=== PATIENT | male | born 1960 | race African-American/Black ===

== ENCOUNTER 2023-01-03 14:44 | Outpatient (AMB) | payer OTHER, SELFPAY ==
--- NOTE | 2023-01-03 15:08 | HO.SPINEOV ---
Intake Intake Visit Reasons: cervical radiculopathy Intake Note: Mr. Hernandez is here today c/o neck pain. MRI done @ [facility] 2021. Studio Associate Required: No Allergies No Known Allergies [No Known Allergies*] Allergy (Unverified 02/12/20 18:59) Assessment & Plan Assessment & Plan (1) Cervical radiculopathy due to degenerative joint disease of spine: Code(s): M47.22 - Other spondylosis with radiculopathy, cervical region Plan Dear colleague, On 01/03/2023, I saw for a return visit your patient Papo Hernandez for right arm pain and progressive right hand weakness. He was last seen at my previous practice at [facility] on 06/08/2022. I refer for detailed history physical exam and radiological description note of JYOTSNA Sun. In summary, he suffer from chronic progressive right arm pain and weakness. Physical exam shows weakness of the interossei the hand finger extensors with atrophy. We offered him a C7-T1 anterior diskectomy and fusion to decompress the right C8 nerve root. Today comes back in the office stating at the symptoms of further progressed and that he is ready for the surgery. I discussed the procedure, complications and expected postoperative course. He is aware that the goal of surgery is to resolve the pain and stabilize his weakness. He is tentatively scheduled for 02/22/2023. I spent 20 minutes to reviewed images with the patient and to discuss the plan of care. Antoine Scott MD, PhD Spine Fellowship Trained Neurosurgeon Director, [facility] Coding Level of Care Code Est Pt Level 3 (86520) Diagnoses Cervical radiculopathy due to degenerative joint disease of spine M47.22
== END 2023-01-03 15:43 | disposition home or self-care (01) ==
PROVIDERS: PCP Internal Medicine; Visit Provider Neurological Surgery
DX: M47.22 Other spondylosis with radiculopathy, cervical region (principal)
CPT/HCPCS: 99213

== ENCOUNTER → 2023-01-03 14:44 | Outpatient (BNVA) | payer OTHER, SELFPAY | PROVIDERS: PCP Internal Medicine; Visit Provider Neurological Surgery | DX: M47.22 Other spondylosis with radiculopathy, cervical region (principal) | CPT/HCPCS: 99212 ==

== ENCOUNTER 2023-02-22 09:19 | Day surgery (SDC) | payer OTHER, SELFPAY ==
--- NOTE | 2023-02-08 | ECG_ITS ---
Test Reason : preop Blood Pressure : / mmHG Vent. Rate : 059 BPM Atrial Rate : 059 BPM P-R Int : 148 ms QRS Dur : 080 ms QT Int : 394 ms P-R-T Axes : 067 022 022 degrees QTc Int : 390 ms Sinus bradycardia Nonspecific T wave abnormality Abnormal ECG When compared with ECG of 21-JUN-2015 15:47, Nonspecific T wave abnormality is now Present Referred By: Mili Vazquez Electronically Signed By:JUAN LUIS BARAJAS
[2023-02-08 12:02] VITALS: BP 141/90; PULSE 70; RESP 16; O2SAT 98; BMI 23.9
--- NOTE | 2023-02-08 12:47 | P.CONAN_ITS ---
Documented by User: Mili Vazquez NP 02/13/23 09:11 HPI - Anesthesia Eval Consult details Narrative: 62yo M for C7-T1 Ant Cerv Discectomy w/ fusion BALDEMAR with occ CPAP Chews tobacco QOD No recent illness No CP/SOB with >4 mets Last PCP office visit 12/2022, stable. Minor EKG changes vs artifact reviewed by Dr Valdez. Ok to proceed. PMFSH Active Problems Active Problems: All Active Problems (Updated 02/08/23 @ 12:38 by Anne-Marie Betancourt RN) Cervical radiculopathy due to degenerative joint disease of spine (Acute) Past Medical History Medical History Asthma Tinnitus of right ear Seasonal allergies Erectile dysfunction BALDEMAR (obstructive sleep apnea) Avascular necrosis of bone of hip Leukopenia Elevated LFTs Chewing tobacco use Hypertension Contracture of hand Benign essential tremor Idiopathic peripheral neuropathy Fatty liver Kidney disease GERD (gastroesophageal reflux disease) Cervical spondylosis Cervical radiculopathy Family History Family history of problems with anesthesia: No Surgical History Surgical History Hx of colonoscopy Hx of foot surgery History of total right hip replacement History of surgery on right wrist Hx of foot surgery History of surgery on arm Hx of appendectomy History of Problems with Anesthesia: No Social History Social History (Updated 02/08/23 @ 12:27 by Anne-Marie Betancourt RN) Are you a primary health care recruiter to a significant other at home: No Do you presently have visiting nurse or other home services: No Patient Tobacco Use Status: Never used Tobacco Use of substances other than those prescribed or required for medical reasons: No Have you been hit, kicked, punched, or otherwise hurt by someone within the past year? If so, by whom?: No Are you DNR?: No Advance Directives: No Advance Directives Information Provided: Yes Advance Directives on File: No Nutrition Risks: No Nutritional Risk Meds Allergies Allergy/AdvReac Type Severity Reaction Status Date / Time No Known Allergies Allergy Verified 02/22/23 10:21 [No Known Allergies*] Home Medications Medication Instructions Recorded Confirmed Last Taken Type acetaminophen 500 mg tablet 500 mg PO Q6-8H PRN Pain 02/07/23 02/08/23 Unknown History albuterol sulfate 90 mcg/actuation 2 puff inhalation Q4-6H PRN 02/07/23 02/08/23 Unknown History aerosol inhaler Shortness Of Breath Or Wheezing amlodipine 5 mg tablet 5 mg PO DAILY 02/07/23 02/07/23 Unknown History chlorhexidine gluconate 0.12 % PO 02/07/23 Unknown History mouthwash cyclobenzaprine 5 mg tablet 5 mg PO TID PRN Muscle Spasm 02/07/23 02/07/23 Unknown History loratadine 10 mg tablet 10 mg PO DAILY 02/07/23 02/08/23 Unknown History omeprazole 20 mg capsule,delayed 20 mg PO DAILY 02/07/23 02/07/23 Unknown History release peg 400-propylene glycol 0.4 %-0.3 1 drp ophthalmic (eye) DAILY 02/07/23 02/08/23 Unknown History % eye drops (Lubricant Eye (PG-PEG 400)) sildenafil 100 mg tablet PO PRN Sexual Activity 02/07/23 02/07/23 Unknown History cholecalciferol (vitamin D3) 25 25 mcg PO DAILY 02/08/23 02/08/23 Unknown History mcg (1,000 unit) capsule (Vitamin D3) liver extract cap PO 02/08/23 Unknown History phosphatidylcholine 1,200 mg cap PO 02/08/23 02/08/23 Unknown History capsule Exam Exam Date and Time: February 08, 2023 124 Height,Weight and Vital Signs: Height 5 ft 2 in Weight 59.4 kg Last Vital Signs Pulse 70 02/08/23 12:02 Resp 16 02/08/23 12:02 BP 141/90 H 02/08/23 12:02 Pulse Ox 98 02/08/23 12:02 O2 Del Method Room Air 02/08/23 12:02 Pertinent Lab Results Pertinent Lab Results: Lab Results 02/08/23 Range/Units 13:14 WBC 4.5 L (4.8-10.8) X10*3/uL RBC 4.78 (4.60-5.80) X10*6/uL Hgb 14.1 (14.0-18.0) g/dl Hct 41.6 L (42.0-52.0) % MCV 87.0 (80.0-98.0) fL MCH 29.5 (27.0-33.0) pg MCHC 33.9 (31.0-36.0) g/dl RDW 13.4 (11.0-16.0) % Plt Count 274 (160-400) X10*3/uL MPV 9.0 L (9.4-12.4) fL Absolute Nucleated RBC 0.000 (0.0-0.012) X10*3/uL Nucleated RBC % (auto) 0.0 (0.0-0.2) /100WBC Sodium 144 (135-145) mmol/L Potassium 4.4 (3.3-5.1) mmol/L Chloride 105 (96-108) mmol/L Carbon Dioxide 27 (22-29) mmol/L Anion Gap 16 (12-20) BUN 6 L (9-16) mg/dL Creatinine 1.07 (0.5-1.4) mg/dL Estim Creat Clear Calc 55.2 Estimated GFR > 60 Random Glucose 80 (60-115) mg/dL Calcium 9.6 (8.4-10.2) mg/dL Narrative Narrative: EKG 01/2023 Vent. Rate : 059 BPM Atrial Rate : 059 BPM P-R Int : 148 ms QRS Dur : 080 ms QT Int : 394 ms P-R-T Axes : 067 022 022 degrees QTc Int : 390 ms Sinus bradycardia Nonspecific T wave abnormality Abnormal ECG When compared with ECG of 21-JUN-2015 15:47, Nonspecific T wave abnormality is now Present Airway Mallampati Class: II TM Dist: >3cm Neck ROM: Full Partial: Lower Loose/Missing/Broken Teeth: Yes (Upper left molar broken and awaiting crown, Right lower mild loose) Heart: RRR Lungs: CTAB Assessment and Plan Assessment Anesthesia Assessment: Anesthesia Plan Discussed, Smoking Cess. Discussed (Chew) and PAT Visit Final Anesthetic Review Family History of Problems with Anesthesia: No History of Problems with Anesthesia: No Documented by User: Ruslan Malave MD 02/22/23 11:50 [facility] Past Medical History Medical History Asthma Tinnitus of right ear Seasonal allergies Erectile dysfunction BALDEMAR (obstructive sleep apnea) Avascular necrosis of bone of hip Leukopenia Elevated LFTs Chewing tobacco use Hypertension Contracture of hand Benign essential tremor Idiopathic peripheral neuropathy Fatty liver Kidney disease GERD (gastroesophageal reflux disease) Cervical spondylosis Cervical radiculopathy Surgical History Surgical History Hx of colonoscopy Hx of foot surgery History of total right hip replacement History of surgery on right wrist Hx of foot surgery History of surgery on arm Hx of appendectomy Social History Social History (Updated 02/08/23 @ 12:27 by Anne-Marie Betancourt RN) Are you a primary health care recruiter to a significant other at home: No Do you presently have visiting nurse or other home services: No Patient Tobacco Use Status: Never used Tobacco Use of substances other than those prescribed or required for medical reasons: No Have you been hit, kicked, punched, or otherwise hurt by someone within the past year? If so, by whom?: No Are you DNR?: No Advance Directives: No Advance Directives Information Provided: Yes Advance Directives on File: No Nutrition Risks: No Nutritional Risk Meds Allergies Allergy/AdvReac Type Severity Reaction Status Date / Time No Known Allergies Allergy Verified 02/22/23 10:21 [No Known Allergies*] Home Medications Medication Instructions Recorded Confirmed Last Taken Type acetaminophen 500 mg tablet 500 mg PO Q6-8H PRN Pain 02/07/23 02/08/23 Unknown History albuterol sulfate 90 mcg/actuation 2 puff inhalation Q4-6H PRN 02/07/23 02/08/23 Unknown History aerosol inhaler Shortness Of Breath Or Wheezing amlodipine 5 mg tablet 5 mg PO DAILY 02/07/23 02/07/23 Unknown History chlorhexidine gluconate 0.12 % PO 02/07/23 Unknown History mouthwash cyclobenzaprine 5 mg tablet 5 mg PO TID PRN Muscle Spasm 02/07/23 02/07/23 Unknown History loratadine 10 mg tablet 10 mg PO DAILY 02/07/23 02/08/23 Unknown History omeprazole 20 mg capsule,delayed 20 mg PO DAILY 02/07/23 02/07/23 Unknown History release peg 400-propylene glycol 0.4 %-0.3 1 p ophthalmic (eye) DAILY 02/07/23 02/08/23 Unknown History % eye drops (Lubricant Eye (PG-PEG 400)) sildenafil 100 mg tablet PO PRN Sexual Activity 02/07/23 02/07/23 Unknown History cholecalciferol (vitamin D3) 25 25 mcg PO DAILY 02/08/23 02/08/23 Unknown History mcg (1,000 unit) capsule (Vitamin D3) liver extract cap PO 02/08/23 Unknown History phosphatidylcholine 1,200 mg cap PO 02/08/23 02/08/23 Unknown History capsule Assessment and Plan Final Anesthetic Review ASA Class: II Final Preanesthetic Review: No Changes in Pt Med Stat, Meds/Allgs Chart Reviewed, Consent Obtained/Reviewed and Anes Risks/Benef Reviewed Patient Risk: Intermediate Procedure Risk: Intermediate Anesthetic Plan Anesthetic Plan: GA and Agree w/ Assess. and Plan Disposition: Standard PACU
[2023-02-08 13:32] LABS: Hematocrit 41.6 % (42.0-52.0); Hemoglobin 14.1 g/dl (14.0-18.0); Mean Corpuscular HGB Conc 33.9 g/dl (31.0-36.0); Mean Corpuscular Hemoglobin 29.5 pg (27.0-33.0); Platelet Count 274 X10*3/uL (160-400); Red Blood Count 4.78 X10*6/uL (4.60-5.80); Red Cell Distribution Width 13.4 % (11.0-16.0); White Blood Count 4.5 X10*3/uL (4.8-10.8)
[2023-02-08 14:03] LABS: Anion Gap 16 (12-20); Blood Urea Nitrogen 6 mg/dL (9-16); Calcium 9.6 mg/dL (8.4-10.2); Carbon Dioxide 27 mmol/L (22-29); Chloride 105 mmol/L (96-108); Creatinine Clr Calc Pharmacy 55.2; Estimated Glomerular Filt Rate > 60; Glucose Random 80 mg/dL (60-115); Potassium 4.4 mmol/L (3.3-5.1); Sodium 144 mmol/L (135-145)
[2023-02-22] VITALS (8 sets, daily range): BP systolic 138–152; BP diastolic 83–94; PULSE 86–92; RESP 15–20; TEMP 36.6–37; O2SAT 97–100
--- NOTE | ~2023-02-22 | FL_ITS ---
EXAMINATION: XR FLUOROSCOPY WITH IMAGES CLINICAL INFORMATION: Anterior cervical disc with fusion C7-T1. COMPARISON: None available. TECHNIQUE: Fluoroscopy Supervised By: Dr. Antoine Soctt. Fluoroscopy Time: 0.0 minutes. Cumulative Dose: 2.46 mGy. DAP: 0.455 Gycm2. Images: 2. FINDINGS: Fluoroscopy guidance for ACDF at C7-T1. Multilevel degenerative spondylosis from C2-C3 to see C6-C7. Disc space narrowing at C6-C7. Loss of vertebral body height from C3 to C6. FL/FL guidance in OR IMPRESSION: Fluoroscopy guidance for ACDF at C7-T1.
--- NOTE | 2023-02-22 07:04 | MHC.SHP ---
Pre-Procedural Eval Section A Date of Service: 02/22/23 Section B Chief Complaint: Other spondylosis with radiculopathy, cervical reg Allergies: Allergies Allergy/AdvReac Type Severity Reaction Status Date / Time No Known Allergies Allergy Verified 02/08/23 11:57 [No Known Allergies*] Review of Systems Sugical H&P ROS: Negative: Constitution, Cardiovascular, Respiratory, Neurological, Psychiatric, Hem-Onc, Allergic/Immunologic, Gastrointestinal, Genitourinary, Musculoskeletal, Integumentary, Endocrine and Eyes/Ears/Nose/Throat Exam Surgical H&P Exam: Not Evaluated: HEENT, Not Evaluated: Heart, Not Evaluated: Lungs, Not Evaluated: Extremities, Not Evaluated: Abdomen, Not Evaluated: Skin and Not Evaluated: Neurological Plan Diagnosis/Plan: Unchanged I have reviewed the history and physical and performed a pertinent physical examination on my patient. No changes have occurred unless specified. PLAN REMAINS THE SAME C7-T1 ACDF Time Spent With Patient Time: Total time managing care of this patient today __10__ minutes.
[2023-02-22] MEDS: methocarbamoL 750 MG TABLET PO (10:34)
[2023-02-22] MEDS: Gabapentin 300 MG CAPSULE PO (10:35)
[2023-02-22] MEDS: Lactated Ringers 1,000 ML 100 ML IVCONT (10:54)
--- NOTE | 2023-02-22 15:24 | W.PM.OPN ---
Operative Note Operative Note Date of Service: 02/22/23 Narrative: templated this idea if
--- NOTE | 2023-02-22 15:26 | W.PM.OPN ---
Operative Note Operative Note Date of Service: 02/22/23 Narrative: Preoperative Diagnosis: Bilateral hand weakness and atrophy, right more than left Procedure: [id number] discectomy, arthrodesis and implantation cage ; C7-T1 anterior instrumentation ; local autograft; microscope Informed Consent was obtained for this operation. I have explained the nature, purpose and benefits of the operation. I have discussed the risks and benefit of the operation including possible complications or adverse events with patient/family. Alternative(s) were discussed with the patient with their relative benefits and risks as well as the consequences of not accepting the operation were included in obtaining consent. Surgeon: DOYLE SANTA MD, PHD Procedure Assisted By: [] Description of Procedure: This 62-year-old male is suffering from bilateral hand weakness and atrophy, with the right side more affected than the left side. The MRI shows multilevel degenerative cervical disc disease but more importantly there is severe bilateral C8 foraminal stenosis. He was offered an anterior diskectomy and fusion of the C7-T1 level to decompress the bilateral C8 nerve roots. The procedure complications were explained. The patient was consented. The patient was brought to the operating room and endotracheally intubated. The patient was put in supine position with slight extension of the neck. Prep and drape was done followed by timeout. A mid cervical incision was made followed by opening of the platysma. The prevertebral fascia was reached following the natural planes while the physician assistant construction superintendent provided manual retraction. The prevertebral fascia was opened to expose the disc space. A spinal needle was placed in the disk space to confirm the correct level with xray. The longus colli muscles were released bilaterally and a self retaining retractor was inserted. Two Gadsden pins were placed in the C7-T1 vertebral bodies and distraction was give over the interspace. The discectomy was completed toward the posterior annulus of the disc. The microscope was brought in. The remainder of the discectomy was completed. The posterior ligament was opened and resected to expose the underlying dura. Osteophytes were resected from the body of C7 and T1 and saved for autograft. Severe foraminal stenosis was relieved with a bilateral foraminotomy The endplates were prepared after which a 6 mm cage filled with autograft was inserted into the disc space. A separate attached plate was locked down with 2 x 14 mm screws as anterior instrumentation. Final x-rays in AP and lateral projection showed a satisfactory position of the implant. The physician assistant construction superintendent took over. The Gadsden pin was removed. Hemostasis was done. He closed the incision in 2 layers with a 3-0 Vicryl. Steri-Strips used to approximate incision. An OpSite with Tegaderm was used to cover the incision. All sponge and needle counts were correct. Patient was extubated and transported in stable is to recovery room. Anesthesia: General Estimated Blood Loss (ml): 20 mL Duration of Surgery: 2 hours Postoperative Plan: Discharge home Complications: None
--- NOTE | 2023-02-22 15:32 | P.DS_ITS ---
DS: Providers Provider Date of Service: 02/22/23 Primary care physician: Yany Garcia MD DS: Summary Time Spent with Patient Time attestation: Total time managing care of this patient today ____ minutes. Discharge coordination time: Less than 30 minutes Quality: Safe Use of Opioids Does Pt have an Active Cancer Diagnosis on the Problem List?: No Quality: Stroke Does the patient have a stroke diagnosis?: No Physical Exam Vital Signs: Vital Signs: Last Vital Signs Temp 98.6 F 02/22/23 10:21 Pulse 89 02/22/23 10:21 Resp 15 02/22/23 10:21 BP 144/88 H 02/22/23 10:21 Pulse Ox 97 02/22/23 10:21 O2 Del Method Room Air 02/22/23 10:21 BMI result Body Mass Index 23.9 DS: Data Data Completed and Pending Labs on day of discharge: Laboratory Results - last 24 hr 02/22/23 10:27 Blood Type O Positive Antibody Screen NEGATIVE Discharge Plan Discharge Patient Disposition: Home, Self-Care Referrals: Yany Garcia MD [Primary Care Provider] - 1 Week Discharge Medications: New oxycodone 5 mg tablet 5 mg PO Q6-8H PRN (Reason: severe pain (scale score 7-10)) Qty: 21 0RF Rx Instructions: Partial Fill upon patient request. docusate sodium 100 mg capsule 100 mg PO BID Qty: 20 0RF Continued amlodipine 5 mg tablet 5 mg PO DAILY acetaminophen 500 mg tablet 500 mg PO Q6-8H PRN (Reason: Pain) omeprazole 20 mg capsule,delayed release(DR/EC) 20 mg PO DAILY albuterol sulfate 90 mcg/actuation HFA aerosol inhaler 2 puff inhalation Q4-6H PRN (Reason: Shortness Of Breath Or Wheezing) loratadine 10 mg tablet 10 mg PO DAILY cyclobenzaprine 5 mg tablet 5 mg PO TID PRN (Reason: Muscle Spasm) Lubricant Eye (PG-PEG 400) 0.4-0.3 % drops 1 drp ophthalmic (eye) DAILY chlorhexidine gluconate 0.12 % mouthwash PO cholecalciferol (vitamin D3) [Vitamin D3] 25 mcg (1,000 unit) Capsule 25 mcg PO DAILY Held sildenafil 100 mg tablet PO PRN (Reason: Sexual Activity) Hold Instructions: Resume on 02/25/23. Discontinued phosphatidylcholine 1,200 mg Capsule PO liver extract Capsule PO Discharge Orders: Discharge Order (Routine); Ordered 02/22/23 Ordered By: Omar Anthony Diet: Advance to usual diet Activity on Discharge: As tolerated Activity Restrictions/Additional Instructions: After your spinal surgery we ask you to observe the following restrictions/guidelines: Activity: It is normal to feel some discomfort as you increase your activity, but that will improve with time. We ask you avoid heavy lifting or acitivities that cause pain. As a general rule, 8lbs is a safe limit for lifting right after surgery. Walk as much as you feel comfortable but not to exhaustion. You will feel extra tired the first few days after surgery. Stay well hydrated. It is OK to walk up and down stairs You may return to driving when you are off narcotics (such as vicodin, oxycodone , dilaudid, etc), and you are back to normal functional capacity. If you have any concerns please check with office before driving. Return to work is specific to each patient and each surgery, so please speak with your doctor/PA at first follow up. Please bring paperwork such as FMLA at that time if you need it filled out. Medications: We will give you a short supply of narcotics after surgery (usually one weeks worth). If you need more please call the office but do not use more than prescribed. You will need to give our office 48 hours notice if you need narcotics refilled and we do not fill narcotics on weekends or evenings. If you are on a narcotic, it is a good idea to take a stool softener such as colace or senna to avoid constipation If you take blood thinner such as aspirin, Plavix, Coumadin, Effient, Eliquis etc for conditions such as Afib, DVT, Pulmonary embolus, coronary disease, stents etc please speak with your surgeon about specific details as to when you can resume these medications. You can resume NSAIDs on post op day 1 (eg: Motrin, Naproxen, etc). Follow up: Please call the office, , after surgery to arrange a 3 week follow up for wound check. Wound Care: You may remove your dressing on the first day after surgery. ?You may ?leave open to air. Please do not remove the steri strips underneath. they will fall off on their own in one week. IT IS NORMAL FOR THE WOUND TO OOZE OR BE BLOODY FOR A FEW DAYS AFTER SURGERY. ?IF THIS HAPPENS JUST PLACE NEW DRESSING OVER IT TO AVOID STAINING CLOTHES. You may shower on post op day # 1 We ask that you do not let the water soak the wound. If it does get wet, just towel dry lightly. Please do not scrub your incision or place any type of chemical/ointment on the wound. No tub baths, pools or jacuzzis for one month. If you have any leaking or redness from your wound, or fevers, please call the office.
== END 2023-02-22 17:20 | disposition home or self-care (01) ==
PROVIDERS: Nurse Practitioner; PCP Internal Medicine; Visit Provider Neurological Surgery
PROC: (CPT 22551; principal; 2023-02-22 11:50)
DX: M47.22 Other spondylosis with radiculopathy, cervical region (principal); R53.1 Weakness; M62.542 Muscle wasting and atrophy, not elsewhere classified, left hand; M62.541 Muscle wasting and atrophy, not elsewhere classified, right hand; M24.549 Contracture, unspecified hand; M87.059 Idiopathic aseptic necrosis of unspecified femur; I12.9 Hypertensive chronic kidney disease with stage 1 through stage 4 chronic kidney disease, or unspecified chronic kidney disease; N18.2 Chronic kidney disease, stage 2 (mild); G60.9 Hereditary and idiopathic neuropathy, unspecified; G25.0 Essential tremor; K76.0 Fatty (change of) liver, not elsewhere classified; G47.33 Obstructive sleep apnea (adult) (pediatric); J30.9 Allergic rhinitis, unspecified; F10.90 Alcohol use, unspecified, uncomplicated; Z99.89 Dependence on other enabling machines and devices; Z79.899 Other long term (current) drug therapy; Z98.890 Other specified postprocedural states
CPT/HCPCS: 22551; 22853; 20936; 22845; 36415; 80048; 85027; 86850; 86900; 86901; 93005; C1713; J0131; J0690; J1100; J1885; J2371; J2405

== ENCOUNTER → 2023-02-22 09:19 | Outpatient (BNV) | payer OTHER, SELFPAY | PROVIDERS: PCP Internal Medicine; Visit Provider Neurological Surgery | DX: M47.22 Other spondylosis with radiculopathy, cervical region (principal) | CPT/HCPCS: 20936; 22551; 22845; 22853; 99499 ==

== ENCOUNTER 2023-03-14 09:11 | Outpatient (REF) | payer OTHER, SELFPAY | END 2023-03-14 09:12 | disposition home or self-care (01) | LOC: HO.HOSX 09:11 | PROVIDERS: PCP Internal Medicine; Visit Provider Physician Assistant | DX: Z13.89 Encounter for screening for other disorder (principal) ==

== ENCOUNTER 2023-03-14 09:11 | Outpatient (AMB) | payer OTHER, SELFPAY ==
--- NOTE | 2023-03-14 09:13 | MHC.OFFVIS ---
Intake Intake Visit Reasons: 1st post op Intake Note: Pt here for his 1st post op Harness Rigger Required: No Allergies No Known Allergies [No Known Allergies*] Allergy (Verified 02/22/23 10:21) [facility] Medical History Asthma Tinnitus of right ear Seasonal allergies Erectile dysfunction BALDEMAR (obstructive sleep apnea) Avascular necrosis of bone of hip Leukopenia Elevated LFTs Chewing tobacco use Hypertension Contracture of hand Benign essential tremor Idiopathic peripheral neuropathy Fatty liver Kidney disease GERD (gastroesophageal reflux disease) Cervical spondylosis Cervical radiculopathy Surgical History (Updated 03/14/23 @ 09:31 by JYOTSNA Montalvo) Hx of colonoscopy Hx of foot surgery History of total right hip replacement History of surgery on right wrist Hx of foot surgery History of surgery on arm Hx of appendectomy Social History (Updated 02/08/23 @ 12:27 by Anne-Marie Betancourt RN) Are you a primary adult care manager to a significant other at home: No Do you presently have visiting nurse or other home services: No Patient Tobacco Use Status: Never used Tobacco Assessment & Plan Assessment & Plan (1) S/P cervical spinal fusion: Code(s): Z98.1 - Arthrodesis status Plan Procedure: C7-T1 ACDF Papo comes in today for her 1st postoperative visit. He reports he is very satisfied with the surgery and feels much better than he did pre-operatively. The patient reports he is completing the majority of his ADLs. He reports that he no longer suffers from his left-sided shooting radiculopathy. He also reports modest improvement of R hand strength. He reports no R sided pain, but does state that he has some intermittent left sided posterior neck pain. He was encouraged that this will likely self resolve and is a common symptom for this surgery. We further discussed the ACDF procedure and what exactly was done during the surgery. Full strength of LUE, RUE still 4/5. Mobility is intact. Sensation grossly intact. Patient is able to ambulate well, rises from a seated position without difficulty. Incision site is closed, well healing, with no signs of drainage. We will follow-up with the patient in 6 weeks for his 2nd postoperative visit. At that time we will get x-rays to review with the patient. Omar Scott MD,PhD [facility] Coding Level of Care Code Global (32888) Diagnoses S/P cervical spinal fusion Z98.1
== END 2023-03-14 09:26 | disposition home or self-care (01) ==
PROVIDERS: PCP Internal Medicine; Visit Provider Physician Assistant
DX: Z98.1 Arthrodesis status (principal)
CPT/HCPCS: 99024

== ENCOUNTER 2023-04-25 10:21 | Outpatient (AMB) | payer OTHER, SELFPAY ==
--- NOTE | 2023-04-25 10:40 | A.OFFVIS_ITS ---
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: No Allergies No Known Allergies [No Known Allergies*] Allergy (Verified 02/22/23 10:21) PFSH Medical History Asthma Tinnitus of right ear Seasonal allergies Erectile dysfunction BALDEMAR (obstructive sleep apnea) Avascular necrosis of bone of hip Leukopenia Elevated LFTs Chewing tobacco use Hypertension Contracture of hand Benign essential tremor Idiopathic peripheral neuropathy Fatty liver Kidney disease GERD (gastroesophageal reflux disease) Cervical spondylosis Cervical radiculopathy Surgical History (Updated 03/14/23 @ 09:31 by JYOTSNA Montalvo) Hx of colonoscopy Hx of foot surgery History of total right hip replacement History of surgery on right wrist Hx of foot surgery History of surgery on arm Hx of appendectomy Social History (Updated 02/08/23 @ 12:27 by Anne-Marie Betancourt RN) Are you a primary healthcare customer service to a significant other at home: No Do you presently have visiting nurse or other home services: No Patient Tobacco Use Status: Never used Tobacco Assessment & Plan Assessment & Plan (1) S/P cervical spinal fusion: Code(s): Z98.1 - Arthrodesis status Plan Procedure: C7-T1 ACDF Papo comes in today for his 2nd postoperative visit. He continues to do well and reports resolution of all radicular symptoms. He does still complain of some discomfort in his posterior neck but states overall it is much better than last time that he saw us. He states that his primary care physician is going to be referring him to a hand specialist for the contractured is in his hand. He reports that he still has decreased functionality of his right hand but he believes this to be due to a muscular issue. We reviewed his x-rays and compared them to his intraoperative x-rays. Instrumentation remains in place with no changes. No neurological deficits. Patient is able to ambulate well, rises from a seated position without difficulty. Incision site is closed and well healed. Papo may follow-up on an as-needed basis going forward. He may be discharged as a patient at this time. Omar Scott MD,PhD [facility] Coding Level of Care Code Global (92133) Diagnoses S/P cervical spinal fusion Z98.1
== END 2023-04-25 11:21 | disposition home or self-care (01) ==
PROVIDERS: PCP Internal Medicine; Visit Provider Physician Assistant
DX: Z98.1 Arthrodesis status (principal)
CPT/HCPCS: 99024

== ENCOUNTER → 2023-04-25 10:21 | Outpatient (BNVA) | payer OTHER, SELFPAY | PROVIDERS: PCP Internal Medicine; Visit Provider Physician Assistant ==

== ENCOUNTER 2023-04-25 10:26 | Outpatient (REF) | payer OTHER, SELFPAY ==
--- NOTE | ~2023-04-25 | XR_ITS ---
EXAMINATION: XR CERVICAL SPINE CLINICAL INFORMATION: Arthrodesis. COMPARISON: None available. TECHNIQUE: AP and lateral (neutral, flexion and extension) views of the cervical spine were obtained. FINDINGS: There is a moderate cervical thoracic levoscoliosis. There is are mild C3 and C5 anterior wedge compression fractures. There has been a prior anterior fusion C7-T1, with intact Low Profile device. No hardware failure or loosening is seen. There is no acute fracture or spondylolisthesis. No instability is seen with flexion or extension. There is multi-level spondylosis. The dens is intact. No prevertebral soft tissue swelling is seen. XR/XR cervical spine 4V IMPRESSION: There is well-maintained alignment status-post C7-T1 anterior fusion. No hardware failure or loosening is seen. There is no instability with flexion or extension.
== END 2023-04-25 10:27 | disposition home or self-care (01) ==
LOC: HO.HOSX 10:26
PROVIDERS: Visit Provider Physician Assistant
DX: Z98.1 Arthrodesis status (principal)
CPT/HCPCS: 72050

== ENCOUNTER 2024-01-07 08:26 | Outpatient (REF) | payer OTHER, SELFPAY ==
--- NOTE | ~2024-01-07 | XR_ITS ---
EXAMINATION: XR PELVIS CLINICAL INFORMATION: Pain. COMPARISON: Prior radiographs, most recently 07/02/2018 TECHNIQUE: AP view of the pelvis. FINDINGS: Prosthetic components of the right total hip arthroplasty are appropriately aligned. No periprosthetic fracture. The left acetabular joint space is well-maintained, and the left femoral head is smooth. The pubic symphysis is intact. There are multiple pelvic phleboliths. There are extensive bilateral iliofemoral atherosclerotic calcifications. XR/XR pelvis 1-2V IMPRESSION: 1. There is an intact right hip total arthroplasty. 2. The left acetabular joint space is well-maintained. Electronically signed by: Marcos Salter MD 02/05/2024 08:19 PM EDT RP
== END 2024-01-07 08:27 | disposition home or self-care (01) ==
LOC: HO.HOSX 08:26
PROVIDERS: Visit Provider Orthopaedic Surgery
DX: M25.551 Pain in right hip (principal); Z96.641 Presence of right artificial hip joint
CPT/HCPCS: 72170; 99202

== ENCOUNTER 2024-01-07 11:12 | Outpatient (AMB) | payer OTHER, SELFPAY ==
--- NOTE | 2024-01-07 11:20 | MHC.OFFVIS ---
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 Patient reports that he has had ongoing right hip pain for about 3-4 months now. Pain is felt in the lateral aspect of the right hip. He feels pain all the time, worse with walking. He does not take anything for his pain. 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 Patient reports that he has had ongoing right hip pain for about 3-4 months now. Pain is felt in the lateral aspect of the right hip. He feels pain all the time, worse with walking. He does not take anything for his pain. Has not previous treatments. [facility] Medical History Asthma Tinnitus of right ear Seasonal allergies Erectile dysfunction BALDEMAR (obstructive sleep apnea) Avascular necrosis of bone of hip Leukopenia Elevated LFTs Chewing tobacco use Hypertension Contracture of hand Benign essential tremor Idiopathic peripheral neuropathy Fatty liver Kidney disease GERD (gastroesophageal reflux disease) Cervical spondylosis Cervical radiculopathy Surgical History (Updated 01/07/24 @ 12:34 by Wm Pichardo MD) Hx of colonoscopy Hx of foot surgery History of total right hip replacement History of surgery on right wrist Hx of foot surgery History of surgery on arm Hx of appendectomy Social History (Updated 02/08/23 @ 12:27 by Anne-Marie Betancourt RN) Are you a primary direct care professional to a significant other at home: No Do you presently have visiting nurse or other home services: No Patient Tobacco Use Status: Never used Tobacco Physical Exam Vital Signs: BMI result Body Mass Index 23.0 Extrem Other: moderate Trendelenberg gait with negative Trendelenberg sign. No groin pain with passive ROM right hip. Results Reviewed Results Reviewed: I personally reviewed relevant radiographs. Right FRANCESCO in expected post operative position with no hardware complications or evidence of loosening. No change compared to prior. Assessment & Plan Assessment & Plan (1) History of total right hip replacement: Code(s): Z96.641 - Presence of right artificial hip joint Category: Surgical Plan: Right hip arthroplasty in expected post operative position, no evidence of loosening. Instructed on strengthening exercises. No additional orthopedic intervention warranted. Orders: Orders XR pelvis 1-2V Today M25.559 - Pain in unspecified hip Coding Level of Care Code New Pt Level 3 (58725) Diagnoses History of total right hip replacement Z96.641
[2024-01-07 11:24] VITALS: BMI 23.0
== END 2024-01-07 11:43 | disposition home or self-care (01) ==
PROVIDERS: PCP Internal Medicine; Visit Provider Orthopaedic Surgery
DX: M25.551 Pain in right hip (principal); Z96.641 Presence of right artificial hip joint
CPT/HCPCS: 99203

== ENCOUNTER 2024-03-31 10:32 | Outpatient (AMB) | payer OTHER, SELFPAY ==
[2024-03-31 10:37] VITALS: BP 138/82; PULSE 76; O2SAT 99; BMI 23.6
--- NOTE | 2024-03-31 10:37 | A.OFFVIS_ITS ---
Vital Signs 03/31/24 10:37 Height 5 ft 2 in Weight 128 lb 15.527 oz BMI 23.6 BP 138/82 Blood Pressure Location Rt brachial Position Sitting Pulse 76 Pulse Source Doppler Pulse Oximetry (%) 99 Oxygen Delivery Method Room Air Intake Visit Reasons: Obstructive sleep apnea Allergies No Known Allergies [No Known Allergies*] Allergy (Verified 03/31/24 10:42) HPI HPI Obstructive sleep apnea: Details: 63-year-old gentleman nonsmoker with underlying history of [id number] obstructive sleep apnea with last sleep study in 2014, now with a broken CPAP machine who is interested in continuing his CPAP therapy. Patient is also complain of year around environmental allergies with significant postnasal drip with poor response to loratadine. [facility] Medical History (Updated 03/31/24 @ 10:53 by Catracho Jo MD) Asthma Tinnitus of right ear Seasonal allergies Erectile dysfunction BALDEMAR (obstructive sleep apnea) Avascular necrosis of bone of hip Leukopenia Elevated LFTs Chewing tobacco use Hypertension Contracture of hand Benign essential tremor Idiopathic peripheral neuropathy Fatty liver Kidney disease GERD (gastroesophageal reflux disease) Cervical spondylosis Cervical radiculopathy Surgical History (Updated 01/07/24 @ 12:34 by Wm Pichardo MD) Hx of colonoscopy Hx of foot surgery History of total right hip replacement History of surgery on right wrist Hx of foot surgery History of surgery on arm Hx of appendectomy Social History Are you a primary critical care unit manager to a significant other at home: No Do you presently have visiting nurse or other home services: No Patient Tobacco Use Status: Never used Tobacco Review of Systems Const Reports daytime sleepiness, Denies excessive sweating, Denies fatigue, Denies fever(s), Reports lethargy, Denies malaise, Denies night sweats, Denies snoring and Denies weight loss Eyes Denies blurry vision and Denies itchy eyes ENT Reports nasal congestion, Reports post nasal drip, Denies sinus pain, Denies sinus pressure and Denies other ( Thrush) Card Denies chest pain, Denies pedal edema, Denies dyspnea, Denies orthopnea and Denies paroxysmal nocturnal dyspnea Resp Denies cough, Denies hemoptysis, Denies excessive phlegm production, Denies dyspnea, Denies snoring and Denies wheezing GI Denies abdominal pain and Denies heartburn Musc Denies myalgias, Denies arthralgias and Denies joint swelling Skin/Breast Denies rash Neuro Denies memory loss and Denies seizure-like activity Psych Denies abnormal sleep pattern, Denies anxiety and Denies memory loss Endo Denies excessive sweating, Denies fatigue and Denies heat intolerance Akira/Lymph Denies easy bruising Aller/Immun Denies itchy eyes, Denies seasonal rhinorrhea and Denies wheezing Physical Exam Vital Signs: Last Vital Signs Pulse 76 03/31/24 10:37 BP 138/82 03/31/24 10:37 Pulse Ox 99 03/31/24 10:37 Oxygen Delivery Method Room Air 03/31/24 10:37 BMI result Body Mass Index 23.6 Const General: no acute distress and alert Nutritional Appearance: not obese Orientation/consciousness: Other orientation findings ( oriented) HEENT Head: Yes atraumatic Eyes General: appearance normal, both eyes and all related structures Sclerae: sclerae normal EOM: EOMs intact bilaterally Neck Neck: Yes supple Lymphatic: no lymphadenopathy noted Resp Effort & Inspection: normal respiratory effort and no use of accessory muscles Auscultation: clear to auscultation bilaterally Cardio Rate: regular rate Rhythm: regular rhythm Heart sounds: no gallops, no murmurs and no rubs Skin General skin exam: other ( warm) Extrem General: No clubbing, No cyanosis and No edema Assessment & Plan Assessment & Plan (1) BALDEMAR (obstructive sleep apnea): Code(s): G47.33 - Obstructive sleep apnea (adult) (pediatric) Category: Medical Plan: Underlying obstructive sleep apnea with remote sleep study and also needs new machine. Will obtain new home sleep study. Muir Sleepiness Scale score of 15. (2) Environmental allergies: Code(s): Z91.09 - Other allergy status, other than to drugs and biological substances Category: Medical Plan: Underlying year-round environmental allergies with poor response to loratadine, will start on nasal ipratropium. Orders: Orders RT home sleep study Today G47.33 - Obstructive sleep apnea (adult) (pediatric) Medications: New ipratropium bromide administer into each nostril 2 sprays intranasal TID-QID PRN 15 mL 3RF allergy symptoms Z91.09 - Other allergy status, other than to drugs and biological substances Coding Level of Care Code New Pt Level 4 (85930) Diagnoses BALDEMAR (obstructive sleep apnea) G47.33 Environmental allergies Z91.09
== END 2024-03-31 10:56 | disposition home or self-care (01) ==
LOC: HO.HPS 10:32
PROVIDERS: PCP Internal Medicine; Visit Provider Internal Medicine Pulmonary Disease
DX: G47.33 Obstructive sleep apnea (adult) (pediatric) (principal); Z91.09 Other allergy status, other than to drugs and biological substances
CPT/HCPCS: 99204

== ENCOUNTER → 2024-03-31 10:32 | Outpatient (BNVA) | payer OTHER, SELFPAY | PROVIDERS: PCP Internal Medicine; Visit Provider Internal Medicine Pulmonary Disease | DX: G47.33 Obstructive sleep apnea (adult) (pediatric) (principal); Z91.09 Other allergy status, other than to drugs and biological substances | CPT/HCPCS: 99202 ==

== ENCOUNTER → 2024-05-07 10:45 | Outpatient (REF) | payer OTHER, SELFPAY ==
--- OUTSIDE RECORDS SUMMARY | 2024-05-08 01:03 | XMS_ITS | Continuity of Care Document ---
Author Name [facility] Organization [facility] Care Team Providers Care Fuel Injection Servicer Name Role Phone [facility] Unavailable Unavailable Problems Combined list of problems from Department of Defense and Veterans Affairs facilities. It does not include entries that were removed or entered in error. Problem Status Onset Date Problem Type Date of Resolution Comments Source tingling (paresthesia) Active Condition DoD joint pain, localized in the knee Active Condition [facility] male erectile disorder Active Condition DoD allergic rhinitis due to pollen Active Condition DoD cough Active Condition DoD esophagitis chronic reflux Active Condition DoD chronic granulomatous disease Active Condition DoD calcification of lung Active Condition DoD thoracogenic scoliosis Active Condition DoD nicotine dependence continuous Active Condition [facility] visit for: services physical longterm Active Condition DoD Spectacles Services Fitting Bifocal Except For Aphakia Inactive Condition DoD conjunctivitis chronic allergic Inactive Condition DoD astigmatism Inactive Condition DoD flat foot acquired (pes planus) Active Condition [facility] visit for: single organ system exam eyes Inactive Condition ONE CAPPED MEIBOMIAN GLAND OD. PX EDUCATED. RECOMMEND WARM COMPRESSES. MONITOR PRN. [facility] Physical Examination Inactive Condition [facility] visit for: screening exam sickle-cell disease / trait Inactive Condition 40% HgB S, n o anemia [facility] refractive error - hypermetropia Active Condition [facility] presbyopia Inactive Condition DISP NVO' S. THESE WERE TRIAL FRAMED AND PX APPRECIATED MUCH IMPROVEMENT. MONITOR IN 2-3 YEARS. [facility] astigmatism regular Active Condition DISP DVO'S. THESE WERE TRIAL FRAMED AND PX COULD APPRECIATE MINIMAL IMPROVEMENT. HE WILL WEAR THESE PRN. MONITOR IN 2-3 YEARS. [facility] routine examination Inactive Condition [facility] visit for: ears, nose, and throat exam Inactive Condition [facility] Absent kidney Active Condition Apr Entered By: CLIFF MCKEON Comment: absent R kidney seen on ultrasound 2017 [place] Alcohol abuse Active Condition Jun Entered By: JEANNETTE VALENCIA Comment: diagnosis updated July 25, 2018. [place] Alcohol abuse, unspecified drinking behavior (ICD-9-CM 305.00) Active Condition [facility] Alcohol Dependence * (ICD-9-CM 303.90/303.91) Active Condition [facility] Alcoholic liver damage Active Condition Jan 03, 2021 Entered By: CLIFF MCKEON Comment: abdominal ultrasound 06/16/2020 scanned into [facility] Allergic rhinitis * (ICD-9-CM 477.9) Active Condition [facility] Anemia (SCT [id number]) Active Condition [place] Avascular necrosis of bone Active Condition [place] Benign essential hypertension Active Condition [place] CAT scan normal Active Condition Dec 01, 2016 Entered By: CLIFF MCKEON Comment: ct abdomen 03/12 scanned into [facility] Chronic granulomatous disease Active Condition Jun 21, 2016 Entered By: CLIFF MCKEON Comment: cat scan chest 01/10 scanned into [facility] Colonoscopy Active Condition Feb 26, 2012 Entered By: JIMMY ANDERSON Comment: Screening colonoscopy 02/20/12 -- NORMAL. Repeat in 2021 [place] Computed tomography result abnormal Active Condition Jan 03, 2021 Entered By: CLIFF MCKEON Comment: abdomen 03/07/2016 scanned into [facility] Demyelinating disease of central nervous system Active Condition Mar 23, 2020 Entered By: CLIFF MCKEON Comment: emg/ncs and neurology noted from 02/18/2020 scanned into [facility] Depressive disorder Active Condition Jul 25, 2018 Entered By: JEANNETTE VALENCIA Comment: diagnosis updated July 25, 2018 [facility] Elevated blood pressure reading without diagnosis of hypertension [facility] Elevated liver enzymes level Active Condition [place] Erectile dysfunction Active Condition [place] Gastroesophageal Reflux Disorder * (ICD-9-CM 530.81) Active Condition [facility] History of right hip replacement Active Condition Jun 20, 2016 Entered By: CLIFF MCKEON Comment: 08/10 [place] JOINT PAIN-L/LEG Active Condition [facility] MRI scan abnormal Active Condition [facility] 2019 Entered By: CLIFF MCKEON Comment: mri 02/10 and 03/16 scanned into [facility] Osteoarthritis * (ICD-9-CM 715.90) Active Condition [facility] Peripheral neuropathy Active Condition Aug 13, 2023 Entered By: PHYLLIS WHALEY Comment: Follows [facility] 2023 Entered By: PHYLLIS WHALEY Comment: There is diffuse axonalEMG 2022: Bilateral lower extremity normal and demyelinating sensorimotor peripheral neuropathy [facility] Personal History of return from Deployment (ICD-9-CM V62.22) Active Condition [facility] Plantar Fasciitis Active Condition 2011 Entered By: JEAN DURAN Comment: R Foot [place] Posttraumatic stress disorder Active Condition Jul 25, 2018 Entered By: JEANNETTE VALENCIA Comment: diagnosis updated July 25, 2018. [facility] Private PCP: Dr Jefferson Han [facility] Simple upper Gastrointestinal Endoscopy Active Condition Apr 07, 2012 Entered By: CLIFF MCKEON Comment: 02/06 dr martinez mild erosions lower eosphagus. neg. [facility] Standard chest X-ray abnormal Active Condition Jan 03, 2021 Entered By: CLIFF MCKEON Comment: 12/14/20 scanned into [facility] Tendon Injuries Active Condition Jan 11, 2012 Entered By: JEAN DURAN Comment: Tear Tendon, R Wrist; Surg Repair early 1999 [place] Urolithiasis Active Condition Jan 03, 2021 Entered By: CLIFF MCKEON Comment: see renal ultrasound 07/09/2020 scanned into [facility] Diagnosis: ICD-10-CM I10 Essential (primary) hypertension Active Diagnosis [place] Diagnosis: ICD-10-CM L60.3 Nail dystrophy Active Diagnosis [facility] Diagnosis: ICD-10-CM K70.9 Alcoholic liver disease, unspecified Active Diagnosis [place] Diagnosis: ICD-10-CM G64 Other disorders of peripheral nervous system Active Diagnosis [place] Diagnosis: ICD-10-CM L60.0 Ingrowing nail Active Diagnosis [facility] Diagnosis: ICD-10-CM Z46.0 Encounter for fit/adjst of spectacles and contact lenses Active Diagnosis [facility] Diagnosis: ICD-10-CM H25.13 Age-related nuclear cataract, bilateral Active Diagnosis [facility] Diagnosis: ICD-10-CM K08.9 Disorder of teeth and supporting structures, unspecified Active Diagnosis [facility] Diagnosis: ICD-10-CM Z13.6 Encounter for screening for cardiovascular disorders Active Diagnosis [facility] Medications Combined list of outpatient medications from Department of Defense and Veterans Affairs facilities.Medications provided include 1) outpatient medications from the last 15 months, and 2) patient-reported medications. Medication Details Route Status Patient Instructions Prescription Expires Prescription Number Last Dispense Date Ordering Provider Order Date Order Qty Source Acetylcyste ine 200mg/mL, Solution, Inhalation INSTILL 1 DROP INTO EACH EYE FOUR TIMES A DAY Discont inyasir 02/27/2024 [id number] BRIAN GRIMLADO 2022 60 [facility] amLODIPine (U/D) 5 MG ORAL TAB TAKE ONE TABLET BY MOUTH ONCE DAILY FOR BLOOD PRESSURE /HEART, DO NOT TAKE WITH GRAPEFRU IT JUICE Active 08/15/2024 [id number] PHYLLIS WHLAEY 2023 90 [facility] AMLODIPINE BESYLATE 5MG TAB TAKE ONE TABLET BY MOUTH ONCE DAILY FOR BLOOD PRESSURE /HEART, DO NOT TAKE WITH GRAPEFRU IT JUICE ORAL ACTIVE 08/15/2024 [id number] Shania WHALEY A 2023 90 [place] Ammonium Lactate (Lac-Hydrin ) Lotion 12% Topical APPLY SMALL AMOUNT TOPICALL Y TWICE DAILY FOR DRY IRRITATE D SKIN Active 07/27/2024 [id number] JOHN LEE F 2023 240 [facility] AMMONIUM LACTATE 12% LOTION APPLY SMALL AMOUNT TOPICALL Y TWICE DAILY FOR DRY IRRITATE D SKIN TOPICA L ACTIVE 07/27/2024 [id number] MIKE LEE F 2023 240 [place] carboxymeth ylcel 0.5% EYE DROP [2 X15ML] INSTILL 1 DROP INTO EACH EYE FOUR TIMES DAILY NEEDED Active 07/24/2024 [id number] BRIAN GRIMALDO 2023 45 [facility] carboxymeth ylcel 0.5% EYE DROP [2 X15ML] INSTILL 1 DROP INTO EACH EYE FOUR TIMES DAILY NEEDED 04/23/2024 [id number] KRISTI GRIMALDOAH B 2023 45 [facility] CARBOXYMETH YLCELLULOSE NA 0.5% SOLN,OPH INSTILL 1 DROP INTO EACH EYE FOUR TIMES DAILY NEEDED OPHTHA LMIC ACTIVE 07/24/2024 [id number] MERHAR,NO AH B 2023 45 [facility] CARBOXYMETH YLCELLULOSE NA 0.5% SOLN,OPH INSTILL 1 DROP INTO EACH EYE FOUR TIMES DAILY NEEDED OPHTHA LMIC DISCONT INUED 04/23/2024 [id number] MERHAR,NO AH B 2022 45 [facility] CHOLECALCIF DIDIER 25MCG (1,000UNIT) TAB TAKE ONE TABLET BY MOUTH ONCE DAILY ORAL ACTIVE AYLA MCKEON 2021 [place] CYCLOBENZAP RINE HCL TAB TAKE 5MG BY MOUTH PRN ORAL ACTIVE AYLA MCKEON 2020 [place] DICLOFENAC NA 1% GEL,TOP APPLY 3-4 GRAMS TOPICALL Y THREE TIMES A DAY FOR OSTEOART HRITIS - USE DOSING CARD PROVIDED IN BOX TOPICA L ACTIVE 06/19/2024 [id number] MAHAMED MEJÍA 2023 100 [place] Diclofenac Sodium 0.01mg/mg, Gel/Jelly, Topical APPLY 3-4 GRAMS TOPICALL Y THREE TIMES A DAYFOR OSTEOART HRITIS - USE DOSING CARD PROVIDED IN BOX Active 06/19/2024 [id number] 4 MAHAMED MEJÍA 2023 100 [facility] DOCUSATE (U/D) 100 MG ORAL CAP TAKE ONE CAPSULE BY MOUTH TWICE DAILYTO SOFTEN STOOL 03/24/2023 [id number] MARISSA ABARCA 2022 20 [facility] DOCUSATE (U/D) 100 MG ORAL CAP TAKE ONE CAPSULE BY MOUTH TWICE DAILYTO SOFTEN STOOL 03/24/2023 [id number] 3 MARISSA ABARCA 2022 20 [facility] DOCUSATE NA 100MG CAP TAKE ONE CAPSULE BY MOUTH TWICE DAILY TO SOFTEN STOOL ORAL 03/24/2023 [id number] DAIANA ABARCA 2022 20 [place] IPRATROPIUM BR 0.06% SOLN,SPRAY, NASAL INSTILL 2 SPRAYS INTO EACH NOSTRIL FOUR TIMES DAILY NEEDED FOR ALLERGIE S NASAL ACTIVE 04/15/2025 [id number] 4 Tom NIELSON 2023 45 [place] OMEPRAZOLE 20MG CAP,EC TAKE 1 CAPSULE BY MOUTH EVERY MORNING 30 MINUTES BEFORE BREAKFAS T ORAL ACTIVE AYLA MCKEON 2021 [place] OTHER CAP/TAB TAKE LIVER ANTIOXID ANT EXTRACT AND PC LIVER BRAIN BENEFITS BY MOUTH ORAL ACTIVE AYLA MCKEON 2021 [place] Oxycodone (Oxy IR Eq.) Tablet 5 mg Oral TAKE ONE TABLET BY MOUTH EVERY 6 TO 8 HOURS NEEDEDFO R SEVERE PAIN (SCALE SCORE 7-10) 03/24/2023 [id number] MARISSA ABARCA 2022 21 [facility] OXYCODONE HCL 5MG TAB TAKE ONE TABLET BY MOUTH EVERY 6 TO 8 HOURS NEEDED FOR SEVERE PAIN (SCALE SCORE 7-10) ORAL 03/24/2023 [id number] 3 DAIANA ABARCA 2022 21 [place] PEG-400 0.4%/PROPYL SHERRI GLYCOL 0.3% SOLN,OPH INSTILL 1 DROP INTO EACH EYE FOUR TIMES A DAY OPHTHA LMIC DISCONT INUED 02/27/2024 [id number] MERNIK,NO AH B 2022 60 [facility] sildenafiL 50 MG ORAL TAB TAKE ONE TABLET BY MOUTH NEEDED FOR ERECTILE DYSFUNCT ION TAKE 1 HOUR PRIOR TO SEXUAL ACTIVITY Active 08/13/2024 [id number] PHYLLIS WHALEY 2023 18 [facility] SILDENAFIL CITRATE 100MG TAB TAKE ONE TABLET BY MOUTH ONCE DAILY NEEDED FOR ERECTILE DYSFUNCT ION TAKE 1 HOUR PRIOR TO SEXUAL ACTIVITY ORAL SUSPEND ED 04/29/2025 [id number] Tom NIESLON 2024 18 [place] SILDENAFIL CITRATE 100MG TAB TAKE ONE TABLET BY MOUTH ONCE DAILY NEEDED FOR ERECTILE DYSFUNCT ION TAKE 1 HOUR PRIOR TO SEXUAL ACTIVITY ORAL DISCONT INUED 01/15/2025 [id number] 4 TALIAAnupJAZMINE EDGAR F 2023 18 [place] SILDENAFIL CITRATE 50MG TAB TAKE ONE TABLET BY MOUTH NEEDED FOR ERECTILE DYSFUNCT ION TAKE 1 HOUR PRIOR TO SEXUAL ACTIVITY ORAL DISCONT INUED (EDIT) 08/13/2024 [id number] 4 Shanai WHALEY 2023 18 [place] SULINDAC 150MG TAB TAKE ONE TABLET BY MOUTH TWICE DAILY ORAL ACTIVE 02/14/2025 [id number] THELMA SWAIN ERT 2023 60 [place] Allergies, Adverse Reactions, Alerts Combined list of allergies from Department of Defense and Veterans Affairs facilities. It does not include entries that were removed or entered in error. Substance Category Reaction Severity Reaction type Status Date Reported Comments Source NO OUTPUT FOR NCID [id number] Drug allergy (disorder) active 03/12/2006 [facility] Immunizations Combined list of available immunizations from the Department of Defense and Veterans Affairs facilities. Immunization Series Date Given Administered By Site Reaction Lot Number CVX Code Drug Director Risk Status Comments Source HEP A, ADULT 1 2023 ASHLEE ZABALA LEFT DELTO ID [id number] 52 complet ed [facility] TDAP 2023 ASHLEE ZABALA R LEFT DELTO ID [id number] 115 complet ed [facility] INFLUENZA, UNSPECIFIED FORMULATION 2022 88 complet ed [facility] COVID-19 (MODERNA), MRNA, LNP-S, BIVALENT BOOSTER, PF, 50 MCG/0.5 ML OR 25MCG/0.25 ML DOSE 1 2021 229 complet ed MOD; [id number]; 3 [place] INFLUENZA, INJECTABLE, QUADRIVALENT, PRESERVATIVE FREE 2021 150 complet ed [facility] COVID-19 (MODERNA), MRNA, LNP-S, PF, 100 MCG/0.5ML DOSE OR 50 MCG/0.25ML DOSE 3 2021 207 complet ed [facility] COVID-19 (MODERNA), MRNA, LNP-S, PF, 100 MCG/0.5ML DOSE OR 50 MCG/0.25ML DOSE 3 2020 207 complet ed [facility] INFLUENZA, INJECTABLE, QUADRIVALENT, PRESERVATIVE FREE 2020 150 complet ed [place] COVID-19 (MODERNA), MRNA, LNP-S, PF, 100 MCG/0.5 ML DOSE 2 2020 207 complet ed MOD; [id number]; 1 [place] COVID-19 (MODERNA), MRNA, LNP-S, PF, 100 MCG/0.5 ML DOSE 1 2020 207 complet ed MOD; [id number]; 1 [place] INFLUENZA, UNSPECIFIED FORMULATION 2019 88 complet ed [facility] ZOSTER RECOMBINANT 2 2019 187 complet ed [place] ZOSTER RECOMBINANT 1 2019 187 complet ed [place] INFLUENZA, INJECTABLE, QUADRIVALENT, PRESERVATIVE FREE 2018 150 complet ed Site: Left Deltoid [place] INFLUENZA, SEASONAL, INJECTABLE 2017 141 complet ed Site: Left Deltoid [place] PNEUMOCOCCAL POLYSACCHARID E [id number] 2016 33 complet ed [place] FLU,3 YRS (HISTORICAL) 2016 88 complet ed Site: Right Deltoid [place] FLU,3 YRS (HISTORICAL) 2014 88 complet ed Site: Left Deltoid [place] FLU,3 YRS (HISTORICAL) 2013 88 complet ed Site: Left Deltoid [place] TDAP 2013 115 complet ed [place] [facility] FLU,3 YRS (HISTORICAL) 2012 88 complet ed Site: Left Deltoid [place] FLU,3 YRS (HISTORICAL) 2011 88 complet ed [facility] DTAP, UNSPECIFIED FORMULATION 2011 107 complet ed [facility] influenza virus vaccine, unspecified formulation 1 2010 [id number] [employer] (CSL) complet ed influenza virus vaccine, unspecifi ed formulati on DoD hepatitis B vaccine, adult dosage 4 2009 [id number] [employer] (SKB) complet ed hepatitis B vaccine, adult dosage DoD influenza virus vaccine, split virus (incl. purified surface antigen)-reti red CODE 1 2009 [id number] San[employer] Pasteur ([facility]) complet ed influenza virus vaccine, split virus (incl. purified surface antigen)- retired CODE DoD anthrax vaccine 3 2009 [id number] [facility] complet ed anthrax vaccine DoD tetanus toxoid, reduced diphtheria toxoid, and acellular pertu is vaccine, adsorbed 1 2009 [id number] Sanofi Pasteur ([facility]) complet ed tetanus toxoid, reduced diphtheri a toxoid, and acellular pertussis vaccine, adsorbed DoD vaccinia (smallpox) vaccine 1 2009 [id number] 75 Unknown (UNK) complet ed vaccinia (smallpox ) vaccine DoD anthrax vaccine 2 2008 [id number] [facility] ([facility]) complet ed anthrax vaccine DoD Novel influenza-H1N 1-09, injectable 1 2008 [id number] 127 [employer]. (NOV) complet ed Novel influenza -L1C0-03, injectabl e DoD influenza virus vaccine, split virus (incl. purified surface antigen)-reti red CODE 1 2008 [id number] 15 Unknown (UNK) complet ed influenza virus vaccine, split virus (incl. purified surface antigen)- retired CODE DoD anthrax vaccine 1 2008 [id number] [facility]) complet ed anthrax vaccine DoD typhoid Vi capsular polysaccharid e vaccine 1 2008 [id number] 101 Sanofi Pasteur ([facility]) complet ed typhoid Vi capsular polysacch aride vaccine DoD hepatitis B vaccine, adult dosage 3 2006 [id number] 43 [employer] ([facility]) complet ed hepatitis B vaccine, adult dosage DoD hepatitis B vaccine, adult dosage 2 2006 [id number] 43 [employer] (SKB) complet ed hepatitis B vaccine, adult dosage DoD hepatitis B vaccine, adult dosage 1 2005 [id number] 43 [employer] ([facility]) complet ed hepatitis B vaccine, adult dosage DoD meningococcal polysaccharid e vaccine (MPSV4) 1 2003 [id number] Sanofi Pasteur ([facility]) complet ed meningoco ccal polysacch aride vaccine (MPSV4) DoD measles, mumps and rubella virus vaccine 0 2001 UNK 03 Unknown (UNK) comple t ed measles, mumps and rubella virus vaccine DoD poliovirus vaccine, unspecified formulation 0 2001 UNK 89 Unknown (UNK) comple t ed polioviru s vaccine, unspecifi ed formulati on DoD tetanus and diphtheria toxoids, adsorbed, preservative free, for adult use (2 Lf of tetanus toxoid and 2 Lf of diphtheria toxoid) 0 1999 UNK 09 Unknown (UNK) comple t ed tetanus and diphtheri a toxoids, adsorbed, preservat juliocesar free, for adult use (2 Lf of tetanus toxoid and 2 Lf of diphtheri a toxoid) DoD hepatitis A vaccine, adult dosage 2 1999 UNK 52 Unknown (UNK) comple t ed hepatitis A vaccine, adult dosage DoD hepatitis A vaccine, adult dosage 1 1998 UNK 52 Unknown (UNK) comple t ed hepatitis A vaccine, adult dosage DoD Results Combined list of recent chemistry, hematology and other laboratory results from Department of Defense and Veterans Affairs, ranging from 15 months to all on record, depending upon the facility. Order Name Results Value Reference Range Date Interpretation Specimen Comments Source BASIC METABOLI C PANEL (fasting ) UREA NITROGEN [MASS/VOLU ME] IN SERUM OR PLASMA 9 mg/dL 7 - 25 01/14 Specimen Type: SERUM No comment entered. Ordering Provider: ANNA WHALEY A Report Released Date/Time: Aug 13, 2023 09:06 AM Reporting Lab: [facility] [facility] [address] [address] Performing Lab: [facility] [facility] [address] [address] [facility] BASIC METABOLI C PANEL (fasting ) GLUCOSE [MASS/VOLU ME] IN SERUM OR PLASMA 85 mg/dL 65 - 100 01/14 Specimen Type: SERUM No comment entered. Ordering Provider: ANNA WHALEY A Report Released Date/Time: Aug 13, 2023 09:06 AM Reporting Lab: [facility] [facility] [address] [address] Performing Lab: [facility] [place] [address] [address] [facility] BASIC METABOLI C PANEL (fasting ) SODIUM [MOLES/VOL UME] IN SERUM OR PLASMA 139 mmol/L 135 - 145 01/14 Specimen Type: SERUM No comment entered. Ordering Provider: ANNA WHALEY A Report Released Date/Time: Aug 13, 2023 09:06 AM Reporting Lab: [facility] [place] [facility] [address] [address] Performing Lab: [facility] [place] [address] [address] [facility] BASIC METABOLI C PANEL (fasting ) POTASSIUM [MOLES/VOL UME] IN SERUM OR PLASMA 5.1 mmol/L 3.5 - 5.0 01/14 H Specimen Type: SERUM No comment entered. Ordering Provider: ANNA WHALEY A Report Released Date/Time: Aug 13, 2023 09:06 AM Reporting Lab: [facility] [place] [facility] [address] [address] Performing Lab: [facility] [address] [address] [facility] BASIC METABOLI C PANEL (fasting ) CHLORIDE [MOLES/VOL UME] IN SERUM OR PLASMA 101 mmol/L 100 - 110 01/14 Specimen Type: SERUM No comment entered. Ordering Provider: ANNA WHALEY A Report Released Date/Time: Aug 13, 2023 09:06 AM Reporting [facility]: [facility] [address] [address] Performing Lab: [facility] [address] [address] [facility] BASIC METABOLI C PANEL (fasting ) CARBON DIOXIDE, TOTAL [MOLES/VOL UME] IN SERUM OR PLASMA 25 meq/L 20 - 30 01/14 Specimen Type: SERUM No comment entered. Ordering Provider: ANNA WHALEY A Report Released Date/Time: Aug 13, 2023 09:06 AM Reporting Lab: [address] [address] Performing Lab: [address] [address] [facility] BASIC METABOLI C PANEL (fasting ) CREATININE [MASS/VOLU ME] IN SERUM OR PLASMA 1.30 mg/dL 0.50 - 1.40 01/14 Specimen Type: SERUM No comment entered. Ordering Provider: ANNA WHALEY A Report Released Date/Time: Aug 13, 2023 09:06 AM Reporting Lab: [facility] [address] [address] Performing Lab: [facility] [address] [address] [facility] BASIC METABOLI C PANEL (fasting ) GLOMERULAR FILTRATION RATE/1.73 SQ M.PREDICTE D [VOLUME RATE/AREA] IN SERUM, PLASMA OR BLOOD BY CREATININE -BASED FORMULA (CKD-EPI 2020) 61 mL/min 60 01/14 Specimen Type: SERUM No comment entered. Ordering Provider: ANNA WHALEY A Report Released Date/Time: Aug 13, 2023 09:06 AM Reporting Lab: [facility] [place] [facility] [address] [address] Performing Lab: [facility] [place] [facility] [address] [address] [facility] CBC AND DIFF (AUTO) LEUKOCYTES [#/VOLUME] IN BLOOD BY AUTOMATED COUNT 4.91 10*3/uL 4.50 - 11.00 01/14 Specimen Type: BLOOD No comment entered. Ordering Provider: ANNA WHALEY A Report Released Date/Time: Aug 13, 2023 09:06 AM Reporting Lab: [facility] [place] [facility] [address] [address] Performing Lab: [facility] [place] [facility] [address] [address] [facility] CBC AND DIFF (AUTO) ERYTHROCYT ES [#/VOLUME] IN BLOOD BY AUTOMATED COUNT 4.24 10*6/uL 4.23 - 5.66 01/14 Specimen Type: BLOOD No comment entered. Ordering Provider: ANNA WHALEY A Report Released Date/Time: Aug 13, 2023 09:06 AM Reporting Lab: [facility] [place] [facility] [address] [address] Performing Lab: [facility] [place] [facility] [address] [address] [facility] CBC AND DIFF (AUTO) HEMOGLOBIN [MASS/VOLU ME] IN BLOOD 12.8 g/dL 12.8 - 17 01/14 Specimen Type: BLOOD No comment entered. Ordering Provider: ANNA WHALEY A Report Released Date/Time: Aug 13, 2023 09:06 AM Reporting Lab: [facility] [place] [facility] [address] [address] Performing Lab: [facility] [place] [facility] [address] [address] [facility] CBC AND DIFF (AUTO) HEMATOCRIT [VOLUME FRACTION] OF BLOOD BY AUTOMATED COUNT 36.8 39.2 - 50.4 01/14 L Specimen Type: BLOOD No comment entered. Ordering Provider: ANNA WHALEY A Report Released Date/Time: Aug 13, 2023 09:06 AM Reporting Lab: [facility] [address] [facility] [address] Performing Lab: [facility] [address] [facility] [address] [facility] CBC AND DIFF (AUTO) MCV [ENTITIC VOLUME] BY AUTOMATED COUNT 86.8 fL 82 - 99 01/14 Specimen Type: BLOOD No comment entered. Ordering Provider: ANNA WHALEY A Report Released Date/Time: Aug 13, 2023 09:06 AM Reporting Lab: [facility] [facility] [address] [facility] [address] Performing Lab: [facility] [facility] [address] [facility] [address] [facility] CBC AND DIFF (AUTO) MCHC [MASS/VOLU ME] BY AUTOMATED COUNT 34.8 g/dL 30.8 - 35.1 01/14 Specimen Type: BLOOD No comment entered. Ordering Provider: ANNA WHALEY A Report Released Date/Time: Aug 13, 2023 09:06 AM Reporting Lab: [facility] [facility] [address] [facility] [address] Performing Lab: [facility] [facility] [address] [facility] [address] [facility] CBC AND DIFF (AUTO) PLATELETS [#/VOLUME] IN BLOOD BY AUTOMATED COUNT 287 10*3/uL 140 - 360 01/14 Specimen Type: BLOOD No comment entered. Ordering Provider: ANNA WHALEY A Report Released Date/Time: Aug 13, 2023 09:06 AM Reporting Lab: [facility] [place] [facility] [address] [facility] [address] Performing Lab: [facility] [place] [facility] [address] [facility] [address] [facility] CBC AND DIFF (AUTO) ERYTHROCYT E DISTRIBUTI ON WIDTH [RATIO] BY AUTOMATED COUNT 12.5 12.0 - 16.0 01/14 Specimen Type: BLOOD No comment entered. Ordering Provider: ANNA WHALEY A Report Released Date/Time: Aug 13, 2023 09:06 AM Reporting Lab: [facility] [place] [facility] [address] [facility] [address] Performing Lab: [facility] [place] [facility] [address] [facility] [address] [facility] CBC AND DIFF (AUTO) MONOCYTES [#/VOLUME] IN BLOOD BY AUTOMATED COUNT 0.53 10*3/uL 0.30 - 1.10 01/14 Specimen Type: BLOOD No comment entered. Ordering Provider: ANNA WHALEY A Report Released Date/Time: Aug 13, 2023 09:06 AM Reporting Lab: [facility] [address] [address] Performing Lab: [facility] [place] [facility] [address] [facility] [address] [facility] CBC AND DIFF (AUTO) MCH [ENTITIC MASS] BY AUTOMATED COUNT 30.2 pg 26.2 - 32.6 01/14 Specimen Type: BLOOD No comment entered. Ordering Provider: ANNA WHALEY A Report Released Date/Time: Aug 13, 2023 09:06 AM Reporting Lab: [facility] [address] [address] Performing Lab: [facility] [place] [facility] [address] [facility] [address] [facility] CBC AND DIFF (AUTO) NEUTROPHIL S/100 LEUKOCYTES IN BLOOD BY AUTOMATED COUNT 67.7 43.7 - 75.8 01/14 Specimen Type: BLOOD No comment entered. Ordering Provider: ANNA WHALEY A Report Released Date/Time: Aug 13, 2023 09:06 AM Reporting Lab: [facility] [address] [address] Performing Lab: [facility] [address] [place] [address] [facility] CBC AND DIFF (AUTO) LYMPHOCYTE S/100 LEUKOCYTES IN BLOOD BY AUTOMATED COUNT 18.7 14.0 - 42.3 01/14 Specimen Type: BLOOD No comment entered. Ordering Provider: ANNA WHALEY A Report Released Date/Time: Aug 13, 2023 09:06 AM Reporting Lab: [facility] [address] [facility] [address] Performing Lab: [facility] [address] [facility] [address] [facility] CBC AND DIFF (AUTO) MONOCYTES/ 100 LEUKOCYTES IN BLOOD BY AUTOMATED COUNT 10.8 5.1 - 13.7 01/14 Specimen Type: BLOOD No comment entered. Ordering Provider: ANNA WHALEY A Report Released Date/Time: Aug 13, 2023 09:06 AM Reporting Lab: [facility] [address] [facility] [address] Performing Lab: [facility] [address] [place] [address] [facility] CBC AND DIFF (AUTO) EOSINOPHIL S/100 LEUKOCYTES IN BLOOD BY AUTOMATED COUNT 1.2 0.4 - 6.8 01/14 Specimen Type: BLOOD No comment entered. Ordering Provider: ANNA WHALEY A Report Released Date/Time: Aug 13, 2023 09:06 AM Reporting Lab: [facility] [address] [facility] [address] Performing Lab: [facility] [address] [facility] [address] [facility] CBC AND DIFF (AUTO) BASOPHILS/ 100 LEUKOCYTES IN BLOOD BY AUTOMATED COUNT 0.6 0.1 - 2.0 01/14 Specimen Type: BLOOD No comment entered. Ordering Provider: ANNA WHALEY A Report Released Date/Time: Aug 13, 2023 09:06 AM Reporting Lab: [facility] [address] [facility] [address] Performing Lab: [facility] [place] [facility] [address] [facility] [address] [facility] CBC AND DIFF (AUTO) NEUTROPHIL S [#/VOLUME] IN BLOOD BY AUTOMATED COUNT 3.32 10*3/uL 2.20 - 7.60 01/14 Specimen Type: BLOOD No comment entered. Ordering Provider: ANNA WHALEY A Report Released Date/Time: Aug 13, 2023 09:06 AM Reporting Lab: [facility] [place] [facility] [address] [facility] [address] Performing Lab: [facility] [place] [facility] [address] [facility] [address] [facility] CBC AND DIFF (AUTO) LYMPHOCYTE S [#/VOLUME] IN BLOOD BY AUTOMATED COUNT 0.92 10*3/uL 1.00 - 3.20 01/14 L Specimen Type: BLOOD No comment entered. Ordering Provider: ANNA WHALEY A Report Released Date/Time: Aug 13, 2023 09:06 AM Reporting Lab: [facility] [place] [facility] [address] [facility] [address] Performing Lab: [facility] [place] [facility] [address] [facility] [address] [facility] [place] [facility] CBC AND DIFF (AUTO) EOSINOPHIL S [#/VOLUME] IN BLOOD BY AUTOMATED COUNT 0.06 10*3/uL 0.03 - 0.44 01/14 Specimen Type: BLOOD No comment entered. Ordering Provider: ANNA WHALEY A Report Released Date/Time: Aug 13, 2023 09:06 AM Reporting Lab: [facility] [place] [facility] [address] [facility] [address] Performing Lab: [facility] [place] [facility] [address] [facility] [address] [facility] CBC AND DIFF (AUTO) BASOPHILS [#/VOLUME] IN BLOOD BY AUTOMATED COUNT 0.03 10*3/uL 0.01 - 0.13 01/14 Specimen Type: BLOOD No comment entered. Ordering Provider: ANNA WHALEY A Report Released Date/Time: Aug 13, 2023 09:06 AM Reporting Lab: [facility] [place] [facility] [address] [facility] [address] Performing Lab: [facility] [place] [facility] [address] [facility] [address] [facility] CBC AND DIFF (AUTO) IMMATURE GRANULOCYT ES/100 LEUKOCYTES IN BLOOD BY AUTOMATED COUNT 1.0 0.0 - 0.7 01/14 H Specimen Type: BLOOD No comment entered. Ordering Provider: ANNA WHALEY A Report Released Date/Time: Aug 13, 2023 09:06 AM Reporting Lab: [facility] [place] [facility] [address] [facility] [address] Performing Lab: [facility] [place] [address] [address] [facility] CBC AND DIFF (AUTO) IMMATURE GRANULOCYT ES [#/VOLUME] IN BLOOD 0.05 10*3/uL 0.00 - 0.06 01/14 Specimen Type: BLOOD No comment entered. Ordering Provider: ANNA WHALEY A Report Released Date/Time: Aug 13, 2023 09:06 AM Reporting Lab: [facility] [place] [facility] [address] [facility] [address] Performing Lab: [facility] [place] [address] [address] [facility] CBC AND DIFF (AUTO) NRBC % 0.0 0.0 - 0.0 01/14 Specimen Type: BLOOD No comment entered. Ordering Provider: ANNA WHALEY A Report Released Date/Time: Aug 13, 2023 09:06 AM Reporting Lab: [facility] [place] [facility] [address] [facility] [address] Performing Lab: [facility] [place] [address] [address] [facility] CBC AND DIFF (AUTO) NRBC, ABS 0.00 10*3/uL 0.00 - 0.00 01/14 Specimen Type: BLOOD No comment entered. Ordering Provider: ANNA WHALEY A Report Released Date/Time: Aug 13, 2023 09:06 AM Reporting Lab: [facility] [address] [facility] [address] Performing Lab: [address] [address] [facility] HEMOGLOB IN A1C PANEL HEMOGLOBIN A1C/HEMOGL OBIN.TOTAL IN BLOOD BY HPLC 4.9 4.0 - 5.6 01/14 Specimen Type: BLOOD Comment: Values obtained from A1C measurement s can vary. For atypical A1C assays, a reported value of 7.0 could actually be between 6.72 and 7.28 if measured by a reference method. A reported value of 9.0 could actually be between 8.73 and 9.27. Ref: http://www. ngsp.org/[place] Pdata.asp Ordering Provider: ANNA WHALEY A Report Released Date/Time: Aug 13, 2023 09:06 AM Reporting Lab: [address] [address] Performing Lab: [address] [address] [facility] LIPID PANEL FASTING CHOLESTERO L [MASS/VOLU ME] IN SERUM OR PLASMA 186 mg/dL 01/14 Specimen Type: SERUM No comment entered. Ordering Provider: ANNA WHALEY A Report Released Date/Time: Aug 13, 2023 09:06 AM Reporting Lab: [facility] [address] [facility] [address] Performing Lab: [address] [address] [facility] LIPID PANEL FASTING TRIGLYCERI DE [MASS/VOLU ME] IN SERUM OR PLASMA 36 mg/dL 0 - 150 01/14 Specimen Type: SERUM No comment entered. Ordering Provider: ANNA WHALEY A Report Released Date/Time: Aug 13, 2023 09:06 AM Reporting Lab: [facility] [address] [facility] [address] Performing Lab: [facility] [address] [facility] [address] [facility] LIPID PANEL FASTING CHOLESTERO L IN LDL [MASS/VOLU ME] IN SERUM OR PLASMA BY CALCKATHRYN N 61 mg/dL 0 - 129 01/14 Specimen Type: SERUM No comment entered. Ordering Provider: ANNA WHALEY A Report Released Date/Time: Aug 13, 2023 09:06 AM Reporting Lab: [facility] [place] [facility] [address] [facility] [address] Performing Lab: [facility] [place] [facility] [address] [facility] [address] [facility] LIPID PANEL FASTING CHOLESTERO L.TOTAL/CH OLESTEROL IN HDL [MASS RATIO] IN SERUM OR PLASMA 1.6 01/14 Specimen Type: SERUM No comment entered. Ordering Provider: ANNA WHALEY A Report Released Date/Time: Aug 13, 2023 09:06 AM Reporting Lab: [facility] [place] [facility] [address] [facility] [address] Performing Lab: [facility] [place] [facility] [address] [facility] [address] [facility] [place] [facility] LIPID PANEL FASTING CHOLESTERO L IN HDL [MASS/VOLU ME] IN SERUM OR PLASMA 118 mg/dL 40 - 60 01/14 H Specimen Type: SERUM No comment entered. Ordering Provider: ANNA WHALEY A Report Released Date/Time: Aug 13, 2023 09:06 AM Reporting Lab: [facility] [address] [facility] [address] Performing Lab: [facility] [address] [facility] [address] [facility] [place] [facility] LIVER FUNCTION PROTEIN [MASS/VOLU ME] IN SERUM OR PLASMA 7.5 g/dL 6.0 - 8.3 01/14 Specimen Type: SERUM No comment entered. Ordering Provider: ANNA WHALEY A Report Released Date/Time: Aug 13, 2023 09:06 AM Reporting Lab: [facility] [place] [facility] [address] [facility] [address] Performing Lab: [facility] [place] [facility] [address] [facility] [address] [facility] [place] [facility] LIVER FUNCTION ALBUMIN [MASS/VOLU ME] IN SERUM OR PLASMA 4.3 g/dL 3.5 - 5.0 01/14 Specimen Type: SERUM No comment entered. Ordering Provider: ANNA WHALEY A Report Released Date/Time: Aug 13, 2023 09:06 AM Reporting Lab: [facility] [place] [facility] [address] [facility] [address] Performing Lab: [facility] [place] [facility] [address] [facility] [address] [facility] [place] [facility] LIVER FUNCTION ALKALINE PHOSPHATAS E [ENZYMATIC ACTIVITY/V OLUME] IN SERUM OR PLASMA 72 U/L 40 - 150 01/14 Specimen Type: SERUM No comment entered. Ordering Provider: ANNA WHALEY A Report Released Date/Time: Aug 13, 2023 09:06 AM Reporting Lab: [facility] [place] [facility] [address] [facility] [address] Performing Lab: [facility] [place] [facility] [address] [facility] [address] [facility] [place] [facility] LIVER FUNCTION ASPARTATE AMINOTRANS FERASE [ENZYMATIC ACTIVITY/V OLUME] IN SERUM OR PLASMA 131 U/L 5 - 34 01/14 H Specimen Type: SERUM No comment entered. Ordering Provider: ANNA WHALEY A Report Released Date/Time: Aug 13, 2023 09:06 AM Reporting Lab: [facility] [place] [facility] [address] [facility] [address] Performing Lab: [facility] [place] [facility] [address] [facility] [address] [facility] [place] [facility] LIVER FUNCTION ALANINE AMINOTRANS FERASE [ENZYMATIC ACTIVITY/V OLUME] IN SERUM OR PLASMA 99 U/L 01/14 H Specimen Type: SERUM No comment entered. Ordering Provider: ANNA WHALEY A Report Released Date/Time: Aug 13, 2023 09:06 AM Reporting Lab: [facility] [place] [address] [address] Performing Lab: [facility] [place] [facility] [address] [facility] [address] [facility] LIVER FUNCTION BILIRUBIN. TOTAL [MASS/VOLU ME] IN SERUM OR PLASMA 0.8 mg/dL 0.2 - 1.2 01/14 Specimen Type: SERUM No comment entered. Ordering Provider: ANNA WHALEY A Report Released Date/Time: Aug 13, 2023 09:06 AM Reporting Lab: [facility] [place] [place] [address] [address] Performing Lab: [facility] [place] [address] [address] [facility] PSA PROSTATE SPECIFIC AG [MASS/VOLU ME] IN SERUM OR PLASMA 2.58 ng/mL 0.00 - 4.00 01/14 Specimen Type: SERUM No comment entered. Ordering Provider: ANNA WHALEY A Report Released Date/Time: Aug 13, 2023 09:06 AM Reporting Lab: [facility] [place] [address] [address] Performing Lab: [facility] [place] [address] [address] [facility] [place] [facility] TSH THYROTROPI N [UNITS/VOL UME] IN SERUM OR PLASMA 0.57 u[IU]/mL 0.35 - 5.00 01/14 Specimen Type: SERUM No comment entered. Ordering Provider: ANNA WHALEY A Report Released Date/Time: Aug 13, 2023 09:06 AM Reporting Lab: [facility] [place] [address] [address] Performing Lab: [facility] [place] [facility] [address] [facility] [address] [facility] [place] [facility] URINALYS IS COLOR OF URINE Colorles s 01/14 Specimen Type: URINE Comment: If Glucose = >500 and Ketones are positive, please alert the Physician. Ordering Provider: ANNA WHALEY A Report Released Date/Time: Aug 13, 2023 09:06 AM Reporting Lab: [facility] [place] [facility] [address] [facility] [address] Performing Lab: [facility] [place] [facility] [address] [facility] [address] [facility] [place] [facility] URINALYS IS APPEARANCE OF URINE Clear 01/14 Specimen Type: URINE Comment: If Glucose = >500 and Ketones are positive, please alert the Physician. Ordering Provider: ANNA WHALEY A Report Released Date/Time: Aug 13, 2023 09:06 AM Reporting Lab: [facility] [place] [facility] [address] [facility] [address] Performing Lab: [facility] [place] [facility] [address] [facility] [address] [facility] [place] [facility] URINALYS IS GLUCOSE [MASS/VOLU ME] IN URINE Normalmg /dL 01/14 Specimen Type: URINE Comment: If Glucose = >500 and Ketones are positive, please alert the Physician. Ordering Provider: ANNA WHALEY A Report Released Date/Time: Aug 13, 2023 09:06 AM Reporting Lab: [facility] [place] [facility] [address] [facility] [address] Performing Lab: [facility] [place] [facility] [address] [facility] [address] [facility] [place] [facility] URINALYS IS KETONES [MASS/VOLU ME] IN URINE BY TEST STRIP NEGATIVE mg/dL 01/14 Specimen Type: URINE Comment: If Glucose = >500 and Ketones are positive, please alert the Physician. Ordering Provider: ANNA WHALEY A Report Released Date/Time: Aug 13, 2023 09:06 AM Reporting Lab: [facility] [place] [facility] [address] [facility] [address] Performing Lab: [facility] [place] [facility] [address] [facility] [address] [facility] [place] [facility] URINALYS IS ERYTHROCYT ES [PRESENCE] IN URINE SEDIMENT BY LIGHT MICROSCOPY NEGATIVE mg/dL 01/14 Specimen Type: URINE Comment: If Glucose = >500 and Ketones are positive, please alert the Physician. Ordering Provider: ANNA WHALEY A Report Released Date/Time: Aug 13, 2023 09:06 AM Reporting Lab: [facility] [place] [facility] [address] [facility] [address] Performing Lab: [facility] [place] [facility] [address] [facility] [address] [facility] [place] [facility] URINALYS IS PROTEIN [MASS/VOLU ME] IN URINE BY TEST STRIP NEGATIVE mg/dL 01/14 Specimen Type: URINE Comment: If Glucose = >500 and Ketones are positive, please alert the Physician. Ordering Provider: ANNA WHALEY A Report Released Date/Time: Aug 13, 2023 09:06 AM Reporting Lab: [facility] [place] [facility] [address] [facility] [address] Performing Lab: [facility] [facility] [address] [facility] [address] [facility] [place] [facility] URINALYS IS NITRITE [PRESENCE] IN URINE NEGATIVE mg/dL 01/14 Specimen Type: URINE Comment: If Glucose = >500 and Ketones are positive, please alert the Physician. Ordering Provider: ANNA WHALEY A Report Released Date/Time: Aug 13, 2023 09:06 AM Reporting Lab: [facility] [place] [facility] [address] [facility] [address] Performing Lab: [facility] [place] [facility] [address] [facility] [address] [facility] [place] [facility] URINALYS IS BILIRUBIN. TOTAL [PRESENCE] IN URINE NEGATIVE mg/dL 01/14 Specimen Type: URINE Comment: If Glucose = >500 and Ketones are positive, please alert the Physician. Ordering Provider: ANNA WHALEY A Report Released Date/Time: Aug 13, 2023 09:06 AM Reporting Lab: [facility] [place] [facility] [address] [facility] [address] Performing Lab: [facility]ERN [facility]ENTERUSETS [address] [address] [facility] URINALYS IS SPECIFIC GRAVITY OF URINE BY REFRACTOME TRY 1.005 1.016 - 1.022 01/14 L Specimen Type: URINE Comment: If Glucose = >500 and Ketones are positive, please alert the Physician. Ordering Provider: ANNA WHALEY A Report Released Date/Time: Aug 13, 2023 09:06 AM Reporting Lab: [facility] [place] [address] [address] Performing Lab: [facility] [place] [address] [address] [facility] URINALYS IS PH OF URINE BY TEST STRIP 6.0 5.0 - 9.0 01/14 Specimen Type: URINE Comment: If Glucose = >500 and Ketones are positive, please alert the Physician. Ordering Provider: ANNA WHALEY A Report Released Date/Time: Aug 13, 2023 09:06 AM Reporting Lab: [facility] [place] [address] [address] Performing Lab: [facility] [place] [address] [address] [facility] [place] [facility] URINALYS IS UROBILINOG EN [MASS/VOLU ME] IN URINE BY TEST STRIP Normalmg /dL <2.0 - 2.0 01/14 Specimen Type: URINE Comment: If Glucose = >500 and Ketones are positive, please alert the Physician. Ordering Provider: ANNA WHALEY A Report Released Date/Time: Aug 13, 2023 09:06 AM Reporting Lab: [facility] [place] [place] [facility] [address] [address] Performing Lab: [facility] [address] [address] [facility] URINALYS IS LEUKOCYTE ESTERASE [PRESENCE] IN URINE BY TEST STRIP NEGATIVE 01/14 Specimen Type: URINE Comment: If Glucose = >500 and Ketones are positive, please alert the Physician. Ordering Provider: ANNA WHALEY Report Released Date/Time: Aug 13, 2023 09:06 AM Reporting Lab[facility] [address] [address] Performing Lab: [facility] [address] [address] [facility] FERRITIN FERRITIN [MASS/VOLU ME] IN SERUM OR PLASMA 523 ng/mL 20 - 300 01/14 H Specimen Type: SERUM No comment entered. Ordering Provider: JAKUB SCHULTZ Report Released Date/Time: Jan 15, 2024 09:24 AM Reporting Lab: [facility] [address] [address] Performing Lab: [facility] [address] [address] [place] SYPHILIS ABS W/RFLX REAGIN AB [PRESENCE] IN SERUM BY RPR Non Reactive 01/14 Specimen Type: SERUM Comment: No laboratory evidence of syphilis infection. If recent exposure is suspected, re-draw sample in 2-4 weeks and repeat algorithm. Testing performed by T. pallidum specific immunoassay . Ordering Provider: JAKUB SCHULTZ Report Released Date/Time: Jan 15, 2024 09:24 AM Reporting Lab: [facility] [address] [address] Performing Lab: [facility] [address] [facility] [id number] [place] Vital Signs Combined list of inpatient and outpatient Vital Signs from Department of Defense and Veterans Affairs, ranging from 12 months to all on record, depending upon the facility. Vital Sign Value Date Comments Source SYSTOLIC BLOOD PRESSURE 138 01/15/20 24 08:47:13 [place] DIASTOLIC BLOOD PRESSURE 90 024 08:47:13 [place] PULSE OXIMETRY 100 01/15/2024 08:47:13 [place] WEIGHT 129 01/15/2024 08:47:13 [place] BMI 24kg/m2 01/15/2024 08:47:13 [place] TEMPERATURE 97.3 01/15/2024 08:47:13 [place] PULSE 80 01/15/2024 08:47:13 [place] SYSTOLIC BLOOD PRESSURE 118 08/20/19 24 09:59:49 [facility] DIASTOLIC BLOOD PRESSURE 80 024 09:59:49 [facility] SYSTOLIC BLOOD PRESSURE 112 08/13/19 24 11:27:23 [facility] DIASTOLIC BLOOD PRESSURE 73 024 11:27:23 [facility] PULSE OXIMETRY 98 08/13/2023 11:27:23 [facility] WEIGHT 135 08/13/2023 11:27:23 [facility] BMI 25kg/m2 08/13/2023 11:27:23 [facility] HEIGHT 62 08/13/2023 11:27:23 [facility] TEMPERATURE 98 08/13/2023 11:27:23 [facility] PULSE 88 08/13/2023 11:27:23 [facility] RESPIRATION 20 08/13/2023 11:27:23 [facility] Encounters Combined list of: 1) Encounters from Department of Veterans Affairs facilities going back up to thelast 18 months. 2) Encounters from the Department of Defense facilities going back up to 280 months. Location Location Details Encounter Type Encounter Number Reason For Visit Attending Provider ADM Date DC Date Status Disposition Source [facility] OUTPATIENT [id number] YR WENCESLAO GOOD 01/05 Released w/o Limitations [facility] OUTPATIENT [id number] [place] MORALESMARILYNN Moreland 01/05 Released w/o Limitations [facility] OUTPATIENT [id number] JACK OLIVER E 01/12 Released w/o Limitations [facility] OUTPATIENT [id number] ABNORMA L LAB RESULTS FITJAXON HUTCHISON 01/27 Released w/o Limitations [facility] OUTPATIENT [id number] PHYLLIS KENT 02/02 Released w/o Limitations [facility] OUTPATIENT [id number] martin GENTILEJACK E 03/12 Released w/o Limitations [facility] OUTPATIENT [id number] 01/24 [facility]ased w/[facility] Limitations [facility] OUT[facility] [id number] 03/23 [facility]ased w/o Limitations [facility] OUTPATIENT [id number] 04/19 Released w/o Limitations [facility] [place] [place] [id number] part 2-retir MANOLO Pina pe 07/19 [place] w/o Limitations [place] [place] [facility] OUTPATIENT [id number] retirem ent CELIA MOLINA 07/19 [place] Limitations [place] [place] [facility] [place] [place] [facility] OUTPATIENT [id number] retirem ent ELLIE Alexander V 07/19 Released w/o Limitations [place] [facility] ELECTROCAR DIOGRAM TRACING [id number] JAE GIMENEZ 11/10 [place] [facility] REPORT [id number] Diagnos is: ICD-10- CM Z13.6 Encount er for screeni ng for cardiov ascular disorde rs
MADELYNPHYLLIS Smith 11/10 [facility] Outpatient Encounter [id number] 11/30 [facility] Out[facility] Encounter [id number] 12/18 [facility] Out[facility] Encounter [id number] 12/26 [facility] INTRAORAL PERIAPICAL [place] ADD [id number] Diagnos is: ICD-10- CM K08.9 Disorde r of teeth and support ing structu res, unspeci fied
ROLANDO DENNIS 12/27 [facility] Outpatient Encounter [id number] 01/08 [facility] Outpatient Encounter [id number] FRANNY MCKEON 01/08 [facility] [place] O/P EST LOW 20-29 MIN [id number] Diagnos is: ICD-10- CM I10 Essenti al (primar y) hyperte nsion<b r/> FRANNY MCKEON 01/08 [place] [facility] Outpatient Encounter [id number] 01/09 [facility] Out[facility] Encounter [id number] 01/16 [facility] Outpatient Encounter [id number] 01/30 [facility] Outpatient Encounter [id number] 01/31 [facility] Out[facility] Encounter [id number] 02/12 [facility] [place] O/P EST LOW 20-29 MIN [id number] Diagnos is: ICD-10- CM L60.0 Ingrowi ng nail
DEXTER LEE ES F 02/16 [place] [facility] Outpatient Encounter [id number] 02/20 [facility] Outpatient Encounter [id number] 02/20 [facility] EYE EXAM&TX ESTAB PT 1/>VST [id number] Diagnos is: ICD-10- CM H25.13 Age-rel ated nuclear catarac t, bilater al
HIMA GRIMALDO H B 02/26 [facility] FIT SPECTACLES MONOFOCAL [id number] Diagnos is: ICD-10- CM Z46.0 Encount er for fit/adj st of spectac les and contact lenses< br/> KYM MCCALL 02/27 [facility] Outpatient Encounter [id number] 04/11 [facility] Outpatient Encounter [id number] 04/16 [facility] Outpatient Encounter [id number] 04/16 [facility] Outpatient Encounter [id number] 04/17 [facility] Outpatient Encounter [id number] 05/01 [facility] Outpatient Encounter [id number] 07/20 [facility] Outpatient Encounter [id number] 07/23 [facility] [place] OFFICE O/P EST LOW 20 MIN [id number] Diagnos is: ICD-10- CM L60.0 Ingrowi ng nail
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
WHALEYDA VID A 08/19 [place] [facility] Outpatient Encounter [id number] 08/19 [facility] Outpatient Encounter [id number] 08/25 [facility] Outpatient Encounter [id number] 08/26 [facility] Outpatient Encounter [id number] 09/27 [facility] Outpatient Encounter [id number] 11/06 [facility] [place] O/P EST LOW 20 MIN [id number] Diagnos is: ICD-10- CM L60.3 Nail dystrop hy
DEXTER LEE ES F 01/03 [place] [facility] Outpatient Encounter [id number] 01/14 [facility] IMMUNIZATI ON ADMIN EACH ADD [id number] MARCUS SCHULTZ F 01/14 [facility] [place] O[facility]P EST MOD 30 MIN [id number] Diagnos is: ICD-10- CM I10 Essenti al (primar y) hyperte nsion<b r/> MARCUS SCHULTZ F 01/14 [place] [facility] Outpatient Encounter [id number] 01/15 [facility] Out[facility]counter [id number] 1.01/16 [facility] Out[facility] Encounter [id number] 1.02/17 [facility] Outpatient Encounter [id number] 02/25 [facility] Outpatient Encounter [id number] 03/20 [facility] Outpatient Encounter [id number] 04/16 [facility] Outpatient Encounter [id number]/28 [facility] Procedures Combined list of: 1) Procedures from Department of Veterans Affairs facilities going back up to thelast 18 months, not all VA non-surgical procedures are included; 2) All procedures from the Department of Defense facilities. Procedure Procedure Type Code Date Perfomer Comments [facility] e Visual Function Screening Visual Function Screening [id number] ELLIE HAMMOND V [facility] ECG 12-Lead With Interpretation And Report ECG 12-Lead With Interpretation And Report 98785 2 MANOLO KANG [facility] Threshold Audiogram (Pure Tone) Threshold Audiogram (Pure Tone) 04765 2 CELIA MOLINA [facility] Patient Counseling Medical Management Individual Patient Patient Counseling Medical Management Individual Patient 01667 2 CELIA MOLINA [facility] Spectacles Services Fitting Monofocal Except For Aphakia Spectacles Services Fitting Monofocal Except For Aphakia 12479 6 JACK GENTILE [facility] Determination Of Refractive State Determination Of Refractive State 41444 6 JACK GENTILE [facility] Ophthalmological Prior Patient Start Comprehensive Care Ophthalmological Prior Patient Start Comprehensive Care 85549 6 JACK GENTILE [facility] Determination Of Refractive State Determination Of Refractive State 04742 5 JACK GENTILE [facility] Spectacles Services Fitting Monofocal Except For Aphakia Spectacles Services Fitting Monofocal Except For Aphakia 38002 5 JACK GENTILE [facility] Ophthalmological Prior Patient Start Comprehensive Care Ophthalmological Prior Patient Start Comprehensive Care 39422 5 JACK GENTILE [facility] Threshold Audiogram (Pure Tone) Threshold Audiogram (Pure Tone) 79276 5 ERIC SUTTON [facility] Audiogram (Screening) Audiogram (Screening) 79388 5 WENCESLAO GABRIEL [facility] ELECTROCARDIOGRAM, ROUTINE ECG WITH AT LEAST 12 LEADS; TRACING ONLY, WITHOUT INTERPRETATION AND REPORT 2 [facility] VIS FUNCT SCREEN,AUTOMAT/SEMI-A UTOMAT BILAT QUANT DETERM VISUAL ACUITY,OCULAR ALIGN,COLOR VISION,PSEUDOISOCHROM AT PLATES,& FIELD VIS (MAY INC ALL/SOME SCRN DETERM FOR CONTRAST SENSITIV,VIS UND GLARE) 2 [facility] PURE TONE AUDIOMETRY (THRESHOLD); AIR ONLY 2 [facility] FITTING OF SPECTACLES, EXCEPT FOR APHAKIA; MONOFOCAL 6 [facility] FITTING OF SPECTACLES, EXCEPT FOR APHAKIA; MONOFOCAL 5 [facility] HEPATITIS B VACCINE (HEPB), ADULT DOSAGE, 3 DOSE SCHEDULE, FOR INTRAMUSCULAR USE 0 [facility] OPHTHALMOLOGICAL SERVICES: MEDICAL EXAMINATION AND EVALUATION WITH INITIATION OF DIAGNOSTIC AND TREATMENT PROGRAM; INTERMEDIATE, NEW PATIENT 5 [facility] UNLISTED VACCINE/TOXOID 0 [facility] PURE TONE AUDIOMETRY (THRESHOLD); AIR ONLY 5 [facility] UNLISTED VACCINE/TOXOID 9 [facility] SCREENING TEST, PURE TONE, AIR ONLY 5 [facility] Social History Combined list of available smoking, tobacco, and other social history from Department of Defense and Veterans Affairs facilities. Social History Type Response Date Comment Source Tobacco smoking status [facility]-TOBACCO NEVER USED 01/15/2024 [facility] [place] [facility] History [facility] tobacco use NE-TOBACCO NEVER USED 01/08/2023 [facility] [place] [facility] History of tobacco use NE-TOBACCO FORMER [facility]ER [facility] [place] [facility] [place] History of tobacco use NE-TOBACCO NEVER USED 02/03/2019 [place] History of tobacco use NE-TOBACCO NEVER USED 03/12/2018 [place] History of tobacco use LIFETIME NON-TOBACCO USER 06/15/2016 [place] History of tobacco use LIFETIME NON-TOBACCO USER 06/23/2015 [place] History of tobacco use LIFETIME NON-TOBACCO USER 04/22/2013 [place] History of tobacco use CURRENT SMOKER 12/08/2011 chew pack and half a [facility] [place] [facility] History of tobacco use LIFETIME NON-TOBACCO USER 03/07/2011 [place] History of tobacco use LIFETIME NON-TOBACCO USER 01/07/2009 [place] This section is an empty social history section. [facility] Plan of Care List of future care activities from Department of Veterans Affairs facilities. Additional future care activities may be listed in the Assessment and Plan section. Date/Time Care Activity Care Activity Detail Facili 05/16/2024 AMBULATORY - MEDICINE AMBULATORY - MEDICI [facility] 06/27/2024 AMBULATORY - MEDICINE AMBULATORY - MEDICI [facility] [place] [facility] 07/18/2024 AMBULATORY - MEDICINE AMBULATORY - MEDICI [place] 04/14/2024 Consult Order COMM[facility]ITY [facility]ARE-D ENTAL GENERAL Cons Unit Support Representative's Choice [facility] [place] [facility] 04/21/2024 Consult Order [facility]-D E[facility]AL GENERAL Cons Unit Support Representative's Choice [facility] [place] [facility] 05/06/2024 Consult Order [facility]ARE-D ENTAL GENERAL Cons Unit Support Representative's Choice [facility] [place] [facility] Advance Directives List of completed, amended, or rescinded Advance Directives on record at Department of Veterans Affairs facilities. An actual copy of the Directive is not included. Date Advance Directive Provider Source 01/03/2022 ADVANCE DIRECTIVE LUIS EDUARDO [facility] 01/03/2021 ADVANCE DIRECTIVE KHUSHBU KUMAR [facility] 03/19/2012 ADVANCE DIRECTIVE ERIKA MORALES [facility]
--- OUTSIDE RECORDS SUMMARY | 2024-05-08 01:03 | XMS_ITS | Encounter Summary ---
Author Name [facility] [place] Address [address] [place] [address] Care Team Providers Care Director Speech And Hearing Name Role Phone ROBBY NIELSON Primary Care Provider Unavailabl e Insurance Providers: All historical and current Section Date Range: From patient's date of to the date document was created. This section includes the names of all active insurance providers for the patient. Insurance Provider Type of Coverage Plan Name Start of Policy Coverage End of Policy Coverage Group Number Member ID Insurance Provider's Telephone Number Policy Poon's Name Patient's Relationship to Policy Poon [employer] PRESCRIPT ION [id number] 1 May 28, 2017 [id number] Charlene MASON DDIE PATIENT [employer] PRESCRIPT ION [id number] 1 May 28, 2017 [id number] [phone] Charlene MASON DDIE PATIENT [employer] RX PRESCRIPT ION RX May 28, 2022 THPRX [id number] [phone] Charlene MASON DDIE PATIENT [employer] RX PRESCRIPT ION RX May 28, 2022 THPRX [id number] Charlene MASON DDIE PATIENT [facility] PLAN USP May 28, 2017 [facility] [id number] Charlene MASON DDIE PATIENT [facility] PLAN IVY Chang May 28, 2017 [id number] Charlene MASON PATIENT [facility] POINT OF SERVICE MALLORY CHERY Oct 27, 2011 [id number] Charlene MASON PATIENT [facility] (WNR) SUKUMAR CHERY(WN R) May 28, 2017 (WNR) [id number] Charlene MASON PATIENT Selected Encounter This section includes the information on record at [place] for the Encounter. Date/Time Encounter Type Encounter Description Reason Provider Source Aug 13, 2023 11:00 AM OFFICE O/P EST MOD 30 MIN PRIMARY CARE/MEDICINE ICD-10-CM G64 Other disorders of peripheral nervous system PHYLLIS WHALEY Charlene Encounter Template Text not used by [place] Assessments - Encounter Diagnoses This section includes the primary and secondary diagnoses documented for the Encounter. Date/Time Primary/Secondary Diagnosis Diagnosis Name Provider Source Aug 13, 2023 01:25 PM PRIMARY Other disorders of peripheral nervous system PHYLLIS WHALEY DIG[place] Aug 13, 2023 01:25 PM SECONDARY Alcohol abuse, uncomplicated PHYLLIS WHALEY DIG[place] Aug 13, 2023 01:25 PM SECONDARY Alcoholic liver disease, unspecified PHYLLIS WHALEY DIGNA Aug 13, 2023 01:25 PM SECONDARY Essential (primary) hypertension PHYLLIS WHALEY Plan of Treatment: Future Appointments (+ 6 months) and Future Tests (+/- 45 days) The Plan of Treatment section includes future care activities for the patient from all [place] treatmentfacilities. This section includes future appointments and future orders which are active, pending or scheduled. Future Appointments This section includes appointments that were scheduled to occur 6 months from the date of the Encounter, up to a maximum of 20 appointments. The data comes from all [place] treatment facilities. Appointment Date/Time Appointment Type Appointme nt Facility Name Aug 16, 2023 10:45 AM [place]ORY [place] [facility] [place] [facility] Aug 20, 2023 10:00 AM [facility] [place] [facility] [place] [facility] Jan 04, 2024 09:00 AM [facility] - [place]IC[place] [place] Jan 15, 2024 09:00 AM [facility] Lab Results: +/- 30 days of the encounter This section includes the Chemistry and Hematology Lab Results on record with [place] for the patient. Radiology Reports and Pathology Reports are provided separately, in subsequent sections. Lab Results This section contains the Chemistry/Hematology Results that were resulted 30 days before or 30 daysafter the date of the Encounter. Date/Time Source Result Type Result - Unit Interpretation Reference Range Comment Aug 20, 2023 10:40 AM [facility] VITAMIN D (25-OH) Specimen Type: SERUM No comment entered. Ordering Provider: PHYLLIS WHALEY Report Released Date/Time: Aug 13, 2023 09:06 AM Reporting Lab: [facility] [address] [facility] [id number] Performing Lab: [facility] [address] [facility] [facility] [id number] VITAMIN D (25-OH) 29 ng/mL 20-50 Social History: Smoking Status (Most current) and Tobacco Use (All prior to encounter date) This section includes the most current, and the historical, smoking and tobacco- related health factors from the [place] facility where the Encounter took place. Current Smoking Status This section includes the most current smoking, or tobacco-related health factor, from the [place] facility where the Encounter took place. Date/Time Current Smoking Status Comment Facil ity Mar 26, 2020 11:30 [facility] Tobacco Use History This section includes a history of the smoking, or tobacco-related health factors, that were collected on or before the date of the Encounter. The data comes from the [place] facility where the Encounter took place. Date/Time Smoking Status/Tobacco Use Comment F acility Feb 03, 2019 10:43 AM [place]-TOBACCO NEVER USED [facility] Mar 12, 2018 09:26 AM [place]-TOBACCO NEVER US[place] [facility] Jun 15, 2016 03:51 PM LIFETIME NON-TOBACCO USER [facility] Jun 23, 2015 10:34 AM LIFETIME NON-TOBACCO USER [facility] Apr 22, 2013 10:41 AM LIFETIME NON-TOBACCO USER [place] Mar 07, 2011 11:49 AM LIFETIME NON-TOBACCO USER [place] Jan 07, 2009 11:55 AM LIFETIME NON-TOBACCO USER [place] Advance Directives: All historical and current Section Date Range: From patient's date of to the date document was created. This section includes ALL of a patient's completed or amended [place] Advance and Rescinded Directives. The entries below indicate that a directive exists for the patient, but an actual copy is not included with this document. The data comes from all [place] facilities. Date Advance Directives Provider Source Jan 03, 2022 ADVANCE DIRECTIVE ISAIAHLUIS EDUARDO Jan 03, 2021 ADVANCE DIRECTIVE JERONIMOMARYVIKKHUSHBU Santos VICTORINA CHAVEZ Mar 19, 2012 ADVANCE DIRECTIVE [facility] Encounter Notes: All associated encounter notes This section contains the clinical notes associated to the Encounter. Date/Time Encounter Note(s) Provider Source Aug 13, 2023 09:06 AM PRIMARY CARE NURSE PRACTITIONER OUTPATIENT NOTE: LOCAL TITLE: NURSE PRACTITIONER OUTPATIENT NOTE STANDARD TITLE: PRIMARY CARE NURSE PRACTITIONER OUTPATIENT NOTE DATE OF NOTE: AUG 13, 2023@09:06 ENTRY DATE: AUG 13, 2023@09:07:01 AUTHOR: PHYLLIS WHALEY COSIGNER: URGENCY: STATUS: COMPLETED PRIMARY CARE VISIT KYLECharlene MASON, is a 63 yo BLACK [place] MALE who [facility] the [place] [facility]. TYPE OF VISIT: Face to face 63-year-old [place] with depression, PTSD, GERD, alcohol abuse who continues to drink, fatty liver disease, chronic granulomatous disease, peripheral neuropathy, renal agenesis, and a history of urolithiasis and status post right THR about 10 years ago presented to the outpatient clinic in regular follow-up. Of note, he is comanaged with a private PCP in the community, Dr. Jefferson Han. He had MRI brain for sensorineural hearing loss and tinnitus on 04/11/2023 which was normal. 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 He follows at [facility] for the peripheral neuropathy and underwent hammertoe repair over the winter. Today he denies any back pain but is worried about longstanding spinal curvature. No gait disturbance. And it has not limited his functional status. No lower extremity weakness or bowel/bladder incontinence. Denies any recent illnesses or ED/UC visits. Labs from December and January were reviewed and all medications reconciled during this visit. HEALTHCARE PROVIDERS: Private PCP: Dr. Jefferson Han [place] Audiology: [facility] Ortho: JONIS Urology: ZOE Social Hx: He is and lives with his . He endorses drinking 2 beers a day. No nicotine or MJ. Retired. No regular exercise but is active with home projects. HISTORY: PERIOD OF SERVICE - [employer] FROM Jan TO Aug COMBAT SERVICE INDICATED: No VITAL SIGNS: Temperature 97.8 F [36.6 C] (01/08/2023 11:47) Blood Pressure 112/73 (08/13/2023) Pulse 100 (01/08/2023 11:47) Respiration 20 (01/08/2023 11:47) Pain 8 (07/24/2022 11:15) BMI BMI: 24.0 Weight 131 lb [59.42 kg] (01/08/2023 11:47) Pulse Oximetry 97% (01/08/2023 11:47) ASSISTIVE DEVICES: None REVIEW OF SYSTEMS: CONSTITUTIONAL: No fevers, chills, weight loss/gain ENT: No sore throat, sneezing, congestion, rhinorrhea, anosmia, or ageusia. CARDIOVASCULAR: No chest pain, palpitations, or increased pedal edema RESPIRATORY: No SOB, cough, sputum, wheeze. GASTROINTESTINAL: Denies abd pain, N/V/D. No melena or hematochezia. No tenesmus or constipation. GENITOURINARY: No burning micturition. No urinary frequency or urgency. No nocturia. MUSCULOSKELETAL: No myalgias or arthralgias. PSYCHIATRIC: No new anxiety or depression. No sleep disturbance. NEUROLOGIC: No headaches, dizziness, numbness or tingling in the extremities, or unilateral weakness. EXAMINATION General: Well-appearing [place] in no obvious distress. Mental Status: Alert and oriented x4. Head: Normocephalic. Eyes: PERRLA. EOMI. Anicteric sclerae. ENT: Moist oral mucosa. Posterior pharynx unremarkable Neck: Supple. No JVD. No LAD. No bruit. Lungs: CTA. Normal chest excursion. Eupneic respirations. CV: Heart tones S1, S2. RRR. No M/G/R. No peripheral edema GI: Abdomen is soft and nontender. No palpable mass. : No CVA tenderness. ExtBack: Scoliosis. No cyanosis or clubbing. Neuro: CN II through XII grossly intact. Normal speech. Antalgic gait gait. Integument: Skin warm and dry. No rashes or lesions on visible areas. Psych: Normal mood and affect. Normal judgment. ALLERGIES: ========= Patient has answered NKA >> HEALTH MAINTENANCE PREVENTIVE MEDICINE GOALS Assess Statin Use - Lipids (CVD/DM) DUE NOW Depression Screening Mar 22 Pneumococcal Conjugate Vaccine (PCV15/PCDUE NOW Influenza Immunization DUE NOW Medication Reconciliation DUE NOW Td / Tdap Immunization May 30 COVID-19 Immunization DUE NOW Liver Cancer (HCC) Surveillance Aug 09 Sexual Orientation Mar 28 RHS Screen DUE NOW Hepatitis A Vaccine for High Risk DUE NOW ASSESSMENT/PLAN: Active problems - Computerized Problem List is the source for the followin. Erectile dysfunction: Unable to obtain an erection for a few years. Normal testosterone. Tried sildenafil in the past and wants to try again. Prescription provided. 2. Urolithiasis 3. Computed tomography result abnormal 4. Standard chest X-ray abnormal 5. Alcoholic liver damage:ultrasound of liver w/elastography 01/2022: Stiffness median 1.66 m/s. <1.7 m/s In the absence of other known clinical signs, rules out compensated advanced chronic liver disease. 6. Benign essential hypertension: Well managed on current meds. 7. Absent kidney 8. CAT scan normal 9. MRI scan abnormal 10. Chronic granulomatous disease 11. History of right hip replacement 12. Elevated liver enzymes level 13. Alcohol abuse: States he drinks only 2 beers daily. Unwilling to decrease his drinking currently. 14. Avascular necrosis of bone 15. Elevated blood pressure reading without diagnosis of hypertension 16. Demyelinating disease of central nervous system 17. Posttraumatic stress disorder 18. Depressive disorder 19. Gastroesophageal Reflux Disorder: Denies any symptoms. Maintained on omeprazole by private PCP. 20. Allergic rhinitis * 21. Simple upper Gastrointestinal Endoscopy 22. Colonoscopy 23. Tendon Injuries 24. Plantar Fasciitis 25. Personal History of return from Deployment 26. Alcohol Dependence * 27. 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 All medications were reconciled during this visit. No barriers; Patient understands and agrees to current treatment plan. If pt has any questions, concerns, or changes in current health status he/she will call or [facility] /caitlyn/ PHYLLIS WHALEY NP NURSE PRACTITIONER Signed: 08/13/2023 13:24 PHYLLIS WHALEY [place]
--- OUTSIDE RECORDS SUMMARY | 2024-05-08 01:03 | XMS_ITS | Encounter Summary ---
Author Name [facility] [place] [facility] [place] Address [address] [place] [address] Care Team Providers Care Package Lift Operator Name Role Phone ROBBY NIELSON Primary Care [...] PRESCRIPT ION [id number] 1 May 28, 2017 [id number] Charlene MASON DDIE PATIENT [facility] PRESCRIPT ION [id number] 1 May 28, 2017 [id number] Charlene MASON DDIE PATIENT [facility] RX PRESCRIPT ION RX May 28, 2022 THPRX [id number] Charlene MASON DDIE PATIENT [facility] RX PRESCRIPT ION RX May 28, 2022 THPRX [id number] [phone] Charlene MASON DDIE PATIENT [facility] PLAN USP May 28, 2017 [facility] [id number] Charlene MASON DDIE PATIENT [facility] IVY Chang May 28, 2017 [facility] [id number] Charlene MASON DDFRED PATIENT [facility] POINT OF SERVICE MALLORY CHERY Oct 27, 2011 [id number] Charlene MASON DDFRED PATIENT [facility] (WNR) SUKUMAR CHERY(WN R) May 28, 2017 (WNR) [id number] Charlene MASON DDFRED PATIENT Selected Encounter This section includes the information on record at [place] for the Encounter. Date/Time Encounter Type Encounter Description Reason Pro vider Source Jul 23, 2023 04:00 PM Outpatient Encounter PRIMARY CARE/MEDICINE IHE Encounter Template Text not used by [place] Plan of Treatment: Future Appointments (+ 6 months) and Future Tests (+/- 45 days) The Plan of Treatment section includes future care activities for the patient from all [place] treatmentfacilities. This section includes future appointments and future orders which are active, pending or scheduled. Future Appointments This section includes appointments that were scheduled to occur 6 months from the date of the Encounter, up to a maximum of 20 appointments. The data comes from all [place] treatment facilities. Appointment Date/Time Appointment Type Appointme nt Facility Name Jul 27, 2023 09:00 AM AMBULATORY - MEDICINE [facility] Aug 13, 2023 11:00 AM AM[place] [facility] [place] [facility] Aug 16, 2023 10:45 AM AMBULATORY MEDICINE [place] [facility] [place] [place] [facility] Aug 20, 2023 10:00 AM AMBULATORY MEDICINE [place] [facility] [place] [place] [facility] Jan 04, 2024 09:00 AM AMBULATORY - MEDICINE [facility] Jan 15, 2024 09:00 AM AMBULATORY - MEDICINE [facility] Lab Results: +/- 30 days of the encounter This section includes the Chemistry and Hematology Lab Results on record with [place] for the patient. Radiology Reports and Pathology Reports are provided separately, in subsequent sections. Lab Results This section contains the Chemistry/Hematology Results that were resulted 30 days before or 30 daysafter the date of the Encounter. Date/Time Source Result Type Result - Unit Interpretation Reference Range Comment Aug 20, 2023 10:40 AM [place] [facility] VITAMIN D (25-OH) Specimen Type: SERUM No comment entered. Ordering Provider: PHYLLIS WHALEY Report Released Date/Time: Aug 13, 2023 09:06 AM Reporting Lab: [facility] [address] [facility] [address] Performing Lab: [facility] [address] [facility] [address] VITAMIN D (25-OH) 29 ng/mL 20-50 Social History: Smoking Status (Most current) and Tobacco Use (All prior to encounter date) This section includes the most current, and the historical, smoking and tobacco- related health factors from the [place] facility where the Encounter took place. Current Smoking Status This section includes the most current smoking, or tobacco-related health factor, from the [place] facility where the Encounter took place. Date/Time Current Smoking Status Comment Facil it Jan 08, 2023 09:03 AM [place]-TOBACCO NEVER USED [facility] Tobacco Use History This section includes a history of the smoking, or tobacco-related health factors, that were collected on or before the date of the Encounter. The data comes from the [place] facility where the Encounter took place. Date/Time Smoking Status/Tobac co Use Comment Facility Aug 01, 2021 09:08 AM [place]-TOBACCO FORMER USER [facility] Aug 01, 2021 09:08 AM [place]-TOBACCO QUIT 1 TO < 5 YRS [facility] Dec 08, 2011 01:04 PM CURRENT SMOKER chew pack and half a week [facility] Dec 08, 2011 01:04 PM V1-PT DECLINES REF TO TOBACCO CESS PRGM [facility] Dec 08, 2011 01:04 PM V1-PT DECLINES TOBACCO CESSATION MEDS [facility] Dec 08, 2011 01:04 PM V1-PT THINKING ABOUT QUIT TOBACCO USE [facility] Advance Directives: All historical and current Section Date Range: From patient's date of to the date document was created. This section includes ALL of a patient's completed or amended [place] Advance and Rescinded Directives. The entries below indicate that a directive exists for the patient, but an actual copy is not included with this document. The data comes from all [place] facilities. Date Advance Directives Provider Source Jan 03, 2022 ADVANCE DIRECTIVE LUIS EDUARDO COLON Jan 03, 2021 ADVANCE DIRECTIVE KHUSHBU KUMAR VICTORINA [facility] Mar 19, 2012 ADVANCE DIRECTIVE ERIKA MORALES [place] CNT RL [facility]YTRJessika [facility] Encounter Notes: All associated encounter notes This section contains the clinical notes associated to the Encounter. Date/Time Encounter Note(s) Provider Source Jul 23, 2023 04:01 PM LETTERS: LOCAL TITLE: PATIENT LETTER (B) STANDARD TITLE: LETTERS DATE OF NOTE: JUL 23, 2023@16:01 ENTRY DATE: JUL 23, 2023@16:01:56 AUTHOR: GABY FONTENOT EXP COSIGNER: URGENCY: STATUS: [place] [address] [phone] * KYLE COLEMAN [address] [address] Date: JUL 23, 2023 Dear [place]: Thank you for choosing [facility] as your primary choice for health care. As a partner in your health care, we are attempting to contact you because we have been unsuccessful in reaching you by phone. WE ARE ATTEMPTING TO REACH YOU TO SCHEDULE YOUR ANNUAL IN MAR/APR 2024 WITH YOUR PROVIDER. We want to assure you that we are doing everything possible to schedule veterans for their appointments. Please call us at to speak with a staff member who can assist you with securing an appointment. Thank you for your service and we look forward to hearing from you soon. Sincerely; [facility] [address] [place] [phone] Upcoming Appointments: 07/27/2023 09:00 CWM/SO/PODIATRY/ROSA 01/17/2024 13:30 CWM/SO/PACT 4 03/06/2024 11:30 CWM/NO/OPTOMETRY/GABY CASTILLO Jul 23, 2023 04:00 PM PRIMARY CARE TELEP RANDOLPH ENCOUNTER NOTE: LOCAL TITLE: TELEPHONE NOTE/PRIMARY CARE STANDARD TITLE: PRIMARY CARE TELEPHONE ENCOUNTER NOTE DATE OF NOTE: JUL 23, 2023@16:00 ENTRY DATE: JUL 23, 2023@16:01:01 AUTHOR: GABY FONTENOT EXP COSIGNER: URGENCY: STATUS: COMPLETED Orbitread Operator called to [X} schedule primary care appt [ ] reschedule primary care appt [ ] schedule COVID vaccine appt [ ] reschedule COVID vaccine appt [ ] Scheduled appt [X} Unable to schedule appt SPOKE WITH: SCHEDULED APPT - TYPE: APPT SCHEDULED ON AT [ ] [facility] APPT SCHEDULED ON AT [ ] NON [facility] APPT SCHED ON AT [X} UNABLE TO REACH : [X} Left voicemail with direct callback number [X} Mailed Letter = /es/ GABY FONTENOT ADVANCE RETURNED TELEPHONE EQUIPMENT APPRAISER Signed: 07/23/2023 16:01 GABY FONTENOT
--- OUTSIDE RECORDS SUMMARY | 2024-05-08 01:03 | XMS_ITS ---
Author Name [facility] [place] [facility] [place] Address [address] [place] [address] Care Team Providers Care Processing Inspector Name Role Phone ROBBY NIELSON Primary Care [...] PRESCRIPT ION RX730 1 May 28, 2017 [id number] Charlene MASON DDIE PATIENT [facility] PRESCRIPT ION RX730 1 May 28, 2017 [id number] Charlene MASON DDIE PATIENT [facility] PRESCRIPT ION RX May 28, 2022 THPRX [id number] Charlene MASON DDIE PATIENT [facility] RX PRESCRIPT ION RX May 28, 2022 THPRX [id number] Charlene MASON DDIE PATIENT [facility] PL[facility] USP May 28, 2017 [place] [id number] [phone] Charlene MASON DDIE PATIENT [facility] IVY Chang May 28, 2017 [facility] [id number] Charlene MASON DDFRED PATIENT [facility] POINT OF SERVICE MALLORY CHERY Oct 27, 2011 [id number] Charlene MASON DDFRED PATIENT [facility] (WNR) SUKUMAR CHERY(WN R) May 28, 2017 (WNR) [id number] Charlene MASON PATIENT Selected Encounter This section includes the information on record at [place] for the Encounter. Date/Time Encounter Type Encounter Description Reason Pro vider Source Aug 06, 2023 02:52 PM Outpatient Encounter ADMIN PAT ACTIVTIES (MASNONCT) IHE Encounter Template Text not used by [place] Plan of Treatment: Future Appointments (+ 6 months) and Future Tests (+/- 45 days) The Plan of Treatment section includes future care activities for the patient from all [place] treatmentfacilities. This section includes future appointments and future orders which are active, pending or scheduled. Future Appointments This section includes appointments that were scheduled to occur 6 months from the date of the Encounter, up to a maximum of 20 appointments. The data comes from all [place] treatment facilities. Appointment Date/Time Appointment Type Appointme nt Facility Name Aug 13, 2023 11:00 AM [place]ULATORY [place] [facility] Aug 16, 2023 10:45 AM [place] [facility] Aug 20, 2023 10:00 AM [place] [facility] Jan 04, 2024 09:00 AM AMBULATORY - MEDICINE [facility] Jan 15, 2024 09:00 AM AMBULATORY - MEDICINE [facility] Lab Results: +/- 30 days of the encounter This section includes the Chemistry and Hematology Lab Results on record with [place] for the patient. Radiology Reports and Pathology Reports are provided separately, in subsequent sections. Lab Results This section contains the Chemistry/Hematology Results that were resulted 30 days before or 30 daysafter the date of the Encounter. Date/Time Source Result Type Result - Unit Interpretation Reference Range Comment Aug 20, 2023 10:40 AM [facility] VITAMIN D (25-OH) Specimen Type: SERUM No comment entered. Ordering Provider: PHYLLIS WHALEY Report Released Date/Time: Aug 13, 2023 09:06 AM Reporting Lab: [facility] [address] [facility] [id number] Performing Lab: [facility] [address] [address] VITAMIN D (25-OH) 29 ng/mL 20-50 Social History: Smoking Status (Most current) and Tobacco Use (All prior to encounter date) This section includes the most current, and the historical, smoking and tobacco- related health factors from the [place] facility where the Encounter took place. Current Smoking Status This section includes the most current smoking, or tobacco-related health factor, from the [place] facility where the Encounter took place. Date/Time Current Smoking Status Comment Facil ity Jan 08, 2023 09:03 AM [place]-TOBACCO NEVER USED [facility] Tobacco Use History This section includes a history of the smoking, or tobacco-related health factors, that were collected on or before the date of the Encounter. The data comes from the [place] facility where the Encounter took place. Date/Time Smoking Status/Tobac co Use Comment Facility Aug 01, 2021 09:08 AM [place]-TOBACCO FORMER USER [facility] Aug 01, 2021 09:08 AM [place]-TOBACCO QUIT 1 TO < 5 YRS [facility] Dec 08, 2011 01:04 PM CURRENT SMOKER chew pack and half a week [facility] Dec 08, 2011 01:04 PM V1-PT DECLINES REF TO TOBACCO CESS PRGM [facility] Dec 08, 2011 01:04 PM V1-PT DECLINES TOBACCO CESSATION MEDS [facility] Dec 08, 2011 01:04 PM V1-PT THINKING ABOUT QUIT TOBACCO USE [facility] Advance Directives: All historical and current Section Date Range: From patient's date of to the date document was created. This section includes ALL of a patient's completed or amended [place] Advance and Rescinded Directives. The entries below indicate that a directive exists for the patient, but an actual copy is not included with this document. The data comes from all [place] facilities. Date Advance Directives Provider Source Jan 03, 2022 ADVANCE DIRECTIVE LUIS EDUARDO COLON Jan 03, 2021 ADVANCE DIRECTIVE KHUSHBU KUMAR [facility] Mar 19, 2012 ADVANCE DIRECTIVE ERIKA MORALES [place] CNT RL [facility] Encounter Notes: All associated encounter notes This section contains the clinical notes associated to the Encounter. Date/Time Encounter Note(s) Provider Source Aug 06, 2023 03:34 PM ADDENDUM: LOCAL TITLE: Addendum STANDARD TITLE: ADDENDUM DATE OF NOTE: AUG 06, 2023@15:34:12 ENTRY DATE: AUG 06, 2023@15:34:13 AUTHOR: HEATHER OLIVAS EXP COSIGNER: URGENCY: STATUS: COMPLETED Will include PACT MSA to schedule. /caitlyn/ HEATHER OLIVAS LPN LICENSED PRACTICAL NURSE Signed: 08/06/2023 15:34 Receipt Acknowledged By: 08/07/2023 09:02 /caitlyn/ GABY FONTENOT ADVANCE EDGER LINER --- Original Document --- 08/06/23 [facility]: SCHEDULING ADMINISTRATION: Patient Demographics Patient Name: KYLE MASON Patient Primary Phone: [phone] Patient Primary Address: [address] [place] [address] Patient : 1960 Patient Age: 63 Caller/Recipient Relation to Patient: Self Administrative Administrative Note Reason: Other Administrative Note Comments: Patient was TRIAGED by CCC RN TODAY with recommendations for patient to be seen by PCP within 2 weeks for a F2F Possible Hernia Metals Analyst unable to schedule appt due to no provider availability within the triage recommended timeframe. Please reach out to and arrange for care. Sent to RN/LEYDA Metals Analyst informed patient- I am sending an alert to your PACT with the triage appointment recommendations asking them to contact you to schedule your appointment, if you do not hear back from them within the appt timeframe, or if your symptoms worsen, please adhere to the instructions provided to you by the triage nurse. /caitlyn/ VALERIA HENRY 1 [facility] AMSA Signed: 08/06/2023 14:52 Receipt Acknowledged By: 08/06/2023 15:34 /caitlyn/ HEATHER OLIVAS LPN LICENSED PRACTICAL NURSE 08/06/2023 15:57 /caitlyn/ STAN ALFRED RN REGISTERED NURSE for AJ CARNES 08/07/2023 ADDENDUM STATUS: COMPLETED THIS BULK SYSTEM OPERATOR SPOKE w/ AND IS BOOKED FOR 08/13/23 /caitlyn/ GABY FONTENOT LORETTO EDGER LINER Signed: 08/07/2023 09:02 HEATHER OLIVAS [place] [facility] [place] [facility] Aug 06, 2023 02:52 PM ADMINISTRATIVE NOTE: LOCAL TITLE: CCC: SCHEDULING ADMINISTRATION STANDARD TITLE: ADMINISTRATIVE NOTE DATE OF NOTE: AUG 06, 2023@14:52:51 ENTRY DATE: AUG 06, 2023@14:52:51 AUTHOR: VALERIA CARMEN COSIGNER: URGENCY: STATUS: COMPLETED CCC: SCHEDULING ADMINISTRATION Has ADDENDA Patient Demographics Patient Name: KYLE MASON Patient Primary Phone: [phone] Patient Primary Address: [address] [place] [address] Patient : 1960 Patient Age: 63 Caller/Recipient Relation to Patient: Self Administrative Administrative Note Reason: Other Administrative Note Comments: Patient was TRIAGED by CCC RN TODAY with recommendations for patient to be seen by PCP within 2 weeks for a F2F Possible Hernia Metals Analyst unable to schedule appt due to no provider availability within the triage recommended timeframe. Please reach out to and arrange for care. Sent to RN/DAIRY MANAGEMENT SPECIALIST Metals Analyst informed patient- I am sending an alert to your PACT with the triage appointment recommendations asking them to contact you to schedule your appointment, if you do not hear back from them within the appt timeframe, or if your symptoms worsen, please adhere to the instructions provided to you by the triage nurse. /caitlyn/ VALERIA HENRY 1 [facility] AMSA Signed: 08/06/2023 14:52 Receipt Acknowledged By: 08/06/2023 15:34 /caitlyn/ HEATHER OLIVAS LPN LICENSED PRACTICAL NURSE 08/06/2023 15:57 /caitlyn/ STAN ALFRED RN REGISTERED NURSE for AJ CARNES 08/06/2023 ADDENDUM STATUS: COMPLETED Will include PACT MSA to schedule. /es/ HEATHER OLIVAS LPN LICENSED PRACTICAL NURSE Signed: 08/06/2023 15:34 Receipt Acknowledged By: 08/07/2023 09:02 /caitlyn/ GABY FONTENOT ADVANCE EDGER LINER 08/07/2023 ADDENDUM STATUS: COMPLETED THIS BULK SYSTEM OPERATOR SPOKE w/ AND IS BOOKED FOR 08/13/23 /caitlyn/ GABY FONTENOT ADVANCE EDGER LINER Signed: 08/07/2023 09:02 VALERIA CARMEN [place] [facility]
--- OUTSIDE RECORDS SUMMARY | 2024-05-08 01:03 | XMS_ITS | Encounter Summary ---
Author Name [facility] [place] [facility] [place] [facility] [place] Address [address] [place] [address] Care Team Providers Care Intermodal Owner Operator Truck Driver Name Role Phone ROBBY NIELSON Primary Care [...] PRESCRIPT ION RX730 1 May 28, 2017 [id number] [phone] Charlene MASON DDIE PATIENT [facility] PRESCRIPT ION RX730 1 May 28, 2017 [id number] Charlene MASON DDIE PATIENT [facility] RX PRESCRIPT ION RX May 28, 2022 THPRX [id number] Charlene MASON DDIE PATIENT [facility] RX PRESCRIPT ION RX May 28, 2022 THPRX [id number] [phone] Charlene MASON DDIE PATIENT [facility] PL[facility] USP May 28, 2017 [facility] [id number] [phone] Charlene MASON DDIE PATIENT [facility] IVY Chang May 28, 2017 [facility] [id number] Charlene MASON DDFRED PATIENT [facility] POINT OF SERVICE MALLORY CHERY Oct 27, 2011 [id number] Charlene MASON DDFRED PATIENT [facility] (WNR) SUKUMAR CHERY(WN R) May 28, 2017 (WNR) [id number] Charlene MASON DDFRED PATIENT Selected Encounter This section includes the information on record at [place] for the Encounter. Date/Time Encounter Type Encounter Description Reason Provider Source Aug 13, 2023 11:28 AM Outpatient Encounter PRIMARY CARE/MEDICINE PHYLLIS WHALEY [facility] Encounter Template Text not used by [place] Plan of Treatment: Future Appointments (+ 6 months) and Future Tests (+/- 45 days) The Plan of Treatment section includes future care activities for the patient from all [place] treatmentfacilities. This section includes future appointments and future orders which are active, pending or scheduled. Future Appointments This section includes appointments that were scheduled to occur 6 months from the date of the Encounter, up to a maximum of 20 appointments. The data comes from all [place] treatment facilities. Appointment Date/Time Appointment Type Appointme nt Facility Name Aug 16, 2023 10:45 AM AMBULATORY - MEDICINE [facility] Aug 20, 2023 10:00 AM AMBULATORY MEDICINE [facility] Jan 04, 2024 09:00 AM AMBULATORY - MEDICINE [facility] Jan 15, 2024 09:00 AM AMBULATORY - MEDICINE [facility] Lab Results: +/- 30 days of the encounter This section includes the Chemistry and Hematology Lab Results on record with [place] for the patient. Radiology Reports and Pathology Reports are provided separately, in subsequent sections. Lab Results This section contains the Chemistry/Hematology Results that were resulted 30 days before or 30 daysafter the date of the Encounter. Date/Time Source Result Type Result - Unit Interpretation Reference Range Comment Aug 20, 2023 10:40 AM [facility] VITAMIN D (25-OH) Specimen Type: SERUM No comment entered. Ordering Provider: PHYLLIS WHALEY Report Released Date/Time: Aug 13, 2023 09:06 AM Reporting Lab: [address] [address] Performing Lab: [facility] [address] [address] VITAMIN D (25-OH) 29 ng/mL 20-50 Vital Signs: All taken on the encounter date This section contains inpatient and outpatient Vital Signs collected on the date of the Encounter. Date/Time Temperature Pulse Blood Pressure Respiratory Rate SP02 Pain Height Weight Body Mass Index Source Aug 13, 2023 11:27 AM 98 88 112/73 20 98 62 135 25 [facility] Social History: Smoking Status (Most current) and Tobacco Use (All prior to encounter date) This section includes the most current, and the historical, smoking and tobacco- related health factors from the [place] facility where the Encounter took place. Current Smoking Status This section includes the most current smoking, or tobacco-related health factor, from the [place] facility where the Encounter took place. Date/Time Current Smoking Status Comment [facility] it Jan 08, 2023 09:03 AM [place]-TOBACCO NEVER USED [facility] Tobacco Use History This section includes a history of the smoking, or tobacco-related health factors, that were collected on or before the date of the Encounter. The data comes from the [place] facility where the Encounter took place. Date/Time Smoking Status/Tobac co Use Comment Facility Aug 01, 2021 09:08 AM [place]-TOBACCO FORMER USER [facility] Aug 01, 2021 09:08 AM VA-TOBACCO QUIT 1 TO < 5 YRS [facility] Dec 08, 2011 01:04 PM CURRENT SMOKER chew pack and half a week [facility] Dec 08, 2011 01:04 PM V1-PT DECLINES REF TO TOBACCO CESS PRGM [facility] Dec 08, 2011 01:04 PM V1-PT DECLINES TOBACCO CESSATION MEDS [facility] Dec 08, 2011 01:04 PM V1-PT THINKING ABOUT QUIT TOBACCO USE [facility] Advance Directives: All historical and current Section Date Range: From patient's date of to the date document was created. This section includes ALL of a patient's completed or amended [place] Advance and Rescinded Directives. The entries below indicate that a directive exists for the patient, but an actual copy is not included with this document. The data comes from all [place] facilities. Date Advance Directives Provider Source Jan 03, 2022 ADVANCE DIRECTIVE LUIS EDUARDO COLON Jan 03, 2021 ADVANCE DIRECTIVE KHUSHBU KUMAR Mar 19, 2012 ADVANCE DIRECTIVE ERIKA MORALES [place] [facility] [place] [facility] Encounter Notes: All associated encounter notes This section contains the clinical notes associated to the Encounter. Date/Time Encounter Note(s) Provider Source Aug 13, 2023 11:28 AM PREVENTIVE MEDICIN E NURSING NOTE: LOCAL TITLE: CLINICAL REMINDERS/NURSING STANDARD TITLE: PREVENTIVE MEDICINE NURSING NOTE DATE OF NOTE: AUG 13, 2023@11:28 ENTRY DATE: AUG 13, 2023@11:28:30 AUTHOR: HEATHER OLIVAS EXP COSIGNER: URGENCY: STATUS: COMPLETED [place] here for change in muscles across chest and for c/o abdominal bloating. Depression Screening: Perform PHQ-2 A PHQ-2 screen was performed. The score was 1 which is a negative screen for depression. Over the past two weeks, how often have you been bothered by the following problems? 1. Little interest or pleasure in doing things Not at all 2. Feeling down, depressed, or hopeless Several days Pneumococcal Conjugate Vaccine (PCV15/PCV20): Refuses PCV vaccine Immunization: PNEUMOCOCCAL CONJUGATE, UNSPECIFIED FORMULATION Refusal Reason: PATIENT DECISION Patient refuses all immunization(s) in the PneumoPCV group Date Documented: 08/13/23 11:30 Influenza Immunization: The patient has received the seasonal influenza vaccine for the current season at another location. Documented: INFLUENZA, UNSPECIFIED FORMULATION Historical Date Administered: Feb 12, 2023 Outside Location: Outside Healthcare Provider Information Source: SOURCE UNSPECIFIED Td / Tdap Immunization: The patient declines to receive the recommended dose of Td/Tdap vaccine. Immunization: TD(ADULT) UNSPECIFIED FORMULATION Refusal Reason: PATIENT DECISION Patient refuses all immunization(s) in the Td group Date Documented: 08/13/23 11:30 COVID-19 Immunization: Refused Moderna Monovalent COVID-19 vaccine Immunization: COVID-19 (MODERNA), MRNA, LNP-S, PF, 50 MCG/0.5 ML (AGES 12 + YEARS) Refusal Reason: PATIENT DECISION Patient refuses all immunization(s) in the COVID-19 group Date Documented: 08/13/23 11:30 Sexual Orientation: The patient thinks of their sexual orientation as: Straight or Heterosexual RHS Screen: RHS Screen Session Format: Face to Face Environmental Check Upon inquiry, the individual reports that the environment is safe to proceed. Informed Consent to Screen and Document The individual consents to proceed with screening. The individual consents to documentation of responses. PRIMARY SCREEN: In the past 12 months, how often did a current or former intimate partner (e.g., boyfriend, girlfriend, , , sexual partner): 1. Scream or curse at you Never 2. Insult or talk down to you Never 3. Threaten you with harm Never 4. Physically hurt you Never 5. Force or pressure you to have sexual contact against your will, or when you were unable to say no Never ?? The HITS tool (items 1-4 above) is [place] copyright protected by Jerrod Mcpherson MD, and the user has full rights to use it throughout the [place] system. PRIMARY SCREEN RESULT: The Primary Screen is NEGATIVE. The individual answered never to all forms of IPV above (i.e., answered never to all 5 items) The individual accepts education and/or resources: No EDUCATION: Other: N/A Hepatitis A Vaccine for High Risk: Patient declines/refuses Hepatitis A immunization Immunization: HEP A, UNSPECIFIED FORMULATION Refusal Reason: PATIENT DECISION Patient refuses all immunization(s) in the HepA group Date Documented: 08/13/23 11:31 /caitlyn/ HEATHER OLIVAS LPN LICENSED PRACTICAL NURSE Signed: 08/13/2023 11:32 HEATHER OLIVAS MYLO
--- OUTSIDE RECORDS SUMMARY | 2024-05-08 01:03 | XMS_ITS | Encounter Summary ---
Author Name [facility] [place] Address [address] [place] [address] Care Team Providers Care Host/Hostess Name Role Phone ORBBY NIELSON Primary Care Provider Unavailabl e Insurance [...] PRESCRIPT ION [id number] 1 May 28, 2017 [id number] Charlene MASON DDIE PATIENT [employer] PRESCRIPT ION [id number] 1 May 28, 2017 [id number] [phone] Charlene MASON DDIE PATIENT [employer] RX PRESCRIPT ION RX May 28, 2022 THPRX [id number] Charlene MASON DDIE PATIENT [employer] RX PRESCRIPT ION RX May 28, 2022 THPRX [id number] Charlene MASON DDIE PATIENT [facility] USP May 28, 2017 [facility] [id number] Charlene MASON DDIE PATIENT [facility] IVY Chang May 28, 2017 [id number] Charlene MASON PATIENT [facility] OF SERVICE MALLORY RE Oct 27, 2011 [id number] [facility] (WNR) SUKUMAR TEJADA RE(WN R) May 28, 2017 (WNR) [id number] [phone] Charlene MASON PATIENT Selected Encounter This section includes the information on record at [place] for the Encounter. Date/Time Encounter Type Encounter Description Reason Provider Source Jul 27, 2023 09:00 AM OFFICE O/P EST LOW 20 MIN PODIATRY ICD-10-CM L60.0 Ingrowing nail ROSAJOHN Soto [facility] Encounter Template Text not used by [place] Assessments - Encounter Diagnoses This section includes the primary and secondary diagnoses documented for the Encounter. Date/Time Primary/Secondary Diagnosis Diagnosis Name Provider Source Jul 27, 2023 09:15 AM PRIMARY Ingrowing nail ROSAJOHN Soto [facility] Jul 27, 2023 09:15 AM SECONDARY Pain in left toe(s) JOHN LEE [facility] Jul 27, 2023 09:15 AM SECONDARY Pain in right toe(s) ROSAJOHN Charles [facility] Jul 27, 2023 09:15 AM SECONDARY Peripheral vascular disease, unspecified ROSAJOHN Soto [facility] Plan of Treatment: Future Appointments (+ 6 months) and Future Tests (+/- 45 days) The Plan of Treatment section includes future care activities for the patient from all [place] treatmentfacilities. This section includes future appointments and future orders which are active, pending or scheduled. Future Appointments This section includes appointments that were scheduled to occur 6 months from the date of the Encounter, up to a maximum of 20 appointments. The data comes from all [place] treatment facilities. Appointment Date/Time Appointment Type Appointme nt Facility Name Aug 13, 2023 11:00 AM AMBULATORY [place]ICINE [place] [facility] [place] [facility] Aug 16, 2023 10:45 AM AMBULATORY - MEDICINE [place] [facility] [place] [facility] Aug 20, 2023 10:00 AM AMBULATORY - MEDICINE [place] [facility] [place] [facility] Jan 04, 2024 09:00 AM [facility]ORY - [facility]IC[place] [facility] [place] Jan 15, 2024 09:00 AM [facility]BULATORY - MEDIC[place] [place] Lab Results: +/- 30 days of the encounter This section includes the Chemistry and Hematology Lab Results on record with [place] for the patient. Radiology Reports and Pathology Reports are provided separately, in subsequent sections. Lab Results This section contains the Chemistry/Hematology Results that were resulted 30 days before or 30 daysafter the date of the Encounter. Date/Time Source Result Type Result - Unit Interpretation Reference Range Comment Aug 20, 2023 10:40 AM [facility] VITAMIN D (25-OH) Specimen Type: SERUM No comment entered. Ordering Provider: PHYLLIS WHALEY Report Released Date/Time: Aug 13, 2023 09:06 AM Reporting Lab: [facility] [address] [id number] Performing Lab: [facility] [address] [id number] VITAMIN D (25-OH) 29 ng/mL 20-50 Social History: Smoking Status (Most current) and Tobacco Use (All prior to encounter date) This section includes the most current, and the historical, smoking and tobacco- related health factors from the [place] facility where the Encounter took place. Current Smoking Status This section includes the most current smoking, or tobacco-related health factor, from the [place] facility where the Encounter took place. Date/Time Current Smoking Status Comment Facil ity Mar 26, 2020 11:30 AM [place]-TOBACCO NEVER USED [facility] Tobacco Use History This section includes a history of the smoking, or tobacco-related health factors, that were collected on or before the date of the Encounter. The data comes from the [place] facility where the Encounter took place. Date/Time Smoking Status/Tobacco Use Comment F acility Feb 03, 2019 10:43 AM [place]-TOBACCO NEVER USED [facility] Mar 12, 2018 09:26 AM [place]-TOBACCO NEVER USED [facility] Jun 15, 2016 03:51 PM LIFETIME NON-TOBACCO USER [facility] Jun 23, 2015 10:34 AM LIFETIME NON-TOBACCO USER [facility] Apr 22, 2013 10:41 AM LIFETIME NON-TOBACCO USER [facility] Mar 07, 2011 11:49 AM LIFETIME NON-TOBACCO USER [facility] Jan 07, 2009 11:55 AM LIFETIME NON-TOBACCO USER [facility] Advance Directives: All historical and current Section Date Range: From patient's date of to the date document was created. This section includes ALL of a patient's completed or amended [place] Advance and Rescinded Directives. The entries below indicate that a directive exists for the patient, but an actual copy is not included with this document. The data comes from all [place] facilities. Date Advance Directives Provider Source Jan 03, 2022 ADVANCE DIRECTIVE LUIS EDUARDO COLON Jan 03, 2021 ADVANCE DIRECTIVE KHUSHBU KUMAR Mar 19, 2012 ADVANCE DIRECTIVE ERIKA MORALES [place] [facility] [place] [facility] Encounter Notes: All associated encounter notes This section contains the clinical notes associated to the Encounter. Date/Time Encounter Note(s) Provider Source Jul 27, 2023 07:23 AM PODIATRY NOTE: LOCAL TITLE: PODIATRY NOTE STANDARD TITLE: PODIATRY NOTE DATE OF NOTE: JUL 27, 2023@07:23 ENTRY DATE: JUL 27, 2023@07:23:39 AUTHOR: JOHN LEE EXP COSIGNER: URGENCY: STATUS: COMPLETED NOTE: HAS RECEIVED BOTH COVID VACCINE DOSES + 3 BOOSTERS AT [facility] LAST SEEN FOR TREATMENT: 02/16/2023 S: Pt. is a 63 yo alert WDWN MALE who presents for continued podiatric evaluation & care for treatment of a presenting complaint of a painful CORN , ingrown toenail and numbness lateral palantar LEFT foot. Patient has PVD & is at risk of injury with self or other nonprofessional care. Location of symptoms are: HD 5TH RT, DISTAL 3RD LT, 3RD NAILS BILATERAL. Onset of symptoms has been several WEEKS due to this being a recurrent condition that has been exacerbating over the past few weeks. Duration of symptoms is daily with periods of exacerbation and remission. Description of symptoms is of an aching nature OF THE 5TH RT DIGIT AND DISTAL 3RD LEFT DIGIT- Contributing factors are: shoes and increased activity. *DENIES ANY RECENT CHANGES IN MEDS UPON QUESTIONING TODAY SEE RECONCILIATION PERFORMED THIS DATE BELOW DENIES TOBACCO PMH: Active problems - Computerized Problem List is the source for the following: *NOTE: REVIEWED ABOVE NOTING NO CHANGES SINCE PREVIOUS VISIT: SEE PROBLEMS LIST TEMPLATE FOR COMPLETE LIST NEEDED. HEIGHT:123.6 lb [56.2 kg] (09/10/2018 09:19) WEIGHT:62 in [157.5 cm] (09/10/2018 09:19) O: DERMATOLOGICAL: Exam reveals skin color & text to be WNL. Temp is diminished warm to cool proximal to distal. There is absence of hair noted. Nails are INCURVATED and REVEAL rubor in the affected nail grooves. The affected nails are 1-2-3-4-5 BILATERAL. There are superficial painful hyperkeratotic lesions noted at this time located at the following sites: DISTAL 3RD LEFT DIGIT. There are no rashes, ulcers, indurations or nodules noted. VASCULAR: Exam reveals DP & PT pulses to be absent non-palpable bilateral. CFT is >3 sec x 10. There are no superficial varices noted and there is no edema noted. MUSCULOSKELETAL: Exam reveals muscle strength and tone to be equal & symmetrical bilaterally & diminished for an individual of this age and present physical-medical condition. There is pain free ROM at all joints distal to and including the ankle. There is a planus LEFT foot and a normal low arch RT nNOTE: NEW COMPLAINT OF A SEVERELY PAINFUL 4TH LEFT DIGIT-NOTING DISTAL HYPERKERATOSIS WITH PATIENT INDICATING THAT HE HAS BEEN WALKING ON HIS LEFT HEEL TO AVOID PRESSURE. NEUROLOGICAL: Exam reveals S/D, vibratory-absent plantar 3-4-5 met heads left- DIMINISHED & light touch & proprioception sensations to be equal & symmetrical bilaterally & diminished for an individual of this age and present physical-medical status. Protective sensation utilizing a Wingate-Karley lOg monofilament is 0/10 bilateral. A: Clinical Impression is painful onychocryptic nails & DISTAL 4TH LT DIGIT CALLUS with pain level 5-6/10 prior to treatment & 1-2/10 after. P: Treatment consists of TRIMMING-reduction of all nails via manual & electric means with excision of the offending nail borders and thinning of the nail plates to the point of imminent bleeding. Additional treatment consists of surgical paring-debridement of all hyperkeratosis utilizing sharp dissection with a sterile # 15 scalpel AND THE APPLICATION OF A DIGITAL CREST PAD IN AN ATTEMPT TO KEEP THE DISTAL ASPECT OF THE 4TH TOE ELEVATED WITH MINIMAL IRRITATION. All care rendered without complications & the patient is progressing well after podiatric care this date and will be scheduled for periodic podiatric care in an attempt to prevent future complications due to the underlying medical conditions. Treatment by a non-professional could be extremely hazardous to the patient's wellbeing due to the underlying medical conditions. RTC 24 WEEKS (08/09 @ 9am) *DISCUSSED NEW PROTOCOLS AND CALLED KAY TODAY FOR RESCHEDULING I DISCUSSED THE FINDINGS & PLAN WITH PATIENT (UNCHANGED SINCE PREVIOUS VISIT) & PATIENT AGREES AND UNDERSTANDS PLAN *REQUESTED NEW RX FOR AMMONIUMLACTATE 12% LOTION AND ORDERED TODAY WELL SUGGESTING TO US UNDER OCCLUSION 1-2 X /PER WEEK FOR BETTER PENETRATION Medication Reconciliation: PERFORMED TODAY - SEE BELOW. Outpatient: Has the patient been taking medications as documented in the EMLR? YES: The patient has been taking medications as documented in the EMLR. Essential Medication List for Review used to complete this medication reconciliation. INCLUDED IN THIS LIST: Alphabetical list of active outpatient prescriptions dispensed from this [facility] (local) and dispensed from another [place] or [facility] facility (remote) as well as inpatient orders (local, pending and active), local clinic medications, locally documented non-VA medications, and local prescriptions that have or been discontinued in the past 90 days. - All changes in medications, including all non-VA/Herbal/OTC medications were entered into [facility]S. - If there were any medications the patient should no longer take, they were discontinued. - The patient/caregiver was instructed to update this list, discard old lists, and take this list to the next appointment, whether with a VA or non-VA provider. JLV Link Data on this list may not be complete. Please check [email or web address]. Allergies/ADRs (Tool #5) FACILITY ALLERGY/ADR -------- [facility] NO KNOWN ALLERGIES [facility] No Known Allergies [facility] (Tool #1) INCLUDED IN THIS LIST: Alphabetical list of active outpatient prescriptions dispensed from this [facility] (local) and dispensed from another [place] or [facility] facility (remote) as well as inpatient orders (local pending and active), local clinic medications, locally documented non-VA medications, and local prescriptions that have or been discontinued in the past 90 days. Non-VA Meds Last Documented On: Jan 03, 2022 NOTE The display of VA prescriptions dispensed from another [place] or [facility] facility (remote) is limited to active outpatient prescription entries matched to National Drug File at the originating site and may not include some items such as investigational drugs, compounds, etc. NOT INCLUDED IN THIS LIST: Medications self-entered by the patient into personal health records (i.e. [employer]CO[employer]OT) are NOT included in this list. Non-VA medications documented outside this [place], remote inpatient orders (regardless of status) and remote clinic medications are NOT included in this list. The patient and provider must always discuss medications the patient is taking, regardless of where the medication was dispensed or obtained. 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 (Status = Active) INSTILL 1 DROP INTO EACH EYE FOUR TIMES DAILY NEEDED Rx# [id number] Last Released: 07/26/23 Qty/Days Supply: 45 Rx Expiration Date: 07/24/24 Refills Remainin Indication: FOR DRY EYE Non-VA CHOLECALCIF 25MCG (D3-1,000UNIT) TAB TAKE ONE TABLET BY MOUTH ONCE DAILY Non-VA CYCLOBENZAPRINE HCL TAB TAKE 5MG BY MOUTH NEEDED OUTPT DICLOFENAC NA 1% TOP GEL (Status = Active) APPLY 3-4 GRAMS TOPICALLY THREE TIMES A DAY FOR OSTEOARTHRITIS - USE DOSING CARD PROVIDED IN BOX Rx# [id number] Last Released: 06/23/23 Qty/Days Supply: 100/8 Rx Expiration Date: 06/19/24 Refills Remainin Non-VA OMEPRAZOLE 20MG EC CAP TAKE 1 CAPSULE BY MOUTH EVERY MORNING 30 MINUTES BEFORE BREAKFAST Non-VA OTHER CAP/TAB TAKE LIVER ANTIOXIDANT EXTRACT AND AFTER MEALS LIVER BRAIN BENEFITS BY MOUTH OUTPT SODIUM FLUORIDE 1.1% TOOTHPASTE (Status = Active) BRUSH SMALL AMOUNT TO TEETH TWICE DAILY FOR TOOTH DECAY PREVENTION Rx# [id number] Last Released: 12/29/22 Qty/Days Supply: 51/60 Rx Expiration Date: 12/28/23 Refills Remainin Indication: FOR TOOTH DECAY PREVENTION SUPPLIES Suicide Screen: C-SSRS Screening [place]-Suicide Severity Rating Scale (C-SSRS Screener) 1. Over the past month, have you wished you were or wished you could go to sleep and not wake up? No 2. Over the past month, have you had any actual thoughts of killing yourself? No 3. Over the past month, have you been thinking about how you might do this? Response not required due to responses to other questions. 4. Over the past month, have you had these thoughts and had some intention of acting on them? Response not required due to responses to other questions. 5. Over the past month, have you started to work out or worked out the details of how to kill yourself? Response not required due to responses to other questions. 6. If yes, at any time in the past month did you intend to carry out this plan? Response not required due to responses to other questions. 7. In your lifetime, have you ever done anything, started to do anything, or prepared to do anything to end your life (for example, collected pills, obtained a gun, gave away valuables, went to the roof but didn't jump)? No 8. If YES, was this within the past 3 months? Response not required due to responses to other questions. /caitlyn/ JOHN LEE DPM FIG WASHER Signed: 07/27/2023 09:16 JOHN LEE
--- OUTSIDE RECORDS SUMMARY | 2024-05-08 01:03 | XMS_ITS | Encounter Summary ---
Author Name [facility] [place] [facility] [place] Address [address] [place] [address] Care Team Providers Care Independent Sales Representative Name Role Phone ROBBY NIELSON Primary Care [...] PRESCRIPT ION [id number] 1 May 28, 2017 [id number] [phone] Charlene MASON DDIE PATIENT [facility] PRESCRIPT ION [id number] 1 May 28, 2017 [id number] Charlene MASON DDIE PATIENT OPTUM RX PRESCRIPT ION RX May 28, 2022 THPRX [id number] [phone] Charlene MSAON DDIE PATIENT OPTUM RX PRESCRIPT ION RX May 28, 2022 THPRX [id number] Charlene MASON DDIE PATIENT [facility] PLAN USP May 28, 2017 [facility] [id number] Charlene MASON DDIE PATIENT [facility] HEALTH PLAN [facility] IVY Chang May 28, 2017 [id number] Charlene MASON DDFRED PATIENT [facility] MALLORY CHERY Oct 27, 2011 [id number] [id number] Charlene MASON DDFRED PATIENT [facility] (WNR) SUKUMAR CHERY(WN R) May 28, 2017 (WNR) [id number] Charlene MASON PATIENT Selected Encounter This section includes the information on record at [place] for the Encounter. Date/Time Encounter Type Encounter Description Reason Pro vider Source Jul 20, 2023 01:13 PM Outpatient Encounter PRIMARY CARE/MEDICINE IHE Encounter Template Text not used by [place] Plan of Treatment: Future Appointments (+ 6 months) and Future Tests (+/- 45 days) The Plan of Treatment section includes future care activities for the patient from all [place] treatmentfaadventhealthities. This section includes future appointments and future orders which are active, pending or scheduled. Future Appointments This section includes appointments that were scheduled to occur 6 months from the date of the Encounter, up to a maximum of 20 appointments. The data comes from all [place] treatment facilities. Appointment Date/Time Appointment Type Appointme nt Facility Name Jul 27, 2023 09:00 AM AMBULATORY - MEDICINE [facility] Aug 13, 2023 11:00 AM [facility] Aug 16, 2023 10:45 AM [facility] Aug 20, 2023 10:00 AM [facility] Jan 04, 2024 09:00 AM AMBULATORY - MEDICINE [facility] Jan 15, 2024 09:00 AM AMBULATORY - MEDICINE [facility] Social History: Smoking Status (Most current) and Tobacco Use (All prior to encounter date) This section includes the most current, and the historical, smoking and tobacco- related health factors from the [place] facility where the Encounter took place. Current Smoking Status This section includes the most current smoking, or tobacco-related health factor, from the [place] facility where the Encounter took place. Date/Time Current Smoking Status Valente garza Jan 08, 2023 09:03 AM [place]-TOBACCO NEVER USED [facility] Tobacco Use History This section includes a history of the smoking, or tobacco-related health factors, that were collected on or before the date of the Encounter. The data comes from the [place] facility where the Encounter took place. Date/Time Smoking Status/Tobac co Use Comment Facility Aug 01, 2021 09:08 AM VA-TOBACCO FORMER USER [facility] Aug 01, 2021 09:08 AM MA-TOBACCO QUIT 1 TO < 5 YRS [facility] Dec 08, 2011 01:04 PM CURRENT SMOKER chew pack and half a week [facility] Dec 08, 2011 01:04 PM V1-PT DECLINES REF TO TOBACCO CESS PRGM [facility] Dec 08, 2011 01:04 PM V1-PT DECLINES TOBACCO CESSATION MEDS [facility] Dec 08, 2011 01:04 PM V1-PT THINKING ABOUT QUIT TOBACCO USE [facility] Advance Directives: All historical and current Section Date Range: From patient's date of to the date document was created. This section includes ALL of a patient's completed or amended [place] Advance and Rescinded Directives. The entries below indicate that a directive exists for the patient, but an actual copy is not included with this document. The data comes from all [place] facilities. Date Advance Directives Provider Source Jan 03, 2022 ADVANCE DIRECTIVE LUIS EDUARDO COLON Jan 03, 2021 ADVANCE DIRECTIVE KHUSHBU KUMAR Mar 19, 2012 ADVANCE DIRECTIVE ERIKA MORALES [facility] Encounter Notes: All associated encounter notes This section contains the clinical notes associated to the Encounter. Date/Time Encounter Note(s) Provider Source Jul 25, 2023 08:18 AM ADDENDUM: LOCAL TITLE: Addendum STANDARD TITLE: ADDENDUM DATE OF NOTE: JUL 25, 2023@08:18:43 ENTRY DATE: JUL 25, 2023@08:18:44 AUTHOR: CLIFF MCKEON EXP COSIGNER: URGENCY: STATUS: COMPLETED please inform pt needs to be seen before any scans can be performed. he can see sick call if he needs to be seen sooner. thank you /caitlyn/ Cliff Mckeon M.D. STAFF PHYSICIAN Signed: 07/25/2023 08:20 Receipt Acknowledged By: 07/31/2023 10:38 /caitlyn/ AJ CARNES RN REGISTERED NURSE --- Original Document --- 07/20/23 WALK-IN NOTE PRIMARY CARE (T): <====Click to Start Advanced Medical Support Bowman presents to the Primary Care clinic with the following request: [ ]Medication Renewal/Refill [ ]Consultation with Team RN [ ]Symptoms [ X ]Other The states they are: [ ]Waiting [ X ]Not Waiting No Walk in visit scheduled with PACT Nurse [ X ] At this encounter the Bowman's demographics were verified. [ X ] At this encounter the 's Insurance information was verified. [ ] At this encounter the below scheduled visits for the were discussed and appointment reminder card was offered. Future appointments: 07/27/2023 09:00 CWM/SO/PODIATRY/ROSA 03/06/2024 11:30 CWM/NO/OPTOMETRY/RE walked into clinic requesting referral for a full body scan,would like call back to discuss. /caitlyn/ RAMYA SPARKS ADVANCED SINGER BACK TENDER Signed: 07/20/2023 13:16 Receipt Acknowledged By: 07/24/2023 10:32 /caitlyn/ HEATHER OLIVAS LPN LICENSED PRACTICAL NURSE 07/24/2023 12:18 /caitlyn/ AJ CARNES RN REGISTERED NURSE 07/20/2023 ADDENDUM STATUS: COMPLETED Called and spoke to Bowman. He states his belly seems to be getting bigger, his weight has been fluctuating and skin tone has been changing. states his has asked for the scan. Informed he would need to see PCP before any scans can be orderedand at the moment she is booking into October. understands information and will await call back from this RN after speaking to PCP. /caitlyn/ AJ CARNES RN REGISTERED NURSE Signed: 07/20/2023 16:17 07/24/2023 ADDENDUM STATUS: COMPLETED Will include PCP /es/ HEATHER OLIVAS LPN LICENSED PRACTICAL NURSE Signed: 07/24/2023 10:32 Receipt Acknowledged By: 07/25/2023 08:18 /caitlyn/ Cliff Mckeon M.D. STAFF PHYSICIAN CLIFF MCKEON Jul 24, 2023 10:32 AM ADDENDUM: LOCAL TITLE: Addendum STANDARD TITLE: ADDENDUM DATE OF NOTE: JUL 24, 2023@10:32:38 ENTRY DATE: JUL 24, 2023@10:32:39 AUTHOR: HEATHER OLIVAS EXP COSIGNER: URGENCY: STATUS: COMPLETED Will include PCP /caitlyn/ HEATHER OLIVAS LPN LICENSED PRACTICAL NURSE Signed: 07/24/2023 10:32 Receipt Acknowledged By: 07/25/2023 08:18 /caitlyn/ Cliff Mckeon M.D. STAFF PHYSICIAN --- Original Document --- 07/20/23 WALK-IN NOTE PRIMARY CARE (T): <====Click to Start Advanced Medical Support Bowman presents to the Primary Care clinic with the following request: [ ]Medication Renewal/Refill [ ]Consultation with Team RN [ ]Symptoms [ X ]Other The states they are: [ ]Waiting [ X ]Not Waiting No Walk in visit scheduled with PACT Nurse [ X ] At this encounter the Bowman's demographics were verified. [ X ] At this encounter the 's Insurance information was verified. [ ] At this encounter the below scheduled visits for the were discussed and appointment reminder card was offered. Future appointments: 07/27/2023 09:00 CWM/SO/PODIATRY/ROSA 03/06/2024 11:30 CWM/NO/OPTOMETRY/RE walked into clinic requesting referral for a full body scan,would like call back to discuss. /es/ RAMYA SPARKS ADVANCED SINGER BACK TENDER Signed: 07/20/2023 13:16 Receipt Acknowledged By: 07/24/2023 10:32 /caitlyn/ HEATHER OLIVAS LPN LICENSED PRACTICAL NURSE 07/24/2023 12:18 /caitlyn/ AJ CARNES RN REGISTERED NURSE 07/20/2023 ADDENDUM STATUS: COMPLETED Called and spoke to Bowman. He states his belly seems to be getting bigger, his weight has been fluctuating and skin tone has been changing. states his has asked for the scan. Informed he would need to see PCP before any scans can be orderedand at the moment she is booking into October. understands information and will await call back from this RN after speaking to PCP. /caitlyn/ AJ CARNES RN REGISTERED NURSE Signed: 07/20/2023 16:17 HEATHER OLIVAS Jul 20, 2023 01:13 PM PRIMARY CARE NOTE: LOCAL TITLE: WALK-IN NOTE PRIMARY CARE (T) STANDARD TITLE: PRIMARY CARE NOTE DATE OF NOTE: JUL 20, 2023@13:13 ENTRY DATE: JUL 20, 2023@13:13:32 AUTHOR: RAMYA SPARKS EXP COSIGNER: URGENCY: STATUS: COMPLETED WALK-IN NOTE PRIMARY CARE (T) Has ADDENDA <====Click to Start Advanced Medical Support presents to the Primary Care clinic with the following request: [ ]Medication Renewal/Refill [ ]Consultation with Team RN [ ]Symptoms [ X ]Other The states they are: [ ]Waiting [ X ]Not Waiting No Walk in visit scheduled with PACT Nurse [ X ] At this encounter the Bowman's demographics were verified. [ X ] At this encounter the Bowman's Insurance information was verified. [ ] At this encounter the below scheduled visits for the Bowman were discussed and appointment reminder card was offered. Future appointments: 07/27/2023 09:00 CWM/SO/PODIATRY/ROSA 03/06/2024 11:30 CWM/NO/OPTOMETRY/MERHAR Bowman walked into clinic requesting referral for a full body scan,would like call back to discuss. /caitlyn/ RAMYA SPARKS ADVANCED SINGER BACK TENDER Signed: 07/20/2023 13:16 Receipt Acknowledged By: 07/24/2023 10:32 /caitlyn/ HEATHER OLIVAS LPN LICENSED PRACTICAL NURSE 07/24/2023 12:18 /caitlyn/ AJ CARNES RN REGISTERED NURSE 07/20/2023 ADDENDUM STATUS: COMPLETED Called and spoke to Bowman. He states his belly seems to be getting bigger, his weight has been fluctuating and skin tone has been changing. Bowman states his has asked for the scan. Informed he would need to see PCP before any scans can be orderedand at the moment she is booking into October. Bowman understands information and will await call back from this RN after speaking to PCP. /caitlyn/ AJ CARNES RN REGISTERED NURSE Signed: 07/20/2023 16:17 07/24/2023 ADDENDUM STATUS: COMPLETED Will include PCP /caitlyn/ HEATHER OLIVAS LPN LICENSED PRACTICAL NURSE Signed: 07/24/2023 10:32 Receipt Acknowledged By: 07/25/2023 08:18 /caitlyn/ Cliff Mckeon M.D. STAFF PHYSICIAN 07/25/2023 ADDENDUM STATUS: COMPLETED please inform pt needs to be seen before any scans can be performed. he can see sick call if he needs to be seen sooner. thank you /caitlyn/ Cliff Mckeon M.D. STAFF PHYSICIAN Signed: 07/25/2023 08:20 Receipt Acknowledged By: 07/31/2023 10:38 /caitlyn/ AJ CARNES RN REGISTERED NURSE 07/31/2023 ADDENDUM STATUS: COMPLETED Tried calling but he hung up the phone when this RN asked for him. /caitlyn/ AJ CARNES RN REGISTERED NURSE Signed: 07/31/2023 10:39 RAMYA SPARKS
--- OUTSIDE RECORDS SUMMARY | 2024-05-08 01:03 | XMS_ITS | Encounter Summary ---
Author Name [facility] [place] [facility] [place] [facility] [place] Address [address] [place] [address] Care Team Providers Care Sourcing Manager Name Role Phone ROBBY NIELSON Primary Care [...] PRESCRIPT ION [id number] 1 May 28, 2017 [id number] [phone] Charlene MASON DDIE PATIENT [facility] PRESCRIPT ION [id number] 1 May 28, 2017 [id number] Charlene MASON DDIE PATIENT [facility] RX PRESCRIPT ION RX May 28, 2022 THPRX [id number] Charlene MASON DDIE PATIENT OPTUM RX PRESCRIPT ION RX May 28, 2022 THPRX [id number] Charlene MASON DDIE PATIENT [facility] PLAN USP May 28, 2017 [facility] [id number] Charlene MASON DDIE PATIENT [facility] PL[facility] IVY Chang May 28, 2017 [facility] [id number] Charlene MASON DDFRED PATIENT [facility] POINT OF SERVICE MALLORY CHERY Oct 27, 2011 [id number] [phone] Charlene MASON DDFRED PATIENT [facility] SUKUMAR CHERY(WN R) May 28, 2017 (WNR) [id number] Charlene MASON PATIENT Selected Encounter This section includes the information on record at [place] for the Encounter. Date/Time Encounter Type Encounter Description Reason Provider Source Aug 06, 2023 02:44 PM Outpatient Encounter TELEPHONE TRIAGE RAKEL COLEY IHCharlene Encounter Template Text not used by [place] Plan of Treatment: Future Appointments (+ 6 months) and Future Tests (+/- 45 days) The Plan of Treatment section includes future care activities for the patient from all [place] treatmentfacilities. This section includes future appointments and future orders which are active, pending or scheduled. Future Appointments This section includes appointments that were scheduled to occur 6 months from the date of the Encounter, up to a maximum of 20 appointments. The data comes from all [place] treatment facilities. Appointment Date/Time Appointment Type Appointme nt Facility Name Aug 13, 2023 11:00 AM AMBULATORY - [facility] Aug 16, 2023 10:45 AM AM[facility]UL[facility]ORY MEDIC[facility] [place] [facility] Aug 20, 2023 10:00 AM AMBULATORY MEDICINE [facility] [place] [facility] Jan 04, 2024 09:00 AM AMBULATORY - MEDICINE [facility] Jan 15, 2024 09:00 AM [facility] - MEDICINE [facility] Lab Results: +/- 30 days of the encounter This section includes the Chemistry and Hematology Lab Results on record with [place] for the patient. Radiology Reports and Pathology Reports are provided separately, in subsequent sections. Lab Results This section contains the Chemistry/Hematology Results that were resulted 30 days before or 30 daysafter the date of the Encounter. Date/Time Source Result Type Result - Unit Interpretation Reference Range Comment Aug 20, 2023 10:40 AM [facility] VITAMIN D (25-OH) Specimen Type: SERUM No comment entered. Ordering Provider: PHYLLIS WHALEY Report Released Date/Time: Aug 13, 2023 09:06 AM Reporting Lab: [facility] [address] [facility] [id number] Performing Lab: [facility] [address] [facility] [id number] VITAMIN D (25-OH) 29 ng/mL 20-50 Social History: Smoking Status (Most current) and Tobacco Use (All prior to encounter date) This section includes the most current, and the historical, smoking and tobacco- related health factors from the [place] facility where the Encounter took place. Current Smoking Status This section includes the most current smoking, or tobacco-related health factor, from the [place] facility where the Encounter took place. Date/Time Current Smoking Status Comment Facil it Jan 08, 2023 09:03 AM AR-TOBACCO NEVER USED [facility] Tobacco Use History This section includes a history of the smoking, or tobacco-related health factors, that were collected on or before the date of the Encounter. The data comes from the [place] facility where the Encounter took place. Date/Time Smoking Status/Tobac co Use Comment Facility Aug 01, 2021 09:08 AM VA-TOBACCO FORMER USER [facility] Aug 01, 2021 09:08 AM AR-TOBACCO QUIT 1 TO < 5 YRS [facility] Dec 08, 2011 01:04 PM CURRENT SMOKER chew pack and half a week [facility] Dec 08, 2011 01:04 PM V1-PT DECLINES REF TO TOBACCO CESS PRGM [facility] Dec 08, 2011 01:04 PM V1-PT DECLINES TOBACCO CESSATION MEDS [facility] Dec 08, 2011 01:04 PM V1-PT THINKING ABOUT QUIT TOBACCO USE [facility] Advance Directives: All historical and current Section Date Range: From patient's date of to the date document was created. This section includes ALL of a patient's completed or amended [place] Advance and Rescinded Directives. The entries below indicate that a directive exists for the patient, but an actual copy is not included with this document. The data comes from all [place] facilities. Date Advance Directives Provider Source Jan 03, 2022 ADVANCE DIRECTIVE LUIS EDUARDO COLON Jan 03, 2021 ADVANCE DIRECTIVE KHUSHBU KUMAR [facility] Mar 19, 2012 ADVANCE DIRECTIVE ERIKA MORALES [facility] Encounter Notes: All associated encounter notes This section contains the clinical notes associated to the Encounter. Date/Time Encounter Note(s) Provider Source Aug 06, 2023 03:37 PM ADDENDUM: LOCAL TITLE: Addendum STANDARD TITLE: ADDENDUM DATE OF NOTE: AUG 06, 2023@15:37 ENTRY DATE: AUG 06, 2023@15:37:01 AUTHOR: STAN ALFRED EXP COSIGNER: URGENCY: STATUS: COMPLETED Will forward to PACT AMSA to please schedule with the provider. /caitlyn/ STAN ALFRED RN REGISTERED NURSE Signed: 08/06/2023 15:37 Receipt Acknowledged By: 08/07/2023 09:05 /caitlyn/ GABY FONTENOT ADVANCE CLINICAL SOCIOLOGIST === --- Original Document --- 08/06/23 CCC: CLINICAL TRIAGE: Patient Demographics Patient Name: KYLE MASON Patient Primary Address: [address] [place] [address] Patient Primary Phone: [phone] Patient : 1960 Patient Age: 63 Call Back Number: Caller/Recipient Relation to Patient: Self Emergency Contact: TIFFANY MASON Triage Summary Conducted triage/discussed symptoms Utilized the Triage Tool: Yes Chief Complaint: Abdominal Bulge or Knot System WHEN: Within 2 Weeks Nurse's Recommendation / WHEN: Within 2 Weeks System WHERE: Clinic Nurse's Recommendation / WHERE: Clinic/[facility] Patient Disposition Patient/Caregiver agrees to plan of care: Yes Nursing Plan and Disposition Referred Patient for In-Person Appt Other course(s) of action Transferred patient to facility [facility] No appt avail Advised Urgent Care Generated msg to PACT/Provider Provided guidance for worsening symptoms: *Caller/Patient* advised to call facilities [place] Clinical Contact Center or seek immediate medical attention for new or worsening symptoms Nurse Summary Nurse Summary: calls stating,'' I have a bulge in my abdomen. The right side is bigger than the left. I would like it checked out.'' Clinical Contact Center Codes Clinic/Location: V1 CWM PHONE CCC RN TXCC Triage Complete Triage Note: Phone Triage 06 Aug 2023 18:37:35 +0000 [facility] Demographics 63 y/o Male Results CC: Abdominal Bulge or Knot Software suggested: Within 2 Weeks Software suggested follow-up location: Clinic Values and Measures Duration of CC: 1 Years Negative Responses Denies: HPI: abdominal pain, new Denies: HPI: hernia pain, new Denies: HPI: hernia tenderness Denies: HPI: hernia, incisional Denies: HPI: hernia, umbilical Denies: PMH: inguinal hernia /es/ RAKEL COLEY Signed: 08/06/2023 14:44 Receipt Acknowledged By: * AWAITING SIGNATURE * HEATHER OLIVAS 08/06/2023 15:36 /es/ STAN ALFRED, RN REGISTERED NURSE for AJ CARNES 08/07/2023 ADDENDUM STATUS: COMPLETED IS BOOKED 08/13/23 /caitlyn/ GABY FONTENOT ADVANCE CLINICAL SOCIOLOGIST Signed: 08/07/2023 09:04 STAN ALFRED [facility] Aug 06, 2023 02:44 PM RN PROGRESS NOTE: LOCAL TITLE: CCC: CLINICAL TRIAGE STANDARD TITLE: RN PROGRESS NOTE DATE OF NOTE: AUG 06, 2023@14:44:26 ENTRY DATE: AUG 06, 2023@14:44:26 AUTHOR: VIVIANE COLEY COSIGNER: URGENCY: STATUS: COMPLETED CCC: CLINICAL TRIAGE Has ADDENDA Patient Demographics Patient Name: KYLE MASON Patient Primary Address: [address] [place] [address] Patient Primary Phone: [phone] Patient : 1960 Patient Age: 63 Call Back Number: Caller/Recipient Relation to Patient: Self Emergency Contact: TIFFANY ISABELLA Triage Summary Conducted triage/discussed symptoms Utilized the Triage Tool: Yes Chief Complaint: Abdominal Bulge or Knot System WHEN: Within 2 Weeks Nurse's Recommendation / WHEN: Within 2 Weeks System WHERE: Clinic Nurse's Recommendation / WHERE: Clinic/[facility] Patient Disposition Patient/Caregiver agrees to plan of care: Yes Nursing Plan and Disposition Referred Patient for In-Person Appt Other course(s) of action Transferred patient to facility [facility] No appt avail Advised Urgent Care Generated msg to PACT/Provider Provided guidance for worsening symptoms: *Caller/Patient* advised to call facilities [facility] Clinical Contact Center or seek immediate medical attention for new or worsening symptoms Nurse Summary Nurse Summary: calls stating,'' I have a bulge in my abdomen. The right side is bigger than the left. I would like it checked out.'' Clinical Contact Center Codes Clinic/Location: V1 CWM PHONE CCC RN TXCC Triage Complete Triage Note: Phone Triage Sun, 06 Aug 2023 18:37:35 +0000 [facility] Demographics 63 y/o Male Results CC: Abdominal Bulge or Knot Software suggested: Within 2 Weeks Software suggested follow-up location: Clinic Values and Measures Duration of CC: 1 Years Negative Responses Denies: HPI: abdominal pain, new Denies: HPI: hernia pain, new Denies: HPI: hernia tenderness Denies: HPI: hernia, incisional Denies: HPI: hernia, umbilical Denies: PMH: inguinal hernia /caitlyn/ RAKEL COLEY Signed: 08/06/2023 14:44 Receipt Acknowledged By: 08/07/2023 09:54 /es/ HEATHER OLIVAS LPN LICENSED PRACTICAL NURSE 08/06/2023 15:36 /caitlyn/ STAN ALFRED RN REGISTERED NURSE for AJ CARNES 08/06/2023 ADDENDUM STATUS: COMPLETED Will forward to PACT AMSA to please schedule with the provider. /caitlyn/ STAN ALFRED RN REGISTERED NURSE Signed: 08/06/2023 15:37 Receipt Acknowledged By: 08/07/2023 09:05 /caitlyn/ GABY FONTENOT ADVANCE CLINICAL SOCIOLOGIST 08/07/2023 ADDENDUM STATUS: COMPLETED IS BOOKED 08/13/23 /sharona FONTENOT ADVANCE CLINICAL SOCIOLOGIST Signed: 08/07/2023 09:04 [facility]
--- OUTSIDE RECORDS SUMMARY | 2024-05-08 01:04 | XMS_ITS | Encounter Summary ---
Author Name [place] Address [address] [place] [address] Care Team Providers Care Senior Category Manager Name Role Phone ROBBY NIELSON Primary [...] PRESCRIPT ION RX730 1 May 28, 2017 [id number] [phone] Charlene MASON DDIE PATIENT [facility] PRESCRIPT ION [id number] 1 May 28, 2017 [id number] Charlene MASON DDIE PATIENT [facility] RX PRESCRIPT ION RX May 28, 2022 THPRX [id number] Charlene MASON DDIE PATIENT OPT[facility] RX PRESCRIPT ION RX May 28, 2022 THPRX [id number] [phone] Charlene MASON DDIE PATIENT [facility] May 28, 2017 [facility] [id number] 99 Charlene MASON DDIE PATIENT [facility] IVY Chang May 28, 2017 [id number] [phone] Charlene MASON PATIENT [facility] POINT OF SERVICE MALLORY CHERY Oct 27, 2011 [id number] [phone] Charlene MASON PATIENT [facility] (WNR) SUKUMAR CHERY(WN R) May 28, 2017 (WNR) [id number] Charlene MASON PATIENT Selected Encounter This section includes the information on record at [place] for the Encounter. Date/Time Encounter Type Encounter Description Reason Provider Source Aug 20, 2023 10:00 AM OFFICE O/P EST LOW 20 MIN PRIMARY CARE/MEDICINE ICD-10-CM K70.9 Alcoholic liver disease, unspecified PHYLLIS WHALEY Charlene Encounter Template Text not used by [place] Assessments - Encounter Diagnoses This section includes the primary and secondary diagnoses documented for the Encounter. Date/Time Primary/Secondary Diagnosis Diagnosis Name Provider Source Sep 15, 2023 10:47 AM PRIMARY Alcoholic liver disease, unspecified PHYLLIS WHALEY Sep 15, 2023 10:47 AM SECONDARY Alcohol abuse, uncomplicated PHYLLIS WHALEY Sep 15, 2023 10:47 AM SECONDARY Gastro-esophageal reflux disease without esophagitis PHYLLIS WHALEY Plan of Treatment: Future Appointments (+ 6 months) and Future Tests (+/- 45 days) The Plan of Treatment section includes future care activities for the patient from all [place] treatmentfacilities. This section includes future appointments and future orders which are active, pending or scheduled. Future Appointments This section includes appointments that were scheduled to occur 6 months from the date of the Encounter, up to a maximum of 20 appointments. The data comes from all [place] treatment facilities. Appointment Date/Time Appointment Type Appointme nt Facility Name Jan 04, 2024 09:00 AM AMBULATORY - MEDICINE [facility] Jan 15, 2024 09:00 AM AMBULATORY - MEDICINE [facility] Feb 14, 2024 01:15 PM AMBULATORY - MEDICINE [place] C [facility] Lab Results: +/- 30 days of the encounter This section includes the Chemistry and Hematology Lab Results on record with [place] for the patient. Radiology Reports and Pathology [...] AM Reporting Lab: [facility] [address] [id number] Performing Lab: [facility] [address] [id number] VITAMIN D (25-OH) 29 ng/mL 20-50 Social History: Smoking Status (Most current) and Tobacco Use (All prior to encounter date) This section includes the most current, and the historical, smoking and tobacco- related health factors from the [place] facility where the Encounter took place. Current Smoking Status This section includes the most current smoking, or tobacco-related health factor, from the [place] facility where the Encounter took place. Date/Time Current Smoking Status Comment Gina ity Mar 26, 2020 11:30 AM [place]-TOBACCO NEVER USED [place] Tobacco Use History This section includes a history of the smoking, or tobacco-related health factors, that were collected on or before the date of the Encounter. The data comes from the [place] facility where the Encounter took place. Date/Time Smoking Status/Tobacco Use Comment F acility Feb 03, 2019 10:43 AM [place]-TOBACCO NEVER USED [place] Mar 12, 2018 09:26 AM [place]-TOBACCO NEVER USED [place] Jun 15, 2016 03:51 PM LIFETIME NON-TOBACCO USER [facility] Jun 23, 2015 10:34 AM LIFETIME NON-TOBACCO USER [place] Apr 22, 2013 10:41 AM LIFETIME NON-TOBACCO USER [place] Mar 07, 2011 11:49 AM LIFETIME NON-TOBACCO USER [place] Jan 07, 2009 11:55 AM LIFETIME NON-TOBACCO USER [place] Advance Directives: All historical and current Section Date Range: From patient's date of to the date document was created. This section includes ALL of a patient's completed or amended [place] Advance and Rescinded Directives. The entries below indicate that a directive exists for the patient, but an actual copy is not included with this document. The data comes from all [place] facilities. Date Advance Directives Provider Source Jan 03, 2022 ADVANCE DIRECTIVE LUIS EDUARDO COLON Jan 03, 2021 ADVANCE DIRECTIVE KHUSHBU KUMAR [facility] Mar 19, 2012 ADVANCE DIRECTIVE ERIKA MORALES [place] [facility] Encounter Notes: All associated encounter notes This section contains the clinical notes associated to the Encounter. Date/Time Encounter Note(s) Provider Source Aug 20, 2023 09:09 AM PRIMARY CARE NURSE PRACTITIONER OUTPATIENT NOTE: LOCAL TITLE: NURSE PRACTITIONER OUTPATIENT NOTE STANDARD TITLE: PRIMARY CARE NURSE PRACTITIONER OUTPATIENT NOTE DATE OF NOTE: AUG 20, 2023@09:09 ENTRY DATE: AUG 20, 2023@09:09:58 AUTHOR: PHYLLIS WHALEY COSIGNER: URGENCY: STATUS: COMPLETED PRIMARY CARE VISIT KYLECharlene MASON, is a 63 yo BLACK OR MALE [place] who [facility] the [place] [facility]. TYPE OF VISIT: Face to face 63-y/o with depression, PTSD, GERD, chronic alcohol abuse who continues to drink, fatty liver disease, chronic granulomatous disease, peripheral neuropathy, renal agenesis, and a history of urolithiasis presented to the outpatient clinic in regular follow-up. Notably, he is comanaged with a private PCP in the community, Dr. Jefferson Han. Recent labs were reviewed and discussed with the Baldwin. All medications were reconciled during this visit. HEALTHCARE PROVIDERS: Private PCP: Dr. Jefferson Han [place] [facility]: [facility]: [facility] Urology: [facility] Social Hx: He is and lives with his . He endorses drinking 2 beers a day. No nicotine or MJ. Retired. No regular exercise but is active with home projects. HISTORY: PERIOD OF SERVICE - [employer] FROM Jan TO Aug COMBAT SERVICE INDICATED: No VITAL SIGNS: Temperature 98 F [36.7 C] (08/13/2023 11:27) Blood Pressure 112/73 (08/13/2023 11:27) Pulse 88 (08/13/2023 11:27) Respiration 20 (08/13/2023 11:27) Pain 8 (07/24/2022 11:15) BMI BMI: 24.7 Weight 135 lb [61.23 kg] (08/13/2023 11:27) Pulse Oximetry 98% (08/13/2023 11:27) ASSISTIVE DEVICES: REVIEW OF SYSTEMS: CONSTITUTIONAL: No fevers, chills, [...] extremities, or unilateral weakness. EXAMINATION General: Well-appearing in no obvious distress. Mental Status: Alert and oriented x4. Head: Normocephalic. Eyes: PERRLA. EOMI. Anicteric sclerae. ENT: Moist oral mucosa. Posterior pharynx unremarkable Neck: Supple. No JVD. No LAD. No bruit. Lungs: CTA. Normal chest excursion. Eupneic respirations. CV: Heart tones S1, S2. RRR. No M/G/R. No peripheral edema GI: Abdomen is soft and nontender. No palpable mass. : No CVA tenderness. Ext: No cyanosis or clubbing. No gross deformities. Neuro: CN II through XII grossly intact. Normal speech. Normal gait. Integument: Skin warm and dry. No rashes or lesions on visible areas. Psych: Normal mood and affect. Normal judgment. ALLERGIES: ========= Patient has answered NKA >> HEALTH MAINTENANCE PREVENTIVE MEDICINE GOALS Assess Statin Use - Lipids (CVD/DM) DUE NOW Medication Reconciliation DUE NOW Liver Cancer (HCC) Surveillance Aug 09 ASSESSMENT/PLAN: Active problems - Computerized Problem List is the source for the followin. Peripheral neuropathy 2. Private PCP: Dr Jefferson Han 3. Erectile dysfunction 4. Urolithiasis 5. Computed tomography result abnormal 6. Standard chest X-ray abnormal 7. Alcoholic liver damage: Liver US w/elastography 01/2022: Stiffness median 1.66 m/s. <1.7 m/s In the absence of other known clinical signs, rules out compensated advanced chronic liver disease. 8. Benign essential hypertension 9. Absent kidney 10. CAT scan normal 11. MRI scan abnormal 12. Chronic granulomatous disease 13. History of right hip replacement 14. Elevated liver enzymes level 15. Alcohol abuse 16. Avascular necrosis of bone 17. Elevated blood pressure reading without diagnosis of hypertension 18. Demyelinating disease of central nervous system 19. Posttraumatic stress disorder 20. Depressive disorder 21. Gastroesophageal Reflux Disorder: Maintained on omeprazole by outside PCP. Denying any symptoms currently. 22. Allergic rhinitis * 23. Simple upper Gastrointestinal Endoscopy 24. Colonoscopy 25. Tendon Injuries 26. Plantar Fasciitis 27. Personal History of return from Deployment 28. Alcohol Dependence: States he drinks only 2 beers daily. Unwilling to decrease his drinking. 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
--- OUTSIDE RECORDS SUMMARY | 2024-05-08 01:04 | XMS_ITS | Encounter Summary ---
Author Name [facility] [place] Address [address] [place] [address] Care Team Providers Care Criminal Justice Instructor Name Role Phone ROBBY NIELSON Primary Care [...] PRESCRIPT ION [id number] 1 May 28, 2017 [id number] Charlene MASON DDIE PATIENT [facility] PRESCRIPT ION [id number] 1 May 28, 2017 [id number] [phone] Charlene MASON DDIE PATIENT [facility] RX PRESCRIPT ION RX May 28, 2022 THPRX [id number] [phone] Charlene MASON DDIE PATIENT [facility] RX PRESCRIPT ION RX May 28, 2022 THPRX [id number] Charlene MASON DDIE PATIENT [facility] USP May 28, 2017 [facility] [id number] Charlene MASON DDIE PATIENT [facility] IVY Chang May 28, 2017 [facility] [id number] Charlene MASON DDFRED PATIENT [facility] POINT OF SERVICE MALLORY CHERY Oct 27, 2011 [id number] [phone] [id number] Charlene MASON DDFRED PATIENT [facility] (WNR) SUKUMAR CHERY(WN R) May 28, 2017 (WNR) [id number] Charlene MASON PATIENT Selected Encounter This section includes the information on record at [place] for the Encounter. Date/Time Encounter Type Encounter Description Reason Pro vider Source September 28, 2023 01:54 PM Outpatient Encounter PRIMARY CARE/MEDICINE IHE Encounter Template Text not used by [place] Plan of Treatment: Future Appointments (+ 6 [...] 2024 09:00 AM AMBULATORY - MEDICINE [facility] Jan 15, 2024 09:00 AM [facility] Feb 14, 2024 01:15 PM [facility] Mar 06, 2024 11:30 AM AMBULATORY - MEDICINE [facility] Social History: Smoking Status (Most current) [...] place. Date/Time Current Smoking Status Comment [facility] it Jan 08, 2023 09:03 AM [place]-TOBACCO NEVER USED [facility] Tobacco Use History This section includes a history of the smoking, or tobacco-related health factors, that were collected on or before the date of the Encounter. The data comes from the [place] facility where the Encounter took place. Date/Time Smoking Status/Tobac co Use Comment Facility Aug 01, 2021 09:08 AM [place]-TOBACCO FORMER USER [facility] Aug 01, 2021 09:08 AM VA-TOBACCO QUIT 1 TO < 5 YRS [facility] Dec 08, 2011 01:04 PM CURRENT SMOKER chew pack and half a week [facility] Dec 08, 2011 01:04 PM V1-PT DECLINES REF TO TOBACCO CESS PRGM [facility] Dec 08, 2011 01:04 PM V1-PT DECLINES TOBACCO CESSATION MEDS [facility] Dec 08, 2011 01:04 PM V1-PT THINKING ABOUT QUIT TOBACCO USE [facility] Advance Directives: All historical and current Section Date Range: From patient's date of to the date document was created. This section includes ALL of a patient's completed or amended [place] Advance and Rescinded Directives. The entries below indicate that a directive exists for the patient, but an actual copy is not included with this document. The data comes from all [facility]. Date Advance Directives Provider Source Jan 03, 2022 ADVANCE DIRECTIVE LUIS EDUARDO COLON Jan 03, 2021 ADVANCE DIRECTIVE KHUSHBU KUMAR Mar 19, 2012 ADVANCE DIRECTIVE ERIKA MORALES [facility] Encounter Notes: All associated encounter notes This section contains the clinical notes associated to the Encounter. Date/Time Encounter Note(s) Provider Source September 28, 2023 01:54 PM ADMINISTRATIVE NOT E: LOCAL TITLE: ADMINISTRATIVE NOTE STANDARD TITLE: ADMINISTRATIVE NOTE DATE OF NOTE: SEPTEMBER 28, 2023@13:54 ENTRY DATE: SEPTEMBER 28, 2023@13:54:14 AUTHOR: GILLIAN JI COSIGNER: URGENCY: STATUS: COMPLETED THIS SHIPPING ORDER CLERK CALLED TO CANCEL CWM/SO/PACT 4 APPT AND RESCHEDULE F2F APPT. WITH CWM/SO/PACT EIGHT PROVIDER. NO ANSWER, LEFT MESSAGE FOR TO CALL AND RESCHEDULE APPT ALSO MAILED LETTER. /caitlyn/ MOOK JI ADVANCED SALES DEVELOPMENT SPECIALIST Signed: 09/28/2023 13:56 MOOK JI
--- OUTSIDE RECORDS SUMMARY | 2024-05-08 01:04 | XMS_ITS | Encounter Summary ---
Author Name [place] Address [address] [place] [address] Care Team Providers Care Label Sewer Name Role Phone ROBBY NIELSON Primary Care [...] PRESCRIPT ION RX730 1 May 28, 2017 [id number] [phone] Charlene MASON DDIE PATIENT [facility] PRESCRIPT ION [id number] 1 May 28, 2017 [id number] Charlene MASON DDIE PATIENT [facility] RX PRESCRIPT ION RX May 28, 2022 THPRX [id number] Charlene MASON DDIE PATIENT OPT[facility] RX PRESCRIPT ION RX May 28, 2022 THPRX [id number] [phone] Charlene MASON DDIE PATIENT [facility] PL[facility] USP May 28, 2017 [facility] [id number] Charlene MASON DDIE PATIENT [facility] IVY Chang May 28, 2017 [id number] 99 Charlene MASON DDFRED PATIENT [facility] POINT OF SERVICE MALLORY CHERY Oct 27, 2011 [id number] Charlene MASON DDFRED PATIENT [facility] (WNR) SUKUMAR CHERY(WN R) May 28, 2017 (WNR) [id number] Charlene MASON DDFRED PATIENT Selected Encounter This section includes the information on record at [place] for the Encounter. Date/Time Encounter Type Encounter Description Reason Pro vider Source Aug 26, 2023 12:00 AM Outpatient Encounter EVENT (HISTORICAL) IHE Encounter Template Text not used by [place] Plan of Treatment: Future Appointments (+ 6 months) and Future Tests (+/- 45 days) The Plan of Treatment section includes future care activities for the patient from all [place] treatmentfacilities. This section includes future appointments and future orders which are active, pending or scheduled. Future Appointments This section includes appointments that were scheduled to occur 6 months from the date of the Encounter, up to a maximum of 20 appointments. The data comes from all [place] treatment facilities. Appointment Date/Time Appointment Type Appointme nt Facility Name Jan 04, 2024 09:00 AM AMBULATORY - MEDICINE [facility] Jan 15, 2024 09:00 AM AMBULATORY - MEDICINE [facility] Feb 14, 2024 01:15 PM [facility] Lab Results: +/- 30 days of the encounter This section includes the Chemistry and Hematology Lab Results on record with [place] for the patient. Radiology Reports and Pathology Reports are provided separately, in subsequent sections. Lab Results This section contains the Chemistry/Hematology Results that were resulted 30 days before or 30 daysafter the date of the Encounter. Date/Time Source Result Type Result - Unit Interpretation Reference Range Comment Aug 20, 2023 10:40 AM [place] [facility] VITAMIN D (25-OH) Specimen Type: SERUM No comment entered. Ordering Provider: PHYLLIS WHALEY Report Released Date/Time: Aug 13, 2023 09:06 AM Reporting Lab[facility] [address] [facility] [facility] [address] Performing Lab: [facility] [address] [facility] [address] VITAMIN D (25-OH) 29 ng/mL 20-50 Social History: Smoking Status (Most current) and Tobacco Use (All prior to encounter date) This section includes the most current, and the historical, smoking and tobacco- related health factors from the [place] facility where the Encounter took place. Current Smoking Status This section includes the most current smoking, or tobacco-related health factor, from the [place] facility where the Encounter took place. Date/Time Current Smoking Status Comment [facility] it Jan 08, 2023 09:03 AM [place]-TOBACCO NEVER USED [facility] Tobacco Use History This section includes a history of the smoking, or tobacco-related health factors, that were collected on or before the date of the Encounter. The data comes from the [place] facility where the Encounter took place. Date/Time Smoking Status/Tobac co Use Comment Facility Aug 01, 2021 09:08 AM [place]-TOBACCO FORMER USER [facility] Aug 01, 2021 09:08 AM [place]-TOBACCO QUIT 1 TO < 5 YRS [facility] Dec 08, 2011 01:04 PM CURRENT SMOKER chew pack and half a week [facility] Dec 08, 2011 01:04 PM V1-PT DECLINES REF TO TOBACCO CESS PRGM [facility] Dec 08, 2011 01:04 PM V1-PT DECLINES TOBACCO CESSATION MEDS [facility] Dec 08, 2011 01:04 PM V1-PT THINKING ABOUT QUIT TOBACCO USE [facility] Advance Directives: All historical and current Section Date Range: From patient's date of to the date document was created. This section includes ALL of a patient's completed or amended [place] Advance and Rescinded Directives. The entries below indicate that a directive exists for the patient, but an actual copy is not included with this document. The data comes from all [facility]. Date Advance Directives Provider Source Jan 03, 2022 ADVANCE DIRECTIVE LUIS EDUARDO COLON Jan 03, 2021 ADVANCE DIRECTIVE KHUSHBU KUMAR Mar 19, 2012 ADVANCE DIRECTIVE ERIKA MORALES [facility] Encounter Notes: All associated encounter notes This section contains the clinical notes associated to the Encounter. Date/Time Encounter Note(s) Provider Source Aug 26, 2023 12:00 AM RADIOLOGY NONVA NO TE: LOCAL TITLE: NON-VA RADIOLOGY STANDARD TITLE: RADIOLOGY NONVA NOTE DATE OF NOTE: AUG 26, 2023 ENTRY DATE: DEC 26, 2023@08:47:15 AUTHOR: MARIAH RAMIREZ EXP COSIGNER: URGENCY: STATUS: COMPLETED VistA Imaging - Scanned Document SCANNED DOCUMENT SIGNATURE NOT REQUIRED Electronically Filed: 12/26/2023 by: MARIAH CHAPPELL CN[facility]L [facility]
--- OUTSIDE RECORDS SUMMARY | 2024-05-08 01:04 | XMS_ITS | Encounter Summary ---
Author Name [facility] [place] [facility] [place] Address [address] [place] [address] Care Team Providers Care Aco Coordinator Name Role Phone ROBBY NIELOSN Primary Care Provider Unavailabl e Insurance Providers: [...] PRESCRIPT ION RX730 1 May 28, 2017 [id number] Charlene MASON DDIE PATIENT [facility] PRESCRIPT ION RX730 1 May 28, 2017 [id number] Charlene MASON DDIE PATIENT [facility] RX PRESCRIPT ION RX May 28, 2022 THPRX [id number] Charlene MASON DDIE PATIENT [facility] RX PRESCRIPT ION RX May 28, 2022 THPRX [id number] [phone] Charlene MASON DDIE PATIENT [facility] USP May 28, 2017 [facility] [id number] [phone] Charlene MASON DDIE PATIENT [facility] IVY Chang May 28, 2017 [facility] [id number] [phone] Charlene MASON DDFRED PATIENT [facility] POINT OF SERVICE MALLORY CHERY Oct 27, 2011 [id number] Charlene MASON DDFRED PATIENT [facility] (WNR) SUKUMAR CHERY(WN R) May 28, 2017 (WNR) [id number] Charlene MASON PATIENT Selected Encounter This section includes the information on record at [place] for the Encounter. Date/Time Encounter Type Encounter Description Reason Pro vider Source Nov 07, 2023 10:35 AM Outpatient Encounter PRIMARY CARE/MEDICINE IHE Encounter Template Text not used by [place] Plan of Treatment: Future Appointments (+ 6 months) and Future Tests (+/- 45 days) The Plan of Treatment section includes future care activities for the patient from all [place] [facility] This section includes future appointments and future orders which are active, pending or scheduled. Future Appointments This section includes appointments that were scheduled to occur 6 months from the date of the Encounter, up to a maximum of 20 appointments. The data comes from all [facility]. Appointment Date/Time Appointment Type Appointme nt Facility Name Jan 04, 2024 09:00 AM [facility] Jan 15, 2024 09[facility]00 AM [facility] Feb 14, 2024 01:15 PM [facility] Mar 06, 2024 11:30 AM AMBULATORY MEDICINE [facility] Apr 16, 2024 10:00 AM AMBULATORY MEDICINE [facility] Active, Pending, and Scheduled Orders This section includes a listing of several types of active, pending, and scheduled orders, including clinic medications orders, diagnostic test orders, procedure orders and consult orders; where the start date of the order is 45 days before the date of the Encounter or 45 days after the date of theEncounter. The data comes from all [facility]. Test Date/Time Test Type Test Details Facility Name Dec 04, 2023 04:40 PM Consult Order [facility] GENERAL Cons [facility] Social History: Smoking Status (Most current) and Tobacco Use (All prior to encounter date) This section includes the most current, and the historical, smoking and tobacco- related health factors from the [place] facility where the Encounter took place. Current Smoking Status This section includes the most current smoking, or tobacco-related health factor, from the [place] facility where the Encounter took place. Date/Time Current Smoking Status Comment Facil ity Jan 08, 2023 09:03 AM VA-TOBACCO NEVER USED [facility] Tobacco Use History This section includes a history of the smoking, or tobacco-related health factors, that were collected on or before the date of the Encounter. The data comes from the [place] facility where the Encounter took place. Date/Time Smoking Status/Tobac co Use Comment Facility Aug 01, 2021 09:08 AM [place]-TOBACCO FORMER USER [facility] Aug 01, 2021 09:08 AM [place]-TOBACCO QUIT 1 TO < 5 YRS [facility] Dec 08, 2011 01:04 PM CURRENT SMOKER chew pack and half a week [facility] Dec 08, 2011 01:04 PM V1-PT DECLINES REF TO TOBACCO CESS PRGM [facility] Dec 08, 2011 01:04 PM V1-PT DECLINES TOBACCO CESSATION MEDS [facility] Dec 08, 2011 01:04 PM V1-PT THINKING ABOUT QUIT TOBACCO USE [facility] Advance Directives: All historical and current Section Date Range: From patient's date of to the date document was created. This section includes ALL of a patient's completed or amended [place] Advance and Rescinded Directives. The entries below indicate that a directive exists for the patient, but an actual copy is not included with this document. The data comes from all [facility]. Date Advance Directives Provider Source Jan 03, 2022 ADVANCE DIRECTIVE LUIS EDUARDO COLON Jan 03, 2021 ADVANCE DIRECTIVE KHUSHBU KUMAR Mar 19, 2012 ADVANCE DIRECTIVE ERIKA MORALES [facility] Encounter Notes: All associated encounter notes This section contains the clinical notes associated to the Encounter. Date/Time Encounter Note(s) Provider Source Nov 27, 2023 01:19 PM ADDENDUM: LOCAL TITLE: Addendum STANDARD TITLE: ADDENDUM DATE OF NOTE: NOV 27, 2023@13:19:50 ENTRY DATE: NOV 27, 2023@13:19:51 AUTHOR: JAYLYN CHENG EXP COSIGNER: URGENCY: STATUS: COMPLETED Vet requesting someone call him with a follow up on his NEOS consult. Vet states he will return on Sunday to check on this if he does not recieve a call. /es/ JAYLYN CHENG AMSA Signed: 11/27/2023 13:21 Receipt Acknowledged By: 12/03/2023 14:41 /es/ SEVERIANO RODRIGUEZ RN-BC REGISTERED NURSE 12/04/2023 13:40 /es/ LATOYA RUVALCABA LPN Licensed Practical Nurse --- Original Document --- 11/07/23 WALK-IN NOTE PRIMARY CARE (T): <====Click to Start Advanced Medical Support [place] presents to the Primary Care clinic with the following request: [ ]Medication Renewal/Refill [ ]Consultation with Team RN [ ]Symptoms [ X ]Other The [place] states they are: [ ]Waiting [ X ]Not Waiting No Walk in visit scheduled with PACT Nurse [ X ] At this encounter the [place]'s demographics were verified. [ X ] At this encounter the 's Insurance information was verified. [ X ] At this encounter the below scheduled visits for the [place] were discussed and appointment reminder card was offered. Future appointments: 01/04/2024 09:00 CWM/SO/PODIATRY/ROSA 01/15/2024 09:00 CWM/SO/PACT EIGHT 03/06/2024 11:30 CWM/NO/OPTOMETRY/RE [place] requesting a referral to be resent out to [facility]. Address: [facility] [place] [address] Note from [facility]: Referral for [facility] needed for the neck/back pain NPI # [id number] /es/ CARL STACY KARL Signed: 11/07/2023 10:42 Receipt Acknowledged By: 11/09/2023 14:08 /SEVERIANO Rivera RN-JACKIE REGISTERED NURSE 11/08/2023 08:19 /caitlyn/ LATOYA RUVALCABA LPN Licensed Practical Nurse 11/22/2023 ADDENDUM STATUS: COMPLETED [place] came in checking on referral. Please call him at [phone]. /caitlyn/ DINESH BARAJAS Signed: 11/22/2023 10:28 Receipt Acknowledged By: 12/03/2023 14:41 /caitlyn/ SEVERIANO RODRIGUEZ RN-JACKIE REGISTERED NURSE 11/22/2023 13:29 /caitlyn/ LATOYA RUVALCABA, LEYDA Licensed Practical Nurse 11/27/2023 10:30 /es/ RASHARD SCHULTZ MD PRIMARY CARE PHYSICIAN 12/03/2023 ADDENDUM STATUS: COMPLETED Called [place] and left voicemail requesting call back to PACT at [phone] to discuss consult request. /caitlyn/ SEVERIANO RODRIGUEZ RN-JACKIE REGISTERED NURSE Signed: 12/03/2023 14:48 JAYLYN CHENG [place] Nov 22, 2023 10:27 AM ADDENDUM: LOCAL TITLE: Addendum STANDARD TITLE: ADDENDUM DATE OF NOTE: NOV 22, 2023@10:27:15 ENTRY DATE: NOV 22, 2023@10:27:16 AUTHOR: DINESH HOWARD EXP COSIGNER: URGENCY: STATUS: COMPLETED [place] came in checking on referral. Please call him at [phone]. /caitlyn/ DINESH BARAJAS Signed: 11/22/2023 10:28 Receipt Acknowledged By: 12/03/2023 14:41 /SEVERIANO Rivera REGISTERED NURSE 11/22/2023 13:29 /caitlyn/ LATOYA RUVALCABA LPN Licensed Practical Nurse 11/27/2023 10:30 /es/ RASHARD SCHULTZ MD PRIMARY CARE PHYSICIAN --- Original Document --- 11/07/23 WALK-IN NOTE PRIMARY CARE (T): <====Click to Start Advanced Medical Support presents to the Primary Care clinic with the following request: [ ]Medication Renewal/Refill [ ]Consultation with Team RN [ ]Symptoms [ X ]Other The [place] states they are: [ ]Waiting [ X ]Not Waiting No Walk in visit scheduled with PACT Nurse [ X ] At this encounter the [place]'s demographics were verified. [ X ] At this encounter the 's Insurance information was verified. [ X ] At this encounter the below scheduled visits for the were discussed and appointment reminder card was offered. Future appointments: 01/04/2024 09:00 CWM/SO/PODIATRY/ROSS 01/15/2024 09:00 CWM/SO/PACT EIGHT 03/06/2024 11:30 CWM/NO/OPTOMETRY/RE requesting a referral to be resent out to [facility]. Address: [address] [place] [address] Note from [facility]: Referral for [facility] needed for the neck/back pain NPI # [id number] /caitlyn/ CARL BARAJAS Signed: 11/07/2023 10:42 Receipt Acknowledged By: 11/09/2023 14:08 /caitlyn/ SEVERIANO RODRIGUEZ RN-BC REGISTERED NURSE 11/08/2023 08:19 /es/ LATOYA RUVALCABA LPN Licensed Practical Nurse 11/27/2023 ADDENDUM STATUS: COMPLETED Vet requesting someone call him with a follow up on his NEOS consult. Vet states he will return on Sunday to check on this if he does not recieve a call. /caitlyn/ JAYLYN BARAJAS Signed: 11/27/2023 13:21 Receipt Acknowledged By: 12/03/2023 14:41 /caitlyn/ SEVERIANO RODRIGUEZ RN-BC REGISTERED NURSE * AWAITING SIGNATURE * LATOYA RUVALCABA [place] Nov 07, 2023 10:36 AM PRIMARY CARE NOTE: LOCAL TITLE: WALK-IN NOTE PRIMARY CARE (T) STANDARD TITLE: PRIMARY CARE NOTE DATE OF NOTE: NOV 07, 2023@10:36 ENTRY DATE: NOV 07, 2023@10:36:22 AUTHOR: CARL STACY COSIGNER: URGENCY: STATUS: COMPLETED WALK-IN NOTE PRIMARY CARE (T) Has ADDENDA <====Click to Start Advanced Medical Support presents to the Primary Care clinic with the following request: [ ]Medication Renewal/Refill [ ]Consultation with Team RN [ ]Symptoms [ X ]Other The [place] states they are: [ ]Waiting [ X ]Not Waiting No Walk in visit scheduled with PACT Nurse [ X ] At this encounter the [place]'s demographics were verified. [ X ] At this encounter the 's Insurance information was verified. [ X ] At this encounter the below scheduled visits for the were discussed and appointment reminder card was offered. Future appointments: 01/04/2024 09:00 CWM/SO/PODIATRY/ROSA 01/15/2024 09:00 CWM/SO/PACT EIGHT 03/06/2024 11:30 CWM/NO/OPTOMETRY/RE requesting a referral to be resent out to [facility]. Address: [facility] [place] [address] Note from [facility]: Referral for [facility] needed for the neck/back pain NPI # [id number] /caitlyn/ CARL BARAJAS Signed: 11/07/2023 10:42 Receipt Acknowledged By: 11/09/2023 14:08 /caitlyn/ SEVERIANO RODRIGUEZ RN-BC REGISTERED NURSE 11/08/2023 08:19 /caitlyn/ LATOYA RUVALCABA LPN Licensed Practical Nurse 11/22/2023 ADDENDUM STATUS: COMPLETED came in checking on referral. Please call him at [phone]. /caitlyn/ DINESH BARAJAS Signed: 11/22/2023 10:28 Receipt Acknowledged By: 12/03/2023 14:41 /caitlyn/ SEVERIANO RODRIGUEZ REGISTERED NURSE 11/22/2023 13:29 /es/ LATOYA RUVALCABA LPN Licensed Practical Nurse 11/27/2023 10:30 /es/ RASHARD SCHULTZ MD PRIMARY CARE PHYSICIAN 11/27/2023 ADDENDUM STATUS: COMPLETED Vet requesting someone call him with a follow up on his NEOS consult. Vet states he will return on Sunday to check on this if he does not recieve a call. /caitlyn/ JAYLYN BARAJAS Signed: 11/27/2023 13:21 Receipt Acknowledged By: 12/03/2023 14:41 /caitlyn/ SEVERIANO RODRIGUEZ REGISTERED NURSE 12/04/2023 13:40 /caitlyn/ LATOYA RUVALCABA LPN Licensed Practical Nurse 12/03/2023 ADDENDUM STATUS: COMPLETED Called and left voicemail requesting call back to PACT at [phone] to discuss consult request. /caitlyn/ SEVERIANO RODRIGUEZ REGISTERED NURSE Signed: 12/03/2023 14:48 12/04/2023 ADDENDUM STATUS: COMPLETED spoke with in [facility] and he advised that he was scheduled with NEOS provider, Dr Gutierrez in October 2023 and that this appt was cancelled due to not having active VA consult for his neck and back pain. [place] reports that his neck and back are twisted and that he has had imaging performed in the past. author advised [place] that will place [facility] consult for and will contact [place] if any other information related to consult is needed or if issues arise with consult. Placed [facility] general consult as requested and held for provider review. /SEVERIANO Rivera REGISTERED NURSE Signed: 12/04/2023 14:04 CARL STACY
--- OUTSIDE RECORDS SUMMARY | 2024-05-08 01:04 | XMS_ITS | Encounter Summary ---
Author Name [facility] [place] [facility] [place] [facility] [place] Address [address] [place] [address] Care Team Providers Care Ballpoint Pen Cartridge Tester Name Role Phone ROBBY NIELSON Primary Care [...] PRESCRIPT ION RX730 1 May 28, 2017 [id number] Charlene MASON DDIE PATIENT [facility] PRESCRIPT ION RX730 1 May 28, 2017 [id number] [phone] Charlene MASON DDIE PATIENT [facility] RX PRESCRIPT ION RX May 28, 2022 THPRX [id number] Cahrlene MASON DDIE PATIENT [facility] RX PRESCRIPT ION RX May 28, 2022 THPRX [id number] Charlene MASON DDIE PATIENT [facility] PL[facility] USP May 28, 2017 [facility] [id number] Charlene MASON DDIE PATIENT [facility] HEALTH PLAN [facility] IVY Chang May 28, 2017 [facility] [id number] [phone] Charlene MASON DDFRED PATIENT [facility] POINT OF SERVICE MALLORY CHERY Oct 27, 2011 [id number] Charlene MASON DDFRED PATIENT [facility] (WNR) SUKUMAR CHERY(WN R) May 28, 2017 (WNR) [id number] Charlene MASON DDFRED PATIENT Selected Encounter This section includes the information on record at [place] for the Encounter. Date/Time Encounter Type Encounter Description Reason Pro vider Source Aug 13, 2023 11:51 AM Outpatient Encounter PRIMARY CARE/MEDICINE IHE Encounter Template Text not used by [place] Plan of Treatment: Future Appointments (+ 6 months) and Future Tests (+/- 45 days) The Plan of Treatment section includes future care activities for the patient from all [place] treatmentfacilities. This section includes future appointments and future orders which are active, pending or scheduled. Future Appointments This section includes appointments that were scheduled to occur 6 months from the date of the Encounter, up to a maximum of 20 appointments. The data comes from all [place] treatment facilities. Appointment Date/Time Appointment Type Appointme nt Facility Name Aug 16, 2023 10:45 AM [facility] Aug 20, 2023 10:00 AM AM[facility]ULATORY MEDICINE [facility] Jan 04, 2024 09:00 AM AMBULATORY - MEDICINE [facility] Jan 15, 2024 09:00 AM AMBULATORY - MEDICINE [facility] Lab Results: +/- 30 days of the encounter This section includes the Chemistry and Hematology Lab Results on record with [place] for the patient. Radiology Reports and Pathology Reports are provided separately, in subsequent sections. Lab Results This section contains the Chemistry/Hematology Results that were resulted 30 days before or 30 daysafter the date of the Encounter. Date/Time Source Result Type Result - Unit Interpretation Reference Range Comment Aug 20, 2023 10:40 AM [facility] VITAMIN D (25-OH) Specimen Type: SERUM No comment entered. Ordering Provider: PHYLLIS WHALEY Report Released Date/Time: Aug 13, 2023 09:06 AM Reporting Lab: [address] [id number] Performing Lab: [facility] [address] [facility] [id number] VITAMIN D (25-OH) 29 ng/mL 20-50 Vital Signs: All taken on the encounter date This section contains inpatient and outpatient Vital Signs collected on the date of the Encounter. Date/Time Temperature Pulse Blood Pressure Respiratory Rate SP02 Pain Height Weight Body Mass Index Source Aug 13, 2023 11:27 AM 98 88 112/73 20 98 62 135 25 [facility] Social History: Smoking Status (Most current) and Tobacco Use (All prior to encounter date) This section includes the most current, and the historical, smoking and tobacco- related health factors from the [place] facility where the Encounter took place. Current Smoking Status This section includes the most current smoking, or tobacco-related health factor, from the [place] facility where the Encounter took place. Date/Time Current Smoking Status Comment Facil ity Jan 08, 2023 09:03 AM VA-TOBACCO NEVER USED [facility] Tobacco Use History This section includes a history of the smoking, or tobacco-related health factors, that were collected on or before the date of the Encounter. The data comes from the [place] facility where the Encounter took place. Date/Time Smoking Status/Tobac co Use Comment Facility Aug 01, 2021 09:08 AM VA-TOBACCO FORMER USER [facility] Aug 01, 2021 09:08 AM VA-TOBACCO QUIT 1 TO < 5 YRS [facility] Dec 08, 2011 01:04 PM CURRENT SMOKER chew pack and half a week [facility] Dec 08, 2011 01:04 PM V1-PT DECLINES REF TO TOBACCO CESS PRGM [facility] Dec 08, 2011 01:04 PM V1-PT DECLINES TOBACCO CESSATION MEDS [facility] Dec 08, 2011 01:04 PM V1-PT THINKING ABOUT QUIT TOBACCO USE [facility] Advance Directives: All historical and current Section Date Range: From patient's date of to the date document was created. This section includes ALL of a patient's completed or amended [place] Advance and Rescinded Directives. The entries below indicate that a directive exists for the patient, but an actual copy is not included with this document. The data comes from all [place] facilities. Date Advance Directives Provider Source Jan 03, 2022 ADVANCE DIRECTIVE LUIS EDUARDO COLON Jan 03, 2021 ADVANCE DIRECTIVE KHUSHBU KUMAR Mar 19, 2012 ADVANCE DIRECTIVE ANDREWERIKA [facility] Encounter Notes: All associated encounter notes This section contains the clinical notes associated to the Encounter. Date/Time Encounter Note(s) Provider Source Aug 13, 2023 02:03 PM ADDENDUM: LOCAL TITLE: Addendum STANDARD TITLE: ADDENDUM DATE OF NOTE: AUG 13, 2023@14:03:40 ENTRY DATE: AUG 13, 2023@14:03:40 AUTHOR: AJ CARNES EXP COSIGNER: URGENCY: STATUS: COMPLETED Order: Medication: AMLODIPINE BESYLATE TAB 5MG Instructions: 5MG ORAL DAILY Sig: TAKE ONE TABLET BY MOUTH ONCE DAILY FOR BLOOD PRESSURE/HEART, DO NOT TAKE WITH GRAPEFRUIT JUICE Patient Instructions: FOR BLOOD PRESSURE/HEART, DO NOT TAKE WITH GRAPEFRUIT JUICE Days Supply: 90 Quantity: 90 Refills: 0 Network Account Manager: MAIL Priority: ROUTINE Comments: Dispense Drugs (units/dose): AMLODIPINE BESYLATE 5MG TAB () Last Filled: 12/04/22 Refills Remainin Filled: 12/04/22 (Mail) released 12/04/22 RENEWED FROM RX # [id number] Partial Fills: 12/05/22 (Window) Qty: 7 awaiting mail Prescription#: [id number] Pharmacist: ANGIE COLORADO Adding PCP to review and advise. /caitlyn/ AJ CARNES RN REGISTERED NURSE Signed: 08/13/2023 14:04 Receipt Acknowledged By: 08/15/2023 13:10 /caitlyn/ PHYLLIS WHALEY NP NURSE PRACTITIONER --- Original Document --- 08/13/23 WALK-IN NOTE PRIMARY CARE (T): <====Click to Start Advanced Medical Support [place] presents to the Primary Care clinic with the following request: [ X ]Medication Renewal/Refill [ ]Consultation with Team RN [ ]Symptoms [ ]Other The [place] states they are: [ ]Waiting [ X ]Not Waiting No Walk in visit scheduled with PACT Nurse [ X ] At this encounter the [place]'s demographics were verified. [ X ] At this encounter the 's Insurance information was verified. [ X ] At this encounter the below scheduled visits for the were discussed and appointment reminder card was offered. IS REQUESTING A PRESCRIPTION RENEWAL/REFILL FOR BLOOD PRESSURE. PLEASE MAILED OUT TO . Future appointments: 01/04/2024 09:00 CWM/SO/PODIATRY/ROSA 01/17/2024 13:30 CWM/SO/PACT 4 03/06/2024 11:30 CWM/NO/OPTOMETRY/RE /es/ MOOK JI ADVANCED INTERIOR SYSTEMS CARPENTER Signed: 08/13/2023 11:54 Receipt Acknowledged By: 08/13/2023 13:46 /es/ PHYLLIS WHALEY NP NURSE PRACTITIONER 08/13/2023 13:16 /es/ HEATHER OLIVASARC CUTTER LICENSED PRACTICAL NURSE 08/13/2023 14:04 /es/ AJ CARNES RN REGISTERED NURSE AJ CARNES Aug 13, 2023 11:51 AM PRIMARY CARE NOTE: LOCAL TITLE: WALK-IN NOTE PRIMARY CARE (T) STANDARD TITLE: PRIMARY CARE NOTE DATE OF NOTE: AUG 13, 2023@11:51 ENTRY DATE: AUG 13, 2023@11:51:57 AUTHOR: GILLIAN JI COSIGNER: URGENCY: STATUS: COMPLETED WALK-IN NOTE PRIMARY CARE (T) Has ADDENDA <====Click to Start Advanced Medical Support [place] presents to the Primary Care clinic with the following request: [ X ]Medication Renewal/Refill [ ]Consultation with Team RN [ ]Symptoms [ ]Other The [place] states they are: [ ]Waiting [ X ]Not Waiting No Walk in visit scheduled with PACT Nurse [ X ] At this encounter the [place]'s demographics were verified. [ X ] At this encounter the [place]'s Insurance information was verified. [ X ] At this encounter the below scheduled visits for the [place] were discussed and appointment reminder card was offered. IS REQUESTING A PRESCRIPTION RENEWAL/REFILL FOR BLOOD PRESSURE. PLEASE MAILED OUT TO . Future appointments: 01/04/2024 09:00 CWM/SO/PODIATRY/ROSS 01/17/2024 13:30 CWM/SO/PACT 4 03/06/2024 11:30 CWM/NO/OPTOMETRY/MERHAR /caitlyn/ MOOK JI ADVANCED INTERIOR SYSTEMS CARPENTER Signed: 08/13/2023 11:54 Receipt Acknowledged By: 08/13/2023 13:46 /es/ PHYLLIS WHALEY NP NURSE PRACTITIONER 08/13/2023 13:16 /es/ HEATHER OLIVAS LPN LICENSED PRACTICAL NURSE 08/13/2023 14:04 /es/ AJ CARNES RN REGISTERED NURSE 08/13/2023 ADDENDUM STATUS: COMPLETED Order: Medication: AMLODIPINE BESYLATE TAB 5MG Instructions: 5MG ORAL DAILY Sig: TAKE ONE TABLET BY MOUTH ONCE DAILY FOR BLOOD PRESSURE/HEART, DO NOT TAKE WITH GRAPEFRUIT JUICE Patient Instructions: FOR BLOOD PRESSURE/HEART, DO NOT TAKE WITH GRAPEFRUIT JUICE Days Supply: 90 Quantity: 90 Refills: 0 Network Account Manager: MAIL Priority: ROUTINE Comments: Dispense Drugs (units/dose): AMLODIPINE BESYLATE 5MG TAB () Last Filled: 12/04/22 Refills Remainin Filled: 12/04/22 (Mail) released 12/04/22 RENEWED FROM RX # [id number] Partial Fills: 12/05/22 (Window) Qty: 7 awaiting mail Prescription#: [id number] Pharmacist: ANGIE COLORADO Adding PCP to review and advise. /caitlyn/ AJ CARNES RN REGISTERED NURSE Signed: 08/13/2023 14:04 Receipt Acknowledged By: * AWAITING SIGNATURE * PHYLLIS WHALEY,MOOK SAWYER
--- OUTSIDE RECORDS SUMMARY | 2024-05-08 01:04 | XMS_ITS | Encounter Summary ---
Author Name [facility] [place] Organization [facility] [place] [facility] [place] Address [address] [place] [address] Care Team Providers Care Pharmacy Operations Manager Name Role Phone ROBBY NIELSON Primary [...] PRESCRIPT ION [id number] 1 May 28, 2017 [id number] Charlene MASON DDIE PATIENT [facility] PRESCRIPT ION [id number] 1 May 28, 2017 [id number] Charlene MASON DDIE PATIENT [facility] RX PRESCRIPT ION RX May 28, 2022 THPRX [id number] [phone] Charlene MASON DDIE PATIENT [facility] RX PRESCRIPT ION RX May 28, 2022 THPRX [id number] Charlene MASON DDIE PATIENT [facility] USP May 28, 2017 [facility] [id number] Charlene MASON DDIE PATIENT [facility] PL[facility] IVY Chang May 28, 2017 [id number] Charlene MASON PATIENT [facility] PO[facility] SERVICE MALLORY CHERY Oct 27, 2011 [id number] Charlene MASON PATIENT [facility] (WNR) SUKUMAR CHERY(WN R) May 28, 2017 (WNR) [id number] Charlene MASON PATIENT Selected Encounter This section includes the information on record at [place] for the Encounter. Date/Time Encounter Type Encounter Description Reason Provider Source Jan 15, 2024 09:00 AM OFFICE O/P EST MOD 30 MIN PRIMARY CARE/MEDICINE ICD-10-CM I10 Essential (primary) hypertension ANTOINERASHARD Soto Charlene Encounter Template Text not used by [place] Assessments - Encounter Diagnoses This section includes the primary and secondary diagnoses documented for the Encounter. Date/Time Primary/Secondary Diagnosis Diagnosis Name Provider Source Jan 15, 2024 09:30 AM PRIMARY Essential (primary) hypertension RASHARD SCHULTZ Charles [facility] Jan 15, 2024 09:30 AM SECONDARY Abnormal results of liver function studies RASHARD SCHULTZ [facility] Jan 15, 2024 09:30 AM SECONDARY Anemia, unspecified KACEYRASHARD CLARK [place] Jan 15, 2024 09:30 AM SECONDARY Male erectile dysfunction, unspecified RASHARD SCHULTZ Charles [place] Plan of Treatment: Future Appointments (+ 6 months) and Future Tests (+/- 45 days) The Plan of Treatment section includes future care activities for the patient from all [place] treatmentfacilities. This section includes future appointments and future orders which are active, pending or scheduled. Future Appointments This section includes appointments that were scheduled to occur 6 months from the date of the Encounter, up to a maximum of 20 appointments. The data comes from all [place] treatment facilities. Appointment Date/Time Appointment Type Appointme nt Facility Name Feb 14, 2024 01:15 PM [place] [facility] [place] [facility] Mar 06, 2024 11:30 AM [facility] [facility] [place] [facility] Apr 16, 2024 10:00 AM [facility] [place] [facility] [place] [facility] May 16, 2024 09:00 AM [facility] Jun 27, 2024 11:00 AM [facility] [place] [facility] [place] [facility] Active, Pending, and Scheduled Orders This section includes a listing of several types of active, pending, and scheduled orders, including clinic medications orders, diagnostic test orders, procedure orders and consult orders; where the start date of the order is 45 days before the date of the Encounter or 45 days after the date of theEncounter. The data comes from all [place] treatment facilities. Test Date/Time Test Type Test Details Facility Name Dec 04, 2023 04:40 PM Consult Order [facility] GENERAL Cons [employer] Supervisor's Choice [facility] Lab Results: +/- 30 days of the encounter This section includes the Chemistry and Hematology Lab Results on record with [place] for the patient. Radiology Reports and Pathology Reports are provided separately, in subsequent sections. Lab Results This section contains the Chemistry/Hematology Results that were resulted 30 days before or 30 daysafter the date of the Encounter. Date/Time Source Result Type Result - Unit Interpretation Reference Range Comment Jan 15, 2024 09:47 AM [facility] PSA Specimen Type: SERUM No comment entered. Ordering Provider: PHYLLIS WHALEY Report Released Date/Time: Aug 13, 2023 09:06 AM Reporting Lab: [facility] [address] [address] Performing Lab: [facility] [address] [address] PSA 2.58 ng/mL 0.00-4.00 Jan 15, 2024 09:47 AM [facility] LIPID PANEL FASTING Specimen Type: SERUM No comment entered. Ordering Provider: PHYLLIS WHALEY Report Released Date/Time: Aug 13, 2023 09:06 AM Reporting Lab: [facility] [address] [address] Performing Lab: [facility] [address] [address] CHOLESTEROL 186 mg/dL TRIGLYCERIDE 36 mg/dL 0-150 LDL calculated 61 mg/dL 0-129 CHOL/HDL 1.6 HDL CHOLESTEROL 118 mg/dL H 40-60 Jan 15, 2024 09:47 AM [facility] LIVER FUNCTION Specimen Type: SERUM No comment entered. Ordering Provider: PHYLLIS WHALEY Report Released Date/Time: Aug 13, 2023 09:06 AM Reporting Lab: [address] [address] Performing Lab: [address] [address] PROTEIN,TOTAL 7.5 g/dL 6.0-8.3 ALBUMIN 4.3 g/dL 3.5-5.0 ALKALINE PHOSPHATASE 72 U/L 40-150 AST 131 U/L H 5-34 ALT 99 U/L H BILIRUBIN, TOTAL 0.8 mg/dL 0.2-1.2 Jan 15, 2024 09:47 AM [facility] BASIC METABOLIC PANEL (fasting) Specimen Type: SERUM No comment entered. Ordering Provider: PHYLLIS WHALEY Report Released Date/Time: Aug 13, 2023 09:06 AM Reporting Lab: [address] [address] Performing Lab: [address] [address] UREA NITROGEN 9 mg/dL 7-25 GLUCOSE 85 mg/dL 65-100 SODIUM 139 mmol/L 135-145 POTASSIUM 5.1 mmol/L H 3.5-5.0 CHLORIDE 101 mmol/L 100-110 CO2 25 meq/L 20-30 CREATININE, Serum 1.30 mg/dL 0.50-1.40 eGFR(CKD-EPI 2020) 61 mL/min >60 Jan 15, 2024 09:47 AM [facility] HEMOGLOBIN A1C PANEL Specimen Type: BLOOD Comment: Values obtained from A1C measurements can vary. For atypical A1C assays, a reported value of 7.0 could actually be between 6.72 and 7.28 if measured by a reference method. A reported value of 9.0 could actually be between 8.73 and 9.27. Ref: http://www.ng sp.org/CAPdat a.asp Ordering Provider: PHYLLIS WHALEY Report Released Date/Time: Aug 13, 2023 09:06 AM Reporting Lab: [address] [address] Performing Lab: [facility] [address] [address] HEMOGLOBIN A1C 4.9 4.0-5.6 Jan 15, 2024 09:47 AM [facility] TSH Specimen Type: SERUM No comment entered. Ordering Provider: PHYLLIS WHALEY Report Released Date/Time: Aug 13, 2023 09:06 AM Reporting Lab: [facility] [address] [address] Performing Lab: [facility] [address] [address] TSH 0.57 u[IU]/mL 0.35-5.00 Jan 15, 2024 09:47 AM [facility] URINALYSIS Specimen Type: URINE Comment: If Glucose = >500 and Ketones are positive, please alert the Physician. Ordering Provider: PHYLLIS WHALEY Report Released Date/Time: Aug 13, 2023 09:06 AM Reporting Lab: [facility] [address] [address] Performing Lab: [address] [address] UA COLOR Colorless Yellow UA APPEARANCE Clear Clear UA GLUCOSE Normal mg/dL Negative UA KETONES NEGATIVE mg/dL Negative UA BLOOD NEGATIVE mg/dL Negative UA PROTEIN NEGATIVE mg/dL Negative UA NITRITE NEGATIVE mg/dL Negative UA BILIRUBIN NEGATIVE mg/dL Negative UA SPECIFIC GRAVITY 1.005 L 1.016-1.022 UA pH 6.0 5.0-9.0 UA UROBILINOGEN Normal mg/dL <2.0 UA LEUKOCYTE NEGATIVE Negative Jan 15, 2024 09:47 AM [facility] CBC AND DIFF (AUTO) Specimen Type: BLOOD No comment entered. Ordering Provider: PHYLLIS WHALEY Report Released Date/Time: Aug 13, 2023 09:06 AM Reporting Lab: [facility] [address] [address] Performing Lab: [address] [address] WBC 4.91 10*3/uL 4.50-11.00 RBC 4.24 10*6/uL 4.23-5.66 HGB 12.8 g/dL 12.8-17 HCT 36.8 L 39.2-50.4 MCV 86.8 fL 82-99 MCHC 34.8 g/dL 30.8-35.1 PLT 287 10*3/uL 140-360 RDW-CV 12.5 12.0-16.0 MONO, ABS 0.53 10*3/uL 0.30-1.10 MCH 30.2 pg 26.2-32.6 NEUT % 67.7 43.7-75.8 LYMPH % 18.7 14.0-42.3 MONO % 10.8 5.1-13.7 EOS % 1.2 0.4-6.8 BASO % 0.6 0.1-2.0 NEUT, ABS 3.32 10*3/uL 2.20-7.60 LYMPH, ABS 0.92 10*3/uL L 1.00-3.20 EOS, ABS 0.06 10*3/uL 0.03-0.44 BASO, ABS 0.03 10*3/uL 0.01-0.13 IMMATURE GRAN % 1.0 H 0.0-0.7 IMMATURE GRAN, ABS 0.05 10*3/uL 0.00-0.06 NRBC % 0.0 0.0-0.0 NRBC, ABS 0.00 10*3/uL 0.00-0.00 Jan 15, 2024 09:47 AM [facility] SYPHILIS ABS W/RFLX Specimen Type: SERUM Comment: No laboratory evidence of syphilis infection. If recent exposure is suspected, re-draw sample in 2-4 weeks and repeat algorithm. Testing performed by T. pallidum specific immunoassay. Ordering Provider: RASHARD SCHULTZ Report Released Date/Time: Jan 15, 2024 09:24 AM Reporting Lab: [facility] [address] [address] Performing Lab: [facility] [address] [facility] [address] SYPHILIS ABS W/RFLX Non Reactive Non Reactive Jan 15, 2024 09:47 AM [place] FERRITIN Specimen Type: SERUM No comment entered. Ordering Provider: RASHARD SCHULTZ Report Released Date/Time: Jan 15, 2024 09:24 AM Reporting Lab: [facility] [place] [address] [address] Performing Lab: [place] [facility] [place] [facility] [address] [address] FERRITIN 523 ng/mL H 20-300 Jan 15, 2024 09:47 AM [facility] VITAMIN B12 Specimen Type: SERUM No comment entered. Ordering Provider: RASHARD SCHULTZ Report Released Date/Time: Jan 15, 2024 09:24 AM Reporting Lab[facility] [place] [facility] [address] [address] Performing Lab: [place] [facility] [place] [facility] [address] [address] VITAMIN B12 873 pg/mL 200-900 Jan 15, 2024 09:47 AM [place] IRON & TIBC PANEL Specimen Type: SERUM No comment entered. Ordering Provider: RASHARD SCHULTZ Report Released Date/Time: Jan 15, 2024 09:24 AM Reporting Lab: [place] [facility] [place] [facility] [address] [address] Performing Lab: [place] [facility] [place] [facility] [address] [address] TIBC 275 ug/dL 204-475 IRON 71 ug/dL 40-160 Transferrin Saturation 25.9 20.0-50.0 Jan 15, 2024 09:47 AM [place] HIV 1&2 Ag/Ab SCREEN Specimen Type: SERUM No comment entered. Ordering Provider: RASHARD SCHULTZ Report Released Date/Time: Jan 15, 2024 09:24 AM Reporting Lab: [place] [facility] [place] [facility] [address] [address] Performing Lab: [place] [facility] [place] [address] [address] HIV 1&2 Ag/Ab SCREEN NON-REACTIVE Nonreactive Jan 04, 2024 09:27 AM [place] PSA Specimen Type: SERUM No comment entered. Ordering Provider: CLIFF MCKEON Report Released Date/Time: Jan 08, 2023 11:58 AM Reporting Lab: [facility] [address] [address] Performing Lab: [facility] [address] [address] PSA 3.04 ng/mL 0.00-4.00 Jan 04, 2024 09:27 AM [place] BASIC METABOLIC PANEL (fasting) Specime n Type: SERUM No comment entered. Ordering Provider: CLIFF MCKEON Report Released Date/Time: Jan 08, 2023 11:58 AM Reporting Lab: [facility] [address] [address] Performing Lab: [address] [address] UREA NITROGEN 9 mg/dL 7-25 GLUCOSE 76 mg/dL 65-100 SODIUM 137 mmol/L 135-145 POTASSIUM 4.7 mmol/L 3.5-5.0 CHLORIDE 105 mmol/L 100-110 CO2 18 meq/L L 20-30 CREATININE, Serum 1.30 mg/dL 0.50-1.40 eGFR(CKD-EPI 2020) 61 mL/min >60 Jan 04, 2024 09:27 AM [place] LIPID PANEL FASTING Specimen Type: SERUM No comment entered. Ordering Provider: CLIFF MCKEON Report Released Date/Time: Jan 08, 2023 11:58 AM Reporting Lab: [address] [address] Performing Lab: [address] [address] CHOLESTEROL 184 mg/dL TRIGLYCERIDE 35 mg/dL 0-150 LDL calculated 67 mg/dL 0-129 CHOL/HDL 1.7 HDL CHOLESTEROL 110 mg/dL H 40-60 Jan 04, 2024 09:27 AM [facility] [facility] URINALYSIS Specimen Type: URINE Comment: If Glucose = >500 and Ketones are positive, please alert the Physician. Ordering Provider: CLIFF CMKEON Report Released Date/Time: Jan 08, 2023 11:58 AM Reporting Lab: [address] [address] Performing Lab: [address] [address] UA COLOR Light-Yellow Yellow UA APPEARANCE Clear Clear UA GLUCOSE Normal mg/dL Negative UA KETONES TRACE mg/dL Negative UA BLOOD NEGATIVE mg/dL Negative UA PROTEIN NEGATIVE mg/dL Negative UA NITRITE NEGATIVE mg/dL Negative UA BILIRUBIN NEGATIVE mg/dL Negative UA SPECIFIC GRAVITY 1.015 L 1.016-1.022 UA pH 5.5 5.0-9.0 UA UROBILINOGEN Normal mg/dL <2.0 UA LEUKOCYTE NEGATIVE Negative Jan 04, 2024 09:27 AM [facility] LIVER FUNCTION Specimen Type: SERUM No comment entered. Ordering Provider: CLIFF MCKEON Report Released Date/Time: Jan 08, 2023 11:58 AM Reporting Lab: [address] [address] Performing Lab: [place] [address] PROTEIN,TOTAL 7.1 g/dL 6.0-8.3 ALBUMIN 4.0 g/dL 3.5-5.0 ALKALINE PHOSPHATASE 65 U/L 40-150 AST 76 U/L H 5-34 ALT 44 U/L BILIRUBIN, TOTAL 0.7 mg/dL 0.2-1.2 Jan 04, 2024 09:27 AM [facility] TSH Specimen Type: SERUM No comment entered. Ordering Provider: CLIFF MCKEON Report Released Date/Time: Jan 08, 2023 11:58 AM Reporting Lab: [address] [address] Performing Lab: [address] [address] TSH 0.45 u[IU]/mL 0.35-5.00 Jan 04, 2024 09:27 AM [facility] HEMOGLOBIN A1C PANEL Specimen Type: BLOOD Comment: Values obtained from A1C measurements can vary. For atypical A1C assays, a reported value of 7.0 could actually be between 6.72 and 7.28 if measured by a reference method. A reported value of 9.0 could actually be between 8.73 and 9.27. Ref: http://www.ng sp.org/CAPdat a.asp Ordering Provider: CLIFF MCKEON Report Released Date/Time: Jan 08, 2023 11:58 AM Reporting Lab: [facility] [address] [address] Performing Lab: [address] [address] HEMOGLOBIN A1C 4.9 4.0-5.6 Jan 04, 2024 09:27 AM [facility] CBC AND DIFF (AUTO) Specimen Type: BLOOD No comment entered. Ordering Provider: CLIFF MCKEON Report Released Date/Time: Jan 08, 2023 11:58 AM Reporting Lab: [facility] [address] [address] Performing Lab: [address] [address] WBC 3.71 10*3/uL L 4.50-11.00 RBC 4.17 10*6/uL L 4.23-5.66 HGB 12.5 g/dL L 12.8-17 HCT 36.2 L 39.2-50.4 MCV 86.8 fL 82-99 MCHC 34.5 g/dL 30.8-35.1 PLT 316 10*3/uL 140-360 RDW-CV 12.8 12.0-16.0 MONO, ABS 0.44 10*3/uL 0.30-1.10 MCH 30.0 pg 26.2-32.6 NEUT % 64.6 43.7-75.8 LYMPH % 20.8 14.0-42.3 MONO % 11.9 5.1-13.7 EOS % 1.1 0.4-6.8 BASO % 1.1 0.1-2.0 NEUT, ABS 2.40 10*3/uL 2.20-7.60 LYMPH, ABS 0.77 10*3/uL L 1.00-3.20 EOS, ABS 0.04 10*3/uL 0.03-0.44 BASO, ABS 0.04 10*3/uL 0.01-0.13 IMMATURE GRAN % 0.5 0.0-0.7 IMMATURE GRAN, ABS 0.02 10*3/uL 0.00-0.06 NRBC % 0.0 0.0-0.0 NRBC, ABS 0.00 10*3/uL 0.00-0.00 Vital Signs: All taken on the encounter date This section contains inpatient and outpatient Vital Signs collected on the date of the Encounter. Date/Time Temperature Pulse Blood Pressure Respiratory Rate SP02 Pain Height Weight Body Mass Index Source Jan 15, 2024 08:47 AM 131/85 [place] Jan 15, 2024 08:47 AM 97.3 80 138/90 100 129 24 [facility] IE Social History: Smoking Status (Most current) and Tobacco Use (All prior to encounter date) This section includes the most current, and the historical, smoking and tobacco- related health factors from the [place] facility where the Encounter took place. Current Smoking Status This section includes the most current smoking, or tobacco-related health factor, from the [place] facility where the Encounter took place. Date/Time Current Smoking Status Comment Facil ity Mar 26, 2020 11:30 AM [place]-TOBACCO NEVER USED [facility] Tobacco Use History This section includes a history of the smoking, or tobacco-related health factors, that were collected on or before the date of the Encounter. The data comes from the [place] facility where the Encounter took place. Date/Time Smoking Status/Tobacco Use Comment F acility Feb 03, 2019 10:43 AM [place]-TOBACCO NEVER USED [facility] [facility] Mar 12, 2018 09:26 AM [place]-TOBACCO NEVER USED [facility] [facility] Jun 15, 2016 03:51 PM LIFETIME NON-TOBACCO USER [facility] Jun 23, 2015 10:34 AM LIFETIME NON-TOBACCO USER [place] Apr 22, 2013 10:41 AM LIFETIME NON-TOBACCO USER [facility] [facility] Mar 07, 2011 11:49 AM LIFETIME NON-TOBACCO USER [place] Jan 07, 2009 11:55 AM LIFETIME NON-TOBACCO USER [place] Advance Directives: All historical and current Section Date Range: From patient's date of to the date document was created. This section includes ALL of a patient's completed or amended [place] Advance and Rescinded Directives. The entries below indicate that a directive exists for the patient, but an actual copy is not included with this document. The data comes from all [facility]. Date Advance Directives Provider Source Jan 03, 2022 ADVANCE DIRECTIVE LUIS EDUARDO [facility] [place] Jan 03, 2021 ADVANCE DIRECTIVE KHUSHBU KUMAR [facility] Mar 19, 2012 ADVANCE DIRECTIVE ERIKA MORALES [facility] Encounter Notes: All associated encounter notes This section contains the clinical notes associated to the Encounter. Date/Time Encounter Note(s) Provider Source Jan 15, 2024 08:34 AM PHYSICIAN NOTE: LOCAL TITLE: MD NOTE STANDARD TITLE: PHYSICIAN NOTE DATE OF NOTE: JAN 15, 2024@08:34 ENTRY DATE: JAN 15, 2024@08:34:40 AUTHOR: RASHARD SCHULTZ EXP COSIGNER: URGENCY: STATUS: COMPLETED HISTORY OF PRESENT ILLNESS: first time seen , transferred from Dr Mckeon KYLECharlene MASON, is a 63 yo MALE [place], who presents at the [facility] to meet the new PCP. f/u with non va pcp, orthopedics Active problems - Computerized Problem List is the source for the following: -Essential hypertension -GERD -ED -Elevated AST -Mild chronic anemia -Mild leukopenia -comanaged The following VA and Non-VA meds were reconciled with patient: Active Outpatient Medications (including Supplies): Issue Date Status Last Fill Active Outpatient Medications Refills Expiration ======= 1) AMLODIPINE BESYLATE 5MG TAB Qty: 90 for ACTIVE Issu:08-15-23 90 days Sig: TAKE ONE TABLET BY MOUTH Refills: 3 Last:08-15-23 ONCE DAILY FOR BLOOD PRESSURE/HEART, Expr:08-15-24 DO NOT TAKE WITH GRAPEFRUIT JUICE 2) AMMONIUM LACTATE 12% LOTION Qty: 240 ACTIVE Issu:07-27-23 for 30 days Sig: APPLY SMALL AMOUNT Refills: 4 Last:07-27-23 TOPICALLY TWICE DAILY FOR DRY Expr:07-27-24 IRRITATED SKIN 3) CARBOXYMETHYLCELLULOSE NA 0.5% OPH SOLN ACTIVE Issu:07-24-23 Qty: 45 for 90 days Sig: INSTILL 1 Refills: 2 Last:07-24-23 DROP INTO EACH EYE FOUR TIMES DAILY Expr:07-24-24 NEEDED 4) DICLOFENAC NA 1% TOP GEL Qty: 100 for 8 ACTIVE Issu:06-19-23 days Sig: APPLY 3-4 GRAMS TOPICALLY Refills: 1 Last:06-22-23 THREE TIMES A DAY FOR OSTEOARTHRITIS - Expr:06-19-24 USE DOSING CARD PROVIDED IN BOX 5) SILDENAFIL CITRATE 50MG TAB Qty: 18 for ACTIVE Issu:08-13-23 90 days Sig: TAKE ONE TABLET BY MOUTH Refills: 0 Last:11-07-23 NEEDED FOR ERECTILE DYSFUNCTION Expr:08-13-24 TAKE 1 HOUR PRIOR TO SEXUAL ACTIVITY Start Date Active Non-VA Medications Refills Expiration ======= 1) Non-VA CHOLECALCIF 25MCG (D3-1,000UNIT) ACTIVE TAB SiMCG BY MOUTH ONCE DAILY 2) Non-VA CYCLOBENZAPRINE HCL TAB SiMG ACTIVE BY MOUTH NEEDED 3) Non-VA OMEPRAZOLE 20MG EC CAP SiMG ACTIVE BY MOUTH EVERY MORNING 30 MINUTES BEFORE BREAKFAST 4) Non-VA OTHER CAP/TAB Sig: LIVER ACTIVE ANTIOXIDANT EXTRACT AND PC LIVER BRAIN BENEFITS BY MOUTH 9 Total Medications ALLERGIES: ========= Patient has answered NKA LAB HISTORY: White blood cell 3.71 with hemoglobin 12.5 coming from 12.7 and normal platelets AST 76, the rest of liver function test and BMP, GFR normal limits Total cholesterol 184 triglycerides 35 LDL 67 and HDL 110 Hemoglobin A1c, TSH, PSA normal limits UA positive for trace ketones HISTORY: PERIOD OF SERVICE - [place] FROM Jan TO Aug COMBAT SERVICE INDICATED: No REVIEW OF SYSTEMS: No fever, chills No chest pain, shortness of breath at rest or with ambulation No cough or wheezing No abdominal pain nausea or vomiting No headaches or dizziness PHYSICAL EXAMINATION: WD/WN seems to be in NAD S1-S2 positive, RRR ERIN, CTA bilateral Abdomen soft nontender to palpation No edema lower extremities AAO x3;ambulates without help ASSESSMENT/PLAN: -Essential hypertension-blood pressure controlled today in office Continue amlodipine He states monitors blood pressure twice a week and he systolic blood pressure is usually low 130s He admits of not watching his diet and I advised to decrease salt intake He states exercise 34 times a week between 30 and 60 minutes each time -GERD-continue PPI -ED-he requested sildenafil to be increased to 100 how it was in the past -Elevated AST-mild elevated we will monitor for now He states drinks 1 beer a day I advised to keep healthy diet and decrease alcohol intake and he verbalizes understanding -Mild chronic anemia-anemia workup ordered -Mild leukopenia-continue to monitor for now -comanaged #-The requested to have HIV and VDRL- Antibodies checked ; he states would like to apply for citizenship for [employer]; labs ordered FOLLOW UP: ========= RTC -6-month follow-up with fasting labs for hypertension GERD elevated LFTs in the mild anemia Today's documentation was made using voice recognition software. This note may contain spelling/grammatical errors secondary to this software. Every effort is made to correct errors, but if mistakes are found they need to be taken in context. UPCOMING APPOINTMENTS: 01/15/2024 09:00 CWM/SO/PACT EIGHT 02/14/2024 13:15 COM CARE-ORTHO GEN 03/06/2024 11:30 CWM/NO/OPTOMETRY/MERHAR 05/16/2024 09:00 CWM/SO/PODIATRY/ROSA No barriers; Patient understands and agrees to current treatment plan. If pt has any questions, concerns, or changes in current health status he/she will call or come in to the VA. Medication Reconciliation: Outpatient: Has the patient been taking medications as documented in the EMLR? YES: The patient has been taking medications as documented in the EMLR. Essential Medication List for Review used to complete this medication reconciliation. INCLUDED IN THIS LIST: Alphabetical list of active outpatient prescriptions dispensed from this VA (local) and dispensed from another [place] or [place] facility (remote) as well as [...] list may not be complete. Please check JLV. Allergies/ADRs (Tool #5) FACILITY ALLERGY/ADR -------- [facility] NO KNOWN ALLERGIES [facility] No Known Allergies [facility] (Tool #1) INCLUDED IN THIS LIST: Alphabetical list of active outpatient prescriptions dispensed from this VA (local) and dispensed from another [place] or [place] facility (remote) as well as inpatient orders (local pending and active), local clinic medications, locally documented non-VA medications, and local prescriptions that have or been discontinued in the past 90 days. Non-VA Meds Last Documented On: Jan 03, 2022 NOTE The display of VA prescriptions dispensed from another [place] or [place] facility (remote) is limited to active outpatient prescription entries matched to National Drug File at the originating site and may not include some items such as investigational drugs, compounds, etc. NOT INCLUDED IN THIS LIST: Medications self-entered by the patient into personal health records (i.e. [employer]) are NOT included in this list. Non-VA medications documented outside this VA, remote inpatient orders (regardless of status) and remote clinic medications are NOT included in this list. The patient and provider must always discuss medications the patient is taking, regardless of where the medication was dispensed or obtained. ------ OUTPT AMLODIPINE BESYLATE 5MG TAB (Status = Active) TAKE ONE TABLET BY MOUTH ONCE DAILY FOR BLOOD PRESSURE/HEART, DO NOT TAKE WITH GRAPEFRUIT JUICE Rx# [id number] Last Released: 08/16/23 Qty/Days Supply: 90 Rx Expiration Date: 08/15/24 Refills Remainin Indication: FOR HIGH BLOOD PRESSURE OUTPT AMMONIUM LACTATE 12% LOTION (Status = Active) APPLY SMALL AMOUNT TOPICALLY TWICE DAILY FOR DRY IRRITATED SKIN Rx# [id number] Last Released: 07/28/23 Qty/Days Supply: 240/30 Rx Expiration Date: 07/27/24 Refills Remainin Indication: FOR DRY SKIN OUTPT BISACODYL 5MG EC TAB (Status = ) TAKE 1-2 TABLETS BY MOUTH ONCE DAILY NEEDED FOR CONSTIPATION Rx# [id number] Last Released: 01/12/23 Qty/Days Supply: 180/90 Rx Expiration Date: 01/10/24 Refills Remainin Indication: FOR CONSTIPATION OUTPT CARBOXYMETHYLCELLULOSE NA 0.5% OPH SOLN (Status = Active) INSTILL 1 DROP INTO EACH EYE FOUR TIMES DAILY NEEDED Rx# [id number] Last Released: 07/26/23 Qty/Days Supply: 45/90 Rx Expiration Date: 07/24/24 Refills Remainin Indication: FOR DRY EYE Non-VA CHOLECALCIF 25MCG (D3-1,000UNIT) TAB TAKE ONE TABLET BY MOUTH ONCE DAILY Non-VA CYCLOBENZAPRINE HCL TAB TAKE 5MG BY MOUTH NEEDED OUTPT DICLOFENAC NA 1% TOP GEL (Status = Active) APPLY 3-4 GRAMS TOPICALLY THREE TIMES A DAY FOR OSTEOARTHRITIS - USE DOSING CARD PROVIDED IN BOX Rx# [id number] Last Released: 06/23/23 Qty/Days Supply: 100/8 Rx Expiration Date: 06/19/24 Refills Remainin Non-VA OMEPRAZOLE 20MG EC CAP TAKE 1 CAPSULE BY MOUTH EVERY MORNING 30 MINUTES BEFORE BREAKFAST Non-VA OTHER CAP/TAB TAKE LIVER ANTIOXIDANT EXTRACT AND AFTER MEALS LIVER BRAIN BENEFITS BY MOUTH OUTPT SILDENAFIL CITRATE 50MG TAB (Status = Active) TAKE ONE TABLET BY MOUTH NEEDED FOR ERECTILE DYSFUNCTION TAKE 1 HOUR PRIOR TO SEXUAL ACTIVITY Rx# [id number] Last Released: 11/05/23 Qty/Days Supply: Rx Expiration Date: 08/13/24 Refills Remainin Indication: FOR ERECTILE DYSFUNCTION OUTPT SODIUM FLUORIDE 1.1% TOOTHPASTE (Status = ) BRUSH SMALL AMOUNT TO TEETH TWICE DAILY FOR TOOTH DECAY PREVENTION Rx# [id number] Last Released: 12/29/22 Qty/Days Supply: Rx Expiration Date: 12/28/23 Refills Remainin Indication: FOR TOOTH DECAY PREVENTION ------ SUPPLIES ------ /sharona SCHULTZ MD PRIMARY CARE PHYSICIAN Signed: 01/15/2024 09:31 RASHARD SCHULTZ [place] Jan 03, 2024 10:28 AM ADMINISTRATIVE NOT E: LOCAL TITLE: ADMINISTRATIVE NOTE STANDARD TITLE: ADMINISTRATIVE NOTE DATE OF NOTE: JAN 03, 2024@10:28 ENTRY DATE: JAN 03, 2024@10:28:37 AUTHOR: JORDAN LEE EXP COSIGNER: URGENCY: STATUS: COMPLETED [facility] [address] [place] [id number] [phone] * [facility] [address], [place] [address] Date: JAN 03, 2024 re: This is a reminder of your upcoming PCP appt with RASHARD SCHULTZ. Appointment Date: Dec@09:00 Appointment Type: In-person visit (X)Fasting blood work NON fasting blood work CONFIRMED APPT AND LABWORK WITH THE Sincerely, Office Staff for: RASHARD SCHULTZ Primary Care Provider [facility] [address] [place] [address] T [phone] F [phone] Upcoming Appointments: 01/04/2024 09:00 CWM/SO/PODIATRY/ROSS 01/15/2024 09:00 CWM/SO/PACT EIGHT 02/14/2024 13:15 COM CARE-ORTHO GEN 03/06/2024 11:30 CWM/NO/OPTOMETRY/MERHAR APPOINTMENT [facility] (SPOPC OR SO = [address]) (GOPC OR GO = [address]) (NHM or NO = [facility]) (VVC - Video Call) (Tel-X Telephone Visit) (TH - Telehealth) /caitlyn/ JORDAN BARAJAS Signed: 01/03/2024 10:29 JORDAN LEE [place]
--- OUTSIDE RECORDS SUMMARY | 2024-05-08 01:04 | XMS_ITS | Encounter Summary ---
Author Name Department of Veter[facility] Affairs (MD) Organization [facility] ([place]) Address [address] [place] [id number] Care Team Providers Care Salesperson Men'[employer] Name Role Phone ROBBY NIELSON Primary Care [...] PRESCRIPT ION [id number] 1 May 28, 2017 [id number] [phone] Charlene MASON DDIE PATIENT [facility] PRESCRIPT ION [id number] 1 May 28, 2017 [id number] [phone] Charlene MASON DDIE PATIENT OPTUM RX PRESCRIPT ION RX May 28, 2022 THPRX [id number] [phone] Charlene MASON DDIE PATIENT OPTUM RX PRESCRIPT ION RX May 28, 2022 THPRX [id number] [phone] Charlene MASON DDIE PATIENT [facility] PLAN USP May 28, 2017 [facility] [id number] [phone] Charlene MASON DDIE PATIENT [facility] HEALTH PLAN [facility] IVY Chang May 28, 2017 [facility] [id number] [phone] Charlene MASON DDFRED PATIENT [facility] POINT OF SERVICE MALLORY CHERY Oct 27, 2011 [id number] [phone] Charlene MASON DDFRED PATIENT [facility] (WNR) SUKUMAR CHERY(WN R) May 28, 2017 (WNR) [id number] [phone] Charlene MASON PATIENT Selected Encounter This section includes the information on record at MD for the Encounter. Date/Time Encounter Type Encounter Description Reason Pro vider Source Aug 20, 2023 01:42 PM Outpatient Encounter COMMUNITY CARE CONSULT IHE Encounter Template Text not used by MD Plan of Treatment: Future Appointments (+ 6 months) and Future Tests (+/- 45 days) The Plan of Treatment section includes future care activities for the patient from all MD treatmentfacilities. This section includes future appointments and future orders which are active, pending or scheduled. Future Appointments This section includes appointments that were scheduled to occur 6 months from the date of the Encounter, up to a maximum of 20 appointments. The data comes from all MD treatment facilities. Appointment Date/Time Appointment Type Appointme nt Facility Name Jan 04, 2024 09:00 AM [facility] Jan 15, 2024 09:00 AM AMBULATORY - MEDICINE [facility] Feb 14, 2024 01:15 PM AMBULATORY - MEDICINE [facility] N[facility]L [place] [facility] Lab Results: +/- 30 days of the encounter This section includes the Chemistry and Hematology Lab Results on record with MD for the patient. Radiology Reports and Pathology Reports are provided separately, in subsequent sections. Lab Results This section contains the Chemistry/Hematology Results that were resulted 30 days before or 30 daysafter the date of the Encounter. Date/Time Source Result Type Result - Unit Interpretation Reference Range Comment Aug 20, 2023 10:40 AM MD CNTR [place] [facility] VITAMIN D (25-OH) Specimen Type: SERUM No comment entered. Ordering Provider: PHYLLIS WHALEY Report Released Date/Time: Aug 13, 2023 09:06 AM Reporting Lab: MD CNTR [place] [facility] [address] [facility] [phone] Performing Lab: MD CNTR [place] [facility] [address] [facility] [phone] VITAMIN D (25-OH) 29 ng/mL 20-50 Vital Signs: All taken on the encounter date This section contains inpatient and outpatient Vital Signs collected on the date of the Encounter. Date/Time Temperature Pulse Blood Pressure Respiratory Rate SP02 Pain Height Weight Body Mass Index Source Aug 20, 2023 09:59 AM 118/80 [facility] Social History: Smoking Status (Most current) and Tobacco Use (All prior to encounter date) This section includes the most current, and the historical, smoking and tobacco- related health factors from the MD facility where the Encounter took place. Current Smoking Status This section includes the most current smoking, or tobacco-related health factor, from the MD facility where the Encounter took place. Date/Time Current Smoking Status Comment Facil ity Jan 08, 2023 09:03 AM MD-TOBACCO NEVER USED [facility] Tobacco Use History This section includes a history of the smoking, or tobacco-related health factors, that were collected on or before the date of the Encounter. The data comes from the MD facility where the Encounter took place. Date/Time Smoking Status/Tobac co Use Comment Facility Aug 01, 2021 09:08 AM MD-TOBACCO FORMER USER [facility] Aug 01, 2021 09:08 AM MD-TOBACCO QUIT 1 TO < 5 YRS [facility] Dec 08, 2011 01:04 PM CURRENT SMOKER chew pack and half a week [facility] Dec 08, 2011 01:04 PM V1-PT DECLINES REF TO TOBACCO CESS PRGM [facility] Dec 08, 2011 01:04 PM V1-PT DECLINES TOBACCO CESSATION MEDS [facility] Dec 08, 2011 01:04 PM V1-PT THINKING ABOUT QUIT TOBACCO USE [facility] Advance Directives: All historical and current Section Date Range: From patient's date of to the date document was created. This section includes ALL of a patient's completed or amended MD Advance and Rescinded Directives. The entries below indicate that a directive exists for the patient, but an actual copy is not included with this document. The data comes from all MD facilities. Date Advance Directives Provider Source Jan 03, 2022 ADVANCE DIRECTIVE LUIS EDUARDO COLON [facility] Shania Jan 03, 2021 ADVANCE DIRECTIVE KHUSHBU KUMAR [facility] Mar 19, 2012 ADVANCE DIRECTIVE ANDREWERIKA [facility] Encounter Notes: All associated encounter notes This section contains the clinical notes associated to the Encounter. Date/Time Encounter Note(s) Provider Source Aug 22, 2023 04:22 PM ADDENDUM: LOCAL TITLE: Addendum STANDARD TITLE: ADDENDUM DATE OF NOTE: AUG 22, 2023@16:22:15 ENTRY DATE: AUG 22, 2023@16:22:16 AUTHOR: RASHARD SCHULTZ EXP COSIGNER: URGENCY: STATUS: COMPLETED please place the requested consult and hold it for my signature. Thank you /caitlyn/ RASHARD SCHULTZ MD PRIMARY CARE PHYSICIAN Signed: 08/22/2023 16:23 Receipt Acknowledged By: 08/23/2023 09:26 /es/ AJ CARNES, RN REGISTERED NURSE for ROSS SERRANO === --- Original Document --- 08/20/23 ADMINISTRATIVE NOTE: Mavis from [facility] called to request a new orthopedic consult for the . Please enter a new orthopedic consult for the right hand if appropriate. [facility] [address] [place] [address], [address] [place] [address] Appointment Group Authorization Medical Records /caitlyn/ JOANN LACY ADVANCED CODIFIER Signed: 08/20/2023 13:43 Receipt Acknowledged By: * AWAITING SIGNATURE * ROSS SERRANO * AWAITING SIGNATURE * LATOYA RUVALCABA 08/22/2023 16:22 /caitlyn/ RASHARD SCHULTZ MD PRIMARY CARE PHYSICIAN [facility] [place] Aug 20, 2023 01:42 PM ADMINISTRATIVE NOTE: LOCAL TITLE: ADMINISTRATIVE NOTE STANDARD TITLE: ADMINISTRATIVE NOTE DATE OF NOTE: AUG 20, 2023@13:42 ENTRY DATE: AUG 20, 2023@13:42:34 AUTHOR: JOANN LACY COSIGNER: URGENCY: STATUS: COMPLETED ADMINISTRATIVE NOTE Has ADDENDA Mavis from [facility] called to request a new orthopedic consult for the [place]. Please enter a new orthopedic consult for the right hand if appropriate. [facility] [address] [place] [address], [address] [place] [address] Appointment Group Authorization Medical Records /caitlyn/ JOANN LACY ADVANCED CODIFIER Signed: 08/20/2023 13:43 Receipt Acknowledged By: 08/23/2023 09:26 /caitlyn/ AJ CARNES RN REGISTERED NURSE for ROSS SERRANO 08/23/2023 09:26 /caitlyn/ LATOYA RUVALCABA LPN Licensed Practical Nurse 08/22/2023 16:22 /caitlyn/ RASHARD SCHULTZ MD PRIMARY CARE PHYSICIAN 08/22/2023 ADDENDUM STATUS: COMPLETED please place the requested consult and hold it for my signature. Thank you /sharona SCHULTZ MD PRIMARY CARE PHYSICIAN Signed: 08/22/2023 16:23 Receipt Acknowledged By: 08/23/2023 09:26 /caitlyn/ AJ CARNES RN REGISTERED NURSE for ROSS SERRANO 08/23/2023 ADDENDUM STATUS: COMPLETED Consult placed and awaiting PCP's signature. /caitlyn/ AJ CARNES RN REGISTERED NURSE Signed: 08/23/2023 09:26 JOANN LACY [facility]
--- OUTSIDE RECORDS SUMMARY | 2024-05-08 01:04 | XMS_ITS ---
Author Name [facility] [place] Organization [place] Address [address] [place] [address] Care Team Providers Care Derrick Car Operator Name Role Phone ROBBY NIELSON Primary [...] PRESCRIPT ION RX730 1 May 28, 2017 [id number] [phone] Charlene MASON DDIE PATIENT [facility] PRESCRIPT ION RX730 1 May 28, 2017 [id number] [phone] Charlene MASON DDIE PATIENT [facility] RX PRESCRIPT ION RX May 28, 2022 THPRX [id number] [phone] Charlene MASON DDIE PATIENT [facility] RX PRESCRIPT ION RX May 28, 2022 THPRX [id number] [phone] Charlene MASON DDIE PATIENT [facility] PLAN USP May 28, 2017 [facility] [id number] Charlene MASON DDIE PATIENT [facility] HEALTH PLAN [facility] IVY Chang May 28, 2017 [facility] [id number] [phone] Charlene MASON DDFRED PATIENT [facility] POINT OF SERVICE MALLORY CHERY Oct 27, 2011 [id number] [phone] [id number] [phone] Charlene MASON DDFRED PATIENT [facility] (WNR) SUKUMAR CHERY(WN R) May 28, 2017 (WNR) [id number] [phone] Charlene MASON PATIENT Selected Encounter This section includes the information on record at NE for the Encounter. Date/Time Encounter Type Encounter Description Reason Pro vider Source Aug 27, 2023 12:00 PM Outpatient Encounter COMMUNITY CARE CONSULT IHE Encounter Template Text not used by NE Plan of Treatment: Future Appointments (+ 6 months) and Future Tests (+/- 45 days) The Plan of Treatment section includes future care activities for the patient from all NE treatmentfacilities. This section includes future appointments and future orders which are active, pending or scheduled. Future Appointments This section includes appointments that were scheduled to occur 6 months from the date of the Encounter, up to a maximum of 20 appointments. The data comes from all NE treatment facilities. Appointment Date/Time Appointment Type Appointme nt Facility Name Jan 04, 2024 09:00 [facility] Jan 15, 2024 09:00 AM AM[facility]ULATORY - MEDICINE [facility] Feb 14, 2024 01:15 PM AMBULATORY - MEDICINE [facility] [place] [facility] Lab Results: +/- 30 days of the encounter This section includes the Chemistry and Hematology Lab Results on record with NE for the patient. Radiology Reports and Pathology Reports are provided separately, in subsequent sections. Lab Results This section contains the Chemistry/Hematology Results that were resulted 30 days before or 30 daysafter the date of the Encounter. Date/Time Source Result Type Result - Unit Interpretation Reference Range Comment Aug 20, 2023 10:40 AM NE CNTR [place] [facility] VITAMIN D (25-OH) Specimen Type: SERUM No comment entered. Ordering Provider: PHYLLIS WHALEY Report Released Date/Time: Aug 13, 2023 09:06 AM Reporting Lab: NE CNTR [place] [facility] [address] [facility] [phone] Performing Lab: NE [facility]TR [facility] [address] [facility] [phone] VITAMIN D (25-OH) 29 ng/mL 20-50 Social History: Smoking Status (Most current) and Tobacco Use (All prior to encounter date) This section includes the most current, and the historical, smoking and tobacco- related health factors from the NE facility where the Encounter took place. Current Smoking Status This section includes the most current smoking, or tobacco-related health factor, from the NE facility where the Encounter took place. Date/Time Current Smoking Status Comment Facil it Jan 08, 2023 09:03 AM NE-TOBACCO NEVER USED [facility] [place] Tobacco Use History This section includes a history of the smoking, or tobacco-related health factors, that were collected on or before the date of the Encounter. The data comes from the NE facility where the Encounter took place. Date/Time Smoking Status/Tobac co Use Comment Facility Aug 01, 2021 09:08 AM NE-TOBACCO FORMER USER [facility] [place] Aug 01, 2021 09:08 AM NE-TOBACCO QUIT 1 TO < 5 YRS [facility] [place] Dec 08, 2011 01:04 PM CURRENT SMOKER chew pack and half a week [facility] [place] Dec 08, 2011 01:04 PM V1-PT DECLINES REF TO TOBACCO CESS PRGM [facility] [place] Dec 08, 2011 01:04 PM V1-PT DECLINES TOBACCO CESSATION MEDS [facility] [place] Dec 08, 2011 01:04 PM V1-PT THINKING ABOUT QUIT TOBACCO USE [facility] [place] Advance Directives: All historical and current Section Date Range: From patient's date of to the date document was created. This section includes ALL of a patient's completed or amended [place] Advance and Rescinded Directives. The entries below indicate that a directive exists for the patient, but an actual copy is not included with this document. The data comes from all [facility]. Date Advance Directives Provider Source Jan 03, 2022 ADVANCE DIRECTIVE LUIS EDUARDO COLON Jan 03, 2021 ADVANCE DIRECTIVE KHUSHBU [facility] Mar 19, 2012 ADVANCE DIRECTIVE ERIKA MORALES [facility] Encounter Notes: All associated encounter notes This section contains the clinical notes associated to the Encounter. Date/Time Encounter Note(s) Provider Source Aug 27, 2023 12:00 PM NONVA CONSULT: LOCAL TITLE: COMMUNITY CARE-CONSULT RESULT NOTE STANDARD TITLE: NONVA CONSULT DATE OF NOTE: AUG 27, 2023@12:00 ENTRY DATE: DEC 31, 2023@13:30:37 AUTHOR: JONATHAN MIDDLETON COSIGNER: URGENCY: STATUS: COMPLETED VistA Imaging - Scanned Document SCANNED DOCUMENT SIGNATURE NOT REQUIRED Electronically Filed: 12/31/2023 by: JONATHAN NAPOLES CNTRL WSTRN [facility]
--- OUTSIDE RECORDS SUMMARY | 2024-05-08 01:05 | XMS_ITS ---
Author Name [facility] [facility] [place] [facility] [place] Address [address] [place] [address] Care Team Providers Care Certified Personal Finance Counselor Name Role Phone ROBBY NIELSON Primary Care [...] PRESCRIPT ION [id number] 1 May 28, 2017 [id number] [phone] Charlene MASON DDIE PATIENT [facility] PRESCRIPT ION [id number] 1 May 28, 2017 [id number] [phone] Charlene MASON DDIE PATIENT OPTUM RX PRESCRIPT ION RX May 28, 2022 TH[facility] [id number] Charlene MASON DDIE PATIENT OPTUM RX PRESCRIPT ION RX May 28, 2022 THPR[facility] [id number] [phone] Charlene MASON DDIE PATIENT [facility]P May 28, 2017 [facility] [id number] Charlene MASON DDIE PATIENT [facility] IVY Chang May 28, 2017 [facility] [id number] [phone] Charlene MASON DDFRED PATIENT [facility] SERVICE [facility] CHERY Oct 27, 2011 [id number] [id number] Charlene MASON DDFRED PATIENT [facility] ([place]) [facility](WN R) May 28, 2017 (WNR) [id number] [phone] Charlene MASON PATIENT Selected Encounter This section includes the information on record at [place] for the [place]counter. Date/Time Encounter Type Encounter Description Reason Pro vider Source Jan 17, 2024 04:02 PM Outpatient Encounter PRIMARY CARE/MEDICINE IHE Encounter Template Text not used by [place] Plan of Treatment: Future Appointments (+ 6 months) and Future Tests (+/- 45 days) The Plan of Treatment section includes future care activities for the [facility] [place] [facility] This section includes future appointments and future orders which are active, pending or scheduled. Future Appointments This section includes appointments that were scheduled to occur 6 months from the date of the Encounter, up to a maximum of 20 appointments. The data comes from all [facility]. Appointment Date/Time Appointment Type Appointme nt Facility Name Feb 14, 2024 01:15 PM AMBULATORY - MEDICINE [facility] Mar 06, 2024 11:30 AM AMBULATORY MEDICINE [facility] Apr 16, 2024 10:00 AM [facility] May 16, 2024 09:00 AM [facility]ULATORY - MEDICINE [facility] Jun 27, 2024 11:00 AM [facility] Jul 18, 2024 10:00 AM AMBULATORY - MEDICINE [facility] Active, Pending, and Scheduled Orders This section includes a listing of several types of active, pending, and scheduled orders, including clinic medications orders, diagnostic test orders, procedure orders and consult orders; where the start date of the order is 45 days before the date of the Encounter or 45 days after the date of theEncounter. The data comes from all [facility]. Test Date/Time Test Type Test Details Facility Name Dec 04, 2023 04:40 PM Consult Order [facility] Cons Oil Dispenser's Choice [facility] Lab Results: +/- 30 days of the [...] Range Comment Jan 15, 2024 09:47 AM [facility] PSA Specimen Type: SERUM No comment entered. Ordering Provider: PHYLLIS WHALEY Report Released Date/Time: Aug 13, 2023 09:06 AM Reporting Lab: [address] [address] Performing Lab: [address] [address] PSA 2.58 ng/mL 0.00-4.00 Jan 15, 2024 09:47 AM [facility] LIPID PANEL FASTING Specimen Type: SERUM No comment entered. Ordering Provider: PHYLLIS WHALEY Report Released Date/Time: Aug 13, 2023 09:06 AM Reporting Lab: [facility] [address] [address] Performing Lab: [address] [address] CHOLESTEROL 186 mg/dL TRIGLYCERIDE 36 mg/dL 0-150 LDL calculated 61 mg/dL 0-129 CHOL/HDL 1.6 HDL CHOLESTEROL 118 mg/dL H 40-60 Jan 15, 2024 09:47 AM [facility] LIVER FUNCTION Specimen Type: SERUM No comment entered. Ordering Provider: PHYLLIS WHALEY Report Released Date/Time: Aug 13, 2023 09:06 AM Reporting Lab: [address] [address] Performing Lab: [address] [address] PROTEIN,TOTAL 7.5 g/dL 6.0-8.3 ALBUMIN 4.3 g/dL 3.5-5.0 ALKALINE PHOSPHATASE 72 U/L 40-150 AST 131 U/L H 5-34 ALT 99 U/L H BILIRUBIN, TOTAL 0.8 mg/dL 0.2-1.2 Jan 15, 2024 09:47 AM [facility] BASIC METABOLIC PANEL (fasting) Specimen Type: SERUM No comment entered. Ordering Provider: PHYLLIS WHALEY Report Released Date/Time: Aug 13, 2023 09:06 AM Reporting Lab: [facility] [address] [address] [address] Performing Lab: [facility] [address] [address] [address] UREA NITROGEN 9 mg/dL 7-25 GLUCOSE 85 mg/dL 65-100 SODIUM 139 mmol/L 135-145 POTASSIUM 5.1 mmol/L H 3.5-5.0 CHLORIDE 101 mmol/L 100-110 CO2 25 meq/L 20-30 CREATININE, Serum 1.30 mg/dL 0.50-1.40 eGFR(CKD-EPI 2020) 61 mL/min >60 Jan 15, 2024 09:47 AM [facility] HEMOGLOBIN A1C PANEL Specimen Type: BLOOD [...] Aug 13, 2023 09:06 AM Reporting Lab: [facility] [address] [address] Performing Lab: [address] [address] HEMOGLOBIN A1C 4.9 4.0-5.6 Jan 15, 2024 09:47 AM [facility] URINALYSIS Specimen Type: URINE Comment: If Glucose = >500 and Ketones are positive, please alert the Physician. Ordering Provider: PHYLLIS WHALEY Report Released Date/Time: Aug 13, 2023 09:06 AM Reporting Lab: [facility] [address] [address] Performing Lab: [address] [address] UA COLOR Colorless Yellow UA APPEARANCE Clear Clear UA GLUCOSE Normal mg/dL Negative UA KETONES NEGATIVE mg/dL Negative UA BLOOD NEGATIVE mg/dL Negative UA PROTEIN NEGATIVE mg/dL Negative UA NITRITE NEGATIVE mg/dL Negative UA BILIRUBIN NEGATIVE mg/dL Negative UA SPECIFIC GRAVITY 1.005 L 1.016-1.022 UA pH 6.0 5.0-9.0 UA UROBILINOGEN Normal mg/dL <2.0 UA LEUKOCYTE NEGATIVE Negative Jan 15, 2024 09:47 AM [facility] TSH Specimen Type: SERUM No comment entered. Ordering Provider: PHYLLIS WHALEY Report Released Date/Time: Aug 13, 2023 09:06 AM Reporting Lab: [address] [address] Performing Lab: [address] [address] TSH 0.57 u[IU]/mL 0.35-5.00 Jan 15, 2024 09:47 AM [facility] CBC AND DIFF (AUTO) Specimen Type: BLOOD No comment entered. Ordering Provider: PHYLLIS WHALEY Report Released Date/Time: Aug 13, 2023 09:06 AM Reporting Lab: [address] [address] Performing Lab: [address] [address] WBC 4.91 10*3/uL 4.50-11.00 RBC 4.24 10*6/uL [...] 10*3/uL 0.00-0.00 Jan 15, 2024 09:47 AM [facility] SYPHILIS ABS W/RFLX Specimen Type: SERUM Comment: No laboratory evidence of syphilis infection. If recent exposure is suspected, re-draw sample in 2-4 weeks and repeat algorithm. Testing performed by T. pallidum specific immunoassay. Ordering Provider: RASHARD SCHULTZ Report Released Date/Time: Jan 15, 2024 09:24 AM Reporting Lab: [facility] [address] [address] Performing Lab: [facility] [address] [facility] [address] SYPHILIS ABS W/RFLX Non Reactive Non Reactive Jan 15, 2024 09:47 AM [facility] FERRITIN Specimen Type: SERUM No comment entered. Ordering Provider: RASHARD SCHULTZ Report Released Date/Time: Jan 15, 2024 09:24 AM Reporting Lab: [facility] [address] [address] Performing Lab: [facility] [address] [facility] [address] FERRITIN 523 ng/mL H 20-300 Jan 15, 2024 09:47 AM [facility] IRON & TIBC PANEL Specimen Type: SERUM No comment entered. Ordering Provider: RASHARD SCHULTZ Report Released Date/Time: Jan 15, 2024 09:24 AM Reporting Lab: [place] [facility] [place] [facility] [address] [address] Performing Lab: [facility] [place] [facility] [address] [address] TIBC 275 ug/dL 204-475 IRON 71 ug/dL 40-160 Transferrin Saturation 25.9 20.0-50.0 Jan 15, 2024 09:47 AM [facility] VITAMIN B12 Specimen Type: SERUM No comment entered. Ordering Provider: RASHARD SCHULTZ Report Released Date/Time: Jan 15, 2024 09:24 AM Reporting Lab: [facility] [facility] [address] [address] Performing Lab: [facility] [address] [address] VITAMIN B12 873 pg/mL 200-900 Jan 15, 2024 09:47 AM [facility] HIV 1&2 Ag/Ab SCREEN Specimen Type: SERUM No comment entered. Ordering Provider: RASHARD SCHULTZ Report Released Date/Time: Jan 15, 2024 09:24 AM Reporting Lab: [facility] [address] [address] Performing Lab: [place] [facility] [address] [address] HIV 1&2 Ag/Ab SCREEN NON-REACTIVE Nonreactive Jan 04, 2024 09:27 AM [facility] PSA Specimen Type: SERUM No comment entered. Ordering Provider: CLIFF MCKEON Report Released Date/Time: Jan 08, 2023 11:58 AM Reporting Lab: [place] [facility] [place] [address] [address] Performing Lab: [facility] [address] [address] PSA 3.04 ng/mL 0.00-4.00 Jan 04, 2024 09:27 AM [facility] LIPID PANEL FASTING Specimen Type: SERUM No comment entered. Ordering Provider: CLIFF MCKEON Report Released Date/Time: Jan 08, 2023 11:58 AM Reporting Lab: [facility] [facility] [address] Performing Lab: [address] [address] CHOLESTEROL 184 mg/dL TRIGLYCERIDE 35 mg/dL 0-150 LDL calculated 67 mg/dL 0-129 CHOL/HDL 1.7 HDL CHOLESTEROL 110 mg/dL H 40-60 Jan 04, 2024 09:27 AM [facility] BASIC METABOLIC PANEL (fasting) Specime n Type: SERUM No comment entered. Ordering Provider: CLIFF MCKEON Report Released Date/Time: Jan 08, 2023 11:58 AM Reporting Lab: [address] [address] Performing Lab: [address] [address] UREA NITROGEN 9 mg/dL 7-25 GLUCOSE 76 mg/dL 65-100 SODIUM 137 mmol/L 135-145 POTASSIUM 4.7 mmol/L 3.5-5.0 CHLORIDE 105 mmol/L 100-110 CO2 18 meq/L L 20-30 CREATININE, Serum 1.30 mg/dL 0.50-1.40 eGFR(CKD-EPI 2020) 61 mL/min >60 Jan 04, 2024 09:27 AM [facility] LIVER FUNCTION Specimen Type: SERUM No comment entered. Ordering Provider: CLIFF MCKEON Report Released Date/Time: Jan 08, 2023 11:58 AM Reporting Lab: [address] [address] Performing Lab: [address] [address] PROTEIN,TOTAL 7.1 g/dL 6.0-8.3 ALBUMIN 4.0 g/dL 3.5-5.0 ALKALINE PHOSPHATASE 65 U/L 40-150 AST 76 U/L H 5-34 ALT 44 U/L BILIRUBIN, TOTAL 0.7 mg/dL 0.2-1.2 Jan 04, 2024 09:27 AM [facility] URINALYSIS Specimen Type: URINE Comment: If Glucose = >500 and Ketones are positive, please alert the Physician. Ordering Provider: CLIFF MCKEON Report Released Date/Time: Jan 08, 2023 11:58 AM Reporting Lab: [facility] [address] [address] Performing Lab: [facility] [address] [address] UA COLOR Light-Yellow Yellow UA APPEARANCE Clear Clear UA GLUCOSE Normal mg/dL Negative UA KETONES TRACE mg/dL Negative UA BLOOD NEGATIVE mg/dL Negative UA PROTEIN NEGATIVE mg/dL Negative UA NITRITE NEGATIVE mg/dL Negative UA BILIRUBIN NEGATIVE mg/dL Negative UA SPECIFIC GRAVITY 1.015 L 1.016-1.022 UA pH 5.5 5.0-9.0 UA UROBILINOGEN Normal mg/dL <2.0 UA LEUKOCYTE NEGATIVE Negative Jan 04, 2024 09:27 AM [facility] HEMOGLOBIN A1C PANEL Specimen Type: BLOOD Comment: [...] Jan 08, 2023 11:58 AM Reporting Lab: [address] [address] Performing Lab: [address] [address] HEMOGLOBIN A1C 4.9 4.0-5.6 Jan 04, 2024 09:27 AM [facility] TSH Specimen Type: SERUM No comment entered. Ordering Provider: CLIFF MCKEON Report Released Date/Time: Jan 08, 2023 11:58 AM Reporting Lab: [facility] [address] [address] Performing Lab: [address] [address] TSH 0.45 u[IU]/mL 0.35-5.00 Jan 04, 2024 09:27 AM [facility] CBC AND DIFF (AUTO) Specimen Type: BLOOD No comment entered. Ordering Provider: CLIFF MCKEON Report Released Date/Time: Jan 08, 2023 11:58 AM Reporting Lab: [facility] [address] [address] Performing Lab: [facility] [address] [address] [address] WBC 3.71 10*3/uL L 4.50-11.00 RBC 4.17 [...] 0.0 0.0-0.0 NRBC, ABS 0.00 10*3/uL 0.00-0.00 Social History: Smoking Status (Most current) and [...] place. Date/Time Current Smoking Status Comment Gina garza Jan 15, 2024 08:57 AM [place]-TOBACCO NEVER USED [facility] Tobacco Use History This section includes a history of the smoking, or tobacco-related health factors, that were collected on or before the date of the Encounter. The data comes from the [place] facility where the Encounter took place. Date/Time Smoking Status/Tobac co Use Comment Facility Jan 08, 2023 09:03 AM [place]-TO[place]AC[place] NEVER USED [facility] Aug 01, 2021 09:08 AM [place]-TO[place]AC[place] FORMER USER [facility] Aug 01, 2021 09:08 AM [place]-TO[place]AC[place] QUIT 1 TO < 5 YRS [facility] Dec 08, 2011 01:04 PM CURRENT SMOKER chew pack and half a week [facility] Dec 08, 2011 01:04 PM V1-PT DECLINES REF TO TOBACCO CESS PRGM [facility] Dec 08, 2011 01:04 PM V1-PT DECLINES TOBACCO CESSATION MEDS [facility] Dec 08, 2011 01:04 PM V1-PT THINKING ABOUT QUIT TOBACCO USE [facility] Advance Directives: All historical and current Section Date Range: From patient's date of to the date document was created. This section includes ALL of a patient's completed or amended [place] Advance and Rescinded Directives. The entries below indicate that a directive exists for the patient, but an actual copy is not included with this document. The data comes from all [facility]. Date Advance Directives Provider Source Jan 03, 2022 ADVANCE DIRECTIVE LUIS EDUARDO COLON Jan 03, 2021 ADVANCE DIRECTIVE KHUSHBU KUMAR Mar 19, 2012 ADVANCE DIRECTIVE ERIKA MORALES [facility] Encounter Notes: All associated encounter notes This section contains the clinical notes associated to the Encounter. Date/Time Encounter Note(s) Provider Source Feb 21, 2024 04:04 PM ADDENDUM: LOCAL TITLE: Addendum STANDARD TITLE: ADDENDUM DATE OF NOTE: FEB 21, 2024@16:04:44 ENTRY DATE: FEB 21, 2024@16:04:46 AUTHOR: RASHARD SCHULTZ EXP COSIGNER: URGENCY: STATUS: COMPLETED Hi Ross I do not have any form for this in the right fax Can you please let me know where I can find the paper Thank mookie /sharona SCHULTZ MD PRIMARY CARE PHYSICIAN Signed: 02/21/2024 16:05 Receipt Acknowledged By: 02/22/2024 09:27 /caitlyn/ SEVERIANO RODRIGUEZ RN-BC REGISTERED NURSE ======== --- Original Document --- 01/17/24 NOTE: Please inform the [place] his HIV and syphilis test nonreactive, which is good Thank mookie /sharona SCHULTZ MD PRIMARY CARE PHYSICIAN Signed: 01/17/2024 16:03 Receipt Acknowledged By: 01/24/2024 11:26 /sharona RUVALCABA LPN Licensed Practical Nurse 01/24/2024 ADDENDUM STATUS: COMPLETED Called unable to LVM, number not in service. /sharona RUVALCABA LPN Licensed Practical Nurse Signed: 01/24/2024 11:27 02/05/2024 ADDENDUM STATUS: COMPLETED Called and advised of above results. [place] requested copy of last lab results printed and with signature of pcp on copy. Author advised that pcp is not in office this week but that will leave copy for signature in pcp mailbox for pcp and then [place] would like to be notified when lab results available for pickup at [facility] front office coordinator. /SEVERIANO Rivera RN-JACKIE REGISTERED NURSE Signed: 02/05/2024 09:35 Receipt Acknowledged By: 02/21/2024 16:04 /sharona SCHULTZ MD PRIMARY CARE PHYSICIAN RASHARD SCHULTZFIELD Feb 05, 2024 09:34 AM ADDENDUM: LOCAL TITLE: Addendum STANDARD TITLE: ADDENDUM DATE OF NOTE: FEB 05, 2024@09:34:08 ENTRY DATE: FEB 05, 2024@09:34:08 AUTHOR: ROSS SERRANO COSIGNER: URGENCY: STATUS: COMPLETED Called and advised of above results. [place] requested copy of last lab results printed and with signature of pcp on copy. Author advised that pcp is not in office this week but that will leave copy for signature in pcp mailbox for pcp and then [place] would like to be notified when lab results available for pickup at [facility] front office coordinator. /SEVERIANO Rivera RN-BC REGISTERED NURSE Signed: 02/05/2024 09:35 Receipt Acknowledged By: 02/21/2024 16:04 /sharona SCHULTZ MD PRIMARY CARE PHYSICIAN ======== --- Original Document --- 01/17/24 NOTE: Please inform the his HIV and syphilis test nonreactive, which is good Thank you /sharona SCHULTZ MD PRIMARY CARE PHYSICIAN Signed: 01/17/2024 16:03 Receipt Acknowledged By: 01/24/2024 11:26 /sharona RUVALCABA LPN Licensed Practical Nurse 01/24/2024 ADDENDUM STATUS: COMPLETED Called unable to LVM, number not in service. /sharona RUVALCABA LPN Licensed Practical Nurse Signed: 01/24/2024 11:27 02/21/2024 ADDENDUM STATUS: UNSIGNED You may not VIEW this UNSIGNED Addendum. ROSS SERRANO Jan 17, 2024 04:02 PM PHYSICIAN NOTE: LOCAL TITLE: NOTE STANDARD TITLE: PHYSICIAN NOTE DATE OF NOTE: JAN 17, 2024@16:02 ENTRY DATE: JAN 17, 2024@16:02:49 AUTHOR: RASHARD SCHULTZ EXP COSIGNER: URGENCY: STATUS: COMPLETED NOTE Has ADDENDA Please inform the his HIV and syphilis test nonreactive, which is good Thank you /sharona SCHULTZ MD PRIMARY CARE PHYSICIAN Signed: 01/17/2024 16:03 Receipt Acknowledged By: 01/24/2024 11:26 /es/ LATOYA RUVALCABA LPN Licensed Practical Nurse 01/24/2024 ADDENDUM STATUS: COMPLETED Called unable to LVM, number not in service. /caitlyn/ LATOYA RUVALCABA LPN Licensed Practical Nurse Signed: 01/24/2024 11:27 02/05/2024 ADDENDUM STATUS: COMPLETED Called [place] and advised of above results. requested copy of last lab results printed and with signature of pcp on copy. Author advised that pcp is not in office this week but that will leave copy for signature in pcp mailbox for pcp and then would like to be notified when lab results available for pickup at [facility] front office coordinator. /caitlyn/ SEVERIANO RODRIGUEZ RN-JACKIE REGISTERED NURSE Signed: 02/05/2024 09:35 Receipt Acknowledged By: 02/21/2024 16:04 /caitlyn/ RASHARD SCHULTZ MD PRIMARY CARE PHYSICIAN 02/21/2024 ADDENDUM STATUS: COMPLETED Lj Berry, I do not have any form for this in the right fax Can you please let me know where I can find the paper Thank you /caitlyn/ RASHARD SCHULTZ MD PRIMARY CARE PHYSICIAN Signed: 02/21/2024 16:05 Receipt Acknowledged By: 02/22/2024 09:27 /caitlyn/ SEVERIANO RODRIGUEZ RN-BC REGISTERED NURSE 02/22/2024 ADDENDUM STATUS: COMPLETED Called and left voicemail that advised that copy of requested labwork with provider signatureand has been placed at [facility] front office coordinator for pickup.left call back number of [phone] if needed /SEVERIANO Rivera RN-BC REGISTERED NURSE Signed: 02/22/2024 09:31 RASHARD SCHULTZ
--- OUTSIDE RECORDS SUMMARY | 2024-05-08 01:05 | XMS_ITS | Continuity of Care Document ---
Author Organization [place] - [facility], [facility] Address [address] [place] [address] Care Team Providers Care Store Receiver Name Role Phone SAM SANCHEZ Primary Care Provider [phone] Assessment No assessment recorded. Plan of Treatment Reminders Order Date Submit Date Provider Last Modified By Organization Details Last Modified Time Details Appointments None recorded. Lab None recorded. Referral None recorded. Procedures None recorded. Surgeries None recorded. Imaging None recorded. Medication Orders epinephrine 0.3 mg/0.3 mL injection, auto-inject or 2023 024 [facility], [address] [place] [address], [address], 17:02:04 Patient TargetsNo targets recorded. Patient Instructions Encounter Date Encounter Id Patient Instructions Last Modified By Organization Details Last Modified Time 03/25/2024 [id number] sublingual immunotherapy regimen* [email or web address] Not available 03/26/2024 08:28:36 Reason for Referral None Reported. Problems Name Problem SNOMED Code Status Onset Date Resolution Date Notes Provider Name and Address Organization Details Recorded Time Allergic rhinitis 63131702 Active 2022 Other allergic rhinitis ; Note: Date Diagnose d: 3 10:10 AM (J30.89) Not Available [facility] 02:54:40 Sensorin eural hearing loss in right ear 18848385342 100 Active 2022 Sensorin eural hearing loss, unilater al, right ear, with restrict ed hearing on the contrala teral side; Note: Date Diagnose d: 3 10:10 AM (H90.A21 ) Not Available [facility] 4 02:54:41 Posterio r rhinorrh ea 72234710 Active 2023 Postnasa l drip; Note: Date Diagnose d: 05/29/2023 3:27 PM (R09.82) Not Available [facility] 4 02:54:37 Nasal congesti on 58168543 Active 2022 Nasal congesti on; Note: Date Diagnose d: 3 10:10 AM (R09.81) Not Available [facility] 4 02:54:39 Tobacco user 212854325 Active 2017 Tobacco use; Note: Date Diagnose d: 8 4:51 PM (Z72.0) Not Available [facility] 4 02:54:40 Dysphagi a 48713820 Completed 201712/28/2023 Other dysphagi a; Note: Date Diagnose d: 8 3:09 PM (R13.19) Not Available [facility] 4 02:54:41 Tinnitus of right ear 81859295123 08 Active 2022 Tinnitus , right ear; Note: Date Diagnose d: 3 10:10 AM (H93.11) Not Available [facility] 4 02:54:39 Sensorin eural hearing loss of bilatera l ears 232271005 Active 2022 Sensorin eural hearing loss, bilatera l; Note: Date Diagnose d: 3 9:58 AM (H90.3) Not Available [facility] 4 02:54:37 Seasonal allergic rhinitis 397463290 Active 2023 JUAN LUIS SKINNER MD [address] [place] [address],[place] [address], [place], [address] , [place] - [facility] 4 13:23:57 Non-israel rgic rhinitis 92499969175 1 Active 2023 JUAN LUIS SKINNER MD [address] [place] [address],[place] [address], [place], [address] , [place] - [facility] 4 13:24:27 Problem Notes None recorded. Procedures Surgical History Date Name Laterality Status Provider Name and Address Organization Details Recorded Time Allergy Testing-Full completed REDD CAMARA, [facility] [address], [address], [place] - [facility] 02/06/2024 14:27:10 Imaging Results None recorded. Procedure Notes None recorded. Medical Equipment None Reported. Allergies No known drug allergies Medications Name Sig Start Date Stop Date Status Note LastModified by Organization Details LastModified Time Refresh Tears 0.5 % eye drops active Not Available Not Available Not Available Augmentin 875 mg-125 mg tablet 2017 active Medicati on ID: [id number] D uration Value: 10 Prescri bed By Name: Juan Luis joshi MD Brand Name: Augmenti n Send Method: E-Prescr ibed Sub s Allowed: subs OK Speci al Instruct ion: 1 po bid for 10 days Med icationG enericNa me: Augmenti n Not Available Not Available Not Available primidone 50 mg tablet 01/28 completed Medicati on ID: [id number] D uration Value: 30 Brand Name: primidon e Send Method: E-Prescr ibed Sub s Allowed: subs OK Speci al Instruct ion: TAKE 1/2 TAB AT BEDTIME [id number], 1 TAB AT BED [id number], 1.5 TABS AT BED [id number], THEN 2 TABS AT BED Medi cationGe nericNam e: primidon e Not Available Not Available Not Available prednison e 10 mg tablet 01/28 completed Medicati on ID: [id number] P rescribe d By Name: Juan Luis joshi MD Brand Name: predniso ne Send Method: E-Prescr ibed Sub s Allowed: subs OK Speci al Instruct ion: Take 4 tabs daily for 3 days then 3 tabs daily for 3 days then 2 tabs daily for 3 days then 1 tab daily for 3 days then stop Med icationG enericNa me: predniso ne Not Available Not Available Not Available ammonium lactate 12 % lotion active Not Available Not Available Not Available sildenafi l 50 mg tablet active Not Available Not Available Not Available sulindac 150 mg tablet active Not Available Not Available Not Available amlodipin e 5 mg tablet active Not Available Not Available Not Available sildenafi l 100 mg tablet active Not Available Not Available Not Available lisinopri l 10 mg tablet active Not Available Not Available Not Available docusate sodium 100 mg capsule active Not Available Not Available Not Available omeprazol e 20 mg capsule,d elayed release active Not Available Not Available Not Available epinephri ne 0.3 mg/0.3 mL injection , auto-inje ctor Take 1 auto by injectio n route as directed . active Not Available Not Available No t Available albuterol sulfate HFA 90 mcg/actua tion aerosol inhaler active Not Available Not Available Not Available fluticaso ne propionat e 50 mcg/actua tion nasal spray,eric pension active Not Available Not Available Not Available ipratropi um bromide 21 mcg (0.03 %) nasal spray active Not Available Not Available Not Available loratadin e 10 mg tablet Take 1 tablet by mouth once a day active Not Available Not Available No t Available oxycodone 5 mg tablet active Not Available Not Available Not Available cyclobenz aprine 5 mg tablet active Not Available Not Available No t Available Systane (propylen e glycol) 0.4 %-0.3 % eye drops active Not Available Not Available Not Available Golytely 236 gram-22.7 4 gram-6.74 gram-5.86 gram oral solution active Not Available Not Available Not Available diclofena c 1 % topical gel active Not Available Not Available Not Available Vitals Date Recorded Body height Body mass index (BMI) Body weight Provider Name and Address Organization Details Last Updated DateTime 03/25/2024 157.48 cm 22.9 kg/m2 30728.05 g Francisco Ma [place] - [facility] 03/25/2024 15:49:36 Social History None recorded. Functional Status None recorded. Mental Status None recorded. Family History Nothing Reported. Medical History No medical history recorded. Past Encounters Encounter ID Performer Location Encounter Start Date Encounter Closed Date Diagnosis/Indication Diagnosis SNOMED-CT Code Diagnosis ICD10 Code [id number] JUAN LUIS SKINNER MD [facility] [address] [address] 03/25/2024 15:31:57 03/25/2024 16:19:44 Seasonal allergic rhinitis 536656160 J30.2 Nasal congestion 0773719 0 R09.81 Health Concerns Section Related Observation LastModified by Organization Detai ls LastModified Time None Recorded Concern Status LastModified by Organization Details LastModified Time None Recorded Payers Encounter Date Sequence Insurance Name Policy Number Policy Poon Covered Member ID Poon Member ID Guarantor Name 03/25/2024 1 [facility] (POS) [id number] Papo Hernandez [id number] Papo Hernandez Notes Date Note Type Note Provider Name and Address Organization Details Recorded Time 03/25/2024 text/html He presents for allergy testing review. Allergy testing showed mild to moderate allergies to most categories of allergens tested. Has tried antihistamines and nasal sprays with minimal improvement. JUAN LUIS SKINNER MD [address] [place] [address], [phone], [facility] - [facility] 03/25/2024 17:01:45
--- OUTSIDE RECORDS SUMMARY | 2024-05-08 01:05 | XMS_ITS | Data Portability ---
Author Organization [place] - [facility], Allergy Address [address] [place] [phone] Care Team Providers Care Bag Hanger Name Role Phone SAM SANCHEZ Primary Care Provider Assessment No assessment recorded. Plan of Treatment Reminders Order Date Submit Date Provider Last Modified By Organization Details Last Modified Time Details Appointments None recorded. Lab None recorded. Referral None recorded. Procedures allergy testing, skin prick (PROC) 2023 024 Not available 13:42:41 intradermal allergy skin testing (PROC) 2023 024 [email or web address] Not available 13:42:51 pulmonary function test procedure (PROC) 2023 024 [email or web address] Not available 13:43:29 pulse oximetry (PROC) 2023 024 Not available 13:43:37 Surgeries None recorded. Imaging None recorded. Medication Orders epinephrine 0.3 mg/0.3 mL injection, auto-inject or 2023 [facility], [address] [place] [address], [address], 17:02:04 Patient TargetsNo targets recorded. Patient Instructions Encounter Date Encounter Id Patient Instructions Last Modified By Organization Details Last Modified Time 02/06/2024 [id number] Nursing Documentation for Allergy Testing: Ordering Provider {{Dr. Karissa Skinner* Dr. Ignacio Sanz}} Weight:lbs:??kg: ?? PFT {{Yes no*}} With Bronchodilator {{Yes no*}} approval needed to proceed with allergy testing? {{Yes* No}} {{Dr. Karissa Sharp* Dr. Romi Sanz}} ok'd testing {{Yes* No Pulmonar y Clearance PCP Clearance RAST}}Hi story of Asthma:{{Yes No*}} Asthma Meds: ??Last used:?? Asthma exacerbated by: ?? Chance that : {{Yes No Not Sure N/A*}} Fear of needles: {{Yes No*}} Regular medications reviewed in Computer: {{Yes* No}} Medication allergies: {{Reviewed* NKDA}} Antihistamine use: {{Yes No}} Medications used: ?? Food Allergies: ?? none Any foods make your mouth feeling itchy: {{Yes No*}} If yes: ?? History of severe reaction where had to go to ER? {{Yes No*}} If yes details: ?? Type of heat in home: {{Baseboard Forced Air* Radiator othe r}} Pets: {{Yes* No}} If yes: 1 dog?? Smoker: {{Yes Current Never* For anastasiia}} If former smoker-how much ?? / day for how long ?? When quit ?? years ago Smoking now-how much ?? /day for how long ?? Occupation/Social History: ??retired Symptoms having: {{Congestion Post Nasal Drip Headache Runn y Nose* Cough Other} } If other: ??cough, itchy eyes Frequency {{Seasonally Year Round*}} Spirometry Contraindications: Heart attack in the last 3 months: {{Yes No*}} Major surgery in last 3 months: {{Yes No*}} Detached retina(serious eye issues) in last 2 months: {{Yes No*}} Hospitilization in last month: {{Yes No*}} Proceed with PFT {{Yes* No}} approval needed: {{Yes* No}} Nursing Notes: Pt tolerated test well {{Yes* No}} Benadryl cream to test sites {{Yes No*}} Patient became syncopal-placed in supine position {{Yes No*}} Large reactions to MQT, reschedule IDT for a different date {{Yes No*}} Other: ?? Written by: {{JOSE MANUEL Thomas, KARUNA eSay*}} [email or web address] Not available 02/06/2024 14:27:22 03/25/2024 [id number] sublingual immunotherapy regimen* [email or web address] Not available 03/26/2024 08:28:36 Reason for Referral None Reported. Results Created Date Observation Date Name Description Value Unit Range Abnormal Flag Note LastModifiedBy Organization Detail LastModifiedTime 01/15/20 24 02/20/2023 imagi ng/di agnos tic resul t No observ ation record ed. [email or web address] Not Available 23:50:22 01/15/20 24 02/20/2023 imagi ng/di agnos tic resul t No observ ation record ed. [email or web address] Not Available 23:50:35 01/15/20 24 04/11/2023 imagi ng/di agnos tic resul t No observ ation record ed. [email or web address] Not Available 23:50:47 Result Notes None recorded. Problems Name Problem SNOMED Code Status Onset Date Resolution Date Notes Provider Name and Address Organization Details Recorded Time Allergic rhinitis 28784297 Active 2022 Other allergic rhinitis ; Note: Date Diagnose d: 3 10:10 AM (J30.89) Not Available [facility] 4 02:54:40 Sensorin eural hearing loss in right ear 69272416519 100 Active 2022 Sensorin eural hearing loss, unilater al, right ear, with restrict ed hearing on the contrala teral side; Note: Date Diagnose d: 3 10:10 AM (H90.A21 ) Not Available [facility] 4 02:54:41 Posterio r rhinorrh ea 55437207 Active 2023 Postnasa l drip; Note: Date Diagnose d: 05/29/2023 3:27 PM (R09.82) Not Available [facility] 4 02:54:37 Nasal congesti on 35747758 Active 2022 Nasal congesti on; Note: Date Diagnose d: 3 10:10 AM (R09.81) Not Available [facility] 4 02:54:39 Tobacco user 483074127 Active 2017 Tobacco use; Note: Date Diagnose d: 8 4:51 PM (Z72.0) Not Available [facility] 4 02:54:40 Dysphagi a 16997108 Completed 201712/28/2023 Other dysphagi a; Note: Date Diagnose d: 8 3:09 PM (R13.19) Not Available [facility] 4 02:54:41 Tinnitus of right ear 43272557024 08 Active 2022 Tinnitus , right ear; Note: Date Diagnose d: 3 10:10 AM (H93.11) Not Available [facility] 4 02:54:39 Sensorin eural hearing loss of bilatera l ears 012008963 Active 2022 Sensorin eural hearing loss, bilatera l; Note: Date Diagnose d: 3 9:58 AM (H90.3) Not Available [facility] 4 02:54:37 Seasonal allergic rhinitis 840844770 Active 2023 JUAN LUIS SKINNER MD [address] [place] [address], [place], [address] , [facility] - [facility] [place] 4 13:23:57 Non-israel rgic rhinitis 93723887973 1 Active 2023 JUAN LUIS SKINNER MD [address] [place] [address], [place], [address] , [facility] - [facility] [place] 4 13:24:27 Problem Notes None recorded. Procedures Surgical History Date Name Laterality Status Provider Name and Address Organization Details Recorded Time 4 Allergy Testing-Full completed KARUNA BOWEN [address] [facility] 100, [place], [address], [facility] - [facility] 02/06/2024 14:27:10 Imaging Results Imaging Date Name Status LastModified by Organiz ation Details LastModified Time 02/20/2023 imaging/diag nostic result completed Information not available 01/15/2024 23:50:22 02/20/2023 imaging/diag nostic result completed Information not available 01/15/2024 23:50:35 04/11/2023 imaging/diag nostic result completed Information not available 01/15/2024 23:50:47 Procedure Notes None recorded. Medical Equipment None Reported. Allergies No known drug allergies Medications Name Sig Start Date Stop Date Status Note LastModified by Organization Details LastModified Time Refresh Tears 0.5 % eye drops active Not Available Not Available Not Available Augmentin 875 mg-125 mg tablet 2017 active Medicati on ID: [id number] D uration Value: 10 Prescri bed By Name: Juan Luis joshi MD Brand Name: Augmenti n Send Method: E-Prescr ibed Sub s Allowed: subs OK Speci al Instruct ion: 1 po bid for 10 days Med icationG enericNa me: Augmenti n Not Available Not Available Not Available primidone 50 mg tablet 01/28 completed Medicati on ID: [id number] D uration Value: 30 Brand Name: primidon e Send Method: E-Prescr ibed Sub s Allowed: subs OK Speci al Instruct ion: TAKE 1/2 TAB AT BEDTIME [id number], 1 TAB AT BED X8PAPKQ, 1.5 TABS AT BED F5GMVYI, THEN 2 TABS AT BED Medi cationGe nericNam e: primidon e Not Available Not Available Not Available prednison e 10 mg tablet 01/28 completed Medicati on ID: [id number] P rescribe d By Name: Juan Luis [...] and Address Organization Details Last Updated DateTime 01/14/2024 157.48 cm 22.7 kg/m2 59181.45 g Hawa Whittington [place] - [facility] 01/14/2024 13:13:20 Date Recorded Body height Oxygen saturation Oxygen saturation in Arterial blood by Pulse oximetry Heart rate Body mass index (BMI) Body weight Systolic blood pressure Diastolic blood pressure Provider Name and Address Organization Details Last Updated DateTime 4 157.48 cm 98 % 98 % 80 /min 22.9 kg/m2 19189.0 5 g 107 mm[Hg] 71 mm[Hg] [facility] JEMIMA, [address], [address], [facility] 13:09:41 Date Recorded Body height Body mass index (BMI) Body weight Heart rate Oxygen saturation Oxygen saturation in Arterial blood by Pulse oximetry Systolic blood pressure Diastolic blood pressure Provider Name and Address Organization Details Last Updated DateTime 4 157.48 cm 22.9 kg/m2 45619.0 5 g 69 /min 99 % 99 % 125 mm[Hg] 84 mm[Hg] REDD SEAY [address], [address], [facility] 13:06:28 Date Recorded Body height Body mass index (BMI) Body weight Provider Name and Address Organization Details Last Updated DateTime 03/25/2024 157.48 cm 22.9 kg/m2 24081.05 g Francisco Ma [facility] 03/25/2024 15:49:36 Social History None recorded. Functional Status None recorded. Mental Status None recorded. Family History Nothing Reported. Medical History No medical history recorded. Past Encounters Encounter ID Performer Location Encounter Start Date Encounter Closed Date Diagnosis/Indication Diagnosis SNOMED-CT Code Diagnosis ICD10 Code [id number] JUAN LUIS SKINNER MD [facility] of [address] [address] 01/14/2024 12:43:58 01/14/2024 13:26:07 Nasal congestion 09718340 R09.81 Seasonal a llergic rhinitis 035237891 J30.[id number] [facility] Allergy [address] [place] [phone] 01/29/2024 12:52:56 01/29/2024 13:57:37 Allergic rhinitis 47559771 J30.9 [id number] KARUNA BOWEN All[facility] 100 [facility] ite [address] [place] [address] 02/06/2024 12:52:29 02/06/2024 15:01:16 Allergic rhinitis 05212355 J30.9 [id number] JUAN LUIS SKINNER MD [facility] [address] [place] [address] 03/25/2024 15:31:57 03/25/2024 16:19:44 Seasonal allergic rhinitis 359492413 J30.2 Nasal congestion 7528862 0 R09.81 Health Concerns Section Related Observation LastModified by Organization Detai ls LastModified Time None Recorded Concern Status LastModified by Organization Details LastModified Time None Recorded Advance Directives Directive None Recorded Payers Encounter Date Sequence Insurance Name Policy Number Policy Poon Covered Member ID Poon Member ID Guarantor Name 01/14/2024 1 [facility] ([facility] [id number] Papo E Mary [id number] Papo E Mary 01/29/2024 1 [facility] [employer] (POS) [id number] Papo E Mary [id number] Papo E Mary 02/06/2024 1 [facility] (POS) [id number] Papo E Mary [id number] Papo E Mary 03/25/2024 1 [facility] (POS) [id number] Papo E Mary [id number] Papo E Mary Notes Date Note Type Note Provider Name and Address Organization Details Recorded Time 01/14/2024 text/html History of rhinorrhea. Did not benefit from antihistamines and flonase. At the last visit I sent ipratropium. He reports rhinorrhea worse at night. He does have a dog in the bedroom. Has not had recent allergy testing. JUAN LUIS SKINNER MD [address] [place] [address], [phone], [facility] - [facility] 01/14/2024 13:25:23 01/29/2024 text/html Pt Presents for allergy testing and pt did not stop allergy meds. He understands that he needs to be off the loratadine for 7 days prior and is rescheduled for next week DAYA ESTEVEZ Anup [address] [facility],[address], [address], [facility] 01/29/2024 13:36:19 03/25/2024 text/html He presents for allergy testing review. Allergy testing showed mild to moderate allergies to most categories of allergens tested. Has tried antihistamines and nasal sprays with minimal improvement. JUAN LUIS SKINNER MD 100 [facility],[address], [address], [facility] 03/25/2024 17:01:45
--- OUTSIDE RECORDS SUMMARY | 2024-05-08 01:05 | XMS_ITS | Encounter Summary ---
Author Name [facility] [place] [facility] [place] Address [address] [place] [address] Care Team Providers Care Dry Cleaning Counter Clerk Name Role Phone ROBBY NIELSON Primary Care [...] PRESCRIPT ION RX730 1 May 28, 2017 [id number] [phone] Charlene MASON DDIE PATIENT [facility] PRESCRIPT ION RX730 1 May 28, 2017 [id number] [phone] Charlene MASON DDIE PATIENT [facility] RX PRESCRIPT ION RX May 28, 2022 THPRX [id number] Charlene MASON DDIE PATIENT [facility] RX PRESCRIPT ION RX May 28, 2022 THPRX [id number] [phone] Charlene MASON DDIE PATIENT [facility] PLAN USP May 28, 2017 [facility] [id number] Charlene MASON DDIE PATIENT [facility] HEALTH PLAN [facility] IVY Chang May 28, 2017 [facility] [id number] Charlene MASON DDFRED PATIENT [facility] POINT OF SERVICE MALLORY CHERY Oct 27, 2011 [id number] [phone] Charlene MASON DDFRED PATIENT [facility] (WNR) SUKUMAR CHERY(WN R) May 28, 2017 (WNR) [id number] Charlene MASON PATIENT Selected Encounter This section includes the information on record at [place] for the Encounter. Date/Time Encounter Type Encounter Description Reason Pro vider Source Mar 20, 2024 02:50 PM Outpatient Encounter PRIMARY CARE/MEDICINE IHE Encounter Template Text not used by [place] Plan of Treatment: Future Appointments (+ 6 months) and Future Tests (+/- 45 days) The Plan of Treatment section includes future care activities for the patient from all [place] [facility] This section includes future appointments and future orders which are active, pending or scheduled. Future Appointments This section includes appointments that were scheduled to occur 6 months from the date of the Encounter, up to a maximum of 20 appointments. The data comes from all [place] treatment facilities. Appointment Date/Time Appointment Type Appointme nt Facility Name Apr 16, 2024 10:00 AM AMBULATORY - [facility] May 16, 2024 09:00 AM AMBULATORY - MEDICINE [facility] Jun 27, 2024 11:00 AM AMBULATORY MEDICINE [facility] Jul 18, 2024 10:00 AM AMBULATORY - MEDICINE [facility] Active, Pending, and Scheduled Orders This section includes a listing of several types of active, pending, and scheduled orders, including clinic medications orders, diagnostic test orders, procedure orders and consult orders; where the start date of the order is 45 days before the date of the Encounter or 45 days after the date of theEncounter. The data comes from all [place] treatment [facility]. 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 Social History: Smoking Status (Most current) [...] place. Date/Time Current Smoking Status Comment Gina greg Jan 15, 2024 08:57 AM VA-TOBACCO NEVER USED [facility] Tobacco Use History This section includes a history of the smoking, or tobacco-related health factors, that were collected on or before the date of the Encounter. The data comes from the [place] facility where the Encounter took place. Date/Time Smoking Status/Tobac co Use Comment Facility Jan 08, 2023 09:03 AM VA-TOBACCO NEVER USED [facility] Aug 01, 2021 09:08 AM VA-TOBACCO FORMER USER [facility] Aug 01, 2021 09:08 AM VA-TOBACCO QUIT 1 TO < 5 YRS [facility] Dec 08, 2011 01:04 PM CURRENT SMOKER chew pack and half a week [facility] Dec 08, 2011 01:04 PM V1-PT DECLINES REF TO TOBACCO CESS PRGM [facility] Dec 08, 2011 01:04 PM V1-PT DECLINES TOBACCO CESSATION MEDS [facility] Dec 08, 2011 01:04 PM V1-PT THINKING ABOUT QUIT TOBACCO USE [facility] Advance Directives: All historical and current [...] Mar 19, 2012 ADVANCE DIRECTIVE [facility] Encounter Notes: All associated encounter notes This section contains the clinical notes associated to the Encounter. Date/Time Encounter Note(s) Provider Source Mar 20, 2024 02:51 PM ADMINISTRATIVE NOT E: LOCAL TITLE: ADMINISTRATIVE NOTE STANDARD TITLE: ADMINISTRATIVE NOTE DATE OF NOTE: MAR 20, 2024@14:51 ENTRY DATE: MAR 20, 2024@14:51:08 AUTHOR: JAYLYN CHENG EXP COSIGNER: URGENCY: STATUS: COMPLETED [facility] has a return to clinic order in for Jan for a follow appt with RASHARD SCHULTZ [facility] has received 1 phone call on Jan has had 1 letter sent on Feb reminding them to schedule their RTC follow up appt with no response. 14 days post mailing scheduling letter, [facility] is dispositioning RTC due to failed minimal scheduling efforts on Feb05/16/2024 09:00 CWM/SO/PODIATRY/ROSS 06/27/2024 11:00 CWM/NO/OPTOMETRY 1 AM 07/22/2024 09:00 CWM/SO/PACT EIGHT WH Past Clinic Visits (Past 3 Months) 03/06/2024 11:30 CWM/NO/OPTOMETRY/MERHAR NO-SHOW 02/28/2024 11:30 CWM/NO/OPTOMETRY/MERHAR CANCELLED BY CLINIC 02/14/2024 13:15 COM CARE-ORTHO GEN 01/17/2024 13:30 ZZCWM/SO/PACT 4 MD CANCELLED BY CLINIC 01/15/2024 09:00 CWM/SO/PACT EIGHT WH 01/08/2024 11:00 ZZCWM/SO/PACT 4 MD CANCELLED BY CLINIC 01/04/2024 09:00 CWM/SO/PODIATRY/ROSS 08/29/2023 14:00 NHM/OPTOMETRY/RENAE/ CANCELLED BY PATIENT 08/20/2023 10:00 ZZCWM/SO/PACT EIGHT 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
--- OUTSIDE RECORDS SUMMARY | 2024-05-08 01:05 | XMS_ITS | Encounter Summary ---
Author Name [facility] [place] [facility] [place] Address [address] [place] [address] Care Team Providers Care Automation And Controls Manager Name Role Phone ROBBY NIELSON Primary [...] PRESCRIPT ION RX730 1 May 28, 2017 [id number] [phone] Charlene MASON DDIE PATIENT [facility] PRESCRIPT ION RX730 1 May 28, 2017 [id number] Charlene MASON DDIE PATIENT [facility] RX PRESCRIPT ION RX May 28, 2022 THPRX [id number] [phone] Charlene MASON DDIE PATIENT [facility] RX PRESCRIPT ION RX May 28, 2022 THPRX [id number] [phone] Charlene MASON DDIE PATIENT [facility] PLAN USP May 28, 2017 [facility] [id number] Charlene MASON DDIE PATIENT [facility] HEALTH PLAN [facility] IVY Chang May 28, 2017 [facility] [id number] [phone] Charlene MASON DDFRED PATIENT [facility] POINT OF SERVICE MALLORY CHERY Oct 27, 2011 [id number] [phone] Charlene MASON DDFRED PATIENT [facility] (WNR) SUKUMAR CHERY(WN R) May 28, 2017 (WNR) [id number] Charlene MASON PATIENT Selected Encounter This section includes the information on record at [place] for the Encounter. Date/Time Encounter Type Encounter Description Reason Pro vider Source Jan 15, 2024 12:00 AM Outpatient Encounter EVENT (HISTORICAL) IHE [...] 20 appointments. The data comes from all [facility]. Appointment Date/Time Appointment Type Appointme nt Facility Name Feb 14, 2024 01:15 PM AMBULATORY - MEDICINE [facility] Mar 06, 2024 11:30 AM AMBULATORY MEDICINE [facility] Apr 16, 2024 10:00 AM AMBULATORY MEDICINE [facility] May 16, 2024 09:00 AM AMBULATORY - MEDICINE [facility] Jun 27, 2024 11:00 AM AMBULATORY MEDICINE [facility] Active, Pending, and Scheduled Orders This section includes a listing of several types of active, pending, and scheduled orders, including clinic medications orders, diagnostic test orders, procedure orders and consult orders; where the start date of the order is 45 days before the date of the Encounter or 45 days after the date of theEncounter. The data comes from all [facility]. Test Date/Time Test Type Test Details Facility Name Dec 04, 2023 04:40 PM Consult Order [facility] GENER[facility] Cons Drapery Counselor's Choice [facility] Lab Results: +/- 30 days of the [...] Range Comment Jan 15, 2024 09:47 AM [facility] PSA Specimen Type: SERUM No comment entered. Ordering Provider: PHYLLIS WHALEY Report Released Date/Time: Aug 13, 2023 09:06 AM Reporting Lab: [facility] [address] [facility] [address] Performing Lab: [address] [address] PSA 2.58 ng/mL 0.00-4.00 Jan 15, 2024 09:47 AM [facility] LIPID PANEL FASTING Specimen Type: SERUM No comment entered. Ordering Provider: PHYLLIS WHALEY Report Released Date/Time: Aug 13, 2023 09:06 AM Reporting Lab: [facility] [address] [facility] [address] Performing Lab: [facility] [address] [facility] [address] CHOLESTEROL 186 mg/dL TRIGLYCERIDE 36 mg/dL 0-150 LDL calculated 61 mg/dL 0-129 CHOL/HDL 1.6 HDL CHOLESTEROL 118 mg/dL H 40-60 Jan 15, 2024 09:47 AM [facility] LIVER FUNCTION Specimen Type: SERUM No comment entered. Ordering Provider: PHYLLIS WHALEY Report Released Date/Time: Aug 13, 2023 09:06 AM Reporting Lab: [facility] [address] [address] Performing Lab: [address] [address] PROTEIN,TOTAL 7.5 g/dL 6.0-8.3 ALBUMIN 4.3 g/dL 3.5-5.0 ALKALINE PHOSPHATASE 72 U/L 40-150 AST 131 U/L H 5-34 ALT 99 U/L H BILIRUBIN, TOTAL 0.8 mg/dL 0.2-1.2 Jan 15, 2024 09:47 AM [facility] BASIC METABOLIC PANEL (fasting) Specimen Type: SERUM No comment entered. Ordering Provider: PHYLLIS WHALEY Report Released Date/Time: Aug 13, 2023 09:06 AM Reporting Lab: [facility] [address] [address] Performing Lab: [facility] [address] [facility] [address] UREA NITROGEN 9 mg/dL 7-25 GLUCOSE 85 mg/dL 65-100 SODIUM 139 mmol/L 135-145 POTASSIUM 5.1 mmol/L H 3.5-5.0 CHLORIDE 101 mmol/L 100-110 CO2 25 meq/L 20-30 CREATININE, Serum 1.30 mg/dL 0.50-1.40 eGFR(CKD-EPI 2020) 61 mL/min >60 Jan 15, 2024 09:47 AM [facility] HEMOGLOBIN A1C PANEL Specimen Type: BLOOD Comment: [...] Aug 13, 2023 09:06 AM Reporting Lab: [address] [address] Performing Lab: [facility] [address] [facility] [address] HEMOGLOBIN A1C 4.9 4.0-5.6 Jan 15, 2024 09:47 AM [facility] URINALYSIS Specimen Type: URINE Comment: If Glucose = >500 and Ketones are positive, please alert the Physician. Ordering Provider: PHYLLIS WHALEY Report Released Date/Time: Aug 13, 2023 09:06 AM Reporting Lab: [facility] [address] [address] Performing Lab: [facility] [address] [facility] [address] UA COLOR Colorless Yellow UA APPEARANCE Clear Clear UA GLUCOSE Normal mg/dL Negative UA KETONES NEGATIVE mg/dL Negative UA BLOOD NEGATIVE mg/dL Negative UA PROTEIN NEGATIVE mg/dL Negative UA NITRITE NEGATIVE mg/dL Negative UA BILIRUBIN NEGATIVE mg/dL Negative UA SPECIFIC GRAVITY 1.005 L 1.016-1.022 UA pH 6.0 5.0-9.0 UA UROBILINOGEN Normal mg/dL <2.0 UA LEUKOCYTE NEGATIVE Negative Jan 15, 2024 09:47 AM [facility] TSH Specimen Type: SERUM No comment entered. Ordering Provider: PHYLLIS WHALEY Report Released Date/Time: Aug 13, 2023 09:06 AM Reporting Lab: [address] [address] Performing Lab: [address] [address] TSH 0.57 u[IU]/mL 0.35-5.00 Jan 15, 2024 09:47 AM [facility] CBC AND DIFF (AUTO) Specimen Type: BLOOD No comment entered. Ordering Provider: PHYLLIS WHALEY Report Released Date/Time: Aug 13, 2023 09:06 AM Reporting Lab: [address] [address] Performing Lab: [address] [address] WBC 4.91 10*3/uL 4.50-11.00 RBC 4.24 10*6/uL [...] 10*3/uL 0.00-0.00 Jan 15, 2024 09:47 AM [facility] SYPHILIS ABS W/RFLX Specimen Type: SERUM Comment: No laboratory evidence of syphilis infection. If recent exposure is suspected, re-draw sample in 2-4 weeks and repeat algorithm. Testing performed by T. pallidum specific immunoassay. Ordering Provider: RASHARD SCHLUTZ Report Released Date/Time: Jan 15, 2024 09:24 AM Reporting Lab: [facility] [address] [address] Performing Lab: [facility] [address] [facility] [address] SYPHILIS ABS W/RFLX Non Reactive Non Reactive Jan 15, 2024 09:47 AM [facility] FERRITIN Specimen Type: SERUM No comment entered. Ordering Provider: RASHARD SCHULTZ Report Released Date/Time: Jan 15, 2024 09:24 AM Reporting Lab: [facility] [address] [facility] [address] Performing Lab: [facility] [address] [facility] [address] FERRITIN 523 ng/mL H 20-300 Jan 15, 2024 09:47 AM [facility] IRON & TIBC PANEL Specimen Type: SERUM No comment entered. Ordering Provider: RASHARD SCHULTZ Report Released Date/Time: Jan 15, 2024 09:24 AM Reporting Lab: [facility] [place] [facility] [address] [facility] [address] Performing Lab: [facility] [place] [facility] [address] [facility] [address] TIBC 275 ug/dL 204-475 IRON 71 ug/dL 40-160 Transferrin Saturation 25.9 20.0-50.0 Jan 15, 2024 09:47 AM [facility] VITAMIN B12 Specimen Type: SERUM No comment entered. Ordering Provider: RASHARD SCHULTZ Report Released Date/Time: Jan 15, 2024 09:24 AM Reporting Lab: [facility] [place] [facility] [address] [facility] [address] Performing Lab: [facility] [place] [address] [address] VITAMIN B12 873 pg/mL 200-900 Jan 15, 2024 09:47 AM [facility] HIV 1&2 Ag/Ab SCREEN Specimen Type: SERUM No comment entered. Ordering Provider: RASHARD SCHULTZ Report Released Date/Time: Jan 15, 2024 09:24 AM Reporting Lab: [facility] [place] [address] [address] Performing Lab: [place] [facility] [place] [address] [address] HIV 1&2 Ag/Ab SCREEN NON-REACTIVE Nonreactive Jan 04, 2024 09:27 AM [facility] PSA Specimen Type: SERUM No comment entered. Ordering Provider: CLIFF MCKEON Report Released Date/Time: Jan 08, 2023 11:58 AM Reporting Lab: [facility] [address] [address] Performing Lab: [place] [facility] [place] [address] [address] PSA 3.04 ng/mL 0.00-4.00 Jan 04, 2024 09:27 AM [facility] LIPID PANEL FASTING Specimen Type: SERUM No comment entered. Ordering Provider: CLIFF MCKEON Report Released Date/Time: Jan 08, 2023 11:58 AM Reporting Lab: [place] [facility] [place] [address] [address] Performing Lab: [address] [address] CHOLESTEROL 184 mg/dL TRIGLYCERIDE 35 mg/dL 0-150 LDL calculated 67 mg/dL 0-129 CHOL/HDL 1.7 HDL CHOLESTEROL 110 mg/dL H 40-60 Jan 04, 2024 09:27 AM [facility] BASIC METABOLIC PANEL (fasting) Specime n Type: SERUM No comment entered. Ordering Provider: CLIFF MCKEON Report Released Date/Time: Jan 08, 2023 11:58 AM Reporting Lab: [address] [address] Performing Lab: [address] [address] UREA NITROGEN 9 mg/dL 7-25 GLUCOSE 76 mg/dL 65-100 SODIUM 137 mmol/L 135-145 POTASSIUM 4.7 mmol/L 3.5-5.0 CHLORIDE 105 mmol/L 100-110 CO2 18 meq/L L 20-30 CREATININE, Serum 1.30 mg/dL 0.50-1.40 eGFR(CKD-EPI 2020) 61 mL/min >60 Jan 04, 2024 09:27 AM [facility] LIVER FUNCTION Specimen Type: SERUM No comment entered. Ordering Provider: CLIFF MCKEON Report Released Date/Time: Jan 08, 2023 11:58 AM Reporting Lab: [address] [address] Performing Lab: [address] [address] PROTEIN,TOTAL 7.1 g/dL 6.0-8.3 ALBUMIN 4.0 g/dL 3.5-5.0 ALKALINE PHOSPHATASE 65 U/L 40-150 AST 76 U/L H 5-34 ALT 44 U/L BILIRUBIN, TOTAL 0.7 mg/dL 0.2-1.2 Jan 04, 2024 09:27 AM [facility] URINALYSIS Specimen Type: URINE Comment: If Glucose = >500 and Ketones are positive, please alert the Physician. Ordering Provider: CLIFF MCKEON Report Released Date/Time: Jan 08, 2023 11:58 AM Reporting Lab: [address] [address] Performing Lab: [facility] [address] [facility] [address] UA COLOR Light-Yellow Yellow UA APPEARANCE Clear Clear UA GLUCOSE Normal mg/dL Negative UA KETONES TRACE mg/dL Negative UA BLOOD NEGATIVE mg/dL Negative UA PROTEIN NEGATIVE mg/dL Negative UA NITRITE NEGATIVE mg/dL Negative UA BILIRUBIN NEGATIVE mg/dL Negative UA SPECIFIC GRAVITY 1.015 L 1.016-1.022 UA pH 5.5 5.0-9.0 UA UROBILINOGEN Normal mg/dL <2.0 UA LEUKOCYTE NEGATIVE Negative Jan 04, 2024 09:27 AM [facility] HEMOGLOBIN A1C PANEL Specimen Type: BLOOD Comment: [...] Jan 08, 2023 11:58 AM Reporting Lab: [address] [address] Performing Lab: [address] [address] HEMOGLOBIN A1C 4.9 4.0-5.6 Jan 04, 2024 09:27 AM [facility] TSH Specimen Type: SERUM No comment entered. Ordering Provider: CLIFF MCKEON Report Released Date/Time: Jan 08, 2023 11:58 AM Reporting Lab: [address] [address] Performing Lab: [address] [address] TSH 0.45 u[IU]/mL 0.35-5.00 Jan 04, 2024 09:27 AM [facility] CBC AND DIFF (AUTO) Specimen Type: BLOOD No comment entered. Ordering Provider: CLIFF MCKEON Report Released Date/Time: Jan 08, 2023 11:58 AM Reporting Lab: [address] [address] Performing Lab: [facility] [address] [address] WBC 3.71 10*3/uL L 4.50-11.00 RBC 4.17 [...] place. Date/Time Current Smoking Status Comment Facil [facility] Jan 15, 2024 08:57 AM VA-TOBACCO NEVER USED [facility] Tobacco Use History This section includes a history of the smoking, or tobacco-related health factors, that were collected on or before the date of the Encounter. The data comes from the [place] facility where the Encounter took place. Date/Time Smoking Status/Tobac co Use Comment Facility Jan 08, 2023 09:03 AM [place]-TOBACCO NEVER USED [facility] Aug 01, 2021 09:08 AM [place]-TOBACCO FORMER USER [facility] Aug 01, 2021 09:08 AM [place]-TOBACCO QUIT 1 TO < 5 YRS [facility] Dec 08, 2011 01:04 PM CURRENT SMOKER chew pack and half a week [facility] Dec 08, 2011 01:04 PM V1-PT DECLINES REF TO TOBACCO CESS PRGM [facility] Dec 08, 2011 01:04 PM V1-PT DECLINES TOBACCO CESSATION MEDS [facility] Dec 08, 2011 01:04 PM V1-PT THINKING ABOUT QUIT TOBACCO USE [facility] Advance Directives: All historical and current [...] Mar 19, 2012 ADVANCE DIRECTIVE ERIKA MORALES [facility]
--- OUTSIDE RECORDS SUMMARY | 2024-05-08 01:05 | XMS_ITS | Encounter Summary ---
Author Name [facility] Organization [facility] Address [address] [place] [address] Care Team Providers Care Lamination Technician Name Role Phone ROBBY NIELSON Primary Care [...] PRESCRIPT ION [id number] 1 May 28, 2017 [id number] [phone] Charlene MASON DDIE PATIENT [facility] PRESCRIPT ION [id number] 1 May 28, 2017 [id number] [phone] Charlene MASON DDIE PATIENT OPTUM RX PRESCRIPT ION RX May 28, 2022 THPRX [id number] [phone] Charlene MASON DDIE PATIENT OPTUM RX PRESCRIPT ION RX May 28, 2022 THPRX [id number] [phone] Charlene MASON DDIE PATIENT [facility] PLAN USP May 28, 2017 [facility] [id number] [phone] Charlene MASON DDIE PATIENT [facility] IVY Chang May 28, 2017 [id number] [phone] Charlene MASON DDFRED PATIENT [facility] CHERY Oct 27, 2011 [id number] [id number] Charlene MASON DDFRED PATIENT [facility] (WNR) SKUUMAR CHERY(WN R) May 28, 2017 (WNR) [id number] [phone] Charlene MASON PATIENT Selected Encounter This section includes the information on record at MD for the Encounter. Date/Time Encounter Type Encounter Description Reason Pro vider Source Jan 16, 2024 04:10 PM Outpatient Encounter PRIMARY CARE/MEDICINE IHE Encounter Template Text not used by MD Plan of Treatment: Future Appointments (+ 6 months) and Future Tests (+/- 45 days) The Plan of Treatment section includes future care activities for the patient from [facility] This section includes future appointments and future orders which are active, pending or scheduled. Future Appointments This section includes appointments that were scheduled to occur 6 months from the date of the Encounter, up to a maximum of 20 appointments. The data comes from all [facility]. Appointment Date/Time Appointment Type Appointme nt Facility Name Feb 14, 2024 01:15 PM AMBULATORY - MEDICINE [facility] Mar 06, 2024 11:30 AM AMBULATORY MEDICINE [facility] Apr 16, 2024 10:00 AM AMBULATORY MEDICINE [facility] May 16[facility] 2024 09:00 AM AM[facility]ULATORY - MEDICINE [facility] Jun 27, 2024 11:00 AM AM[facility]UL[facility] Jul 18, 2024 10:00 AM AMBULATORY - MEDICINE [facility] Active, Pending, and Scheduled Orders This section includes a listing of several types of active, pending, and scheduled orders, including clinic medications orders, diagnostic test orders, procedure orders and consult orders; where the start date of the order is 45 days before the date of the Encounter or 45 days after the date of theEncounter. The data comes from all [facility]. Test Date/Time Test Type Test Details Facility Name Dec 04, 2023 04:40 PM Consult Order [facility] Cons Tractor Driver's Choice [facility] Lab Results: +/- 30 days of the [...] Range Comment Jan 15, 2024 09:47 AM [facility] PSA Specimen Type: SERUM No comment entered. Ordering Provider: PHYLLIS WHALEY Report Released Date/Time: Aug 13, 2023 09:06 AM Reporting Lab: [address] [address] Performing Lab: [address] [address] PSA 2.58 ng/mL 0.00-4.00 Jan 15, 2024 09:47 AM [facility] URINALYSIS Specimen Type: URINE Comment: If Glucose = >500 and Ketones are positive, please alert the Physician. Ordering Provider: PHYLLIS WHALEY Report Released Date/Time: Aug 13, 2023 09:06 AM Reporting Lab: [address] [address] [facility]forming [facility]: [facility] [address] UA COLOR Colorless Yellow UA APPEARANCE Clear Clear UA GLUCOSE Normal mg/dL Negative UA KETONES NEGATIVE mg/dL Negative UA BLOOD NEGATIVE mg/dL Negative UA PROTEIN NEGATIVE mg/dL Negative UA NITRITE NEGATIVE mg/dL Negative UA BILIRUBIN NEGATIVE mg/dL Negative UA SPECIFIC GRAVITY 1.005 L 1.016-1.022 UA pH 6.0 5.0-9.0 UA UROBILINOGEN Normal mg/dL <2.0 UA LEUKOCYTE NEGATIVE Negative Jan 15, 2024 09:47 AM [facility] LIPID PANEL FASTING Specimen Type: SERUM No comment entered. Ordering Provider: PHYLLIS WHALEY Report Released Date/Time: Aug 13, 2023 09:06 AM Reporting Lab: [address] [address] Performing Lab: [facility] [address] [facility] [address] CHOLESTEROL 186 mg/dL TRIGLYCERIDE 36 mg/dL 0-150 LDL calculated 61 mg/dL 0-129 CHOL/HDL 1.6 HDL CHOLESTEROL 118 mg/dL H 40-60 Jan 15, 2024 09:47 AM [facility] BASIC METABOLIC PANEL (fasting) Specimen Type: SERUM No comment entered. Ordering Provider: PHYLLIS WHALEY Report Released Date/Time: Aug 13, 2023 09:06 AM Reporting Lab: [facility] [address] [facility] [address] Performing Lab: [address] [address] UREA NITROGEN 9 mg/dL 7-25 GLUCOSE 85 mg/dL 65-100 SODIUM 139 mmol/L 135-145 POTASSIUM 5.1 mmol/L H 3.5-5.0 CHLORIDE 101 mmol/L 100-110 CO2 25 meq/L 20-30 CREATININE, Serum 1.30 mg/dL 0.50-1.40 eGFR(CKD-EPI 2020) 61 mL/min >60 Jan 15, 2024 09:47 AM [facility] LIVER FUNCTION Specimen Type: SERUM No comment entered. Ordering Provider: PHYLLIS WHALEY Report Released Date/Time: Aug 13, 2023 09:06 AM Reporting Lab: [address] [address] Performing Lab: [address] [address] PROTEIN,TOTAL 7.5 g/dL 6.0-8.3 ALBUMIN 4.3 g/dL 3.5-5.0 ALKALINE PHOSPHATASE 72 U/L 40-150 AST 131 U/L H 5-34 ALT 99 U/L H BILIRUBIN, TOTAL 0.8 mg/dL 0.2-1.2 Jan 15, 2024 09:47 AM [facility] HEMOGLOBIN A1C PANEL Specimen Type: BLOOD Comment: Values obtained from A1C measurements can vary. For atypical A1C assays, a reported value of 7.0 could actually be between 6.72 and 7.28 if measured by a reference method. A reported value of 9.0 could actually be between 8.73 and 9.27. Ref: http://www.ng [email or web address]/[email or web address] a.asp Ordering Provider: PHYLLIS WHALEY Report Released Date/Time: Aug 13, 2023 09:06 AM Reporting [facility]: [facility] [address] [facility] [address] Per[facility]: [facility] [address] HEMOGLOBIN A1C 4.9 4.0-5.6 Jan 15, 2024 09:47 AM [facility] TSH Specimen Type: SERUM No comment entered. Ordering Provider: PHYLLIS WHALEY Report Released Date/Time: Aug 13, 2023 09:06 AM Reporting [facility] [address] [address] Performing [facility] [address] [address] TSH 0.57 u[IU]/mL 0.35-5.00 Jan 15, 2024 09:47 AM [facility] CBC AND DIFF (AUTO) Specimen Type: BLOOD No comment entered. Ordering Provider: PHYLLIS WHALEY Report Released Date/Time: Aug 13, 2023 09:06 AM Reporting [facility] [address] [address] Performing Lab: [facility] [address] [address] WBC 4.91 10*3/uL 4.50-11.00 RBC 4.24 10*6/uL [...] 10*3/uL 0.00-0.00 Jan 15, 2024 09:47 AM [facility] SYPHILIS ABS W/RFLX Specimen Type: SERUM Comment: No laboratory evidence of syphilis infection. If recent exposure is suspected, re-draw sample in 2-4 weeks and repeat algorithm. Testing performed by T. pallidum specific immunoassay. Ordering Provider: REBECCA SCHULTZ Report Released Date/Time: Jan 15, 2024 09:24 AM Reporting Lab: [facility] [address] [facility] [address] Performing Lab: [facility] [address] [facility] [address] SYPHILIS ABS W/RFLX Non Reactive Non Reactive Jan 15, 2024 09:47 AM [facility] IRON & TIBC PANEL Specimen Type: SERUM No comment entered. Ordering Provider: REBECCA SCHULTZ Report Released Date/Time: Jan 15, 2024 09:24 AM Reporting Lab: [facility] [address] [facility] [address] Performing Lab: [address] [address] TIBC 275 ug/dL 204-475 IRON 71 ug/dL 40-160 Transferrin Saturation 25.9 20.0-50.0 Jan 15, 2024 09:47 AM [facility] FERRITIN Specimen Type: SERUM No comment entered. Ordering Provider: REBECCA SCHULTZ Report Released Date/Time: Jan 15, 2024 09:24 AM Reporting Lab: [facility] [address] [facility] [address] Performing Lab: [facility] TRN [facility] [address] [address] FERRITIN 523 ng/mL H 20-300 Jan 15, 2024 09:47 AM [facility] VITAMIN B12 Specimen Type: SERUM No comment entered. Ordering Provider: REBECCA SCHULTZ Report Released Date/Time: Jan 15, 2024 09:24 AM Reporting Lab: [facility]N [facility] [address] [address] Performing Lab: [facility]TR[facility] [address] [address] VITAMIN B12 873 pg/mL 200-900 Jan 15, 2024 09:47 AM [facility] HIV 1&2 Ag/Ab SCREEN Specimen Type: SERUM No comment entered. Ordering Provider: REBECCA SCHULTZ Report Released Date/Time: Jan 15, 2024 09:24 AM Reporting Lab: [facility] [address] [address] Performing Lab: [facility] [address] [address] HIV 1&2 Ag/Ab SCREEN NON-REACTIVE Nonreactive Jan 04, 2024 09:27 AM [facility] PSA Specimen Type: SERUM No comment entered. Ordering Provider: CLIFF MCKEON Report Released Date/Time: Jan 08, 2023 11:58 AM Reporting Lab: [facility] TRN [facility] [address] [address] Performing Lab: [facility] [address] [address] PSA 3.04 ng/mL 0.00-4.00 Jan 04, 2024 09:27 AM [facility] URINALYSIS Specimen Type: URINE Comment: If Glucose = >500 and Ketones are positive, please alert the Physician. Ordering Provider: CLIFF MCKEON Report Released Date/Time: Jan 08, 2023 11:58 AM Reporting Lab: [address] [address] Performing Lab: [address] [address] UA COLOR Light-Yellow Yellow UA APPEARANCE Clear Clear UA GLUCOSE Normal mg/dL Negative UA KETONES TRACE mg/dL Negative UA BLOOD NEGATIVE mg/dL Negative UA PROTEIN NEGATIVE mg/dL Negative UA NITRITE NEGATIVE mg/dL Negative UA BILIRUBIN NEGATIVE mg/dL Negative UA SPECIFIC GRAVITY 1.015 L 1.016-1.022 UA pH 5.5 5.0-9.0 UA UROBILINOGEN Normal mg/dL <2.0 UA LEUKOCYTE NEGATIVE Negative Jan 04, 2024 09:27 AM [facility] BASIC METABOLIC PANEL (fasting) Specime n Type: SERUM No comment entered. Ordering Provider: CLIFF MCKEON Report Released Date/Time: Jan 08, 2023 11:58 AM Reporting Lab: [address] [address] Performing Lab: [address] [address] UREA NITROGEN 9 mg/dL 7-25 GLUCOSE 76 mg/dL 65-100 SODIUM 137 mmol/L 135-145 POTASSIUM 4.7 mmol/L 3.5-5.0 CHLORIDE 105 mmol/L 100-110 CO2 18 meq/L L 20-30 CREATININE, Serum 1.30 mg/dL 0.50-1.40 eGFR(CKD-EPI 2020) 61 mL/min >60 Jan 04, 2024 09:27 AM [facility] LIPID PANEL FASTING Specimen Type: SERUM No comment entered. Ordering Provider: CLIFF MCKEON Report Released Date/Time: Jan 08, 2023 11:58 AM Reporting Lab: [address] [address] Performing Lab: [address] [address] CHOLESTEROL 184 mg/dL TRIGLYCERIDE 35 mg/dL 0-150 LDL calculated 67 mg/dL 0-129 CHOL/HDL 1.7 HDL CHOLESTEROL 110 mg/dL H 40-60 Jan 04, 2024 09:27 AM [facility] LIVER FUNCTION Specimen Type: SERUM No comment entered. Ordering Provider: CLIFF MCKEON Report Released Date/Time: Jan 08, 2023 11:58 AM Reporting Lab: [facility] NORTHTRN [address] [address] Performing Lab: [facility]ITALRH[facility]N [facility] [address] PROTEIN,TOTAL 7.1 g/dL 6.0-8.3 ALBUMIN 4.0 g/dL 3.5-5.0 ALKALINE PHOSPHATASE 65 U/L 40-150 AST 76 U/L H 5-34 ALT 44 U/L BILIRUBIN, TOTAL 0.7 mg/dL 0.2-1.2 Jan 04, 2024 09:27 AM [facility] HEMOGLOBIN A1C PANEL Specimen Type: BLOOD Comment: [...] Jan 08, 2023 11:58 AM Reporting Lab: [facility] NORTHTRN [address] [address] Performing Lab: [facility]THTRN [facility] [address] HEMOGLOBIN A1C 4.9 4.0-5.6 Jan 04, 2024 09:27 AM [facility] TSH Specimen Type: SERUM No comment entered. Ordering Provider: CLIFF MCKEON Report Released Date/Time: Jan 08, 2023 11:58 AM Reporting Lab: [facility]TRN [facility] [address] Performing Lab: [facility]TRN [facility] [address] TSH 0.45 u[IU]/mL 0.35-5.00 Jan 04, 2024 09:27 AM [facility] CBC AND DIFF (AUTO) Specimen Type: BLOOD No comment entered. Ordering Provider: CLIFF MCKEON Report Released Date/Time: Jan 08, 2023 11:58 AM Reporting Lab: [facility] [address] [facility] [address] Performing Lab: [facility] [address] [facility] [address] WBC 3.71 10*3/uL L 4.50-11.00 RBC 4.17 [...] 15, 2024 08:57 AM VA-TOBACCO NEVER USED [facility] Tobacco Use History This section includes a history of the smoking, or tobacco-related health factors, that were collected on or before the date of the Encounter. The data comes from the MD facility where the Encounter took place. Date/Time Smoking Status/Tobac co Use Comment Facility Jan 08, 2023 09:03 AM MD-TOBACCO NEVER USED [facility] Aug 01, 2021 09:08 AM MD-TOBACCO FORMER USER [facility] Aug 01, 2021 09:08 AM MD-TOBACCO QUIT 1 TO < 5 YRS [facility] Dec 08, 2011 01:04 PM CURRENT SMOKER chew pack and half a week [facility] Dec 08, 2011 01:04 PM V1-PT DECLINES REF TO TOBACCO CESS PRGM [facility] Dec 08, 2011 01:04 PM V1-PT DECLINES TOBACCO CESSATION MEDS [facility] Dec 08, 2011 01:04 PM V1-PT THINKING ABOUT QUIT TOBACCO USE [facility] Advance Directives: All historical and current Section Date Range: From patient's date of to the date document was created. This section includes ALL of a patient's completed or amended MD Advance and Rescinded Directives. The entries below indicate that a directive exists for the patient, but an actual copy is not included with this document. The data comes from all [facility]. Date Advance Directives Provider Source Jan 03, 2022 ADVANCE DIRECTIVE LUIS EDUARDO COLON Jan 03, 2021 ADVANCE DIRECTIVE KHUSHBU KUMAR Mar 19, 2012 ADVANCE DIRECTIVE ERIKA MORALES [facility] Encounter Notes: All associated encounter notes This section contains the clinical notes associated to the Encounter. Date/Time Encounter Note(s) Provider Source Jan 16, 2024 04:10 PM LETTERS: LOCAL TITLE: PATIENT LETTER (T) STANDARD TITLE: LETTERS DATE OF NOTE: JAN 16, 2024@16:10 ENTRY DATE: JAN 16, 2024@16:10:45 AUTHOR: REBECCA SCHULTZ EXP COSIGNER: URGENCY: STATUS: COMPLETED PATIENT LETTER (T) Has [facility] Toll Free Number Primary Care Telephone Assistance can be reached at extension [phone] [facility] scheduling can be reached at extension [phone] [facility] scheduling can be reached at ext [phone] KYLE COLEMAN ISABELLA [address], [place], [address] Dear , I reviewed your lab test results for anemia and everything is within normal limits. If you have any questions please call our office back Sunday to Sunday from 8 AM to 4 PM; the phone number is [phone]. Sincerely, Dr. Rebecca Schultz 01/16/2024 ADDENDUM STATUS: COMPLETED THIS DRY CLEANER APPRENTICE MAILED LETTER TO JOSÉ MIGUEL. /caitlyn/ [employer]OOK [employer] PAYABLE CLERK Signed: 01/16/2024 16:17 Sincerely, Your Primary Care Team [facility] [address] [address] [place] [address] [phone] [facility] [address] [place] [address] [place] [address] [phone] [facility] [address] [facility] [place] [address] [place] [address] REBECCA SCHULTZ [facility]
--- OUTSIDE RECORDS SUMMARY | 2024-05-08 01:05 | XMS_ITS | Encounter Summary ---
Author Name [facility] [place] Organization [facility] [place] [place] [facility] [place] Address [address] [place] [address] Care Team Providers Care Airframe And Powerplant Technician Name Role Phone ROBBY NIELSON Primary [...] PRESCRIPT ION [id number] 1 May 28, 2017 [id number] Charlene MASON DDIE PATIENT [facility] PRESCRIPT ION [id number] 1 May 28, 2017 [id number] [phone] Charlene MASON DDIE PATIENT [facility] RX PRESCRIPT ION RX May 28, 2022 [id number] [id number] Charlene MASON DDIE PATIENT [facility] RX PRESCRIPT ION RX May 28, 2022 THPRX [id number] Charlene MASON DDIE PATIENT [facility] USP May 28, 2017 [facility] [id number] [phone] Charlene MASON DDIE PATIENT [facility] IVY Chang May 28, 2017 [id number] Charlene MASON PATIENT COUNT INCLUDES [facility] POINT OF SERVICE MALLORY RE Oct 27, 2011 [id number] Charlene MASON PATIENT [facility] (WNR) SUKUMAR TEJADA RE(WN R) May 28, 2017 (WNR) [id number] Charlene MASON PATIENT Selected Encounter This section includes the information on record at [place] for the Encounter. Date/Time Encounter Type Encounter Description Reason Provider Source Jan 04, 2024 09:00 AM OFFICE O/P EST LOW 20 MIN PODIATRY ICD-10-CM L60.3 Nail dystrophy JOHN LEE Charlene Encounter Template Text not used by [place] Assessments - Encounter Diagnoses This section includes the primary and secondary diagnoses documented for the Encounter. Date/Time Primary/Secondary Diagnosis Diagnosis Name Provider Source Jan 04, 2024 09:17 AM PRIMARY Nail dystrophy JOHN LEE [place] Jan 04, 2024 09:17 AM SECONDARY Corns and callosities JOHN LEE [place] Jan 04, 2024 09:17 AM SECONDARY Idiopathic progressive neuropathy JOHN LEE [place] Jan 04, 2024 09:17 AM SECONDARY Pain in left toe(s) JOHN LEE DIG[place] Jan 04, 2024 09:17 AM SECONDARY Pain in right toe(s) JOHN LEE Plan of Treatment: Future Appointments (+ 6 months) and Future Tests (+/- 45 days) The Plan of Treatment section includes future care activities for the patient from all [place] treatmentfacilities. This section includes future appointments and future orders which are active, pending or scheduled. Future Appointments This section includes appointments that were scheduled to occur 6 months from the date of the Encounter, up to a maximum of 20 appointments. The data comes from all [place] treatment facilities. Appointment Date/Time Appointment Type Appointme nt Facility Name Jan 15, 2024 09:00 AM AM[facility]ULATORY - [facility]ICINE [facility] Feb 14, 2024 01:15 PM AMBULATORY - MEDICINE [place] [facility] Mar 06, 2024 11:30 AM AMBULATORY [facility] MEDICINE [place] [facility] Apr 16, 2024 10:00 AM AMBULATORY - MEDICINE [place] [facility] May 16, 2024 09:00 AM [facility] Jun 27, 2024 11:00 AM AMBULATORY - MEDICINE [facility] Active, Pending, and Scheduled Orders This section includes a listing of several types of active, pending, and scheduled orders, including clinic medications orders, diagnostic test orders, procedure orders and consult orders; where the start date of the order is 45 days before the date of the Encounter or 45 days after the date of theEncounter. The data comes from all [place] treatment facilities. Test Date/Time Test Type Test Details Facility Name Dec 04, 2023 04:40 PM Consult Order [facility] Cons Intermediate Project Manager's Choice [place] Lab Results: +/- 30 days of the encounter This section includes the Chemistry and Hematology Lab Results on record with [place] for the patient. Radiology Reports and Pathology Reports are provided separately, in subsequent sections. Lab Results This section contains the Chemistry/Hematology Results that were resulted 30 days before or 30 daysafter the date of the Encounter. Date/Time Source Result Type Result - Unit Interpretation Reference Range Comment Jan 15, 2024 09:47 AM [facility] PSA Specimen Type: SERUM No comment entered. Ordering Provider: PHYLLIS WHALEY Report Released Date/Time: Aug 13, 2023 09:06 AM Reporting Lab: [facility] [address] [facility] [address] Performing Lab: [facility] [address] [facility] [address] PSA 2.58 ng/mL 0.00-4.00 Jan 15, 2024 09:47 AM [facility] LIPID PANEL FASTING Specimen Type: SERUM No comment entered. Ordering Provider: PHYLLIS WHALEY Report Released Date/Time: Aug 13, 2023 09:06 AM Reporting Lab: [facility] [address] [facility] [address] Performing Lab: [address] [address] CHOLESTEROL 186 mg/dL TRIGLYCERIDE 36 mg/dL 0-150 LDL calculated 61 mg/dL 0-129 CHOL/HDL 1.6 HDL CHOLESTEROL 118 mg/dL H 40-60 Jan 15, 2024 09:47 AM [facility] LIVER FUNCTION Specimen Type: SERUM No comment entered. Ordering Provider: PHYLLIS WHALEY Report Released Date/Time: Aug 13, 2023 09:06 AM Reporting Lab: [address] [address] Performing Lab: [address] [address] PROTEIN,TOTAL 7.5 g/dL 6.0-8.3 ALBUMIN 4.3 g/dL 3.5-5.0 ALKALINE PHOSPHATASE 72 U/L 40-150 AST 131 U/L H 5-34 ALT 99 U/L H BILIRUBIN, TOTAL 0.8 mg/dL 0.2-1.2 Jan 15, 2024 09:47 AM [facility] BASIC METABOLIC PANEL (fasting) Specimen Type: SERUM No comment entered. Ordering Provider: PHYLLIS WHALEY Report Released Date/Time: Aug 13, 2023 09:06 AM Reporting Lab: [address] [address] Performing Lab: [address] [address] UREA NITROGEN 9 mg/dL 7-25 GLUCOSE 85 mg/dL 65-100 SODIUM 139 mmol/L 135-145 POTASSIUM 5.1 mmol/L H 3.5-5.0 CHLORIDE 101 mmol/L 100-110 CO2 25 meq/L 20-30 CREATININE, Serum 1.30 mg/dL 0.50-1.40 eGFR(CKD-EPI 2020) 61 mL/min >60 Jan 15, 2024 09:47 AM [facility] HEMOGLOBIN A1C PANEL Specimen Type: BLOOD Comment: [...] Aug 13, 2023 09:06 AM Reporting Lab: [facility] [address] [facility] [address] Performing Lab: [facility] [address] [facility] [address] HEMOGLOBIN A1C 4.9 4.0-5.6 Jan 15, 2024 09:47 AM [facility] URINALYSIS Specimen Type: URINE Comment: If Glucose = >500 and Ketones are positive, please alert the Physician. Ordering Provider: PHYLLIS WHALEY Report Released Date/Time: Aug 13, 2023 09:06 AM Reporting Lab: [facility] [address] [facility] [address] Performing Lab: [address] [address] UA COLOR Colorless Yellow UA APPEARANCE Clear Clear UA GLUCOSE Normal mg/dL Negative UA KETONES NEGATIVE mg/dL Negative UA BLOOD NEGATIVE mg/dL Negative UA PROTEIN NEGATIVE mg/dL Negative UA NITRITE NEGATIVE mg/dL Negative UA BILIRUBIN NEGATIVE mg/dL Negative UA SPECIFIC GRAVITY 1.005 L 1.016-1.022 UA pH 6.0 5.0-9.0 UA UROBILINOGEN Normal mg/dL <2.0 UA LEUKOCYTE NEGATIVE Negative Jan 15, 2024 09:47 AM [facility] TSH Specimen Type: SERUM No comment entered. Ordering Provider: PHYLLIS WHALEY Report Released Date/Time: Aug 13, 2023 09:06 AM Reporting Lab: [address] [address] Performing Lab: [facility] [address] [facility] [address] TSH 0.57 u[IU]/mL 0.35-5.00 Jan 15, 2024 09:47 AM [facility] CBC AND DIFF (AUTO) Specimen Type: BLOOD No comment entered. Ordering Provider: PHYLLIS WHALEY Report Released Date/Time: Aug 13, 2023 09:06 AM Reporting Lab: [address] [address] Performing Lab: [address] [place] [address] WBC 4.91 10*3/uL 4.50-11.00 RBC 4.24 10*6/uL [...] 10*3/uL 0.00-0.00 Jan 15, 2024 09:47 AM [place] SYPHILIS ABS W/RFLX Specimen Type: SERUM Comment: No laboratory evidence of syphilis infection. If recent exposure is suspected, re-draw sample in 2-4 weeks and repeat algorithm. Testing performed by T. pallidum specific immunoassay. Ordering Provider: RASHARD SCHULTZ Report Released Date/Time: Jan 15, 2024 09:24 AM Reporting Lab: [facility] [address] [facility] [address] Performing Lab: [facility] [address] [facility] [address] SYPHILIS ABS W/RFLX Non Reactive Non Reactive Jan 15, 2024 09:47 AM [place] IRON & TIBC PANEL Specimen Type: SERUM No comment entered. Ordering Provider: RASHARD SCHULTZ Report Released Date/Time: Jan 15, 2024 09:24 AM Reporting Lab: [facility] [place] [address] [address] Performing Lab: [facility] [address] [address] TIBC 275 ug/dL 204-475 IRON 71 ug/dL 40-160 Transferrin Saturation 25.9 20.0-50.0 Jan 15, 2024 09:47 AM [place] FERRITIN Specimen Type: SERUM No comment entered. Ordering Provider: RASHARD SCHULTZ Report Released Date/Time: Jan 15, 2024 09:24 AM Reporting Lab: [facility] [address] Performing Lab: [facility] [address] FERRITIN 523 ng/mL H 20-300 Jan 15, 2024 09:47 AM [place] VITAMIN B12 Specimen Type: SERUM No comment entered. Ordering Provider: RASHARD SCHULTZ Report Released Date/Time: Jan 15, 2024 09:24 AM Reporting Lab: [facility] [address] Performing Lab: [facility] [address] VITAMIN B12 873 pg/mL 200-900 Jan 15, 2024 09:47 AM [place] HIV 1&2 Ag/Ab SCREEN Specimen Type: SERUM No comment entered. Ordering Provider: RASHARD SCHULTZ Report Released Date/Time: Jan 15, 2024 09:24 AM Reporting Lab: [facility] [address] [address] Performing Lab: [facility] [address] [address] HIV 1&2 Ag/Ab SCREEN NON-REACTIVE Nonreactive Jan 04, 2024 09:27 AM [place] PSA Specimen Type: SERUM No comment entered. Ordering Provider: CLIFF MCKEON Report Released Date/Time: Jan 08, 2023 11:58 AM Reporting Lab: [address] [address] Performing Lab: [address] [address] PSA 3.04 ng/mL 0.00-4.00 Jan 04, 2024 09:27 AM [place] URINALYSIS Specimen Type: URINE Comment: If Glucose = >500 and Ketones are positive, please alert the Physician. Ordering Provider: CLIFF MCKEON Report Released Date/Time: Jan 08, 2023 11:58 AM Reporting Lab: [address] [address] Performing Lab: [address] [address] UA COLOR Light-Yellow Yellow UA APPEARANCE Clear Clear UA GLUCOSE Normal mg/dL Negative UA KETONES TRACE mg/dL Negative UA BLOOD NEGATIVE mg/dL Negative UA PROTEIN NEGATIVE mg/dL Negative UA NITRITE NEGATIVE mg/dL Negative UA BILIRUBIN NEGATIVE mg/dL Negative UA SPECIFIC GRAVITY 1.015 L 1.016-1.022 UA pH 5.5 5.0-9.0 UA UROBILINOGEN Normal mg/dL <2.0 UA LEUKOCYTE NEGATIVE Negative Jan 04, 2024 09:27 AM [place] BASIC METABOLIC PANEL (fasting) Specime n Type: SERUM No comment entered. Ordering Provider: CLIFF MCKEON Report Released Date/Time: Jan 08, 2023 11:58 AM Reporting Lab: [address] [address] Performing Lab: [address] [address] UREA NITROGEN 9 mg/dL 7-25 GLUCOSE 76 mg/dL 65-100 SODIUM 137 mmol/L 135-145 POTASSIUM 4.7 mmol/L 3.5-5.0 CHLORIDE 105 mmol/L 100-110 CO2 18 meq/L L 20-30 CREATININE, Serum 1.30 mg/dL 0.50-1.40 eGFR(CKD-EPI 2020) 61 mL/min >60 Jan 04, 2024 09:27 AM [place] LIVER FUNCTION Specimen Type: SERUM No comment entered. Ordering Provider: CLIFF MCKEON Report Released Date/Time: Jan 08, 2023 11:58 AM Reporting Lab: [address] [address] Performing Lab: [address] [address] PROTEIN,TOTAL 7.1 g/dL 6.0-8.3 ALBUMIN 4.0 g/dL 3.5-5.0 ALKALINE PHOSPHATASE 65 U/L 40-150 AST 76 U/L H 5-34 ALT 44 U/L BILIRUBIN, TOTAL 0.7 mg/dL 0.2-1.2 Jan 04, 2024 09:27 AM [place] LIPID PANEL FASTING Specimen Type: SERUM No comment entered. Ordering Provider: CLIFF MCKEON Report Released Date/Time: Jan 08, 2023 11:58 AM Reporting Lab: [address] [address] Performing Lab: [address] [address] CHOLESTEROL 184 mg/dL TRIGLYCERIDE 35 mg/dL 0-150 LDL calculated 67 mg/dL 0-129 CHOL/HDL 1.7 HDL CHOLESTEROL 110 mg/dL H 40-60 Jan 04, 2024 09:27 AM [place] HEMOGLOBIN A1C PANEL Specimen Type: BLOOD Comment: [...] Jan 08, 2023 11:58 AM Reporting Lab: [address] [address] Performing Lab: [address] [address] HEMOGLOBIN A1C 4.9 4.0-5.6 Jan 04, 2024 09:27 AM [place] TSH Specimen Type: SERUM No comment entered. Ordering Provider: CLIFF MCKEON Report Released Date/Time: Jan 08, 2023 11:58 AM Reporting Lab: [facility] [address] [facility] [address] Performing [facility]: [facility] [address] [facility] [address] TSH 0.45 u[IU]/mL 0.35-5.00 Jan 04, 2024 09:27 AM [place] CBC AND DIFF (AUTO) Specimen Type: BLOOD No comment entered. Ordering Provider: CLIFF MCKEON Report Released Date/Time: Jan 08, 2023 11:58 AM Reporting Lab: [facility] [address] [facility] [address] Performing Lab: [facility] [address] [address] WBC 3.71 10*3/uL L 4.50-11.00 RBC 4.17 [...] and tobacco- related health factors from the [place] facility where the Encounter took place. Current Smoking Status This section includes the most current smoking, or tobacco-related health factor, from the [place] facility where the Encounter took place. Date/Time Current Smoking Status Comment Facil ity Mar 26, 2020 11:30 AM [place]-TOBACCO NEVER USED [place] Tobacco Use History This section includes a history of the smoking, or tobacco-related health factors, that were collected on or before the date of the Encounter. The data comes from the [place] facility where the Encounter took place. Date/Time Smoking Status/Tobacco Use Comment F acility Feb 03, 2019 10:43 AM [place]-TOBACCO NEVER USED [place] Mar 12, 2018 09:26 AM [place]-TOBACCO NEVER USED [place] Jun 15, 2016 03:51 PM LIFETIME NON-TOBACCO USER [place] Jun 23, 2015 10:34 AM LIFETIME NON-TOBACCO USER [place] Apr 22, 2013 10:41 AM LIFETIME NON-TOBACCO USER [place] Mar 07, 2011 11:49 AM LIFETIME NON-TOBACCO USER [place] Jan 07, 2009 11:55 AM LIFETIME NON-TOBACCO USER [place] Advance Directives: All historical and current Section Date Range: From patient's date of to the date document was created. This section includes ALL of a patient's completed or amended [place] Advance and Rescinded Directives. The entries below indicate that a directive exists for the patient, but an actual copy is not included with this document. The data comes from all [place] facilities. Date Advance Directives Provider Source Jan 03, 2022 ADVANCE DIRECTIVE LUIS EDUARDO COLON Jan 03, 2021 ADVANCE DIRECTIVE KHUSHBU KUMAR [facility] Mar 19, 2012 ADVANCE DIRECTIVE ERIKA MORALES [facility] Encounter Notes: All associated encounter notes This section contains the clinical notes associated to the Encounter. Date/Time Encounter Note(s) Provider Source Jan 04, 2024 07:17 AM PODIATRY NOTE: LOCAL TITLE: PODIATRY NOTE STANDARD TITLE: PODIATRY NOTE DATE OF NOTE: JAN 04, 2024@07:17 ENTRY DATE: JAN 04, 2024@07:17:44 AUTHOR: JOHN LEE EXP COSIGNER: URGENCY: STATUS: COMPLETED NOTE: HAS RECEIVED BOTH COVID VACCINE DOSES + 3 BOOSTERS AT [facility] LAST SEEN FOR TREATMENT: 07/27/2023 S: Pt. is a 63 yo alert [...] foot and a normal low arch RT NOTE: NEW COMPLAINT OF A SEVERELY PAINFUL 4TH [...] present physical-medical status. Protective sensation utilizing a [place]-Karley lOg monofilament is 0/10 bilateral. A: Clinical Impression is painful onychocryptic nails & DISTAL 4TH LT DIGIT HYPERKERATOSIS & PIPJ 5TH RT DIGIT with pain level 5-6/10 prior to treatment [...] the underlying medical conditions. RTC 24 WEEKS (05/16 @ 9am) *DISCUSSED NEW PROTOCOLS AND CALLED KAY TODAY FOR RESCHEDULING I DISCUSSED THE FINDINGS & PLAN WITH PATIENT (UNCHANGED SINCE PREVIOUS VISIT) & PATIENT AGREES AND UNDERSTANDS PLAN GOING TO [facility] [place] Medication Reconciliation: PERFORMED TODAY - SEE BELOW. Outpatient: Has the patient been taking medications as documented in the EMLR? YES: The patient has been taking medications as documented in the EMLR. Essential Medication List for Review used to complete this medication reconciliation. INCLUDED IN THIS LIST: Alphabetical list of active outpatient prescriptions dispensed from this [place] (local) and dispensed from another [place] or DoD facility (remote) as well as [...] JLV. Allergies/ADRs (Tool #5) FACILITY ALLERGY/ADR -------- [facility] NO KNOWN ALLERGIES [place] [facility] No Known [facility]ies [facility] ([facility] #[facility] INCLUDED IN THIS LIST: Alphabetical list of active outpatient prescriptions dispensed from this [place] (local) and dispensed from another VA or DoD facility (remote) as well as inpatient orders (local pending and active), local clinic medications, locally documented non-VA medications, and local prescriptions that have or been discontinued in the past 90 days. Non-VA Meds Last Documented On: Jan 03, 2022 NOTE The display of VA prescriptions dispensed from another VA or DoD facility (remote) is limited to active outpatient prescription entries matched to National Drug File at the originating site and may not include some items such as investigational drugs, compounds, etc. NOT INCLUDED IN THIS LIST: Medications self-entered by the patient into personal health records (i.e. [employer]) are NOT included in this list. Non-VA medications documented outside this [place], remote inpatient orders (regardless of status) and remote clinic medications are NOT included in this list. The patient and provider must always discuss medications the patient is taking, regardless of where the medication was dispensed or obtained. OUTPT AMLODIPINE BESYLATE 5MG TAB (Status = Active) TAKE ONE TABLET BY MOUTH ONCE DAILY FOR BLOOD PRESSURE/HEART, DO NOT TAKE WITH GRAPE[employer]UIT JUICE Rx# [id number] Last Released: 08/16/23 Qty/Days Supply: 90/90 Rx Expiration Date: 08/15/24 Refills Remainin Indication: FOR HIGH BLOOD PRESSURE OUTPT AMMONIUM LACTATE 12% LOTION (Status = Active) APPLY SMALL AMOUNT TOPICALLY TWICE DAILY FOR DRY IRRITATED SKIN Rx# [id number] Last Released: 07/28/23 Qty/Days Supply: 240/30 Rx Expiration Date: 07/27/24 Refills Remainin Indication: FOR DRY SKIN OUTPT BISACODYL 5MG EC TAB (Status = Active) TAKE 1-2 TABLETS BY MOUTH ONCE DAILY NEEDED FOR CONSTIPATION Rx# [id number] Last Released: 01/12/23 Qty/Days Supply: 180/90 Rx Expiration Date: 01/10/24 Refills Remainin Indication: FOR CONSTIPATION OUTPT CARBOXYMETHYLCELLULOSE NA 0.5% OPH SOLN (Status = Active) INSTILL 1 DROP INTO EACH EYE FOUR TIMES DAILY NEEDED Rx# [id number] Last Released: 07/26/23 Qty/Days Supply: 45/90 Rx [...] USE DOSING CARD PROVIDED IN BOX Rx# [id number] Last Released: 06/23/23 Qty/Days Supply: 100/8 Rx [...] 1 HOUR PRIOR TO SEXUAL ACTIVITY Rx# [id number] Last Released: 11/05/23 Qty/Days Supply: Rx Expiration Date: 08/13/24 Refills Remainin Indication: FOR ERECTILE DYSFUNCTION OUTPT SODIUM FLUORIDE 1.1% TOOTHPASTE (Status = ) BRUSH SMALL AMOUNT TO TEETH TWICE DAILY FOR TOOTH DECAY PREVENTION Rx# [id number] Last Released: 12/29/22 Qty/Days Supply: Rx Expiration Date: 12/28/23 Refills Remainin Indication: FOR TOOTH DECAY PREVENTION SUPPLIES /caitlyn/ JOHN LEE DPM [employer] Signed: 01/04/2024 09:20 JOHN LEE [place]
--- OUTSIDE RECORDS SUMMARY | 2024-05-08 01:05 | XMS_ITS ---
Author Name [facility] [place] [facility] [place] Organization [facility] [place] Address [address] [place] [address] Care Team Providers Care English As A Second Language Teacher Name Role Phone ROBBY NIELSON Primary Care [...] PRESCRIPT ION RX730 1 May 28, 2017 [id number] [phone] Charlene MASON DDIE PATIENT [facility] PRESCRIPT ION [id number] 1 May 28, 2017 [id number] Charlene MSAON DDIE PATIENT OPT[facility] RX PRESCRIPT ION RX May 28, 2022 THPRX [id number] Charlene MASON DDIE PATIENT OPT[facility] RX PRESCRIPT ION RX May 28, 2022 THPRX [id number] Charlene MASON DDIE PATIENT [facility] USP May 28, 2017 [facility] [id number] [phone] Charlene MASON DDIE PATIENT [facility] IVY Chang May 28, 2017 [facility] [id number] [phone] Charlene MASON PATIENT [facility] OF SERVICE MALLORY CHERY Oct 27, 2011 [id number] Charlene MASON PATIENT [facility] (WNR) SUKUMAR CHERY(WN R) May 28, 2017 (WNR) [id number] Charlene MASON PATIENT Selected Encounter This section includes the information on record at [place] for the Encounter. Date/Time Encounter Type Encounter Description Reason Pro vider Source Feb 26, 2024 09:54 AM Outpatient Encounter ADMIN PAT ACTIVTIES (MASNONCT) IHE [...] Date/Time Appointment Type Appointme nt Facility Name Mar 06, 2024 11:30 AM AMBULATORY - MEDICINE [facility] Apr 16, 2024 10:00 AM AMBULATORY - MEDICINE [facility] May 16, 2024 09:00 AM AMBULATORY - MEDICINE [facility] Jun 27, 2024 11:00 AM AMBULATORY - MEDICINE [facility] Jul 18, 2024 10:00 AM AMBULATORY - MEDICINE [facility] Social History: Smoking Status (Most current) [...] Gina garza Jan 15, 2024 08:57 AM [place]-TOBACCO NEVER USED [facility] Tobacco Use History This section includes a history of the smoking, or tobacco-related health factors, that were collected on or before the date of the Encounter. The data comes from the [place] facility where the Encounter took place. Date/Time Smoking Status/Tobac co Use Comment Facility Jan 08, 2023 09:03 AM [place]-TOBACCO NEVER USED [facility] Aug 01, 2021 09:08 AM VA-TOBACCO FORMER USER [facility] Aug 01, 2021 09:08 AM VA-TOBACCO QUIT 1 TO < 5 YRS [facility] Dec 08, 2011 01:04 PM CURRENT SMOKER chew pack and half a week [facility] Dec 08, 2011 01:04 PM V1-PT DECLINES REF TO TOBACCO CESS PRGM [facility] Dec 08, 2011 01:04 PM V1-PT DECLINES TOBACCO CESSATION MEDS [facility] Dec 08, 2011 01:04 PM V1-PT THINKING ABOUT QUIT TOBACCO USE [facility] Advance Directives: All historical and current [...] Mar 19, 2012 ADVANCE DIRECTIVE ERIKA MORALES [facility] Encounter Notes: All associated encounter notes This section contains the clinical notes associated to the Encounter. Date/Time Encounter Note(s) Provider Source Feb 26, 2024 09:54 AM ADMINISTRATIVE NOT E: LOCAL TITLE: CCC: SCHEDULING ADMINISTRATION STANDARD TITLE: ADMINISTRATIVE NOTE DATE OF NOTE: FEB 26, 2024@09:54:18 ENTRY DATE: FEB 26, 2024@09:54:18 AUTHOR: KAY BABCOCK COSIGNER: URGENCY: STATUS: COMPLETED CCC: SCHEDULING ADMINISTRATION Has ADDENDA Patient Demographics Patient Name: KYLE MASON Patient Primary Phone: [phone] Patient Primary Address: [address] [place] [address] Patient : 1960 Patient Age: 63 Call Back Number: [phone] Caller/Recipient Relation to Patient: Other If Other Describe Relation to Patient: [facility] Caller Name: Heena Administrative Administrative Note Reason: Other Administrative Note Comments: Heena from [facility] is requesting a insurance referal. Please fax to [phone]. Heena can be reached at [phone] IMPORTANT: This note was created by [facility] Clinical Contact Center staff. Please do not alert the staff member by adding them as a signer for future communications. Alerts are not monitored by this user. /caitlyn/ KAY HENYR 1 [facility] Signed: 02/26/2024 09:54 Receipt Acknowledged By: 02/28/2024 10:07 /caitlyn/ SEVERIANO RODRIGUEZ RN-BC REGISTERED NURSE 02/26/2024 11:49 /es/ LATOYA RUVALCABA LPN Licensed Practical Nurse 02/28/2024 ADDENDUM STATUS: COMPLETED Called Heena and she reports that was referred to [facility] pul[facility] by a [facility] provider and that the [place] is listed as 's primary care provider. Author advised that if they can provide reason for referral and diagnosis code that PACT could enter cc consult if appropriate. Heena is going to reach out to referring office and discuss and will provide referring office with PACT fax number if they would like to send request to PACT for consideration. /caitlyn/ SEVERIANO RODRIGUEZ RN-BC REGISTERED NURSE Signed: 02/28/2024 10:14 KAY BABCOCK [place] [facility]
--- OUTSIDE RECORDS SUMMARY | 2024-05-08 01:05 | XMS_ITS ---
Author Name [facility] [facility] [place] Organization [facility] [place] Address [address] [place] [address] Care Team Providers Care Gang Tailer Name Role Phone ROBBY NIELSON Primary Care [...] PRESCRIPT ION RX730 1 May 28, 2017 [id number] [phone] Charlene MASON DDIE PATIENT [facility] PRESCRIPT ION RX730 1 May 28, 2017 [id number] Charlene MASON DDIE PATIENT [facility] RX PRESCRIPT ION RX May 28, 2022 THPRX [id number] Charlene MASON DDIE PATIENT OPT[facility] RX PRESCRIPT ION RX May 28, 2022 THPRX [id number] [phone] Charlene MASON DDIE PATIENT [facility] PLAN USP May 28, 2017 [facility] [id number] [phone] Charlene MASON DDIE PATIENT [facility] IVY Chang May 28, 2017 [facility] [id number] Charlene MASON PATIENT [facility] POINT OF SERVICE MALLORY RE Oct 27, 2011 [id number] Charlene MASON DDFRED PATIENT [facility] (WNR) SUKUMAR TEJADA RE(WN R) May 28, 2017 (WNR) [id number] Charlene MASON PATIENT Selected Encounter This section includes the information on record at [place] for the Encounter. Date/Time Encounter Type Encounter Description Reason Pro vider Source Apr 16, 2024 02:01 PM Outpatient Encounter ADMIN PAT ACTIVTIES (MASNONCT) IHE Encounter Template Text not used by [place] Plan of Treatment: Future Appointments (+ 6 months) and Future Tests (+/- 45 days) The Plan of Treatment section includes future care activities for the patient from all [place] treatmentfacilities. This section includes future appointments and future orders which are active, pending or scheduled. Future Appointments This section includes appointments that were scheduled to occur 6 months from the date of the Encounter, up to a maximum of 20 appointments. The data comes from all [place] treatment facilities. Appointment Date/Time Appointment Type Appointme nt Facility Name May 16, 2024 09:00 AM [facility] Jun 27, 2024 11:00 AM AMBULATORY - MEDICINE [facility] [place] [facility] Jul 18, 2024 10:00 AM [facility] Active, Pending, and Scheduled Orders This section includes a listing of several types of active, pending, and scheduled orders, including clinic medications orders, diagnostic test orders, procedure orders and consult orders; where the start date of the order is 45 days before the date of the Encounter or 45 days after the date of theEncounter. The data comes from all [place] treatment facilities. Test Date/Time Test Type Test Details Facility Name Apr 14, 2024 01:42 PM Consult Order [facility] Cons Glass Ribbon Machine Operator's Choice [place] [facility] [facility] Apr 21, 2024 11:01 AM Consult Order [facility] Cons Glass Ribbon Machine Operator's Choice [place] [facility] [facility] May 06, 2024 02:41 PM Consult Order [facility] Cons Glass Ribbon Machine Operator's Choice [place] [facility] [place] [facility] Social History: Smoking Status (Most current) and Tobacco Use (All prior to encounter date) This section includes the most current, and the historical, smoking and tobacco- related health factors from the [place] facility where the Encounter took place. Current Smoking Status This section includes the most current smoking, or tobacco-related health factor, from the [place] facility where the Encounter took place. Date/Time Current Smoking Status Comment [facility] Jan 15, 2024 08:57 AM VA-TOBACCO NEVER USED [facility] Tobacco Use History This section includes a history of the smoking, or tobacco-related health factors, that were collected on or before the date of the Encounter. The data comes from the [place] facility where the Encounter took place. Date/Time Smoking Status/Tobac co Use Comment Facility Jan 08, 2023 09:03 AM VA-TOBACCO NEVER USED [facility] Aug 01, 2021 09:08 AM [place]-TOBACCO FORMER USER [facility] Aug 01, 2021 09:08 AM VA-TOBACCO QUIT 1 TO < 5 YRS [facility] Dec 08, 2011 01:04 PM CURRENT SMOKER chew pack and half a week [facility] Dec 08, 2011 01:04 PM V1-PT DECLINES REF TO TOBACCO CESS PRGM [facility] Dec 08, 2011 01:04 PM V1-PT DECLINES TOBACCO CESSATION MEDS [facility] Dec 08, 2011 01:04 PM V1-PT THINKING ABOUT QUIT TOBACCO USE [facility] Advance Directives: All historical and current Section Date Range: From patient's date of to the date document was created. This section includes ALL of a patient's completed or amended [place] Advance and Rescinded Directives. The entries below indicate that a directive exists for the patient, but an actual copy is not included with this document. The data comes from all [place] facilities. Date Advance Directives Provider Source Jan 03, 2022 ADVANCE DIRECTIVE LUIS EDUARDO COLON Jan 03, 2021 ADVANCE DIRECTIVE KHUSHBU KUMAR Mar 19, 2012 ADVANCE DIRECTIVE ERIKA MORALES [facility] Encounter Notes: All associated encounter notes This section contains the clinical notes associated to the Encounter. Date/Time Encounter Note(s) Provider Source Apr 16, 2024 02:02 PM ADMINISTRATIVE NOT E: LOCAL TITLE: CCC: SCHEDULING ADMINISTRATION STANDARD TITLE: ADMINISTRATIVE NOTE DATE OF NOTE: APR 16, 2024@14:02:02 ENTRY DATE: APR 16, 2024@14:02:03 AUTHOR: GLORIA GOODSON COSIGNER: URGENCY: STATUS: COMPLETED CCC: SCHEDULING ADMINISTRATION Has ADDENDA Patient Demographics Patient Name: KYLE MASON Patient Primary Phone: [phone] Patient Primary Address: [address] [place] [address] Patient : 1960 Patient Age: 63 Caller/Recipient Relation to Patient: Self Caller Name: KYLE MASON Scheduling Cannot Complete Scheduling Action Reason: Not Authorized in Service Line Agreement Requested Service(s): Primary Care Scheduling Note Reason: Cannot Complete Appointment Request Scheduling Note Comments: Please call back to r/s appt that was cx by clinic. Open Request: RTC (Return to Clinic Order) IMPORTANT: This note was created by [facility] Clinical Contact Center staff. Please do not alert the staff member by adding them as a signer for future communications. Alerts are not monitored by this user. 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 NO ANSWER, LEFT MESSAGE FOR TO CALL AND RESCHEDULE APPT. /sharona JI ADVANCED SUPERINTENDENT [employer]ATING [employer] Signed: 04/28/2024 11:46 [facility]RL [facility]
--- OUTSIDE RECORDS SUMMARY | 2024-05-08 01:05 | XMS_ITS ---
Author Name [facility] [place] Address [address] [place] [address] Care Team Providers Care Plastics Sheet Finishing Press Operator Name Role Phone ROBBY NIELSON Primary [...] PRESCRIPT ION RX730 1 May 28, 2017 [id number] Charlene MASON DDIE PATIENT [facility] PRESCRIPT ION RX730 1 May 28, 2017 [id number] [phone] Charlene MASON DDIE PATIENT OPT[facility] RX PRESCRIPT ION RX May 28, 2022 THPRX [id number] Charlene MASON DDIE PATIENT OPTUM RX PRESCRIPT ION RX May 28, 2022 THPRX [id number] [phone] Charlene MASON DDIE PATIENT [facility] PLAN USP May 28, 2017 [facility] [id number] Charlene MASON DDIE PATIENT [facility] PLAN IVY Chang May 28, 2017 [facility] [id number] Charlene MASON PATIENT [facility] POINT OF SERVICE MALLORY RE Oct 27, 2011 [id number] Charlene MASON DDFRED PATIENT [facility] (WNR) SUKUMAR TEJADA RE(WN R) May 28, 2017 (WNR) [id number] Charlene MASON PATIENT Selected Encounter This section includes the information on record at [place] for the Encounter. Date/Time Encounter Type Encounter Description Reason Pro vider Source Apr 28, 2024 03:21 PM Outpatient Encounter ADMIN PAT ACTIVTIES (MASNONCT) IHE Encounter Template Text not used by [place] Plan of Treatment: Future Appointments (+ 6 months) and Future Tests (+/- 45 days) The Plan of Treatment section includes future care activities for the patient from all [place] treatmentfacilities. This section includes future appointments and future orders which are active, pending or scheduled. Future Appointments This section includes appointments that were scheduled to occur 6 months from the date of the Encounter, up to a maximum of 20 appointments. The data comes from all [place] treatment facilities. Appointment Date/Time Appointment Type Appointme nt Facility Name May 16, 2024 09:00 AM [facility] Jun 27, 2024 11:00 AM AMBULATORY - MEDICINE [facility] [place] [place] [facility] Jul 18, 2024 10:00 AM [facility] Active, Pending, and Scheduled Orders This section includes a listing of several types of active, pending, and scheduled orders, including clinic medications orders, diagnostic test orders, procedure orders and consult orders; where the start date of the order is 45 days before the date of the Encounter or 45 days after the date of theEncounter. The data comes from all [place] treatment facilities. Test Date/Time Test Type Test Details Facility Name Apr 14, 2024 01:42 PM Consult Order [facility]ITY [facility]ARE-DENTAL GENERAL Cons Warp Dyeing Tender's Choice [place] [facility] [facility] Apr 21, 2024 11:01 AM Consult Order [facility] GENERAL Cons Warp Dyeing Tender's Choice [place] [facility] May 06, 2024 02:41 PM Consult Order COMMUNITY CARE-DENTAL GENERAL Cons Warp Dyeing Tender's Choice [place] [facility] [facility] Social History: Smoking Status (Most current) and Tobacco Use (All prior to encounter date) This section includes the most current, and the historical, smoking and tobacco- related health factors from the [place] facility where the Encounter took place. Current Smoking Status This section includes the most current smoking, or tobacco-related health factor, from the [place] facility where the Encounter took place. Date/Time Current Smoking Status Comment [facility] Jan 15, 2024 08:57 AM VA-TOBACCO NEVER USED [facility] Tobacco Use History This section includes a history of the smoking, or tobacco-related health factors, that were collected on or before the date of the Encounter. The data comes from the [place] facility where the Encounter took place. Date/Time Smoking Status/Tobac co Use Comment Facility Jan 08, 2023 09:03 AM VA-TOBACCO NEVER USED [facility] Aug 01, 2021 09:08 AM [place]-TOBACCO FORMER USER [facility] Aug 01, 2021 09:08 AM VA-TOBACCO QUIT 1 TO < 5 YRS [facility] Dec 08, 2011 01:04 PM CURRENT SMOKER chew pack and half a week [facility] Dec 08, 2011 01:04 PM V1-PT DECLINES REF TO TOBACCO CESS PRGM [facility] Dec 08, 2011 01:04 PM V1-PT DECLINES TOBACCO CESSATION MEDS [facility] Dec 08, 2011 01:04 PM V1-PT THINKING ABOUT QUIT TOBACCO USE [facility] Advance Directives: All historical and current Section Date Range: From patient's date of to the date document was created. This section includes ALL of a patient's completed or amended [place] Advance and Rescinded Directives. The entries below indicate that a directive exists for the patient, but an actual copy is not included with this document. The data comes from all [place] facilities. Date Advance Directives Provider Source Jan 03, 2022 ADVANCE DIRECTIVE LUIS EDUARDO COLON Jan 03, 2021 ADVANCE DIRECTIVE KHUSHBU KUMAR Mar 19, 2012 ADVANCE DIRECTIVE ERIKA MORALES [facility] Encounter Notes: All associated encounter notes This section contains the clinical notes associated to the Encounter. Date/Time Encounter Note(s) Provider Source Apr 28, 2024 03:21 PM ADMINISTRATIVE NOTE: LOCAL TITLE: CCC: SCHEDULING ADMINISTRATION STANDARD TITLE: ADMINISTRATIVE NOTE DATE OF NOTE: APR 28, 2024@15:21:18 ENTRY DATE: APR 28, 2024@15:21:19 AUTHOR: WILLI MENJIVAR EXP COSIGNER: URGENCY: STATUS: COMPLETED Patient Demographics Patient Name: KYLE MASON Patient Primary Phone: [phone] Patient Primary Address: [address] [place] [address] Patient : 1960 Patient Age: 63 Call Back Number: [phone] Caller/Recipient Relation to Patient: Self Caller Name: KYLE MASON Administrative Administrative Note Reason: Medication Renewal [place] Medications Refill/Renewal Request: Rx # - Medication Name - Dosage - SIG - Number of Refills - Facility - Status [id number] - SILDENAFIL CITRATE 100MG TAB - 1 TABLET - TAKE ONE TABLET BY MOUTH ONCE DAILY NEEDED FOR ERECTILE DYSFUNCTION TAKE 1 HOUR PRIOR TO SEXUAL ACTIVITY - 0 - [place] - 631BY - ACTIVE Administrative Note Comments: PLEASE RENEW AND MAIL IMPORTANT: This note was created by [facility] Clinical Contact Center staff. Please do not alert the staff member by adding them as a signer for future communications. Alerts are not monitored by this user. /caitlyn/ WILLI MENJIVAR VISN 1 [facility] Signed: 04/28/2024 15:21 Receipt Acknowledged By: 05/01/2024 09:00 /es/ MORENO RODRIGUEZN RN-BC REGISTERED NURSE 04/28/2024 15:27 /es/ LATOYA RUVALCABA LPN Licensed Practical Nurse 04/28/2024 15:29 /es/ ANAT MADRID CERTIFIED NURSE PRACTITIONER WILLI MENJIVAR [place] [facility]
--- OUTSIDE RECORDS SUMMARY | 2024-05-08 01:05 | XMS_ITS ---
Author Name [facility] [place] [facility] [place] [facility] [facility] [place] Address [address] [place] [address] Care Team Providers Care Cook Station Name Role Phone ROBBY NIELSON Primary Care [...] PRESCRIPT ION [id number] 1 May 28, 2017 [id number] Charlene MASON DDIE PATIENT [place] PRESCRIPT ION [id number] 1 May 28, 2017 [id number] Charlene MASON DDIE PATIENT [facility] RX PRESCRIPT ION RX May 28, 2022 [id number] [phone] Charlene MASON DDIE PATIENT [facility] RX PRESCRIPT ION RX May 28, 2022 [id number] [phone] Charlene MASON DDIE PATIENT [facility] PL[facility] USP May 28, 2017 [facility] [id number] Charlene MASON DDIE PATIENT [facility] PLAN [facility] IVY Chang May 28, 2017 [facility] [id number] [phone] Charlene MASON DDFRED PATIENT [facility] CHERY Oct 27, 2011 [id number] [id number] Charlene MASON DDFRED PATIENT [facility] ([facility] SUKUMAR CHERY(WN R) May 28, 2017 (WNR) [id number] [phone] Charlene MASON PATIENT Selected Encounter This section includes the information on record at [place] for the Encounter. Date/Time Encounter Type Encounter Description Reason Provider Source Jan 15, 2024 08:57 AM IMMUNIZATION ADMIN EACH ADD PRIMARY CARE/MEDICINE ICD-10-CM Z23. Encounter for immunization RASHARD SCHULTZ Charlene Encounter Template Text not used by PA Assessments - Encounter Diagnoses This section includes the primary and secondary diagnoses documented for the Encounter. Date/Time Primary/Secondary Diagnosis Diagnosis Name Provider Source Jan 15, 2024 08:57 AM SECONDARY Encounter for immunization ASHLEE ZABALA [facility] Plan of Treatment: Future Appointments (+ 6 months) and Future Tests (+/- 45 days) The Plan of Treatment section includes future care activities for the patient from all [place] treatmentfacilities. This section includes future appointments and future orders which are active, pending or scheduled. Future Appointments This section includes appointments that were scheduled to occur 6 months from the date of the Encounter, up to a maximum of 20 appointments. The data comes from all [place] treatment facilities. Appointment Date/Time Appointment Type Appointme nt Facility Name Feb 14, 2024 01:15 PM [facility]BUL[facility] - MEDICINE [facility] Mar 06, 2024 11:30 AM [facility] - MEDIC[facility] [place] [facility] Apr 16, 2024 10:00 AM AMBULATORY - MEDICINE [facility] [place] [facility] May 16, 2024 09:00 AM AMBULATORY - MEDICINE [facility] Jun 27, 2024 11:00 AM [facility] Active, Pending, and Scheduled Orders This section includes a listing of several types of active, pending, and scheduled orders, including clinic medications orders, diagnostic test orders, procedure orders and consult orders; where the start date of the order is 45 days before the date of the Encounter or 45 days after the date of theEncounter. The data comes from all [place] treatment facilities. Test Date/Time Test Type Test Details Facility Name Dec 04, 2023 04:40 PM Consult Order [facility] Cons [employer] Manager's Choice [facility] Lab Results: +/- 30 days of the encounter This section includes the Chemistry and Hematology Lab Results on record with [facility] for the patient. Radiology Reports and Pathology Reports are provided separately, in subsequent sections. Lab Results This section contains the Chemistry/Hematology Results that were resulted 30 days before or 30 daysafter the date of the Encounter. Date/Time Source Result Type Result - Unit Interpretation Reference Range Comment Jan 15, 2024 09:47 AM [facility] PSA Specimen Type: SERUM No comment entered. Ordering Provider: PHYLLIS WHALEY Report Released Date/Time: Aug 13, 2023 09:06 AM Reporting Lab: [facility] [address] [facility] [address] Performing Lab: [facility] [address] [facility] [address] PSA 2.58 ng/mL 0.00-4.00 Jan 15, 2024 09:47 AM [facility] LIPID PANEL FASTING Specimen Type: SERUM No comment entered. Ordering Provider: PHYLLIS WHALEY Report Released Date/Time: Aug 13, 2023 09:06 AM Reporting Lab: [facility] [place] [facility] [address] [facility] [address] Performing Lab: [facility] [place] [facility] [address] [facility] [address] CHOLESTEROL 186 mg/dL TRIGLYCERIDE 36 mg/dL 0-150 LDL calculated 61 mg/dL 0-129 CHOL/HDL 1.6 HDL CHOLESTEROL 118 mg/dL H 40-60 Jan 15, 2024 09:47 AM [facility] LIVER FUNCTION Specimen Type: SERUM No comment entered. Ordering Provider: PHYLLIS WHALEY Report Released Date/Time: Aug 13, 2023 09:06 AM Reporting Lab: [facility] [place] [address] [address] Performing Lab: [facility] [address] [address] PROTEIN,TOTAL 7.5 g/dL 6.0-8.3 ALBUMIN 4.3 g/dL 3.5-5.0 ALKALINE PHOSPHATASE 72 U/L 40-150 AST 131 U/L H 5-34 ALT 99 U/L H BILIRUBIN, TOTAL 0.8 mg/dL 0.2-1.2 Jan 15, 2024 09:47 AM [facility] BASIC METABOLIC PANEL (fasting) Specimen Type: SERUM No comment entered. Ordering Provider: PHYLLIS WHALEY Report Released Date/Time: Aug 13, 2023 09:06 AM Reporting Lab: [address] [address] Performing Lab: [address] [address] UREA NITROGEN 9 mg/dL 7-25 GLUCOSE 85 mg/dL 65-100 SODIUM 139 mmol/L 135-145 POTASSIUM 5.1 mmol/L H 3.5-5.0 CHLORIDE 101 mmol/L 100-110 CO2 25 meq/L 20-30 CREATININE, Serum 1.30 mg/dL 0.50-1.40 eGFR(CKD-EPI 2020) 61 mL/min >60 Jan 15, 2024 09:47 AM [facility] HEMOGLOBIN A1C PANEL Specimen Type: BLOOD [...] Aug 13, 2023 09:06 AM Reporting Lab: [address] [address] Performing Lab: [address] [address] HEMOGLOBIN A1C 4.9 4.0-5.6 Jan 15, 2024 09:47 AM [facility] TSH Specimen Type: SERUM No comment entered. Ordering Provider: PHYLLIS WHALEY Report Released Date/Time: Aug 13, 2023 09:06 AM Reporting Lab: [address] [address] Performing Lab: [address] [address] TSH 0.57 u[IU]/mL 0.35-5.00 Jan 15, 2024 09:47 AM [facility] URINALYSIS Specimen Type: URINE Comment: If Glucose = >500 and Ketones are positive, please alert the Physician. Ordering Provider: PHYLLIS WHALEY Report Released Date/Time: Aug 13, 2023 09:06 AM Reporting Lab: [address] [address] Performing Lab: [address] [address] UA COLOR Colorless Yellow UA APPEARANCE Clear Clear UA GLUCOSE Normal mg/dL Negative UA KETONES NEGATIVE mg/dL Negative UA BLOOD NEGATIVE mg/dL Negative UA PROTEIN NEGATIVE mg/dL Negative UA NITRITE NEGATIVE mg/dL Negative UA BILIRUBIN NEGATIVE mg/dL Negative UA SPECIFIC GRAVITY 1.005 L 1.016-1.022 UA pH 6.0 5.0-9.0 UA UROBILINOGEN Normal mg/dL <2.0 UA LEUKOCYTE NEGATIVE Negative Jan 15, 2024 09:47 AM [facility] CBC AND DIFF (AUTO) Specimen Type: BLOOD No comment entered. Ordering Provider: PHYLLIS WHALEY Report Released Date/Time: Aug 13, 2023 09:06 AM Reporting Lab: [address] [address] Performing Lab: [address] [address] WBC 4.91 10*3/uL 4.50-11.00 RBC 4.24 10*6/uL [...] 10*3/uL 0.00-0.00 Jan 15, 2024 09:47 AM [facility] SYPHILIS ABS W/RFLX Specimen Type: SERUM Comment: No laboratory evidence of syphilis infection. If recent exposure is suspected, re-draw sample in 2-4 weeks and repeat algorithm. Testing performed by T. pallidum specific immunoassay. Ordering Provider: RASHARD SCHULTZ Report Released Date/Time: Jan 15, 2024 09:24 AM Reporting Lab: [facility] [address] [facility] [address] Performing Lab: [facility] [address] [facility] [address] SYPHILIS ABS W/RFLX Non Reactive Non Reactive Jan 15, 2024 09:47 AM [facility] FERRITIN Specimen Type: SERUM No comment entered. Ordering Provider: RASHARD SCHULTZ Report Released Date/Time: Jan 15, 2024 09:24 AM Reporting Lab: [address] [address] Performing Lab: [address] [place] [address] FERRITIN 523 ng/mL H 20-300 Jan 15, 2024 09:47 AM [facility] VITAMIN B12 Specimen Type: SERUM No comment entered. Ordering Provider: RASHARD SCHULTZ Report Released Date/Time: Jan 15, 2024 09:24 AM Reporting Lab: [facility] [address] [facility] [address] Performing Lab: [place] [facility] [address] [facility] [address] VITAMIN B12 873 pg/mL 200-900 Jan 15, 2024 09:47 AM [facility] IRON & TIBC PANEL Specimen Type: SERUM No comment entered. Ordering Provider: RASHARD SCHULTZ Report Released Date/Time: Jan 15, 2024 09:24 AM Reporting Lab: [facility] [address] [address] Performing Lab: [facility] [address] [address] TIBC 275 ug/dL 204-475 IRON 71 ug/dL 40-160 Transferrin Saturation 25.9 20.0-50.0 Jan 15, 2024 09:47 AM [facility] HIV 1&2 Ag/Ab SCREEN Specimen Type: SERUM No comment entered. Ordering Provider: RASHARD SCHULTZ Report Released Date/Time: Jan 15, 2024 09:24 AM Reporting Lab: [facility] [address] [address] Performing Lab: [place] [facility] [address] [address] HIV 1&2 Ag/Ab SCREEN NON-REACTIVE Nonreactive Jan 04, 2024 09:27 AM [facility] PSA Specimen Type: SERUM No comment entered. Ordering Provider: CLIFF MCKEON Report Released Date/Time: Jan 08, 2023 11:58 AM Reporting Lab: [facility] [address] [address] Performing Lab: [facility] [address] [address] PSA 3.04 ng/mL 0.00-4.00 Jan 04, 2024 09:27 AM [facility] BASIC METABOLIC PANEL (fasting) Specime n Type: SERUM No comment entered. Ordering Provider: CLIFF MCKEON Report Released Date/Time: Jan 08, 2023 11:58 AM Reporting Lab: [address] [address] Performing Lab: [address] [address] UREA NITROGEN 9 mg/dL 7-25 GLUCOSE 76 mg/dL 65-100 SODIUM 137 mmol/L 135-145 POTASSIUM 4.7 mmol/L 3.5-5.0 CHLORIDE 105 mmol/L 100-110 CO2 18 meq/L L 20-30 CREATININE, Serum 1.30 mg/dL 0.50-1.40 eGFR(CKD-EPI 2020) 61 mL/min >60 Jan 04, 2024 09:27 AM [facility] LIPID PANEL FASTING Specimen Type: SERUM No comment entered. Ordering Provider: CLIFF MCKEON Report Released Date/Time: Jan 08, 2023 11:58 AM Reporting Lab: [address] [address] Performing Lab: [address] [address] CHOLESTEROL 184 mg/dL TRIGLYCERIDE 35 mg/dL 0-150 LDL calculated 67 mg/dL 0-129 CHOL/HDL 1.7 HDL CHOLESTEROL 110 mg/dL H 40-60 Jan 04, 2024 09:27 AM [facility] URINALYSIS Specimen Type: URINE Comment: If Glucose = >500 and Ketones are positive, please alert the Physician. Ordering Provider: CLIFF MCKEON Report Released Date/Time: Jan 08, 2023 11:58 AM Reporting Lab: [address] [address] Performing Lab: [address] [address] UA COLOR Light-Yellow Yellow UA APPEARANCE Clear Clear UA GLUCOSE Normal mg/dL Negative UA KETONES TRACE mg/dL Negative UA BLOOD NEGATIVE mg/dL Negative UA PROTEIN NEGATIVE mg/dL Negative UA NITRITE NEGATIVE mg/dL Negative UA BILIRUBIN NEGATIVE mg/dL Negative UA SPECIFIC GRAVITY 1.015 L 1.016-1.022 UA pH 5.5 5.0-9.0 UA UROBILINOGEN Normal mg/dL <2.0 UA LEUKOCYTE NEGATIVE Negative Jan 04, 2024 09:27 AM [facility] LIVER FUNCTION Specimen Type: SERUM No comment entered. Ordering Provider: CLIFF MCKEON Report Released Date/Time: Jan 08, 2023 11:58 AM Reporting Lab: [address] [address] Performing Lab: [address] [address] PROTEIN,TOTAL 7.1 g/dL 6.0-8.3 ALBUMIN 4.0 g/dL 3.5-5.0 ALKALINE PHOSPHATASE 65 U/L 40-150 AST 76 U/L H 5-34 ALT 44 U/L BILIRUBIN, TOTAL 0.7 mg/dL 0.2-1.2 Jan 04, 2024 09:27 AM [facility] TSH Specimen Type: SERUM No comment entered. Ordering Provider: CLIFF MCKEON Report Released Date/Time: Jan 08, 2023 11:58 AM Reporting Lab: [address] [address] Performing Lab: [address] [address] TSH 0.45 u[IU]/mL 0.35-5.00 Jan 04, 2024 09:27 AM [facility] HEMOGLOBIN A1C PANEL Specimen Type: BLOOD Comment: [...] Jan 08, 2023 11:58 AM Reporting Lab: [address] [address] Performing Lab: [address] [address] HEMOGLOBIN A1C 4.9 4.0-5.6 Jan 04, 2024 09:27 AM [facility] CBC AND DIFF (AUTO) Specimen Type: BLOOD No comment entered. Ordering Provider: CLIFF MCKEON Report Released Date/Time: Jan 08, 2023 11:58 AM Reporting Lab: [facility] [address] [facility] [address] Performing Lab: [facility] [address] [facility] [address] WBC 3.71 10*3/uL L 4.50-11.00 RBC 4.17 [...] 0.0 0.0-0.0 NRBC, ABS 0.00 10*3/uL 0.00-0.00 Immunizations: All administered on the encounter date This section contains immunizations associated to the Encounter. Immunization Series Date Issued Reaction Comments HEP A, ADULT 1 Jan 15, 2024 TDAP Jan 15, 2024 Social History: Smoking Status (Most current) and Tobacco Use (All prior to encounter date) This section includes the most current, and the historical, smoking and tobacco- related health factors from the PA facility where the Encounter took place. Current Smoking Status This section includes the most current smoking, or tobacco-related health factor, from the PA facility where the Encounter took place. Date/Time Current Smoking Status Comment [facility] Jan 15, 2024 08:57 AM VA-TOBACCO NEVER USED [facility] Tobacco Use History This section includes a history of the smoking, or tobacco-related health factors, that were collected on or before the date of the Encounter. The data comes from the PA facility where the Encounter took place. Date/Time Smoking Status/Tobac co Use Comment Facility Jan 08, 2023 09:03 AM VA-TOBACCO NEVER USED [facility] Aug 01, 2021 09:08 AM VA-TOBACCO FORMER USER [facility] Aug 01, 2021 09:08 AM VA-TOBACCO QUIT 1 TO < 5 YRS [facility] Dec 08, 2011 01:04 PM CURRENT SMOKER chew pack and half a week [facility] Dec 08, 2011 01:04 PM V1-PT DECLINES REF TO TOBACCO CESS PRGM [facility] Dec 08, 2011 01:04 PM V1-PT DECLINES TOBACCO CESSATION MEDS [facility] Dec 08, 2011 01:04 PM V1-PT THINKING ABOUT QUIT TOBACCO USE [facility] Advance Directives: All historical and current Section Date Range: From patient's date of to the date document was created. This section includes ALL of a patient's completed or amended PA Advance and Rescinded Directives. The entries below indicate that a directive exists for the patient, but an actual copy is not included with this document. The data comes from all PA facilities. Date Advance Directives Provider Source Jan 03, 2022 ADVANCE DIRECTIVE LUIS EDUARDO COLON Jan 03, 2021 ADVANCE DIRECTIVE KHUSHBU KUMAR Mar 19, 2012 ADVANCE DIRECTIVE ERIKA MORALES [facility] Encounter Notes: All associated encounter notes This section contains the clinical notes associated to the Encounter. Date/Time Encounter Note(s) Provider Source Jan 15, 2024 08:57 AM PREVENTIVE MEDICIN E NURSING NOTE: LOCAL TITLE: CLINICAL REMINDERS/NURSING STANDARD TITLE: PREVENTIVE MEDICINE NURSING NOTE DATE OF NOTE: JAN 15, 2024@08:57 ENTRY DATE: JAN 15, 2024@08:57:46 AUTHOR: KALPESH ZABALA COSIGNER: URGENCY: STATUS: COMPLETED Advance Directive Screen MH AD: Patient has an Advance Directive on file at this [facility]. No updates are needed at this time. The patient received education about Advance Directives and written notification of his/her rights. Homelessness/Food Insecurity Screen: In the past 2 months, have you been living in stable housing that you own, rent, or stay in as part of a household? Yes - Living in stable housing. Are you worried or concerned that in the next 2 months you may NOT have stable housing that you own, rent, or stay in as part of a household? No - Not worried about housing near future The reports the following: Within the past 12 months, you worried whether your food would run out before you got money to buy more. Never true Within the past 12 months, the food you bought just didn't last and you didn't have money to get more. Never true Avg Risk Colorectal Cancer Screen: AVERAGE RISK colorectal cancer screening is due based on information available to this clinical reminder Patient has arranged or is choosing to arrange this care independent of and without assistance from this PA. Comment: Per he has an appointment scheduled for colonoscopy in March 2024, exact date un know at this time. Pneumococcal Conjugate Vaccine (PCV15/PCV20): Virtual/Telehealth Visit - Patient educated on the need for receiving Pneumococcal conjugate vaccine either at PA or outside facility. Tobacco Use Screening: The patient has never used tobacco. Td / Tdap Immunization: Administered: TDAP Date Administered: Jan 15, 2024 08:59 Series: (None selected) Lsat Instructor: [employer] Lot: [id number] Exp Date: Jan 02, 2026 [facility]: [phone] Admin Route/Site: INTRAMUSCULAR/LEFT DELTOID Dosage: 0.5mL Vaccine Information Statement(s): TDAP (TETANUS, DIPHTHERIA, PERTUSSIS) VACCINE VIS Dec 31, 2020 ([place]) Order By: Policy Administered By: Kalpesh Zabala Vaccine Information Sheet (VIS) was given to the patient/caregiver, education regarding adverse reactions was discussed, as well as barriers to learning, if any, were acknowledged. Alcohol Use Screen (AUDIT-C): Alcohol Screen: SCREEN FOR ALCOHOL (AUDIT-C) An alcohol screening test (AUDIT-C) was negative (score=4). 1. How often did you have a drink containing alcohol in the past year? Consider a drink to be a 12 ounce can or bottle of regular beer, 8 ounces of malt liquor, a 5 ounce glass of table wine, or a 1.5 ounce shot of liquor (like scotch, gin, or vodka). Four or more times a week 2. How many drinks containing alcohol did you have on a typical day when you were drinking in the past year? One or two drinks 3. How often did you have six or more drinks on one occasion in the past year? Never COVID-19 Immunization: Additional Information: CDC Interim Clinical Considerations for Use of COVID-[facility] COVID-19 Vaccine [employer] Hepatitis A Vaccine for High Risk: Administered: HEP A, ADULT Date Administered: Jan 15, 2024 09:01 Series: Series 1 Lsat Instructor: [employer] Lot: [id number] Exp Date: May 14, 2025 [facility]: [phone] Admin Route/Site: INTRAMUSCULAR/LEFT DELTOID Dosage: 1mL Vaccine Information Statement(s): HEPATITIS A VACCINE VIS Mar 11, 2021 (DIVE[place]) Order By: Policy Administered By: Kalpesh Zabala Combination Hepatitis A / Hepatitis B vaccine (3 dose series) /caitlyn/ KALPESH ZABALA LPN LPN Signed: 01/15/2024 09:02 KALPESH ZABALA [facility]
--- OUTSIDE RECORDS SUMMARY | 2024-05-08 01:05 | XMS_ITS ---
Author Name [facility] [place] [facility] [place] Address [address] [place] [address] Care Team Providers Care Jig Filler Name Role Phone ROBBY NIELSON Primary Care [...] PRESCRIPT ION [id number] 1 May 28, 2017 [id number] Charlene MASON DDIE PATIENT [facility] PRESCRIPT ION [id number] 1 May 28, 2017 [id number] [phone] Charlene MASON DDIE PATIENT OPTUM RX PRESCRIPT ION RX May 28, 2022 THPRX [id number] Charlene MASON DDIE PATIENT OPTUM RX PRESCRIPT ION RX May 28, 2022 THPRX [id number] [id number] Charlene MASON DDIE PATIENT [facility] PL[facility] USP May 28, 2017 [facility] [id number] Charlene MASON DDIE PATIENT [facility] IVY Chang May 28, 2017 [facility] [id number] Charlene MASON DDFRED PATIENT [facility] POINT OF SERVICE MALLORY CHERY Oct 27, 2011 [id number] Charlene MASON DDFRED PATIENT [facility] (WNR) SUKUMAR CHERY(WN R) May 28, 2017 (WNR) [id number] Charlene MASON PATIENT Selected Encounter This section includes the information on record at [place] for the Encounter. Date/Time Encounter Type Encounter Description Reason Pro vider Source Feb 18, 2024 10:32 AM Outpatient Encounter PRIMARY CARE/MEDICINE IHE Encounter Template Text not used by [place] Plan of Treatment: Future Appointments (+ 6 months) and Future Tests (+/- 45 days) The Plan of Treatment section includes future care activities for the patient from all [place] treatmentfacilities. This section includes future appointments and future orders which are active, pending or scheduled. Future Appointments This section includes appointments that were scheduled to occur 6 months from the date of the Encounter, up to a maximum of 20 appointments. The data comes from all [place] treatment facilities. Appointment Date/Time Appointment Type Appointme nt Facility Name Mar 06, 2024 11:30 AM AMBULATORY - MEDICINE [facility] Apr 16, 2024 10:00 AM [facility] May 16, 2024 09:00 AM AMBULATORY - MEDICINE [facility] Jun 27, 2024 11:00 AM [facility] Jul 18, 2024 10:00 AM AMBULATORY - MEDICINE [facility] Social History: Smoking Status (Most current) and Tobacco Use (All prior to encounter date) This section includes the most current, and the historical, smoking and tobacco- related health factors from the [place] facility where the Encounter took place. Current Smoking Status This section includes the most current smoking, or tobacco-related health factor, from the [place] facility where the Encounter took place. Date/Time Current Smoking Status Comment Facil ity Jan 15, 2024 08:57 AM [place]-TOBACCO NEVER USED [facility] Tobacco Use History This section includes a history of the smoking, or tobacco-related health factors, that were collected on or before the date of the Encounter. The data comes from the [place] facility where the Encounter took place. Date/Time Smoking Status/Tobac co Use Comment Facility Jan 08, 2023 09:03 AM [place]-TOBACCO NEVER USED [facility] Aug 01, 2021 09:08 AM [place]-TOBACCO FORMER USER [facility] Aug 01, 2021 09:08 AM [place]-TOBACCO QUIT 1 TO < 5 YRS [facility] Dec 08, 2011 01:04 PM CURRENT SMOKER chew pack and half a week [facility] Dec 08, 2011 01:04 PM V1-PT DECLINES REF TO TOBACCO CESS PRGM [facility] Dec 08, 2011 01:04 PM V1-PT DECLINES TOBACCO CESSATION MEDS [facility] Dec 08, 2011 01:04 PM V1-PT THINKING ABOUT QUIT TOBACCO USE [facility] Advance Directives: All historical and current Section Date Range: From patient's date of to the date document was created. This section includes ALL of a patient's completed or amended [place] Advance and Rescinded Directives. The entries below indicate that a directive exists for the patient, but an actual copy is not included with this document. The data comes from all [facility]. Date Advance Directives Provider Source Jan 03, 2022 ADVANCE DIRECTIVE [facility] Shania Jan 03, 2021 ADVANCE DIRECTIVE KHUSHBU KUMAR Mar 19, 2012 ADVANCE DIRECTIVE ERIKA MORALES [facility] Encounter Notes: All associated encounter notes This section contains the clinical notes associated to the Encounter. Date/Time Encounter Note(s) Provider Source Feb 18, 2024 10:33 AM ADMINISTRATIVE NOT E: LOCAL TITLE: ADMINISTRATIVE NOTE STANDARD TITLE: ADMINISTRATIVE NOTE DATE OF NOTE: FEB 18, 2024@10:33 ENTRY DATE: FEB 18, 2024@10:34:02 AUTHOR: GILLIAN JI COSIGNER: URGENCY: STATUS: COMPLETED THIS ALL SOURCE COLLECTION MANAGER CALLED TO SCHEDULE A F2F OR VVC APPT WITH CWM/SO/PACT EIGHT PROVIDER discuss letter requested from PCP. NO ANSWER, LEFT MESSAGE FOR TO CALL BACK AND SCHEDULE APPT. /es/ MOOK K TYE-CHER ADVANCED SENIOR DATABASE PROGRAMMER Signed: 02/18/2024 10:35 [place] [place] [place] Feb 18, 2024 10:32 AM LETTERS: LOCAL TITLE: PATIENT LETTER (T) STANDARD TITLE: LETTERS DATE OF NOTE: FEB 18, 2024@10:32 ENTRY DATE: FEB 18, 2024@10:32:34 AUTHOR: GILLIAN JI COSIGNER: URGENCY: STATUS: COMPLETED PATIENT LETTER (T) Has [facility] Toll Free Number Primary Care Telephone Assistance can be reached at extension [phone] [facility] scheduling can be reached at extension [phone] [facility] scheduling can be reached at ext [phone] [facility] [address] [place], [place], [address] Date: FEB 18, 2024 Dear : Our goal at the [facility] is to provide you with quality medical care. We have been trying to reach you unsuccessfully to schedule your follow up appt with your primary care provider RASHARD SCHULTZ at the [facility], [address] [place] [id number]. Please call us at Sunday through Sunday, 8am-4pm to schedule this appointment. 02/18/2024 ADDENDUM STATUS: COMPLETED THIS ALL SOURCE COLLECTION MANAGER MAILED LETTER TO . /sharona JI ADVANCED SENIOR DATABASE PROGRAMMER Signed: 02/18/2024 10:33 Sincerely, Your Primary Care Team [facility] [address] [address] [place] [address] [phone] [facility] [address] [place] [address] [place] [address] [phone] [facility] [address] [facility],[address]st Floor [address] [place] [address] [place] [address] [phone] [place] [place] [place]
--- OUTSIDE RECORDS SUMMARY | 2024-05-08 01:05 | XMS_ITS | Encounter Summary ---
Author Name [facility] [place] [facility] [place] Address [address] [place] [address] Care Team Providers Care Personnel Supervisor Name Role Phone ROBBY NIELSON Primary Care [...] PRESCRIPT ION RX730 1 May 28, 2017 [id number] Charlene MASON DDIE PATIENT [facility] PRESCRIPT ION RX730 1 May 28, 2017 [id number] [phone] Charlene MASON DDIE PATIENT OPTUM RX PRESCRIPT ION RX May 28, 2022 THPRX [id number] Charlene MASON DDIE PATIENT OPTUM RX PRESCRIPT ION RX May 28, 2022 THPRX [id number] [phone] Charlene MASON DDIE PATIENT [facility] PLAN USFHP May 28, 2017 USP [id number] [phone] Charlene MASON DDIE PATIENT [facility] PLAN IVY Chang May 28, 2017 [id number] [phone] Charlene MASON DDIE PATIENT [facility] POINT OF SERVICE TRICA RE Oct 27, 2011 [id number] Charlene MASON DDFRED PATIENT [facility] (WNR) SUKUMAR CHERY(WN R) May 28, 2017 (WNR) [id number] Charlene MASON DDFRED PATIENT Selected Encounter This section includes the information on record at [place] for the Encounter. Date/Time Encounter Type Encounter Description Reason Pro vider Source IHE Encounter Template Text not used by [place] Advance Directives: All historical and current Section Date Range: From patient's date of to the date document was created. This section includes ALL of a patient's completed or amended [place] Advance and Rescinded Directives. The entries below indicate that a directive exists for the patient, but an actual copy is not included with this document. The data comes from all [place] facilities. Date Advance Directives Provider Source Jan 03, 2022 ADVANCE DIRECTIVE LUIS EDUARDO [facility] Jan 03, 2021 ADVANCE DIRECTIVE KHUSHBU KUMAR [facility] Mar 19, 2012 ADVANCE DIRECTIVE ERIKA MORALES [place] [facility]
--- OUTSIDE RECORDS SUMMARY | 2024-05-08 01:06 | XMS_ITS | Continuity of Care Document ---
Author Organization [place] - [facility], Allergy Address [address] [place] [address] Care Team Providers Care Field Artillery Targeting Technician Name Role Phone SAM SANCHEZ Primary Care Provider [phone] Assessment No assessment recorded. Plan of Treatment Reminders Order Date Submit Date Provider Last Modified By Organization Details Last Modified Time Details Appointments None record ed. Lab None record ed. Referral None record ed. Procedures None record ed. Surgeries None record ed. Imaging None record ed. Medication Orders None record ed. Patient TargetsNo targets recorded. Patient Instructions Encounter Date Encounter Id Patient Instructions Last Modified By Organization Details Last Modified Time 02/06/2024 [id number] Nursing Documentation for Allergy Testing: Ordering Provider {{Dr. Karissa Skinner* Dr. Ignacio Sanz}} Weight:lbs:??kg: ?? PFT {{Yes no*}} With Bronchodilator {{Yes no*}} Dr. cohen needed to proceed with allergy testing? {{Yes* [...] {{Yes No*}} Proceed with PFT {{Yes* No}} Dr. approval needed: {{Yes* No}} Nursing Notes: Pt tolerated test well {{Yes* No}} Benadryl cream to test sites {{Yes No*}} Patient became syncopal-placed in supine position {{Yes No*}} Large reactions to MQT, reschedule IDT for a different date {{Yes No*}} Other: ?? Written by: {{JOSE MANUEL Thomas, KARUNA Seay*}} [email or web address] Not available 02/06/2024 14:27:22 Reason for Referral None Reported. Results Created Date Observation Date Name Description Value Unit Range Abnormal Flag Note LastModifiedBy Organization Detail LastModifiedTime 01/15/20 24 02/20/2023 imagi ng/di agnos tic resul t No observ ation record ed. [email or web address] Not Available 23:50:22 01/15/20 24 02/20/2023 imagi ng/di agnos tic resul t No observ ation record ed. [email or web address] Not Available 23:50:35 01/15/20 24 04/11/2023 imagi ng/di mónica de dios resul t No observ ation record ed. [email or web address] Not Available 23:50:47 Result Notes None recorded. Problems Name Problem SNOMED Code Status Onset Date Resolution Date Notes Provider Name and Address Organization Details Recorded Time Allergic rhinitis 69963620 Active 2022 Other allergic rhinitis ; Note: Date Diagnose d: 3 10:10 AM (J30.89) Not Available [facility] 4 02:54:40 Sensorin eural hearing loss in right ear 06040350825 100 Active 2022 Sensorin eural hearing loss, unilater al, right ear, with restrict ed hearing on the contrala teral side; Note: Date Diagnose d: 3 10:10 AM (H90.A21 ) Not Available [facility] 4 02:54:41 Posterio r rhinorrh ea 08492761 Active 2023 Postnasa l drip; Note: Date Diagnose d: 05/29/2023 3:27 PM (R09.82) Not Available [facility] 4 02:54:37 Nasal congesti on 80072663 Active 2022 Nasal congesti on; Note: Date Diagnose d: 3 10:10 AM (R09.81) Not Available [facility] 4 02:54:39 Tobacco user 271248946 Active 2017 Tobacco use; Note: Date Diagnose d: 8 4:51 PM (Z72.0) Not Available [facility] 4 02:54:40 Dysphagi a 97539152 Completed 201712/28/2023 Other dysphagi a; Note: Date Diagnose d: 8 3:09 PM (R13.19) Not Available [facility] 4 02:54:41 Tinnitus of right ear 08590101629 08 Active 2022 Tinnitus , right ear; Note: Date Diagnose d: 3 10:10 AM (H93.11) Not Available [facility] 4 02:54:39 Sensorin eural hearing loss of bilatera l ears 651443970 Active 2022 Sensorin eural hearing loss, bilatera l; Note: Date Diagnose d: 3 9:58 AM (H90.3) Not Available [facility] 4 02:54:37 Seasonal allergic rhinitis 358082805 Active 2023 JUAN LUIS SKINNER MD [address] [facility],[place] [address], [place], [address] , [facility] 4 13:23:57 Non-israel rgic rhinitis 41087440020 1 Active 2023 JUAN LUIS SKINNER MD [address] [facility],[place] [address], [place], [address] , [facility] 4 13:24:27 Problem Notes None recorded. Procedures Surgical History Date Name Laterality Status Provider Name and Address Organization Details Recorded Time Allergy Testing-Full completed KARUNA BOWNE [address] [facility],[place] [address], [place], [address], [facility] 02/06/2024 14:27:10 Imaging Results None recorded. Procedure Notes None recorded. Medical Equipment None Reported. Allergies No known drug allergies Medications Name Sig Start Date Stop Date Status Note LastModified by Organization Details LastModified Time Refresh Tears 0.5 % eye drops active Not Available Not Available Not Available Augmentin 875 mg-125 mg tablet 2017 active Medicati on ID: [id number] D uration Value: 10 Prescri bed By Name: Juan Luis joshi MD Brand Name: Augmenti n Send Method: E-Prescr ibed Sub s Allowed: subs OK Speci al Instruct ion: 1 po bid for 10 days Med icationG enericNa me: Augmenti n Not Available Not Available Not Available primidone 50 mg tablet 01/28 completed Medicati on ID: [id number] D uration Value: 30 Brand Name: primidon e Send Method: E-Prescr ibed Sub s Allowed: subs OK Speci al Instruct ion: TAKE 1/2 TAB AT BEDTIME [id number], 1 TAB AT BED [id number], 1.5 TABS AT BED [id number], THEN 2 TABS AT BED Medi cationGe nericNam e: primidon e Not Available Not Available Not Available prednison e 10 mg tablet 01/28 completed Medicati on ID: [id number] Gary barcenas By Name: Juan Luis joshi MD Brand [...] Updated DateTime 4 157.48 cm 22.9 kg/m2 82027.0 5 g 69 /min 99 % 99 % 125 mm[Hg] 84 mm[Hg] KARUNA BOWEN [address], [address], [facility] 13:06:28 Social History None recorded. Functional Status None recorded. Mental Status None recorded. Family History Nothing Reported. Medical History No medical history recorded. Past Encounters Encounter ID Performer Location Encounter Start Date Encounter Closed Date Diagnosis/Indication Diagnosis SNOMED-CT Code Diagnosis ICD10 Code [id number] JUAN LUIS SKINNER MD [facility] [address] [facility] [place] [address] 01/14/2024 12:43:58 01/14/2024 13:26:07 Nasal congestion 66932486 R09.81 Seasonal a llergic rhinitis 163284298 J30.2 [id number] [facility] Allergy [address] [facility] [address] [place] [address] 01/29/2024 12:52:56 01/29/2024 13:57:37 Allergic rhinitis 68583239 J30.9 [id number] [facility] [address] [facility] [address] [place] [address] 02/06/2024 12:52:29 02/06/2024 15:01:16 Allergic rhinitis 46252852 J30.9 Health Concerns Section Related Observation LastModified by Organization Detai ls LastModified Time None Recorded Concern Status LastModified by Organization Details LastModified Time None Recorded Payers Encounter Date Sequence Insurance Name Policy Number Policy Poon Covered Member ID Poon Member ID Guarantor Name 02/06/2024 1 [facility] - FAMILY HEALTH PLAN (POS) [id number] Papo Hernandez [id number] Papo Hernandez
== END ==
LOC: HO.SL 10:45
PROVIDERS: PCP Internal Medicine; Visit Provider Internal Medicine Pulmonary Disease
DX: G47.33 Obstructive sleep apnea (adult) (pediatric) (principal)
CPT/HCPCS: 95806

== ENCOUNTER → 2024-05-07 11:02 | Outpatient (BNV) | payer OTHER, SELFPAY | PROVIDERS: PCP Internal Medicine; Visit Provider Internal Medicine | DX: G47.33 Obstructive sleep apnea (adult) (pediatric) (principal) | CPT/HCPCS: 95806 ==

== ENCOUNTER 2024-06-02 10:21 | Outpatient (AMB) | payer OTHER, SELFPAY ==
[2024-06-02 10:27] VITALS: BP 120/86; PULSE 98; O2SAT 97
--- NOTE | 2024-06-02 10:27 | MHC.OFFVIS ---
Vital Signs 06/02/24 10:27 Weight 132 lb 4.438 oz BP 120/86 Blood Pressure Location Lt brachial Position Sitting Pulse 98 Pulse Source Pulse Oximeter Pulse Oximetry (%) 97 Oxygen Delivery Method Room Air Intake Visit Reasons: Obstructive sleep apnea Allergies No Known Allergies [No Known Allergies*] Allergy (Verified 06/02/24 10:30) Medication List - Last Reconciled 06/02/24 by Alexandra Solis LPN acetaminophen 500 mg PO Q6-8H PRN albuterol sulfate 90 mcg/actuation 2 puffs inhalation Q4-6H PRN amlodipine 5 mg PO DAILY chlorhexidine gluconate 0.12% PO cholecalciferol (vitamin D3) (Vitamin D3) 25 mcg PO DAILY cyclobenzaprine 5 mg PO TID PRN docusate sodium 100 mg PO BID ipratropium bromide 2 sprays intranasal TID-QID PRN loratadine 10 mg PO DAILY omeprazole 20 mg PO DAILY oxycodone 5 mg PO Q6-8H PRN peg 400-propylene glycol 0.4-0.3 % (Lubricant Eye (PG-PEG 400)) 1 drp ophthalmic (eye) DAILY sildenafil PO PRN HPI HPI Obstructive sleep apnea: Details: 64-year-old gentleman nonsmoker with underlying history of iqkz-ty-kvjtvdvd obstructive sleep apnea with last sleep study in 2014, now with a broken CPAP machine who is interested in continuing his CPAP therapy. Patient is also complain of year around environmental allergies with significant postnasal drip with poor response to loratadine. After the last office visit patient has completed his sleep study that showed underlying severe sleep apnea with AHI of 35. He also was started on nasal ipratropium with some in his allergic rhinitis. Unfortunately, patient has not received his new CPAP machine yet. [facility] Medical History (Updated 03/31/24 @ 10:53 by Catracho Jo MD) Asthma Tinnitus of right ear Seasonal allergies Erectile dysfunction BALDEMAR (obstructive sleep apnea) Avascular necrosis of bone of hip Leukopenia Elevated LFTs Chewing tobacco use Hypertension Contracture of hand Benign essential tremor Idiopathic peripheral neuropathy Fatty liver Kidney disease GERD (gastroesophageal reflux disease) Cervical spondylosis Cervical radiculopathy Surgical History (Updated 01/07/24 @ 12:34 by Wm Pichardo MD) Hx of colonoscopy Hx of foot surgery History of total right hip replacement History of surgery on right wrist Hx of foot surgery History of surgery on arm Hx of appendectomy Social History Are you a primary child care associate to a significant other at home: No Do you presently have visiting nurse or other home services: No Patient Tobacco Use Status: Never used Tobacco Review of Systems Const Reports daytime sleepiness, Denies excessive sweating, Denies fatigue, Denies fever(s), Reports lethargy, Denies malaise, Denies night sweats, Reports snoring and Denies weight loss Eyes Denies blurry vision and Denies itchy eyes ENT Denies nasal congestion, Reports post nasal drip, Denies sinus pain, Denies sinus pressure and Denies other ( Thrush) Card Denies chest pain, Denies pedal edema, Denies dyspnea, Denies orthopnea and Denies paroxysmal nocturnal dyspnea Resp Denies cough, Denies hemoptysis, Denies excessive phlegm production, Denies dyspnea, Reports snoring and Denies wheezing GI Denies abdominal pain and Denies heartburn Musc Denies myalgias, Denies arthralgias and Denies joint swelling Skin/Breast Denies rash Neuro Denies memory loss and Denies seizure-like activity Psych Denies abnormal sleep pattern, Denies anxiety and Denies memory loss Endo Denies excessive sweating, Denies fatigue and Denies heat intolerance Akira/Lymph Denies easy bruising Aller/Immun Denies itchy eyes, Denies seasonal rhinorrhea and Denies wheezing Physical Exam Vital Signs: Last Vital Signs Pulse 98 06/02/24 10:27 BP 120/86 06/02/24 10:27 Pulse Ox 97 06/02/24 10:27 Oxygen Delivery Method Room Air 06/02/24 10:27 Const General: no acute distress and alert Nutritional Appearance: not obese Orientation/consciousness: Other orientation findings ( oriented) HEENT Head: Yes atraumatic Eyes General: appearance normal, both eyes and all related structures Sclerae: sclerae normal EOM: EOMs intact bilaterally Neck Neck: Yes supple Lymphatic: no lymphadenopathy noted Resp Effort & Inspection: normal respiratory effort and no use of accessory muscles Auscultation: clear to auscultation bilaterally Cardio Rate: regular rate Rhythm: regular rhythm Heart sounds: no gallops, no murmurs and no rubs Skin General skin exam: other ( warm) Extrem General: No clubbing, No cyanosis and No edema Assessment & Plan Assessment & Plan (1) BALDEMAR (obstructive sleep apnea): Code(s): G47.33 - Obstructive sleep apnea (adult) (pediatric) Category: Medical Plan: Results of sleep study reviewed, underlying severe obstructive sleep apnea with AHI of 35. APAP is ordered. (2) Environmental allergies: Code(s): Z91.09 - Other allergy status, other than to drugs and biological substances Category: Medical Plan: Some improvement with nasal ipratropium. Continue nasal ipratropium and loratadine. Coding Level of Care Code Est Pt Level 4 (84682) Diagnoses BALDEMAR (obstructive sleep apnea) G47.33 Environmental allergies Z91.09
--- OUTSIDE RECORDS SUMMARY | 2024-06-02 11:21 | XMS_ITS | Continuity of Care Document ---
Author Name [facility] Organization [facility] Care Team Providers Care Poultry Trimmer Name Role Phone [facility] Unavailable Unavailable Problems Combined list of problems from Department of Defense and Veterans Affairs facilities. It does not include entries that were removed or entered in error. Problem Status Onset Date Problem Type Date of Resolution Comments Source tingling (paresthesia) Active Condition DoD joint pain, localized in the knee Active Condition DoD male erectile disorder Active Condition DoD allergic rhinitis due to pollen Active Condition DoD cough Active Condition DoD esophagitis chronic reflux Active Condition DoD chronic granulomatous disease Active Condition DoD calcification of lung Active Condition DoD thoracogenic scoliosis Active Condition DoD nicotine dependence continuous Active Condition DoD visit for: services physical custodial Active Condition DoD Spectacles Services Fitting Bifocal Except For Aphakia Inactive Condition DoD conjunctivitis chronic allergic Inactive Condition DoD astigmatism Inactive Condition DoD flat foot acquired (pes planus) Active Condition [facility] visit for: single organ system exam eyes Inactive Condition ONE CAPPED MEIBOMIAN GLAND OD. PX EDUCATED. RECOMMEND WARM COMPRESSES. MONITOR PRN. DoD Physical Examination Inactive Condition [facility] visit for: screening exam sickle-cell disease / trait Inactive Condition 40% HgB S, n o anemia DoD refractive error - hypermetropia Active Condition DoD presbyopia Inactive Condition DISP NVO' S. THESE WERE TRIAL FRAMED AND PX APPRECIATED MUCH IMPROVEMENT. MONITOR IN 2-3 YEARS. [facility] astigmatism regular Active Condition DISP DVO'S. THESE WERE TRIAL FRAMED AND PX COULD APPRECIATE MINIMAL IMPROVEMENT. HE WILL WEAR THESE PRN. MONITOR IN 2-3 YEARS. DoD routine examination Inactive Condition DoD visit for: ears, nose, and throat exam Inactive Condition DoD Medications Combined list of outpatient medications from Department of Defense and Veterans Affairs facilities.Medications provided include 1) outpatient medications from the last 15 months, and 2) patient-reported medications. Medication Details Route Status Patient Instructions Prescription Expires Prescription Number Last Dispense Date Ordering Provider Order Date Order Qty Source amLODIPine (U/D) 5 MG ORAL TAB TAKE ONE TABLET BY MOUTH ONCE DAILY FOR BLOOD PRESSURE /HEART, DO NOT TAKE WITH GRAPEFRU IT JUICE Active 08/15/2024 [id number] PHYLLIS WHALEY 2023 90 [facility] Ammonium Lactate (Lac-Hydrin ) Lotion 12% Topical APPLY SMALL AMOUNT TOPICALL Y TWICE DAILY FOR DRY IRRITATE D SKIN Active 07/27/2024 [id number] JOHN LEE 2023 240 [facility] carboxymeth ylcel 0.5% EYE DROP [2 X15ML] INSTILL 1 DROP INTO EACH EYE FOUR TIMES DAILY NEEDED Active 07/24/2024 [id number] BRIAN GRIMALDO B 2023 45 [facility] carboxymeth ylcel 0.5% EYE DROP [2 X15ML] INSTILL 1 DROP INTO EACH EYE FOUR TIMES DAILY NEEDED 04/23/2024 [id number] KRISTI GRIMALDOAH B 2023 45 [facility] Diclofenac Sodium 0.01mg/mg, Gel/Jelly, Topical APPLY 3-4 GRAMS TOPICALL Y THREE TIMES A DAYFOR OSTEOART HRITIS - USE DOSING CARD PROVIDED IN BOX Active 06/19/2024 [id number] MAHAMED MEJÍA 2023 100 [facility] sildenafiL 50 MG ORAL TAB TAKE ONE TABLET BY MOUTH NEEDED FOR ERECTILE DYSFUNCT ION TAKE 1 HOUR PRIOR TO SEXUAL ACTIVITY Active 08/13/2024 [id number] 4 PHYLLIS WHALEY 2023 18 [facility] Allergies, Adverse Reactions, Alerts Combined list of allergies from Department of Defense and Veterans Affairs facilities. It does not include entries that were removed or entered in error. Substance Category Reaction Severity Reaction type Status Date Reported Comments Source NO OUTPUT FOR NCID 600376 Drug allergy (disorder) active 03/12/2006 [facility] Immunizations Combined list of available immunizations from the Department of Defense and Veterans Affairs facilities. Immunization Series Date Given Administered By Site Reaction Lot Number CVX Code Drug Hemstitcher Status Comments Source influenza virus vaccine, unspecified formulation 1 2010 [id number] [facility] [employer] (CSL) complet ed influenza virus vaccine, unspecifi ed formulati on DoD hepatitis B vaccine, adult dosage 4 2009 [id number] 43 [employer] (SKB) complet ed hepatitis B vaccine, adult dosage DoD influenza virus vaccine, split virus (incl. purified surface antigen)-reti red CODE 1 2009 [id number] Sanofi Pasteur ([facility]) complet ed influenza virus vaccine, split virus (incl. purified surface antigen)- retired CODE DoD anthrax vaccine 3 2009 [id number] [facility]) complet ed anthrax vaccine DoD tetanus toxoid, reduced diphtheria toxoid, and acellular pertu is vaccine, adsorbed 1 2009 [id number] Sanofi Pasteur ([facility]) complet ed tetanus toxoid, reduced diphtheri a toxoid, and acellular pertussis vaccine, adsorbed DoD vaccinia (smallpox) vaccine 1 2009 [id number] 75 Unknown (UNK) complet ed vaccinia (smallpox ) vaccine DoD anthrax vaccine 2 2008 [id number] [facility] ([facility]) complet ed anthrax vaccine DoD Novel influenza-H1N 1-09, injectable 1 2008 [id number] 127 [employer]. (NOV) complet ed Novel influenza -O5O2-74, injectabl e DoD influenza virus vaccine, split virus (incl. purified surface antigen)-reti red CODE 1 2008 [id number] 15 Unknown (UNK) complet ed influenza virus vaccine, split virus (incl. purified surface antigen)- retired CODE DoD anthrax vaccine 1 2008 [id number] [facility] ([facility]) complet ed anthrax vaccine DoD typhoid Vi capsular polysaccharid e vaccine 1 2008 [id number] 1 101 Sanofi Pasteur ([facility]) complet ed typhoid Vi capsular polysacch aride vaccine DoD hepatitis B vaccine, adult dosage 3 2006 [id number] 43 [employer] (SKB) complet ed hepatitis B vaccine, adult dosage DoD hepatitis B vaccine, adult dosage 2 2006 [id number] 43 [employer] (SKB) complet ed hepatitis B vaccine, adult dosage DoD hepatitis B vaccine, adult dosage 1 2005 [id number] 43 [employer] (SKB) complet ed hepatitis B vaccine, adult dosage DoD meningococcal polysaccharid e vaccine (MPSV4) 1 2003 [id number] Sanofi Pasteur ([facility]) complet ed meningoco ccal polysacch aride vaccine [...] ed hepatitis A vaccine, adult dosage DoD Encounters Combined list of: 1) Encounters from Department of Veterans Affairs facilities going back up to thelast 18 months. 2) Encounters from the Department of Defense facilities going back up to 280 months. Location Location Details Encounter Type Encounter Number Reason For Visit Attending Provider ADM Date DC Date Status Disposition Source [facility]( [facility] OUTPATIENT [id number] YR WENCESLAO GOOD 01/05 Released w/o Limitations [facility] OUTPATIENT [id number] ERIC SUTTON 01/05 Released w/o Limitations [facility] OUTPATIENT [id number] JACK ANDREW 01/12 Released w/o Limitations [facility] OUTPATIENT [id number] ABNORMA L LAB RESULTS FITZPATRIC JAXON Santos Shania 01/27 Released w/[facility] Limitations [facility] OUTPATIENT [id number] PHYLLIS KENT 02/02 Released w/o Limitations [facility] OUTPATIENT [id number] JACK Andrew 03/12 Released w/o Limitations [facility] [id number] 01/24 [facility] Limitations [facility] [id number] 03/23 Released w/o Limitations [facility] OUT[facility]IENT [id number] 04/19 Released w/o Limitations [facility] [place] OUTPATIENT [id number] part 2-retir ement pe MANOLO KANG 07/19 Released w/o Limitations [place] [place]) OUTPATIENT [id number] retirem ent CELIA MOLINA 07/19 Released w/o Limitations [place] [place] [facility] OUTPATIENT [id number] retirem ent ELLIE Alexander V 07/19 Released w/o Limitations [place] Procedures Combined list of: 1) Procedures from Department of Veterans Affairs facilities going back up to thelast 18 months, not all VA non-surgical procedures are included; 2) All procedures from the Department of Defense facilities. Procedure Procedure Type Code Date Perfomer Comments Sour e Visual Function Screening Visual Function Screening [id number] 2 ELLIE HAMMOND V [facility] ECG 12-Lead With Interpretation And Report ECG 12-Lead With Interpretation And Report [id number] 2 MANOLO KANG [facility] Threshold Audiogram (Pure Tone) Threshold Audiogram (Pure Tone) 23319 2 CELIA MOLINA [facility] Patient Counseling Medical Management Individual Patient Patient Counseling Medical Management Individual Patient [id number] 2 CELIA MOLINA [facility] Spectacles Services Fitting Monofocal Except For Aphakia Spectacles Services Fitting Monofocal Except For Aphakia 00293 6 JACK GENTILE Swetha Determination Of Refractive State Determination Of Refractive State 73169 6 JACK GENTILE Swetha Ophthalmological Prior Patient Start Comprehensive Care Ophthalmological Prior Patient Start Comprehensive Care 30912 6 JACK GENTILE Swetha Determination Of Refractive State Determination Of Refractive State 55505 5 JACK GENTILE Swetha Spectacles Services Fitting Monofocal Except For Aphakia Spectacles Services Fitting Monofocal Except For Aphakia 22270 5 JACK GENTILE Swetha Ophthalmological Prior Patient Start Comprehensive Care Ophthalmological Prior Patient Start Comprehensive Care 43405 5 JACK GENTILE Swetha Threshold Audiogram (Pure Tone) Threshold Audiogram (Pure Tone) 58782 5 ERIC SUTTON [facility] Audiogram (Screening) Audiogram (Screening) 18066 5 WENCESLAO GABRIEL [facility] ELECTROCARDIOGRAM, ROUTINE ECG WITH AT LEAST 12 LEADS; TRACING ONLY, WITHOUT INTERPRETATION AND REPORT 2 DoD VIS FUNCT SCREEN,AUTOMAT/SEMI-A UTOMAT BILAT QUANT DETERM VISUAL ACUITY,OCULAR ALIGN,COLOR VISION,PSEUDOISOCHROM AT PLATES,& FIELD VIS (MAY INC ALL/SOME SCRN DETERM FOR CONTRAST SENSITIV,VIS UND GLARE) 2 DoD PURE TONE AUDIOMETRY (THRESHOLD); AIR ONLY 2 DoD HEPATITIS B VACCINE (HEPB), ADULT DOSAGE, 3 DOSE SCHEDULE, FOR INTRAMUSCULAR USE 0 DoD UNLISTED VACCINE/TOXOID 0 DoD UNLISTED VACCINE/TOXOID 9 DoD FITTING OF SPECTACLES, EXCEPT FOR APHAKIA; MONOFOCAL 6 DoD FITTING OF SPECTACLES, EXCEPT FOR APHAKIA; MONOFOCAL 5 DoD OPHTHALMOLOGICAL SERVICES: MEDICAL EXAMINATION AND EVALUATION WITH INITIATION OF DIAGNOSTIC AND TREATMENT PROGRAM; INTERMEDIATE, NEW PATIENT 5 DoD PURE TONE AUDIOMETRY (THRESHOLD); AIR ONLY 5 DoD SCREENING TEST, PURE TONE, AIR ONLY 5 DoD Social History Combined list of available smoking, tobacco, and other social history from Department of Defense and Veterans Affairs facilities. Social History Type Response Date Comment [facility] e This section is an empty social history section. DoD
--- OUTSIDE RECORDS SUMMARY | 2024-06-02 11:21 | XMS_ITS | Encounter Summary ---
Author Name [facility] [place] [facility] [place] [facility] [place] Address [address] [place] [address] Care Team Providers Care Hvac Project Engineer Name Role Phone ROBBY NIELSON Primary Care [...] PRESCRIPT ION RX730 1 May 28, 2017 [id number] [phone] Charlene MASON DDIE PATIENT [facility] PRESCRIPT ION RX730 1 May 28, 2017 [id number] [phone] Charlene MASON DDIE PATIENT [facility] RX PRESCRIPT ION RX May 28, 2022 THPRX [id number] [phone] Charlene MASON DDIE PATIENT [facility] RX PRESCRIPT ION RX May 28, 2022 THPRX [id number] [phone] Charlene MASON DDIE PATIENT [facility] May 28, 2017 [facility] [id number] [phone] Charlene MASON DDIE PATIENT [facility] IVY Chang May 28, 2017 [id number] [phone] Charlene MASON PATIENT [facility] POINT OF SERVICE MALLORY CHERY Oct 27, 2011 [id number] [id number] Charlene MASON PATIENT [facility] (WNR) SUKUMAR CHERY(WN R) May 28, 2017 (WNR) [id number] [phone] Charlene MASON PATIENT Selected Encounter This section includes the information on record at [place] for the Encounter. Date/Time Encounter Type Encounter Description Reason Provider Source Aug 13, 2023 11:00 AM OFFICE O/P EST MOD 30 MIN PRIMARY CARE/MEDICINE ICD-10-CM G64 Other disorders of peripheral nervous system PHYLLIS WHALEY Charlene Encounter Template Text not used by [place] Assessments - Encounter Diagnoses This section includes [...] 16, 2023 10:45 AM AMBULATORY - [place]ICINE [place] [facility] Aug 20, 2023 10:00 AM AMBULATORY [place] MEDICINE [place] [facility] Jan 04, 2024 09:00 AM [facility] - [facility]IC[place] Jan 15, 2024 09:00 [facility] Lab Results: +/- 30 days of the encounter This section includes the Chemistry and Hematology Lab Results on record with [place] for the patient. Radiology Reports and Pathology Reports are provided separately, in subsequent sections. Lab Results This section contains the Chemistry/Hematology Results that were resulted 30 days before or 30 daysafter the date of the Encounter. Date/Time Source Result Type Result - Unit Interpretation Reference Range Comment Aug 20, 2023 10:40 AM [facility] VITAMIN D (25-OH) Specimen Type: SERUM No comment entered. Ordering Provider: PHYLLIS WHALEY Report Released Date/Time: Aug 13, 2023 09:06 AM Reporting Lab: [facility] [address] [facility] [id number] Performing Lab: [facility] [address] [facility] [address] VITAMIN D (25-OH) 29 ng/mL 20-50 Social [...] Facil ity Mar 26, 2020 11:30 [facility] [place] Tobacco Use History This section includes a history of the smoking, or tobacco-related health factors, that were collected on or before the date of the Encounter. The data comes from the [place] facility where the Encounter took place. Date/Time Smoking Status/Tobacco Use Comment F acility Feb 03, 2019 10:43 AM [place]-TOBACCO NEVER USED [place] Mar 12, 2018 09:26 AM [place]-TOBACCO NEVER USED [place] Jun 15, 2016 03:51 PM LIFETIME NON-TOBACCO USER [place] Jun 23, 2015 10:34 AM LIFETIME NON-TOBACCO USER [place] Apr 22, 2013 10:41 AM LIFETIME NON-TOBACCO USER [place] Mar 07, 2011 11:49 AM LIFETIME NON-TOBACCO USER [place] Jan 07, 2009 11:55 AM LIFETIME NON-TOBACCO USER [place] Advance Directives: All historical and current Section Date Range: From patient's date of to the date document was created. This section includes ALL of a patient's completed or amended [place] Advance and Rescinded Directives. The entries below indicate that a directive exists for the patient, but an actual copy is not included with this document. The data comes from all [place] facilities. Date Advance Directives Provider Source Jan 03, 2022 ADVANCE DIRECTIVE ISAIAHLUIS EDUARDO Jan 03, 2021 ADVANCE DIRECTIVE JERONIMOMARYVIKKHUSHBU Santos VICTORINA CHAVEZ Mar 19, 2012 ADVANCE DIRECTIVE [facility] [place] [facility] Encounter Notes: All associated encounter notes [...] BLACK OR MALE who presents at the [place] Clinic. TYPE OF VISIT: Face to face 63-year-old with depression, PTSD, GERD, alcohol abuse who [...] demyelinating sensorimotor peripheral neuropathy. He follows at [facility] for the peripheral neuropathy and underwent hammertoe [...] HEALTHCARE PROVIDERS: Private PCP: Dr. Jefferson [place] Audiology: [facility] Ortho: JONIS Urology: ZOE Social Hx: He is and lives with his . He endorses drinking 2 beers a day. No nicotine or MJ. Retired. No regular exercise but is active with home projects. 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
--- OUTSIDE RECORDS SUMMARY | 2024-06-02 11:21 | XMS_ITS | Encounter Summary ---
Author Name [facility] [facility] [place] [facility] [place] Address [address] [place] [address] Care Team Providers Care Qualitative Field Coordinator Name Role Phone ROBBY NIELSON Primary Care [...] PRESCRIPT ION RX730 1 May 28, 2017 [id number] Charlene MASON DDIE PATIENT [facility] PRESCRIPT ION RX730 1 May 28, 2017 [id number] [phone] Charlene MASON DDIE PATIENT [facility] PRESCRIPT ION RX May 28, 2022 THPRX [id number] [phone] Charlene MASON DDIE PATIENT [facility] RX PRESCRIPT ION RX May 28, 2022 THPRX [id number] [phone] Charlene MASON DDIE PATIENT [facility] May 28, 2017 [facility] [id number] [phone] Charlene MASON DDIE PATIENT [facility] IVY Chang May 28, 2017 [id number] Charlene MASON PATIENT [facility] POINT OF SERVICE MALLORY RE Oct 27, 2011 [id number] [id number] [phone] Charlene MASON PATIENT [facility] (WNR) SUKUMAR TEJADA RE(WN R) May 28, 2017 (WNR) [id number] [phone] Charlene MASON PATIENT Selected Encounter This section includes the information on record at [place] for the Encounter. Date/Time Encounter Type Encounter Description Reason Provider Source Jul 27, 2023 09:00 AM OFFICE O/P EST LOW 20 MIN PODIATRY ICD-10-CM L60.0 Ingrowing nail ROSAJOHN Soto [facility] Encounter Template Text not used by [place] [...] SECONDARY Peripheral vascular disease, unspecified ROSAJOHN Soto [place] Plan of Treatment: Future Appointments (+ 6 [...] 13, 2023 11:00 AM AMBULATORY - MEDICINE [place] [facility] Aug 16, 2023 10:45 AM AMBULATORY - MEDICINE [place] [facility] Aug 20, 2023 10:00 AM AMBULATORY - MEDICINE [place] [facility] Jan [...] Range Comment Aug 20, 2023 10:40 AM [facility] VITAMIN D (25-OH) Specimen Type: SERUM No comment entered. Ordering Provider: PHYLLIS WHALEY Report Released Date/Time: Aug 13, 2023 09:06 AM Reporting Lab: [facility] [address] [facility] [address] Performing Lab: [facility] [address] [facility] [phone] VITAMIN D (25-OH) 29 ng/mL 20-50 Social [...] 26, 2020 11:30 AM [place]-TOBACCO NEVER USED [place] Tobacco Use History This section includes a history of the smoking, or tobacco-related health factors, that were collected on or before the date of the Encounter. The data comes from the [place] facility where the Encounter took place. Date/Time Smoking Status/Tobacco Use Comment F acility Feb 03, 2019 10:43 AM [place]-TOBACCO NEVER USED [place] Mar 12, 2018 09:26 AM [place]-TOBACCO NEVER USED [place] Jun 15, 2016 03:51 PM LIFETIME NON-TOBACCO USER [place] Jun 23, 2015 10:34 AM LIFETIME NON-TOBACCO USER [place] Apr 22, 2013 10:41 AM LIFETIME NON-TOBACCO USER [place] Mar 07, 2011 11:49 AM LIFETIME NON-TOBACCO USER [place] Jan 07, 2009 11:55 AM LIFETIME NON-TOBACCO USER [place] Advance Directives: All historical and current Section [...] Provider Source Jan 03, 2022 ADVANCE DIRECTIVE LIUS EDUARDO COLON Jan 03, 2021 ADVANCE DIRECTIVE KHUSHBU KUMAR Mar 19, 2012 ADVANCE DIRECTIVE ERIKA MORALES [place] [facility] Encounter Notes: All associated encounter [...] COVID VACCINE DOSES + 3 BOOSTERS AT [facility] LAST SEEN FOR TREATMENT: 02/16/2023 S: Pt. [...] present physical-medical status. Protective sensation utilizing a [employer] [place] lOg monofilament is 0/10 bilateral. A: Clinical [...] this VA (local) and dispensed from another [place] or [...] list may not be complete. Please check Twones. Allergies/ADRs (Tool #5) FACILITY ALLERGY/ADR -------- [facility] NO KNOWN ALLERGIES [facility] No Known Allergies [facility] (Tool #1) INCLUDED IN THIS LIST: Alphabetical list of active outpatient prescriptions dispensed from this VA (local) and dispensed from another [place] or DoD facility (remote) as well as inpatient orders (local pending and active), local clinic medications, locally documented non-VA medications, and local prescriptions that have or been discontinued in the past 90 days. Non-VA Meds Last Documented On: Jan 03, 2022 NOTE The display of VA prescriptions dispensed from another [place] or [facility] facility (remote) is limited to active outpatient prescription entries matched to National Drug File at the originating site and may not include some items such as investigational drugs, compounds, etc. NOT INCLUDED IN THIS LIST: Medications self-entered by the patient into personal health records (i.e. [facility]) are NOT included in this list. Non-VA [...] MOUTH ONCE DAILY NEEDED FOR CONSTIPATION Rx# [id number] Last Released: 01/12/23 Qty/Days Supply: 180 Rx Expiration Date: 01/10/24 Refills Remainin Indication: FOR CONSTIPATION OUTPT CARBOXYMETHYLCELLULOSE NA 0.5% OPH SOLN (Status = Discontinued) INSTILL 1 DROP INTO EACH EYE FOUR TIMES DAILY NEEDED Rx# [id number] Last Released: 04/24/23 Qty/Days Supply: 45 Rx Expiration Date: 04/23/24 Refills Remainin Indication: FOR DRY EYE OUTPT CARBOXYMETHYLCELLULOSE NA 0.5% OPH SOLN (Status = Active) INSTILL 1 DROP INTO EACH EYE FOUR TIMES DAILY NEEDED Rx# [id number] Last Released: 07/26/23 Qty/Days Supply: 45 Rx [...] USE DOSING CARD PROVIDED IN BOX Rx# [id number] Last Released: 06/23/23 Qty/Days Supply: 100/8 Rx Expiration Date: 06/19/24 Refills Remainin Non-VA OMEPRAZOLE 20MG EC CAP TAKE 1 CAPSULE BY MOUTH EVERY MORNING 30 MINUTES BEFORE BREAKFAST Non-VA OTHER CAP/TAB TAKE LIVER ANTIOXIDANT EXTRACT AND AFTER MEALS LIVER BRAIN BENEFITS BY MOUTH OUTPT SODIUM FLUORIDE 1.1% TOOTHPASTE (Status = Active) BRUSH SMALL AMOUNT TO TEETH TWICE DAILY FOR TOOTH DECAY PREVENTION Rx# [id number] Last Released: 12/29/22 Qty/Days Supply: 51/60 Rx Expiration Date: 12/28/23 Refills Remainin Indication: FOR TOOTH DECAY PREVENTION SUPPLIES Suicide Screen: C-SSRS Screening [place]-Suicide Severity Rating Scale (C-SSRS Screener) 1. Over [...] to other questions. /caitlyn/ JOHN LEE DPM NOZZLE OPERATOR Signed: 07/27/2023 09:16 JOHN LEE
--- OUTSIDE RECORDS SUMMARY | 2024-06-02 11:21 | XMS_ITS ---
Author Name [facility] [place] [facility] [place] Address [address] [place] [address] Care Team Providers Care Cloth Printing Inspector Name Role Phone ROBBY NIELSON Primary [...] PRESCRIPT ION [id number] 1 May 28, 2017 [id number] Charlene MASON DDIE PATIENT [facility] PRESCRIPT ION [id number] 1 May 28, 2017 [id number] [phone] Charlene MASON DDIE PATIENT OPTUM RX PRESCRIPT ION RX May 28, 2022 THPRX [id number] Charlene MASON DDIE PATIENT OPTUM RX PRESCRIPT ION RX May 28, 2022 THPRX [id number] [phone] Charlene MASON DDIE PATIENT [facility] PL[facility] USP May 28, 2017 [facility] [id number] [phone] Charlene MASON DDIE PATIENT [facility] PL[facility] IVY Chang May 28, 2017 [facility] [id number] [phone] Charlene MASON DDFRED PATIENT [facility] POINT OF SERVICE MALLORY CHERY Oct 27, 2011 [id number] Charlene MASON DDFRED PATIENT [facility] (WNR) SUKUMAR CHERY(WN R) May 28, 2017 (WNR) [id number] Charlene MASON PATIENT Selected Encounter This section includes the information on record at [place] for the Encounter. Date/Time Encounter Type Encounter Description Reason Pro vider Source Aug 06, 2023 02:52 PM Outpatient Encounter ADMIN PAT ACTIVTIES (MASNONCT) IHE Encounter Template Text not used by [place] Plan of Treatment: Future Appointments (+ 6 months) and Future Tests (+/- 45 days) The Plan of Treatment section includes future care activities for the patient from all [place] treatmentfacilities. This section includes future appointments and future orders which are active, pending or scheduled. Future Appointments This section includes appointments that were scheduled to occur 6 months from the date of the Encounter, up to a maximum of 20 appointments. The data comes from all [place] treatment facilities. Appointment Date/Time Appointment Type Appointme nt Facility Name Aug 13, 2023 11:00 AM [facility]UL[facility]ORY [place] [facility]INE [place] [facility] Aug 16, 2023 10:45 AM [facility] [place] [facility] Aug 20, 2023 10:00 AM [facility] [place] [facility] Jan 04, 2024 09:00 AM AMBULATORY - MEDICINE [facility] Jan 15, 2024 09:00 AM AMBULATORY - MEDICINE [facility] Lab Results: +/- 30 days of the encounter This section includes the Chemistry and Hematology Lab Results on record with [place] for the patient. Radiology Reports and Pathology Reports are provided separately, in subsequent sections. Lab Results This section contains the Chemistry/Hematology Results that were resulted 30 days before or 30 daysafter the date of the Encounter. Date/Time Source Result Type Result - Unit Interpretation Reference Range Comment Aug 20, 2023 10:40 [facility] VITAMIN D (25-OH) Specimen Type: SERUM No comment entered. Ordering Provider: PHYLLIS WHALEY Report Released Date/Time: Aug 13, 2023 09:06 AM Reporting Lab: [facility] [address] [facility] [id number] Performing Lab: [facility] [address] [facility] [id number] VITAMIN D (25-OH) 29 ng/mL 20-50 Social History: Smoking Status (Most current) and Tobacco Use (All prior to encounter date) This section includes the most current, and the historical, smoking and tobacco- related health factors from the [place] facility where the Encounter took place. Current Smoking Status This section includes the most current smoking, or tobacco-related health factor, from the [place] facility where the Encounter took place. Date/Time Current Smoking Status Comment Facil ity Jan 08, 2023 09:03 AM [place]-TOBACCO NEVER USED [facility] Tobacco Use History This section includes a history of the smoking, or tobacco-related health factors, that were collected on or before the date of the Encounter. The data comes from the [place] facility where the Encounter took place. Date/Time Smoking Status/Tobac co Use Comment Facility Aug 01, 2021 09:08 AM [place]-TOBACCO FORMER USER [facility] Aug 01, 2021 09:08 AM [place]-TOBACCO QUIT 1 TO < 5 YRS [facility] Dec 08, 2011 01:04 PM CURRENT SMOKER chew pack and half a week [facility] Dec 08, 2011 01:04 PM V1-PT DECLINES REF TO TOBACCO CESS PRGM [facility] Dec 08, 2011 01:04 PM V1-PT DECLINES TOBACCO CESSATION MEDS [facility] Dec 08, 2011 01:04 PM V1-PT THINKING ABOUT QUIT TOBACCO USE [facility] Advance Directives: All historical and current Section Date Range: From patient's date of to the date document was created. This section includes ALL of a patient's completed or amended [place] Advance and Rescinded Directives. The entries below indicate that a directive exists for the patient, but an actual copy is not included with this document. The data comes from all [place] facilities. Date Advance Directives Provider Source Jan 03, 2022 ADVANCE DIRECTIVE LUIS EDUARDO COLON Jan 03, 2021 ADVANCE DIRECTIVE KHUSHBU KUMAR [facility] Mar 19, 2012 ADVANCE DIRECTIVE ERIKA MORALES [place] CNT RL S[facility]ON JERONIMO [facility] Encounter Notes: All associated [...] By: 08/07/2023 09:02 /caitlyn/ GABY FONTENOT ADVANCE PRODUCTION LINE WELDER --- Original Document --- 08/06/23 [facility]: SCHEDULING ADMINISTRATION: Patient Demographics Patient Name: KYLE MASON Patient Primary Phone: [phone] Patient Primary Address: [address] [place] [address] Patient : 1960 Patient Age: 63 Caller/Recipient Relation to Patient: Self Administrative Administrative Note Reason: Other Administrative Note Comments: Patient was TRIAGED by CCC RN TODAY with recommendations for patient to be seen by PCP within 2 weeks for a F2F Possible Hernia Cafeteria Associate unable to schedule appt due to no provider availability within the triage recommended timeframe. Please reach out to and arrange for care. Sent to RN/LEYDA Cafeteria Associate informed patient- I am sending an alert to your PACT with the triage appointment recommendations asking them to contact you to schedule your appointment, if you do not hear back from them within the appt timeframe, or if your symptoms worsen, please adhere to the instructions provided to you by the triage nurse. /caitlyn/ VALERIA HENRY 1 [facility] AMSA Signed: 08/06/2023 14:52 Receipt Acknowledged By: 08/06/2023 15:34 /caitlyn/ HEATHER OLIVAS LPN LICENSED PRACTICAL NURSE 08/06/2023 15:57 /caitlyn/ STAN ALFRED RN REGISTERED NURSE for AJ CARNES 08/07/2023 ADDENDUM STATUS: COMPLETED THIS INFORMATION TECHNOLOGY INTERN SPOKE w/ AND IS BOOKED FOR 08/13/23 /caitlyn/ GABY FONTENOT [place] PRODUCTION LINE WELDER Signed: 08/07/2023 09:02 HEATHER OLIVAS [place] [facility] [place] [facility] Aug 06, 2023 02:52 PM ADMINISTRATIVE NOTE: LOCAL TITLE: CCC: SCHEDULING ADMINISTRATION STANDARD TITLE: ADMINISTRATIVE NOTE DATE OF NOTE: AUG 06, 2023@14:52:51 ENTRY DATE: AUG 06, 2023@14:52:51 AUTHOR: VALERIA CARMEN COSIGNER: URGENCY: STATUS: COMPLETED CCC: SCHEDULING ADMINISTRATION Has ADDENDA Patient Demographics Patient Name: KYLE MASON Patient Primary Phone: [phone] Patient Primary Address: [address] [place] [address] Patient : 1960 Patient Age: 63 Caller/Recipient Relation to Patient: Self Administrative Administrative Note Reason: Other Administrative Note Comments: Patient was TRIAGED by CCC RN TODAY with recommendations for patient to be seen by PCP within 2 weeks for a F2F Possible Hernia Cafeteria Associate unable to schedule appt due to no provider availability within the triage recommended timeframe. Please reach out to and arrange for care. Sent to RN/RADIAGRAPH OPERATOR Cafeteria Associate informed patient- I am sending an alert to your PACT with the triage appointment recommendations asking them to contact you to schedule your appointment, if you do not hear back from them within the appt timeframe, or if your symptoms worsen, please adhere to the instructions provided to you by the triage nurse. /caitlyn/ VALERIA HENRY 1 [facility] AMSA Signed: 08/06/2023 14:52 Receipt Acknowledged By: 08/06/2023 15:34 /caitlyn/ HEATHER OLIVAS LPN LICENSED PRACTICAL NURSE 08/06/2023 15:57 /caitlyn/ STAN ALFRED RN REGISTERED NURSE for AJ CARNES 08/06/2023 ADDENDUM STATUS: COMPLETED Will include PACT MSA to schedule. /es/ HEATHER OLVIAS LPN LICENSED PRACTICAL NURSE Signed: 08/06/2023 15:34 Receipt Acknowledged By: 08/07/2023 09:02 /caitlyn/ GABY FONTENOT ADVANCE PRODUCTION LINE WELDER 08/07/2023 ADDENDUM STATUS: COMPLETED THIS INFORMATION TECHNOLOGY INTERN SPOKE w/ AND IS BOOKED FOR 08/13/23 /caitlyn/ GABY FONTENOT ADVANCE PRODUCTION LINE WELDER Signed: 08/07/2023 09:02 VALERIA CARMEN [place] [facility]
--- OUTSIDE RECORDS SUMMARY | 2024-06-02 11:21 | XMS_ITS | Encounter Summary ---
Author Name [facility] [place] Address [address] [place] [address] Care Team Providers Care Flame Hardening Machine Operator Name Role Phone ROBBY NIELSON Primary [...] PRESCRIPT ION [id number] 1 May 28, 2017 [id number] Charlene MASON DDIE PATIENT [facility] PRESCRIPT ION [id number] 1 May 28, 2017 [id number] [phone] Charlene MASON DDIE PATIENT OPTUM RX PRESCRIPT ION RX May 28, 2022 THPRX [id number] [phone] Charlene MASON DDIE PATIENT OPTUM RX PRESCRIPT ION RX May 28, 2022 THPRX [id number] Charlene MASON DDIE PATIENT [facility] PLAN USP May 28, 2017 [facility] [id number] Charlene MASON DDIE PATIENT [facility] PL[facility] IVY Chang May 28, 2017 [facility] [id number] [phone] Charlene MASON DDFRED PATIENT [facility] POINT OF SERVICE MALLORY CHERY Oct 27, 2011 [id number] Charlene MASON DDFRED PATIENT [facility] (WNR) SUKUMAR CHERY(WN R) May 28, 2017 (WNR) [id number] Charlene MASON PATIENT Selected Encounter This section includes the information on record at [place] for the Encounter. Date/Time Encounter Type Encounter Description Reason Pro vider Source Jul 20, 2023 01:13 PM Outpatient Encounter PRIMARY CARE/MEDICINE IHE Encounter Template Text not used by [place] Plan of Treatment: Future Appointments (+ 6 months) and Future Tests (+/- 45 days) The Plan of Treatment section includes future care activities for the patient from all [place] [facility]. This section includes future appointments and future orders which are active, pending or scheduled. Future Appointments This section includes appointments that were scheduled to occur 6 months from the date of the Encounter, up to a maximum of 20 appointments. The data comes from all [place] treatment facilities. Appointment Date/Time Appointment Type Appointme nt Facility Name Jul 27, 2023 09:00 AM AMBULATORY - MEDICINE [facility] Aug 13, 2023 11:00 AM [facility] Aug 16, 2023 10:45 AM [facility] Aug 20, 2023 10:00 AM [facility] Jan 04, 2024 09:00 AM AMBULATORY - MEDICINE [facility] Jan 15, 2024 09:00 AM AMBULATORY - MEDICINE [facility] Social History: Smoking Status (Most current) and Tobacco Use (All prior to encounter date) This section includes the most current, and the historical, smoking and tobacco- related health factors from the [place] facility where the Encounter took place. Current Smoking Status This section includes the most current smoking, or tobacco-related health factor, from the [place] facility where the Encounter took place. Date/Time Current Smoking Status Valente garza Jan 08, 2023 09:03 AM [place]-TOBACCO NEVER USED [facility] Tobacco Use History This section includes a history of the smoking, or tobacco-related health factors, that were collected on or before the date of the Encounter. The data comes from the [place] facility where the Encounter took place. Date/Time Smoking Status/Tobac co Use Comment Facility Aug 01, 2021 09:08 AM [place]-TOBACCO FORMER USER [facility] Aug 01, 2021 09:08 AM [place]-TOBACCO QUIT 1 TO < 5 YRS [facility] Dec 08, 2011 01:04 PM CURRENT SMOKER chew pack and half a week [facility] Dec 08, 2011 01:04 PM V1-PT DECLINES REF TO TOBACCO CESS PRGM [facility] Dec 08, 2011 01:04 PM V1-PT DECLINES TOBACCO CESSATION MEDS [facility] Dec 08, 2011 01:04 PM V1-PT THINKING ABOUT QUIT TOBACCO USE [facility] Advance Directives: All historical and current Section Date Range: From patient's date of to the date document was created. This section includes ALL of a patient's completed or amended [place] Advance and Rescinded Directives. The entries below indicate that a directive exists for the patient, but an actual copy is not included with this document. The data comes from all [place] facilities. Date Advance Directives Provider Source Jan 03, 2022 ADVANCE DIRECTIVE LUIS EDUARDO COLON Jan 03, 2021 ADVANCE DIRECTIVE KHUSHBU KUMAR Mar 19, 2012 ADVANCE DIRECTIVE ERIKA MORALES [facility] Encounter Notes: All associated encounter notes [...] (T): <====Click to Start Advanced Medical Support [place] presents to the Primary Care clinic with the following request: [ ]Medication Renewal/Refill [ ]Consultation with Team RN [ ]Symptoms [ X ]Other The [place] states they are: [ ]Waiting [ X ]Not Waiting No Walk in visit scheduled with PACT Nurse [ X ] At this encounter the 's demographics were verified. [ X ] At this encounter the [place]'s Insurance information was verified. [ ] At this encounter the below scheduled visits for the were discussed and appointment reminder card was offered. Future appointments: 07/27/2023 09:00 CWM/SO/PODIATRY/ROSA 03/06/2024 11:30 CWM/NO/OPTOMETRY/RE walked into clinic requesting referral for a full body scan,would like call back to discuss. /caitlyn/ RAMYA SPARKS ADVANCED HYDRAULIC BILLET MAKER Signed: 07/20/2023 13:16 Receipt Acknowledged By: 07/24/2023 10:32 /caitlyn/ HEATHER OLIVAS LPN LICENSED PRACTICAL NURSE 07/24/2023 12:18 /caitlyn/ AJ CARNES RN REGISTERED NURSE 07/20/2023 ADDENDUM STATUS: COMPLETED Called and spoke to [place]. He states his belly seems to be getting bigger, his weight has been fluctuating and skin tone has been changing. states his has asked for the scan. Informed he would need to see PCP before any scans can be orderedand at the moment she is booking into October. [place] understands information and will await call back [...] (T): <====Click to Start Advanced Medical Support [place] presents to the Primary Care clinic with the following request: [ ]Medication Renewal/Refill [ ]Consultation with Team RN [ ]Symptoms [ X ]Other The [place] states they are: [ ]Waiting [ X ]Not Waiting No Walk in visit scheduled with PACT Nurse [ X ] At this encounter the 's demographics were verified. [ X ] At this encounter the [place]'s Insurance information was verified. [ ] At this encounter the below scheduled visits for the were discussed and appointment reminder card was offered. Future appointments: 07/27/2023 09:00 CWM/SO/PODIATRY/ROSA 03/06/2024 11:30 CWM/NO/OPTOMETRY/RE [place] walked into clinic requesting referral for a full body scan,would like call back to discuss. /es/ RAMYA SPARKS ADVANCED HYDRAULIC BILLET MAKER Signed: 07/20/2023 13:16 Receipt Acknowledged By: 07/24/2023 10:32 /caitlyn/ HEATHER OLIVAS LPN LICENSED PRACTICAL NURSE 07/24/2023 12:18 /caitlyn/ AJ CARNES RN REGISTERED NURSE 07/20/2023 ADDENDUM STATUS: COMPLETED Called and spoke to [place]. He states his belly seems to be getting bigger, his weight has been fluctuating and skin tone has been changing. [place] states his has asked for the scan. Informed [place] he would need to see PCP before any scans can be orderedand at the moment she is booking into October. [place] understands information and will await call back [...] ADDENDA <====Click to Start Advanced Medical Support [place] presents to the Primary Care clinic with the following request: [ ]Medication Renewal/Refill [ ]Consultation with Team RN [ ]Symptoms [ X ]Other The states they are: [ ]Waiting [ X ]Not Waiting No Walk in visit scheduled with PACT Nurse [ X ] At this encounter the [place]'s demographics were verified. [ X ] At this encounter the 's Insurance information was verified. [ ] At this encounter the below scheduled visits for the [place] were discussed and appointment reminder card was offered. Future appointments: 07/27/2023 09:00 CWM/SO/PODIATRY/ROSA 03/06/2024 11:30 CWM/NO/OPTOMETRY/[place] walked into clinic requesting referral for a full body scan,would like call back to discuss. /caitlyn/ RAMYA SPARKS ADVANCED HYDRAULIC BILLET MAKER Signed: 07/20/2023 13:16 Receipt Acknowledged By: 07/24/2023 10:32 /caitlny/ HEATHER OLIVAS LPN LICENSED PRACTICAL NURSE 07/24/2023 12:18 /caitlyn/ AJ CARNES RN REGISTERED NURSE 07/20/2023 ADDENDUM STATUS: COMPLETED Called and spoke to [place]. He states his belly seems to be getting bigger, his weight has been fluctuating and skin tone has been changing. [place] states his has asked for the scan. Informed [place] he would need to see PCP before [...]
--- OUTSIDE RECORDS SUMMARY | 2024-06-02 11:21 | XMS_ITS ---
Author Name [facility] [place] [facility] [place] Address [address] [place] [address] Care Team Providers Care Vault Worker Name Role Phone ROBBY NIELSON Primary Care [...] PRESCRIPT ION RX730 1 May 28, 2017 [id number] Charlene MASON DDIE PATIENT [facility] PRESCRIPT ION [id number] 1 May 28, 2017 [id number] [phone] Charlene MASON DDIE PATIENT [facility] RX PRESCRIPT ION RX May 28, 2022 THPRX [id number] [phone] Charlene MASON DDIE PATIENT OPT[facility] RX PRESCRIPT ION RX May 28, 2022 THPRX [id number] [phone] Charlene MASON DDIE PATIENT [facility] PLAN USP May 28, 2017 [facility] [id number] Charlene MASON DDIE PATIENT [facility] PLAN [facility] IVY Chang May 28, 2017 [facility] [id number] Charlene MASON DDFRED PATIENT [facility] POINT OF SERVICE MALLORY CHERY Oct 27, 2011 [id number] Charlene MASON DDFRED PATIENT [facility] ([facility] SUKUMAR CHERY(WN R) May 28, 2017 (WNR) [id number] [id number] Charlene MASON PATIENT Selected Encounter This section includes the information on record at [place] for the Encounter. Date/Time Encounter Type Encounter Description Reason Provider Source Aug 06, 2023 02:44 PM Outpatient Encounter TELEPHONE TRIAGE RAKEL COLEY IHCharlene Encounter Template Text not used by [place] Plan of Treatment: Future Appointments (+ 6 months) and Future Tests (+/- 45 days) The Plan of Treatment section includes future care activities for the patient from all [place] treatmentfacilities. This section includes future appointments and future orders which are active, pending or scheduled. Future Appointments This section includes appointments that were scheduled to occur 6 months from the date of the Encounter, up to a maximum of 20 appointments. The data comes from all [place] treatment facilities. Appointment Date/Time Appointment Type Appointme nt Facility Name Aug 13, 2023 11:00 AM [place] [facility] Aug 16, 2023 10:45 AM [place]UL[place]ICINE [place] [facility] [place] [facility] Aug 20, 2023 10:00 AM AMBULATORY MEDICINE [place] [facility] [place] [facility] Jan 04, 2024 09:00 AM AMBULATORY - MEDICINE [facility] Jan 15, 2024 09:00 AM [facility] - MEDICINE [facility] Lab Results: +/- 30 days of the encounter This section includes the Chemistry and Hematology Lab Results on record with [place] for the patient. Radiology Reports and Pathology Reports are provided separately, in subsequent sections. Lab Results This section contains the Chemistry/Hematology Results that were resulted 30 days before or 30 daysafter the date of the Encounter. Date/Time Source Result Type Result - Unit Interpretation Reference Range Comment Aug 20, 2023 10:40 AM [facility] VITAMIN D (25-OH) Specimen Type: SERUM No comment entered. Ordering Provider: PHYLLIS WHALEY Report Released Date/Time: Aug 13, 2023 09:06 AM Reporting Lab: [facility] [address] [facility] [id number] Performing Lab: [facility] [address] [facility] [id number] VITAMIN D (25-OH) 29 ng/mL 20-50 Social History: Smoking Status (Most current) and Tobacco Use (All prior to encounter date) This section includes the most current, and the historical, smoking and tobacco- related health factors from the [place] facility where the Encounter took place. Current Smoking Status This section includes the most current smoking, or tobacco-related health factor, from the [place] facility where the Encounter took place. Date/Time Current Smoking Status Comment Facil it Jan 08, 2023 09:03 AM [place]-TOBACCO NEVER USED [facility] Tobacco Use History This section includes a history of the smoking, or tobacco-related health factors, that were collected on or before the date of the Encounter. The data comes from the [place] facility where the Encounter took place. Date/Time Smoking Status/Tobac co Use Comment Facility Aug 01, 2021 09:08 AM [place]-TOBACCO FORMER USER [facility] Aug 01, 2021 09:08 AM [place]-TOBACCO QUIT 1 TO < 5 YRS [facility] Dec 08, 2011 01:04 PM CURRENT SMOKER chew pack and half a week [facility] Dec 08, 2011 01:04 PM V1-PT DECLINES REF TO TOBACCO CESS PRGM [facility] Dec 08, 2011 01:04 PM V1-PT DECLINES TOBACCO CESSATION MEDS [facility] Dec 08, 2011 01:04 PM V1-PT THINKING ABOUT QUIT TOBACCO USE [facility] Advance Directives: All historical and current Section Date Range: From patient's date of to the date document was created. This section includes ALL of a patient's completed or amended [place] Advance and Rescinded Directives. The entries below indicate that a directive exists for the patient, but an actual copy is not included with this document. The data comes from all [place] facilities. Date Advance Directives Provider Source Jan 03, 2022 ADVANCE DIRECTIVE LUIS EDUARDO COLON Jan 03, 2021 ADVANCE DIRECTIVE KHUSHBU KUMAR [facility] Mar 19, 2012 ADVANCE DIRECTIVE ERIKA MORALES [place] CNT RL [facility] [place] [facility] Encounter Notes: All associated encounter [...] By: 08/07/2023 09:05 /caitlyn/ GABY FONTENOT ADVANCE CONSTRUCTION PROJECT MGR === --- Original Document --- 08/06/23 CCC: CLINICAL TRIAGE: Patient Demographics Patient Name: KYLE MASON Patient Primary Address: [address] [place] [address] Patient Primary Phone: [phone] Patient : 1960 Patient Age: 63 Call Back Number: Caller/Recipient Relation to Patient: Self Emergency Contact: TIFFANY MASON Triage Summary Conducted triage/discussed symptoms Utilized the Triage Tool: Yes Chief Complaint: Abdominal Bulge or Knot System WHEN: Within 2 Weeks Nurse's Recommendation / WHEN: Within 2 Weeks System WHERE: Clinic Nurse's Recommendation / WHERE: Clinic/[facility] Patient Disposition Patient/Caregiver agrees to plan of care: Yes Nursing Plan and Disposition Referred Patient for In-Person Appt Other course(s) of action Transferred patient to facility MSA No appt avail Advised Urgent Care Generated msg to PACT/Provider Provided guidance for worsening symptoms: *Caller/Patient* advised to call facilities [place] Clinical Contact Center or seek immediate medical attention for new or worsening symptoms Nurse Summary Nurse Summary: calls stating,'' I have a bulge in my abdomen. The right side is bigger than the left. I would like it checked out.'' Clinical Contact Center Codes Clinic/Location: V1 CWM PHONE CCC RN TXCC Triage Complete Triage Note: Phone Triage 06 Aug 2023 18:37:35 +0000 [facility] 63 y/[facility] Male Results CC: Abdominal [...] IS BOOKED 08/13/23 /caitlyn/ GABY FONTENOT ADVANCE CONSTRUCTION PROJECT MGR Signed: 08/07/2023 09:04 [facility]ED [facility]L [facility] Aug 06, 2023 02:44 PM RN PROGRESS NOTE: LOCAL TITLE: CCC: CLINICAL TRIAGE STANDARD TITLE: RN PROGRESS NOTE DATE OF NOTE: AUG 06, 2023@14:44:26 ENTRY DATE: AUG 06, 2023@14:44:26 AUTHOR: VIVIANE COLEY COSIGNER: URGENCY: STATUS: COMPLETED CCC: CLINICAL TRIAGE Has ADDENDA Patient Demographics Patient Name: KYLE MASON Patient Primary Address: [address] [place] [address] Patient Primary Phone: [phone] Patient : 1960 Patient Age: 63 Call Back Number: Caller/Recipient Relation to Patient: Self Emergency Contact: TIFFANY ISABELLA Triage Summary Conducted triage/discussed symptoms Utilized the Triage Tool: Yes Chief Complaint: Abdominal Bulge or Knot System WHEN: Within 2 Weeks Nurse's Recommendation / WHEN: Within 2 Weeks System WHERE: Clinic Nurse's Recommendation / WHERE: Clinic/[facility] Patient Disposition Patient/Caregiver agrees to plan of [...] Triage Sun, 06 Aug 2023 18:37:35 +0000 [facility] Dem[facility] 63 y/o Male Results CC: Abdominal [...] By: 08/07/2023 09:05 /caitlyn/ GABY FONTENOT ADVANCE CONSTRUCTION PROJECT MGR 08/07/2023 ADDENDUM STATUS: COMPLETED IS BOOKED 08/13/23 /sharona FONTENOT ADVANCE CONSTRUCTION PROJECT MGR Signed: 08/07/2023 09:04 VIVIANE COLEY [place] [facility]
--- OUTSIDE RECORDS SUMMARY | 2024-06-02 11:21 | XMS_ITS | Encounter Summary ---
Author Name [facility] [place] [facility] [place] Address [address] [place] [address] Care Team Providers Care Machine Tool Technology Instructor Name Role Phone ROBBY NIELSON Primary [...] PRESCRIPT ION RX730 1 May 28, 2017 [id number] Charlene MASON DDIE PATIENT [facility] PRESCRIPT ION [id number] 1 May 28, 2017 [id number] [phone] Charlene MASON DDIE PATIENT [facility] RX PRESCRIPT ION RX May 28, 2022 THPRX [id number] [phone] Charlene MASON DDIE PATIENT OPT[facility] RX PRESCRIPT ION RX May 28, 2022 THPRX [id number] [phone] Charlene MASON DDIE PATIENT [facility] PLAN USP May 28, 2017 [facility] [id number] Charlene MASON DDIE PATIENT [facility] HE[facility] PLAN [facility] IVY Chang May 28, 2017 [facility] [id number] Charlene MASON DDFRED PATIENT [facility] POINT OF SERVICE MALLORY CHERY Oct 27, 2011 [id number] Charlene MASON DDFRED PATIENT [facility] (WNR) SUKUMAR CHERY(WN R) May 28, 2017 (WNR) [id number] Charlene MASON DDFRED PATIENT Selected Encounter This section includes the information on record at [place] for the Encounter. Date/Time Encounter Type Encounter Description Reason Pro vider Source Jul 23, 2023 04:00 PM Outpatient Encounter PRIMARY CARE/MEDICINE IHE Encounter Template Text not used by [place] Plan of Treatment: Future Appointments (+ 6 months) and Future Tests (+/- 45 days) The Plan of Treatment section includes future care activities for the patient from all [place] treatmentfacilities. This section includes future appointments and future orders which are active, pending or scheduled. Future Appointments This section includes appointments that were scheduled to occur 6 months from the date of the Encounter, up to a maximum of 20 appointments. The data comes from all [place] treatment facilities. Appointment Date/Time Appointment Type Appointme nt Facility Name Jul 27, 2023 09:00 AM AMBULATORY - MEDICINE [facility] Aug 13, 2023 11:00 AM AMBULATORY - [place]IC[place] [facility] [place] [facility] Aug 16, 2023 10:45 AM AMBULATORY MEDICINE [place] [facility] [place] [facility] Aug 20, 2023 10:00 AM AMBULATORY MEDICINE [place] [facility] Jan 04, 2024 09:00 AM AMBULATORY - MEDICINE [facility] Jan 15, 2024 09:00 AM AMBULATORY - MEDICINE [facility] Lab Results: +/- 30 days of the encounter This section includes the Chemistry and Hematology Lab Results on record with [place] for the patient. Radiology Reports and Pathology Reports are provided separately, in subsequent sections. Lab Results This section contains the Chemistry/Hematology Results that were resulted 30 days before or 30 daysafter the date of the Encounter. Date/Time Source Result Type Result - Unit Interpretation Reference Range Comment Aug 20, 2023 10:40 AM [place] CNTR WSN [facility] VITAMIN D (25-OH) Specimen Type: SERUM No comment entered. Ordering Provider: PHYLLIS WHALEY Report Released Date/Time: Aug 13, 2023 09:06 AM Reporting Lab: [facility] [address] [facility] [address] Performing Lab: [facility] [address] [facility] [address] VITAMIN D (25-OH) 29 ng/mL 20-50 Social History: Smoking Status (Most current) and Tobacco Use (All prior to encounter date) This section includes the most current, and the historical, smoking and tobacco- related health factors from the [place] facility where the Encounter took place. Current Smoking Status This section includes the most current smoking, or tobacco-related health factor, from the [place] facility where the Encounter took place. Date/Time Current Smoking Status Comment Facil it Jan 08, 2023 09:03 AM [place]-TOBACCO NEVER USED [facility] Tobacco Use History This section includes a history of the smoking, or tobacco-related health factors, that were collected on or before the date of the Encounter. The data comes from the [place] facility where the Encounter took place. Date/Time Smoking Status/Tobac co Use Comment Facility Aug 01, 2021 09:08 AM [place]-TOBACCO FORMER USER [facility] Aug 01, 2021 09:08 AM VA-TOBACCO QUIT 1 TO < 5 YRS [facility] Dec 08, 2011 01:04 PM CURRENT SMOKER chew pack and half a week [facility] Dec 08, 2011 01:04 PM V1-PT DECLINES REF TO TOBACCO CESS PRGM [facility] Dec 08, 2011 01:04 PM V1-PT DECLINES TOBACCO CESSATION MEDS [facility] Dec 08, 2011 01:04 PM V1-PT THINKING ABOUT QUIT TOBACCO USE [facility] Advance Directives: All historical and current Section Date Range: From patient's date of to the date document was created. This section includes ALL of a patient's completed or amended [place] Advance and Rescinded Directives. The entries below indicate that a directive exists for the patient, but an actual copy is not included with this document. The data comes from all [place] facilities. Date Advance Directives Provider Source Jan 03, 2022 ADVANCE DIRECTIVE LUIS EDUARDO COLON Jan 03, 2021 ADVANCE DIRECTIVE KHUSHBU KUMAR [facility] Mar 19, 2012 ADVANCE DIRECTIVE ERIKA MORALES [place] CNT RL [facility] JERON[facility] Encounter Notes: All associated encounter notes This section contains the clinical notes associated to the Encounter. Date/Time Encounter Note(s) Provider Source Jul 23, 2023 04:01 PM LETTERS: LOCAL TITLE: PATIENT LETTER (B) STANDARD TITLE: LETTERS DATE OF NOTE: JUL 23, 2023@16:01 ENTRY DATE: JUL 23, 2023@16:01:56 AUTHOR: GABY FONTENOT EXP COSIGNER: URGENCY: STATUS: [place] [address] [phone] * KYLE COLEMAN [address] [address] Date: JUL 23, 2023 Dear : Thank you for choosing [facility] as your primary choice for health care. [...] forward to hearing from you soon. Sincerely; [facility] [address] [place] [phone] Upcoming Appointments: 07/27/2023 09:00 CWM/SO/PODIATRY/ROSA 01/17/2024 13:30 CWM/SO/PACT 4 03/06/2024 11:30 CWM/NO/OPTOMETRY/GABY CASTILLO Jul 23, 2023 04:00 PM PRIMARY CARE TELEP RANDOLPH ENCOUNTER NOTE: LOCAL TITLE: TELEPHONE NOTE/PRIMARY CARE STANDARD TITLE: PRIMARY CARE TELEPHONE ENCOUNTER NOTE DATE OF NOTE: JUL 23, 2023@16:00 ENTRY DATE: JUL 23, 2023@16:01:01 AUTHOR: GABY FONTENOT EXP COSIGNER: URGENCY: STATUS: COMPLETED Registered Appraiser called to [X} schedule primary care appt [...] Mailed Letter = /es/ GABY FONTENOT ADVANCE OPERATIONS RECRUITER Signed: 07/23/2023 16:01 GABY FONTENOT
--- OUTSIDE RECORDS SUMMARY | 2024-06-02 11:22 | XMS_ITS ---
Author Name [facility] [place] Address [address] [place] [address] Care Team Providers Care Curriculum Writer Name Role Phone ROBBY NIELSON Primary Care [...] PRESCRIPT ION RX730 1 May 28, 2017 [id number] Charlene MASON DDIE PATIENT [facility] PRESCRIPT ION RX730 1 May 28, 2017 [id number] [phone] Charlene MASON DDIE PATIENT [facility] PRESCRIPT ION RX May 28, 2022 THPRX [id number] Charlene MASON DDIE PATIENT [facility] RX PRESCRIPT ION RX May 28, 2022 THPRX [id number] [phone] Charlene MASON DDIE PATIENT [facility] USP May 28, 2017 [facility] [id number] Charlene MASON DDIE PATIENT [facility] IVY Chang May 28, 2017 [facility] [id number] Charlene MASON DDFRED PATIENT [facility] POINT OF SERVICE MALLORY CHERY Oct 27, 2011 [id number] Charlene MASON PATIENT [facility] (WNR) SUKUMAR CHERY(WN R) May 28, 2017 (WNR) [id number] Charlene MASON PATIENT Selected Encounter This section includes the information on record at [place] for the Encounter. Date/Time Encounter Type Encounter Description Reason Pro vider Source Nov 07, 2023 10:35 AM Outpatient Encounter PRIMARY CARE/MEDICINE IHE Encounter Template Text not used by [place] Plan of Treatment: Future Appointments (+ 6 months) and Future Tests (+/- 45 days) The Plan of Treatment section includes future care activities for the patient from all [place] treatmentfacilities. This section includes future appointments and future orders which are active, pending or scheduled. Future Appointments This section includes appointments that were scheduled to occur 6 months from the date of the Encounter, up to a maximum of 20 appointments. The [facility] comes from all [facility]. Appointment Date/Time Appointment Type Appointme nt Facility Name Jan 04, 2024 09:00 AM AMBULATORY - MEDICINE [facility] Jan 15, 2024 09:00 AM AMBULATORY - MEDICINE [facility] Feb 14, 2024 01:15 PM [facility] Mar 06, 2024 11:30 [facility] Apr 16, 2024 10:00 AM [facility] May 01, 2024 10:00 AM AMBULATORY MEDICINE [facility] Active, Pending, and Scheduled Orders This section includes a listing of several types of active, pending, and scheduled orders, including clinic medications orders, diagnostic test orders, procedure orders and consult orders; where the start date of the order is 45 days before the date of the Encounter or 45 days after the date of theEncounter. The data comes from all VA hospital. Test Date/Time Test Type Test Details Facility Name Dec 04, 2023 04:40 PM Consult Order [facility] Cons [employer] [facility] Social History: Smoking Status (Most current) and Tobacco Use (All prior to encounter date) This section includes the most current, and the historical, smoking and tobacco- related health factors from the [place] facility where the Encounter took place. Current Smoking Status This section includes the most current smoking, or tobacco-related health factor, from the [place] facility where the Encounter took place. Date/Time Current Smoking Status Comment Facil it Jan 08, 2023 09:03 AM [place]-TOBACCO NEVER USED [facility] Tobacco Use History This section includes a history of the smoking, or tobacco-related health factors, that were collected on or before the date of the Encounter. The data comes from the [place] facility where the Encounter took place. Date/Time Smoking Status/Tobac co Use Comment Facility Aug 01, 2021 09:08 AM [place]-TOBACCO FORMER USER [facility] Aug 01, 2021 09:08 AM [place]-TOBACCO QUIT 1 TO < 5 YRS [facility] Dec 08, 2011 01:04 PM CURRENT SMOKER chew pack and half a week [facility] Dec 08, 2011 01:04 PM V1-PT DECLINES REF TO TOBACCO CESS PRGM [facility] Dec 08, 2011 01:04 PM V1-PT DECLINES TOBACCO CESSATION MEDS [facility] Dec 08, 2011 01:04 PM V1-PT THINKING ABOUT QUIT TOBACCO USE [facility] Advance Directives: All historical and current Section Date Range: From patient's date of to the date document was created. This section includes ALL of a patient's completed or amended [place] Advance and Rescinded Directives. The entries below indicate that a directive exists for the patient, but an actual copy is not included with this document. The data comes from all [place] facilities. Date Advance Directives Provider Source Jan 03, 2022 ADVANCE DIRECTIVE LUIS EDUARDO COLON Jan 03, 2021 ADVANCE DIRECTIVE KHUSHBU KUMAR Mar 19, 2012 ADVANCE DIRECTIVE ERIKA MORALES [facility] Encounter Notes: All associated encounter notes This section contains the clinical notes associated to the Encounter. Date/Time Encounter Note(s) Provider Source Nov 27, 2023 01:19 PM ADDENDUM: LOCAL TITLE: Addendum STANDARD TITLE: ADDENDUM DATE OF NOTE: NOV 27, 2023@13:19:50 ENTRY DATE: NOV 27, 2023@13:19:51 AUTHOR: JAYLYN CHENG COSIGNER: URGENCY: STATUS: COMPLETED Vet requesting someone [...] RN [ ]Symptoms [ X ]Other The [facility] states they are: [ ]Waiting [ X ]Not Waiting No Walk in visit scheduled with PACT Nurse [ X ] At this encounter the 's demographics were verified. [ X ] At this encounter the 's Insurance information was verified. [ X ] At this encounter the below scheduled visits for the [facility] were discussed and appointment reminder card was offered. Future appointments: 01/04/2024 09:00 CWM/SO/PODIATRY/ROSA 01/15/2024 09:00 CWM/SO/PACT [facility] 03/06/2024 11:30 CWM/NO/OPTOMETRY/MERHAR [facility] requesting a referral to be resent out to [facility]. Address: [place] [address] Note from [facility]: Referral for [facility] needed for the neck/back pain NPI # [id number] /es/ CARL STACY KARL Signed: 11/07/2023 10:42 Receipt Acknowledged By: 11/09/2023 14:08 /SEVERIANO Rivera RN-BC REGISTERED NURSE 11/08/2023 08:19 /caitlyn/ LATOYA RUVALCABA, LEYDA Licensed Practical Nurse 11/22/2023 ADDENDUM STATUS: COMPLETED came in checking on referral. Please call him at [phone]. /sharona BARAJAS Signed: 11/22/2023 10:28 Receipt Acknowledged By: 12/03/2023 14:41 /caitlyn/ SEVERIANO RODRIGUEZ RN-JACKIE REGISTERED NURSE 11/22/2023 13:29 /caitlyn/ LATOYA RUVALCABA LPN Licensed Practical Nurse 11/27/2023 10:30 /caitlyn/ RASHARD SCHULTZ MD PRIMARY CARE PHYSICIAN 12/03/2023 ADDENDUM STATUS: COMPLETED Called [facility] and left voicemail requesting call back to PACT at [phone] to discuss consult request. /SEVERIANO Rivera RN-JACKIE REGISTERED NURSE Signed: 12/03/2023 14:48 JAYLYN CHENG Nov 22, 2023 10:27 AM ADDENDUM: LOCAL TITLE: Addendum STANDARD TITLE: ADDENDUM DATE OF NOTE: NOV 22, 2023@10:27:15 ENTRY DATE: NOV 22, 2023@10:27:16 AUTHOR: DINESH HOWARD COSIGNER: URGENCY: STATUS: COMPLETED [facility] came in checking on referral. Please call him at [phone]. /caitlyn/ DINESH BARAJAS Signed: 11/22/2023 10:28 Receipt Acknowledged By: 12/03/2023 14:41 /SEVERIANO Rivera RN-JACKIE REGISTERED NURSE 11/22/2023 13:29 /caitlyn/ LATOYA RUVALCABA LPN Licensed Practical Nurse 11/27/2023 10:30 /caitlyn/ RASHARD SCHULTZ MD PRIMARY CARE PHYSICIAN --- Original Document --- 11/07/23 WALK-IN NOTE PRIMARY CARE (T): <====Click to Start Advanced Medical Support presents to the Primary Care clinic with the following request: [ ]Medication Renewal/Refill [ ]Consultation with Team RN [ ]Symptoms [ X ]Other [facility] states they are: [ ]Waiting [ X ]Not Waiting No Walk in visit scheduled with PACT Nurse [ X ] At this encounter the 's demographics were verified. [ X ] At this encounter the [facility]'s Insurance information was verified. [ X ] At this encounter the below scheduled visits for the [facility] were discussed and appointment reminder card was offered. Future appointments: 01/04/2024 09:00 CWM/SO/PODIATRY/ROSA 01/15/2024 09:00 CWM/SO/PACT [facility] 03/06/2024 11:30 CWM/NO/OPTOMETRY/MERHAR [facility] requesting a referral to be resent out to [facility]. Address: [address] [place], [place] [address] [address] Note from [facility]: Referral for [facility] needed for the neck/back pain NPI # [id number] /es/ CARL BARAJAS Signed: 11/07/2023 10:42 Receipt Acknowledged By: 11/09/2023 14:08 /es/ SEVERIANO RODRIGUEZ RN-BC REGISTERED NURSE 11/08/2023 08:19 /es/ LATOYA RUVALCABA LPN Licensed Practical Nurse 11/27/2023 ADDENDUM STATUS: COMPLETED Vet requesting someone call him with a follow up on his [facility] consult. Vet states he will return on Sunday to check on this if he does not recieve a call. /es/ JAYLYN BARAJAS Signed: 11/27/2023 13:21 Receipt Acknowledged By: 12/03/2023 14:41 /es/ SEVERIANO RODRIGUEZ RN-BC REGISTERED NURSE * AWAITING SIGNATURE * LATOYA RUVALCABA [facility] [place] Nov 07, 2023 10:36 AM PRIMARY CARE NOTE: LOCAL TITLE: WALK-IN NOTE PRIMARY CARE (T) STANDARD TITLE: PRIMARY CARE NOTE DATE OF NOTE: NOV 07, 2023@10:36 ENTRY DATE: NOV 07, 2023@10:36:22 AUTHOR: CARL STACY EXP COSIGNER: URGENCY: STATUS: COMPLETED WALK-IN NOTE PRIMARY CARE (T) Has ADDENDA <====Click to Start Advanced Medical Support presents to the Primary Care clinic with the following request: [ ]Medication Renewal/Refill [ ]Consultation with Team RN [ ]Symptoms [ X ]Other [facility] states they are: [ ]Waiting [ X ]Not Waiting No Walk in visit scheduled with PACT Nurse [ X ] At this encounter the 's demographics were verified. [ X ] At this encounter the [facility]'s Insurance information was verified. [ X ] At this encounter the below scheduled visits for the were discussed and appointment reminder card was offered. Future appointments: 01/04/2024 09:00 CWM/SO/PODIATRY/ROSA 01/15/2024 09:00 CWM/SO/PACT EIGHT 03/06/2024 11:30 CWM/NO/OPTOMETRY/RE requesting a referral to be resent out to [facility]. Address: [address] [place] [address] Note from [facility]: Referral for [facility] needed for the neck/back pain NPI # [id number] /caitlyn/ CARL BARAJAS Signed: 11/07/2023 10:42 Receipt Acknowledged By: 11/09/2023 14:08 /caitlyn/ SEVERIANO RODRIGUEZ RN-BC REGISTERED NURSE 11/08/2023 08:19 /caitlyn/ LATOYA RUVALCABA LPN Licensed Practical Nurse 11/22/2023 ADDENDUM STATUS: COMPLETED came in checking on referral. Please call him at [phone]. /caitlyn/ DINESH BARAJAS Signed: 11/22/2023 10:28 Receipt Acknowledged By: 12/03/2023 14:41 /caitlyn/ SEVERIANO RODRIGUEZ REGISTERED NURSE 11/22/2023 13:29 /caitlyn/ LATOYA RUVALCABA LPN Licensed Practical Nurse 11/27/2023 10:30 /caitlyn/ RASHARD SCHULTZ MD PRIMARY CARE PHYSICIAN 11/27/2023 ADDENDUM STATUS: COMPLETED Vet requesting someone call him with a follow up on his [facility] consult. Vet states he will return on Sunday to check on this if he does not recieve a call. /caitlyn/ JAYLYN BARAJAS Signed: 11/27/2023 13:21 Receipt Acknowledged By: 12/03/2023 14:41 /caitlyn/ SEVERIANO RODRIGUEZ RN-JACKIE REGISTERED NURSE 12/04/2023 13:40 /caitlyn/ LATOYA RUVALCABA LPN Licensed Practical Nurse 12/03/2023 ADDENDUM STATUS: COMPLETED Called [facility] and left voicemail requesting call back to PACT at [phone] to discuss consult request. /SEVERIANO Rivera RN-JACKIE REGISTERED NURSE Signed: 12/03/2023 14:48 12/04/2023 ADDENDUM STATUS: COMPLETED spoke with in [facility] and he advised that he was scheduled with [facility] provider, Dr Gutierrez in October 2023 and that this appt was cancelled due to not having active VA consult for his neck and back pain. reports that his neck and back are twisted and that he has had imaging performed in the past. author advised that will place [facility] consult for [facility] and will contact [facility] if any other information related to consult is needed or if issues arise with consult. Placed [facility] general consult as requested and held for provider review. /SEVERIANO Rivera REGISTERED NURSE Signed: 12/04/2023 14:04 CARL STACY
--- OUTSIDE RECORDS SUMMARY | 2024-06-02 11:22 | XMS_ITS ---
Author Name [facility] [place] Address [address] [place] [address] Care Team Providers Care Merchandise Examiner Name Role Phone ROBBY NIELSON Primary Care [...] PRESCRIPT ION RX730 1 May 28, 2017 [id number] Charlene MASON DDIE PATIENT [facility] PRESCRIPT ION RX730 1 May 28, 2017 [id number] [phone] Charlene MASON DDIE PATIENT [facility] PRESCRIPT ION RX May 28, 2022 THPRX [id number] [phone] Charlene MASON DDIE PATIENT [facility] RX PRESCRIPT ION RX May 28, 2022 THPRX [id number] Charlene MASON DDIE PATIENT [facility] USP May 28, 2017 [facility] [id number] [phone] Charlene MASON DDIE PATIENT [facility] IVY Chang May 28, 2017 [facility] [id number] Charlene MASON DDFRED PATIENT [facility] POINT OF SERVICE MALLORY CHERY Oct 27, 2011 [id number] Charlene MASON DDFRED PATIENT [facility] (WNR) SUKUMAR CHERY(WN R) May 28, 2017 (WNR) [id number] Charlene MASON DDFRED PATIENT Selected Encounter This section includes the information on record at [place] for the Encounter. Date/Time Encounter Type Encounter Description Reason Pro vider Source Aug 26, 2023 12:00 AM Outpatient Encounter EVENT (HISTORICAL) IHE Encounter Template Text not used by [place] Plan of Treatment: Future Appointments (+ 6 months) and Future Tests (+/- 45 days) The Plan of Treatment section includes future care activities for the patient from all [place] treatmentfacilities. This section includes future appointments and future orders which are active, pending or scheduled. Future Appointments This section includes appointments that were scheduled to occur 6 months from the date of the Encounter, up to a maximum of 20 appointments. The data comes from all [place] treatment facilities. Appointment Date/Time Appointment Type Appointme nt Facility Name Jan 04, 2024 09:00 AM AMBULATORY - MEDICINE [facility] Jan 15, 2024 09:00 AM AMBULATORY - MEDICINE [facility] Feb 14, 2024 01:15 PM [facility] Lab Results: +/- 30 days of the encounter This section includes the Chemistry and Hematology Lab Results on record with [place] for the patient. Radiology Reports and Pathology Reports are provided separately, in subsequent sections. Lab Results This section contains the Chemistry/Hematology Results that were resulted 30 days before or 30 daysafter the date of the Encounter. Date/Time Source Result Type Result - Unit Interpretation Reference Range Comment Aug 20, 2023 10:40 AM [place] [facility]TR [facility] VITAMIN D (25-OH) Specimen Type: SERUM No comment entered. Ordering Provider: PHYLLIS WHALEY Report Released Date/Time: Aug 13, 2023 09:06 AM Reporting Lab: [facility] [address] [facility] [id number] Performing Lab: [facility] [address] [facility] [id number] VITAMIN D (25-OH) 29 ng/mL 20-50 Social History: Smoking Status (Most current) and Tobacco Use (All prior to encounter date) This section includes the most current, and the historical, smoking and tobacco- related health factors from the [place] facility where the Encounter took place. Current Smoking Status This section includes the most current smoking, or tobacco-related health factor, from the [place] facility where the Encounter took place. Date/Time Current Smoking Status Comment [facility] it Jan 08, 2023 09:03 AM [place]-TOBACCO NEVER USED [facility] Tobacco Use History This section includes a history of the smoking, or tobacco-related health factors, that were collected on or before the date of the Encounter. The data comes from the [place] facility where the Encounter took place. Date/Time Smoking Status/Tobac co Use Comment Facility Aug 01, 2021 09:08 AM [place]-TOBACCO FORMER USER [facility] Aug 01, 2021 09:08 AM [place]-TOBACCO QUIT 1 TO < 5 YRS [facility] Dec 08, 2011 01:04 PM CURRENT SMOKER chew pack and half a week [facility] Dec 08, 2011 01:04 PM V1-PT DECLINES REF TO TOBACCO CESS PRGM [facility] Dec 08, 2011 01:04 PM V1-PT DECLINES TOBACCO CESSATION MEDS [facility] Dec 08, 2011 01:04 PM V1-PT THINKING ABOUT QUIT TOBACCO USE [facility] Advance Directives: All historical and current Section Date Range: From patient's date of to the date document was created. This section includes ALL of a patient's completed or amended [place] Advance and Rescinded Directives. The entries below indicate that a directive exists for the patient, but an actual copy is not included with this document. The data comes from all [facility]. Date Advance Directives Provider Source Jan 03, 2022 ADVANCE DIRECTIVE LUIS EDUARDO COLON Jan 03, 2021 ADVANCE DIRECTIVE KHUSHBU KUMAR Mar 19, 2012 ADVANCE DIRECTIVE ERIKA MORALES [facility] Encounter Notes: All associated encounter notes [...] Filed: 12/26/2023 by: MARIAH CHAPPELL CNTRL W[facility]N [facility]
--- OUTSIDE RECORDS SUMMARY | 2024-06-02 11:22 | XMS_ITS | Encounter Summary ---
Author Name [facility] [facility] [place] Address [address] [place] [id number] Care Team Providers Care Waste Handling Technician Name Role Phone ROBBY NIELSON Primary [...] PRESCRIPT ION [id number] 1 May 28, 2017 [id number] Charlene MASON DDIE PATIENT [facility] PRESCRIPT ION [id number] 1 May 28, 2017 [id number] [phone] Charlene MASON DDIE PATIENT [facility] PRESCRIPT ION RX May 28, 2022 [id number] [phone] Charlene MASON DDIE PATIENT [facility] PRESCRIPT ION RX May 28, 2022 THPRX [id number] [phone] Charlene MASON DDIE PATIENT [facility] PLAN USP May 28, 2017 [facility] [id number] [phone] Charlene MASON DDIE PATIENT [facility] HEALTH PLAN [facility] IVY Chang May 28, 2017 [facility] [id number] Charlene MASON DDFRED PATIENT [facility] POINT OF SERVICE MALLORY CHERY Oct 27, 2011 [id number] [phone] Charlene MASON DDFRED PATIENT [facility] (WNR[facility] SUKUMAR CHERY(WN R) May 28, 2017 (WNR) [id number] [phone] Charlene MASON PATIENT Selected Encounter This section includes the information on record at [place] for the Encounter. Date/Time Encounter Type Encounter Description Reason Pro vider Source Aug 20, 2023 01:42 PM Outpatient Encounter COMMUNITY CARE CONSULT IHE Encounter Template Text not used by CO Plan of Treatment: Future Appointments (+ 6 months) and Future Tests (+/- 45 days) The Plan of Treatment section includes future care activities for the patient from all [place] treatmentfacilities. This section includes future appointments and future orders which are active, pending or scheduled. Future Appointments This section includes appointments that were scheduled to occur 6 months from the date of the Encounter, up to a maximum of 20 appointments. The data comes from all [place] treatment facilities. Appointment Date/Time Appointment Type Appointme nt Facility Name Jan 04, 2024 09:00 AM [facility] Jan 15, 2024 09:00 AM [facility] - MEDICINE [facility] Feb 14, 2024 01:15 PM [facility]BULATORY - MEDICINE [facility] Lab Results: +/- 30 days of the encounter This section includes the Chemistry and Hematology Lab Results on record with [place] for the patient. Radiology Reports and Pathology Reports are provided separately, in subsequent sections. Lab Results This section contains the Chemistry/Hematology Results that were resulted 30 days before or 30 daysafter the date of the Encounter. Date/Time Source Result Type Result - Unit Interpretation Reference Range Comment Aug 20, 2023 10:40 AM [facility] [place] [facility] VITAMIN D (25-OH) Specimen Type: SERUM No comment entered. Ordering Provider: PHYLLIS WHALEY Report Released Date/Time: Aug 13, 2023 09:06 AM Reporting Lab: [facility] [place] [facility] [address] [facility] [id number] Performing Lab: [facility] [place] [facility] [address] [facility] [id number] VITAMIN D (25-OH) 29 ng/mL 20-50 Vital Signs: All taken on the encounter date This section contains inpatient and outpatient Vital Signs collected on the date of the Encounter. Date/Time Temperature Pulse Blood Pressure Respiratory Rate SP02 Pain Height Weight Body Mass Index Source Aug 20, 2023 09:59 AM 118/80 [facility] Social History: Smoking Status (Most current) and Tobacco Use (All prior to encounter date) This section includes the most current, and the historical, smoking and tobacco- related health factors from the [place] facility where the Encounter took place. Current Smoking Status This section includes the most current smoking, or tobacco-related health factor, from the [place] facility where the Encounter took place. Date/Time Current Smoking Status Comment Facil ity Jan 08, 2023 09:03 AM CO-TOBACCO NEVER USED [facility] Tobacco Use History This section includes a history of the smoking, or tobacco-related health factors, that were collected on or before the date of the Encounter. The data comes from the [place] facility where the Encounter took place. Date/Time Smoking Status/Tobac co Use Comment Facility Aug 01, 2021 09:08 AM CO-TOBACCO FORMER USER [facility] Aug 01, 2021 09:08 AM CO-TOBACCO QUIT 1 TO < 5 YRS [facility] Dec 08, 2011 01:04 PM CURRENT SMOKER chew pack and half a week [facility] Dec 08, 2011 01:04 PM V1-PT DECLINES REF TO TOBACCO CESS PRGM [facility] Dec 08, 2011 01:04 PM V1-PT DECLINES TOBACCO CESSATION MEDS [facility] Dec 08, 2011 01:04 PM V1-PT THINKING ABOUT QUIT TOBACCO USE [facility] Advance Directives: All historical and current Section Date Range: From patient's date of to the date document was created. This section includes ALL of a patient's completed or amended [place] Advance and Rescinded Directives. The entries below indicate that a directive exists for the patient, but an actual copy is not included with this document. The data comes from all [place] facilities. Date Advance Directives Provider Source Jan 03, 2022 ADVANCE DIRECTIVE LUIS EDUARDO COLON Kayli [facility] Shania Jan 03, 2021 ADVANCE DIRECTIVE KHUSHBU KUMAR [facility] Mar 19, 2012 ADVANCE DIRECTIVE ANDREWERIKA [facility] Encounter Notes: All associated encounter notes This [...] Document --- 08/20/23 ADMINISTRATIVE NOTE: Mavis from [facility] called to request a new orthopedic consult for the . Please enter a new orthopedic consult for the right hand if appropriate. [facility] [address] [place] [address], [address] [place] [address] Appointment Group Authorization Medical Records /caitlyn/ JOANN LACY [employer] Signed: 08/20/2023 13:43 Receipt Acknowledged By: * AWAITING SIGNATURE * ROSS SERRANO * AWAITING SIGNATURE * LATOYA RUVALCABA 08/22/2023 16:22 /caitlyn/ RASHARD SCHULTZ MD PRIMARY CARE PHYSICIAN [facility] Aug 20, 2023 01:42 PM ADMINISTRATIVE NOTE: LOCAL TITLE: ADMINISTRATIVE NOTE STANDARD TITLE: ADMINISTRATIVE NOTE DATE OF NOTE: AUG 20, 2023@13:42 ENTRY DATE: AUG 20, 2023@13:42:34 AUTHOR: JOANN LACY COSIGNER: URGENCY: STATUS: COMPLETED ADMINISTRATIVE NOTE Has ADDENDA Mavis from [facility] called to request a new orthopedic consult for the [place]. Please enter a new orthopedic consult for the right hand if appropriate. [facility] [address] [place] [address], [address] [place] [address] Appointment Group Authorization Medical Records /caitlyn/ JOANN LACY [employer] Signed: 08/20/2023 13:43 Receipt Acknowledged By: 08/23/2023 [...] REGISTERED NURSE Signed: 08/23/2023 09:26 [facility]
--- OUTSIDE RECORDS SUMMARY | 2024-06-02 11:22 | XMS_ITS | Encounter Summary ---
Author Name [facility] [place] Organization [facility] [place] Address [address] [place] [address] Care Team Providers Care Senior Lead Project Manager Name Role Phone ROBBY NIELSON Primary [...] PRESCRIPT ION [id number] 1 May 28, 2017 [id number] [phone] Charlene MASON DDIE PATIENT [facility] PRESCRIPT ION [id number] 1 May 28, 2017 [id number] [phone] Charlene MASON DDIE PATIENT [facility] RX PRESCRIPT ION RX May 28, 2022 [id number] [phone] Charlene MASON DDIE PATIENT [facility] RX PRESCRIPT ION RX May 28, 2022 THPRX [id number] [phone] Charlene MASON DDIE PATIENT [facility] PLAN USP May 28, 2017 [facility] [id number] [phone] Charlene MASON DDIE PATIENT [facility] PLAN IVY Chang May 28, 2017 [id number] [phone] Charlene MASON PATIENT [facility] POINT OF SERVICE MALLORY CHERY Oct 27, 2011 [id number] [phone] Charlene MASON PATIENT [facility] (WNR) SUKUMAR CHERY(WN R) May 28, 2017 (WNR) [id number] [phone] Charlene MASON PATIENT Selected Encounter This section includes the information on record at [place] for the Encounter. Date/Time Encounter Type Encounter Description Reason Provider Source Jan 15, 2024 09:00 AM OFFICE O/P EST MOD 30 MIN PRIMARY CARE/MEDICINE ICD-10-CM I10 Essential (primary) hypertension ANTOINERASHARD Soto Charlene Encounter Template Text not used by [place] Assessments - Encounter Diagnoses This section includes the primary and secondary diagnoses documented for the Encounter. Date/Time Primary/Secondary Diagnosis Diagnosis Name Provider Source Jan 15, 2024 09:30 AM PRIMARY Essential (primary) hypertension RASHARD SCHULTZ [place] Jan 15, 2024 09:30 AM SECONDARY Abnormal results of liver function studies RASHARD SCHULTZ [place] Jan 15, 2024 09:30 AM SECONDARY Anemia, unspecified KACEYRASHARD CLARK [place] Jan 15, 2024 09:30 AM SECONDARY Male erectile dysfunction, unspecified RASHARD SCHULTZ Charles [place] Plan of Treatment: Future Appointments (+ 6 months) and Future Tests (+/- 45 days) The Plan of Treatment section includes future care activities for the patient from all [place] treatmentfacilities. This section includes future appointments and future orders which are active, pending or scheduled. Future Appointments This section includes appointments that were scheduled to occur 6 months from the date of the Encounter, up to a maximum of 20 appointments. The data comes from all [place] treatment facilities. Appointment Date/Time Appointment Type Appointme nt Facility Name Feb 14, 2024 01:15 PM AMBULATORY - MEDICINE [place] [facility] [place] [facility] Mar 06, 2024 11:30 AM AMBULATORY - MEDICINE [place] [facility] [place] [facility] Apr 16, 2024 10:00 AM AMBULATORY - MEDICINE [place] [facility] [place] [facility] May 01, 2024 10:00 AM AMBULATORY - MEDICINE [place] [facility] [place] [facility] May 16, 2024 09:00 AM AMBULATORY - MEDICINE [facility] Jun 27, 2024 11:00 AM AMBULATORY - MEDICINE [facility] Active, Pending, and Scheduled Orders This section includes a listing of several types of active, pending, and scheduled orders, including clinic medications orders, diagnostic test orders, procedure orders and consult orders; where the start date of the order is 45 days before the date of the Encounter or 45 days after the date of theEncounter. The data comes from all [place] treatment facilities. Test Date/Time Test Type Test Details Facility Name Dec 04, 2023 04:40 PM Consult Order [facility] [employer] [place] Lab Results: +/- 30 days of the encounter This section includes the Chemistry and Hematology Lab Results on record with [place] for the patient. Radiology Reports and Pathology Reports are provided separately, in subsequent sections. Lab Results This section contains the Chemistry/Hematology Results that were resulted 30 days before or 30 daysafter the date of the Encounter. Date/Time Source Result Type Result - Unit Interpretation Reference Range Comment Jan 15, 2024 09:47 AM [facility] PSA Specimen Type: SERUM No comment entered. Ordering Provider: PHYLLIS WHALEY Report Released Date/Time: Aug 13, 2023 09:06 AM Reporting Lab[facility] [address] [address] Performing Lab: [facility] [address] [address] PSA 2.58 ng/mL 0.00-4.00 Jan 15, 2024 09:47 AM [facility] LIPID PANEL FASTING Specimen Type: SERUM No comment entered. Ordering Provider: PHYLLIS WHALEY Report Released Date/Time: Aug 13, 2023 09:06 AM Reporting Lab: [facility] [address] [address] Performing Lab: [facility] [address] CHOLESTEROL 186 mg/dL TRIGLYCERIDE 36 mg/dL 0-150 LDL calculated 61 mg/dL 0-129 CHOL/HDL 1.6 HDL CHOLESTEROL 118 mg/dL H 40-60 Jan 15, 2024 09:47 AM [facility] LIVER FUNCTION Specimen Type: SERUM No comment entered. Ordering Provider: PHYLLIS WHALEY Report Released Date/Time: Aug 13, 2023 09:06 AM Reporting Lab: [facility] [address] [address] Performing Lab: [address] [address] PROTEIN,TOTAL 7.5 g/dL 6.0-8.3 ALBUMIN 4.3 g/dL 3.5-5.0 ALKALINE PHOSPHATASE 72 U/L 40-150 AST 131 U/L H 5-34 ALT 99 U/L H BILIRUBIN, TOTAL 0.8 mg/dL 0.2-1.2 Jan 15, 2024 09:47 AM [facility] BASIC METABOLIC PANEL (fasting) Specimen Type: SERUM No comment entered. Ordering Provider: PHYLLIS WHALEY Report Released Date/Time: Aug 13, 2023 09:06 AM Reporting Lab: [address] [address] Performing Lab: [address] [address] UREA NITROGEN 9 mg/dL 7-25 GLUCOSE 85 mg/dL 65-100 SODIUM 139 mmol/L 135-145 POTASSIUM 5.1 mmol/L H 3.5-5.0 CHLORIDE 101 mmol/L 100-110 CO2 25 meq/L 20-30 CREATININE, Serum 1.30 mg/dL 0.50-1.40 eGFR(CKD-EPI 2020) 61 mL/min >60 Jan 15, 2024 09:47 AM [facility] HEMOGLOBIN A1C PANEL Specimen Type: BLOOD [...] Aug 13, 2023 09:06 AM Reporting Lab: [facility] [address] [address] Performing Lab: [address] [address] HEMOGLOBIN A1C 4.9 4.0-5.6 Jan 15, 2024 09:47 AM [facility] URINALYSIS Specimen Type: URINE Comment: If Glucose = >500 and Ketones are positive, please alert the Physician. Ordering Provider: PHYLLIS WHALEY Report Released Date/Time: Aug 13, 2023 09:06 AM Reporting Lab: [address] [address] Performing Lab: [address] [address] UA COLOR Colorless Yellow UA APPEARANCE Clear Clear UA GLUCOSE Normal mg/dL Negative UA KETONES NEGATIVE mg/dL Negative UA BLOOD NEGATIVE mg/dL Negative UA PROTEIN NEGATIVE mg/dL Negative UA NITRITE NEGATIVE mg/dL Negative UA BILIRUBIN NEGATIVE mg/dL Negative UA SPECIFIC GRAVITY 1.005 L 1.016-1.022 UA pH 6.0 5.0-9.0 UA UROBILINOGEN Normal mg/dL <2.0 UA LEUKOCYTE NEGATIVE Negative Jan 15, 2024 09:47 AM [facility] TSH Specimen Type: SERUM No comment entered. Ordering Provider: PHYLLIS WHALEY Report Released Date/Time: Aug 13, 2023 09:06 AM Reporting Lab: [address] [address] Performing Lab: [address] [address] TSH 0.57 u[IU]/mL 0.35-5.00 Jan 15, 2024 09:47 AM [facility] CBC AND DIFF (AUTO) Specimen Type: BLOOD No comment entered. Ordering Provider: PHYLLIS WHALEY Report Released Date/Time: Aug 13, 2023 09:06 AM Reporting Lab: [address] [address] Performing Lab: [facility] [address] [address] WBC 4.91 10*3/uL 4.50-11.00 RBC 4.24 10*6/uL [...] 10*3/uL 0.00-0.00 Jan 15, 2024 09:47 AM [place] SYPHILIS ABS W/RFLX Specimen Type: SERUM Comment: No laboratory evidence of syphilis infection. If recent exposure is suspected, re-draw sample in 2-4 weeks and repeat algorithm. Testing performed by T. pallidum specific immunoassay. Ordering Provider: RASHARD SCHULTZ Report Released Date/Time: Jan 15, 2024 09:24 AM Reporting Lab: [facility] [address] [address] Performing Lab: [facility] [address] [facility] [address] SYPHILIS ABS W/RFLX Non Reactive Non Reactive Jan 15, 2024 09:47 AM [place] IRON & TIBC PANEL Specimen Type: SERUM No comment entered. Ordering Provider: RASHARD SCHULTZ Report Released Date/Time: Jan 15, 2024 09:24 AM Reporting Lab: [facility] [address] [address] Performing Lab: [facility] [address] [address] TIBC 275 ug/dL 204-475 IRON 71 ug/dL 40-160 Transferrin Saturation 25.9 20.0-50.0 Jan 15, 2024 09:47 AM [place] FERRITIN Specimen Type: SERUM No comment entered. Ordering Provider: RASHARD SCHULTZ Report Released Date/Time: Jan 15, 2024 09:24 AM Reporting Lab: [facility] [address] [address] Performing Lab: [address] [address] FERRITIN 523 ng/mL H 20-300 Jan 15, 2024 09:47 AM [place] VITAMIN B12 Specimen Type: SERUM No comment entered. Ordering Provider: RASHARD SCHULTZ Report Released Date/Time: Jan 15, 2024 09:24 AM Reporting Lab: [facility] [address] [address] Performing Lab: [facility] [address] [address] VITAMIN B12 873 pg/mL 200-900 Jan 15, 2024 09:47 AM [place] HIV 1&2 Ag/Ab SCREEN Specimen Type: SERUM No comment entered. Ordering Provider: RASHARD SCHULTZ Report Released Date/Time: Jan 15, 2024 09:24 AM Reporting Lab: [facility] [address] [address] Performing Lab: [facility] [address] HIV 1&2 Ag/Ab SCREEN NON-REACTIVE Nonreactive Jan 04, 2024 09:27 AM [place] PSA Specimen Type: SERUM No comment entered. Ordering Provider: CLIFF MCKEON Report Released Date/Time: Jan 08, 2023 11:58 AM Reporting Lab: [address] [address] Performing Lab: [address] [address] PSA 3.04 ng/mL 0.00-4.00 Jan 04, 2024 09:27 AM [place] BASIC METABOLIC PANEL (fasting) Specime n Type: SERUM No comment entered. Ordering Provider: CLIFF MCKEON Report Released Date/Time: Jan 08, 2023 11:58 AM Reporting Lab: [address] [address] Performing Lab: [address] [address] UREA NITROGEN 9 mg/dL 7-25 GLUCOSE 76 mg/dL 65-100 SODIUM 137 mmol/L 135-145 POTASSIUM 4.7 mmol/L 3.5-5.0 CHLORIDE 105 mmol/L 100-110 CO2 18 meq/L L 20-30 CREATININE, Serum 1.30 mg/dL 0.50-1.40 eGFR(CKD-EPI 2020) 61 mL/min >60 Jan 04, 2024 09:27 AM [place] LIVER FUNCTION Specimen Type: SERUM No comment entered. Ordering Provider: CLIFF MCKEON Report Released Date/Time: Jan 08, 2023 11:58 AM Reporting Lab: [address] [address] Performing Lab: [address] [address] PROTEIN,TOTAL 7.1 g/dL 6.0-8.3 ALBUMIN 4.0 g/dL 3.5-5.0 ALKALINE PHOSPHATASE 65 U/L 40-150 AST 76 U/L H 5-34 ALT 44 U/L BILIRUBIN, TOTAL 0.7 mg/dL 0.2-1.2 Jan 04, 2024 09:27 AM [place] URINALYSIS Specimen Type: URINE Comment: If Glucose = >500 and Ketones are positive, please alert the Physician. Ordering Provider: CLIFF MCKEON Report Released Date/Time: Jan 08, 2023 11:58 AM Reporting Lab: [address] [address] Performing Lab: [address] [address] UA COLOR Light-Yellow Yellow UA APPEARANCE Clear Clear UA GLUCOSE Normal mg/dL Negative UA KETONES TRACE mg/dL Negative UA BLOOD NEGATIVE mg/dL Negative UA PROTEIN NEGATIVE mg/dL Negative UA NITRITE NEGATIVE mg/dL Negative UA BILIRUBIN NEGATIVE mg/dL Negative UA SPECIFIC GRAVITY 1.015 L 1.016-1.022 UA pH 5.5 5.0-9.0 UA UROBILINOGEN Normal mg/dL <2.0 UA LEUKOCYTE NEGATIVE Negative Jan 04, 2024 09:27 AM [place] LIPID PANEL FASTING Specimen Type: SERUM No comment entered. Ordering Provider: CLIFF MCKEON Report Released Date/Time: Jan 08, 2023 11:58 AM Reporting Lab: [address] [address] Performing Lab: [address] [address] CHOLESTEROL 184 mg/dL TRIGLYCERIDE 35 mg/dL 0-150 LDL calculated 67 mg/dL 0-129 CHOL/HDL 1.7 HDL CHOLESTEROL 110 mg/dL H 40-60 Jan 04, 2024 09:27 AM [place] HEMOGLOBIN A1C PANEL Specimen Type: BLOOD Comment: [...] Jan 08, 2023 11:58 AM Reporting Lab: [address] [address] Performing Lab: [address] [address] HEMOGLOBIN A1C 4.9 4.0-5.6 Jan 04, 2024 09:27 AM [place] TSH Specimen Type: SERUM No comment entered. Ordering Provider: CLIFF MCKEON Report Released Date/Time: Jan 08, 2023 11:58 AM Reporting Lab: [address] [address] Performing Lab: [address] [address] TSH 0.45 u[IU]/mL 0.35-5.00 Jan 04, 2024 09:27 AM [place] CBC AND DIFF (AUTO) Specimen Type: BLOOD No comment entered. Ordering Provider: CLIFF MCKEON Report Released Date/Time: Jan 08, 2023 11:58 AM Reporting Lab: [address] [address] Performing Lab: [address] [address] WBC 3.71 10*3/uL L 4.50-11.00 RBC 4.17 [...] Source Jan 15, 2024 08:47 AM 131/85 [facility] [place] Jan 15, 2024 08:47 AM 97.3 80 138/90 100 129 24 [facility] Social History: Smoking Status (Most current) and Tobacco Use (All prior to encounter date) This section includes the most current, and the historical, smoking and tobacco- related health factors from the [place] facility where the Encounter took place. Current Smoking Status This section includes the most current smoking, or tobacco-related health factor, from the [place] facility where the Encounter took place. Date/Time Current Smoking Status Comment Facil ity Mar 26, 2020 11:30 AM [place]-TOBACCO NEVER USED [place] Tobacco Use History This section includes a history of the smoking, or tobacco-related health factors, that were collected on or before the date of the Encounter. The data comes from the [place] facility where the Encounter took place. Date/Time Smoking Status/Tobacco Use Comment F acility Feb 03, 2019 10:43 AM [place]-TOBACCO NEVER USED [place] Mar 12, 2018 09:26 AM [place]-TOBACCO NEVER USED [place] Jun 15, 2016 03:51 PM LIFETIME NON-TOBACCO USER [place] Jun 23, 2015 10:34 AM LIFETIME NON-TOBACCO USER [place] Apr 22, 2013 10:41 AM LIFETIME NON-TOBACCO USER [place] Mar 07, 2011 11:49 AM LIFETIME NON-TOBACCO USER [place] Jan 07, 2009 11:55 AM LIFETIME NON-TOBACCO USER [place] Advance Directives: All historical and current Section Date Range: From patient's date of to the date document was created. This section includes ALL of a patient's completed or amended [place] Advance and Rescinded Directives. The entries below indicate that a directive exists for the patient, but an actual copy is not included with this document. The data comes from all [place] facilities. Date Advance Directives Provider Source Jan 03, 2022 ADVANCE DIRECTIVE LUIS EDUARDO COLON Jan 03, 2021 ADVANCE DIRECTIVE KHUSHBU KUMAR [facility] Mar 19, 2012 ADVANCE DIRECTIVE ERIKA MORALES [place] [facility] [place] [facility] Encounter Notes: All associated encounter notes [...] KYLECharlene MASON, is a 63 yo MALE [facility], who presents at the [facility] to meet the new PCP. f/u with [...] trace ketones HISTORY: PERIOD OF SERVICE - [facility] FROM Jan TO Aug COMBAT SERVICE INDICATED: No REVIEW OF SYSTEMS: No fever, chills No chest pain, shortness of breath at rest or with ambulation No cough or wheezing No abdominal pain nausea or vomiting No headaches or dizziness PHYSICAL EXAMINATION: WD/WN [facility] seems to be in NAD S1-S2 positive, [...] would like to apply for citizenship for [employer]; labs ordered FOLLOW UP: ========= RTC -6-month [...] this [facility] (local) and dispensed from another [place] or [facility]D facility (remote) as well as [...] JLV. Allergies/ADRs (Tool #5) FACILITY ALLERGY/ADR -------- [facility] NO KNOWN ALLERGIES [facility] No Known All[facility]ies [facility] (Tool #1) INCLUDED IN THIS LIST: Alphabetical list of active outpatient prescriptions dispensed from this VA (local) and dispensed from another [place] or [facility] facility (remote) as well as inpatient orders (local pending and active), local clinic medications, locally documented non-VA medications, and local prescriptions that have or been discontinued in the past 90 days. Non-VA Meds Last Documented On: Jan 03, 2022 NOTE The display of VA prescriptions dispensed from another [place] or [facility] facility (remote) is limited to active outpatient prescription entries matched to National Drug File at the originating site and may not include some items such as investigational drugs, compounds, etc. NOT INCLUDED IN THIS LIST: Medications self-entered by the patient into personal health records (i.e. SnapUp) are NOT included in this list. Non-VA medications documented outside this [place], remote inpatient orders (regardless of status) and remote clinic medications are NOT included in this list. The patient and provider must always discuss medications the patient is taking, regardless of where the medication was dispensed or obtained. ------ OUTPT AMLODIPINE BESYLATE 5MG TAB (Status = Active) TAKE ONE TABLET BY MOUTH ONCE DAILY FOR BLOOD PRESSURE/HEART, DO NOT TAKE WITH [employer]ICE Rx# [id number] Last Released: 08/16/23 Qty/Days Supply: 90 Rx Expiration Date: 08/15/24 Refills Remainin Indication: FOR HIGH BLOOD PRESSURE OUTPT AMMONIUM LACTATE 12% LOTION (Status = Active) APPLY SMALL AMOUNT TOPICALLY TWICE DAILY FOR DRY IRRITATED SKIN Rx# [id number] Last Released: 07/28/23 Qty/Days Supply: 240/30 Rx Expiration Date: 07/27/24 Refills Remainin Indication: FOR DRY SKIN OUTPT BISACODYL 5MG EC TAB (Status = ) TAKE 1-2 TABLETS BY MOUTH ONCE DAILY NEEDED FOR CONSTIPATION Rx# [id number] Last Released: 01/12/23 Qty/Days Supply: 180/90 Rx Expiration Date: 01/10/24 Refills Remainin Indication: FOR CONSTIPATION OUTPT CARBOXYMETHYLCELLULOSE NA 0.5% OPH SOLN (Status = Active) INSTILL 1 DROP INTO EACH EYE FOUR TIMES DAILY NEEDED Rx# [id number] Last Released: 07/26/23 Qty/Days Supply: 45 Rx [...] USE DOSING CARD PROVIDED IN BOX Rx# [id number] Last Released: 06/23/23 Qty/Days Supply: 100/8 Rx [...] 1 HOUR PRIOR TO SEXUAL ACTIVITY Rx# [id number] Last Released: 11/05/23 Qty/Days Supply: Rx Expiration Date: 08/13/24 Refills Remainin Indication: FOR ERECTILE DYSFUNCTION OUTPT SODIUM FLUORIDE 1.1% TOOTHPASTE (Status = ) BRUSH SMALL AMOUNT TO TEETH TWICE DAILY FOR TOOTH DECAY PREVENTION Rx# [id number] Last Released: 12/29/22 Qty/Days Supply: 5160 Rx Expiration Date: 12/28/23 Refills Remainin Indication: FOR TOOTH DECAY PREVENTION ------ SUPPLIES ------ /caitlyn/ RASHARD SCHULTZ MD PRIMARY CARE PHYSICIAN Signed: 01/15/2024 09:31 RASHARD SCHULTZ [place] Jan 03, 2024 10:28 AM ADMINISTRATIVE NOT E: LOCAL TITLE: ADMINISTRATIVE NOTE STANDARD TITLE: ADMINISTRATIVE NOTE DATE OF NOTE: JAN 03, 2024@10:28 ENTRY DATE: JAN 03, 2024@10:28:37 AUTHOR: JORDAN LEE EXP COSIGNER: URGENCY: STATUS: COMPLETED [facility] [address] [place] [phone] * KYLE COLEMAN ISABELLA [address] [place], [place] [address] Date: JAN 03, 2024 re: This is a reminder of your upcoming PCP appt with RASHARD SCHULTZ Appointment Date: Dec@09:00 Appointment Type: In-person visit (X)Fasting blood work NON fasting blood work CONFIRMED APPT AND LABWORK WITH THE Sincerely, Office Staff for: RASHARD SCHULTZ Primary Care Provider [facility] [address] [place] [id number] T [phone] F [phone] Upcoming Appointments: 01/04/2024 09:00 CWM/SO/PODIATRY/ROSS 01/15/2024 09:00 CWM/SO/PACT [facility] 02/14/2024 13:15 COM CARE-ORTHO GEN 03/06/2024 11:30 CWM/NO/OPTOMETRY/MERHAR APPOINTMENT [facility] (SPOPC OR SO = [address]) (GOPC OR GO = [address]) ([facility] or NO = [facility]) (VVC - Video Call) (Tel-X Telephone Visit) (TH - Telehealth) /caitlyn/ JORDAN BARAJAS Signed: 01/03/2024 10:29 JORDAN LEE [place]
--- OUTSIDE RECORDS SUMMARY | 2024-06-02 11:22 | XMS_ITS | Encounter Summary ---
Author Name [facility] [place] Address [address] [place] [address] Care Team Providers Care Business Integration Manager Name Role Phone ROBBY NIELSON Primary [...] PRESCRIPT ION RX730 1 May 28, 2017 [id number] [phone] Charlene MASON DDIE PATIENT [facility] PRESCRIPT ION RX730 1 May 28, 2017 [id number] [phone] Charlene MASON DDIE PATIENT OPTUM RX PRESCRIPT ION RX May 28, 2022 THPRX [id number] Charlene MASON DDIE PATIENT OPTUM RX PRESCRIPT ION RX May 28, 2022 THPRX [id number] Charlene MASON DDIE PATIENT [facility] PLAN USP May 28, 2017 [facility] [id number] [phone] Charlene MASON DDIE PATIENT [facility] HEALTH PLAN [facility] IVY Chang May 28, 2017 [facility] [id number] Charlene MASON DDFRED PATIENT [facility] POINT OF SERVICE MALLORY CHERY Oct 27, 2011 [id number] [phone] Charlene MASON DDFRED PATIENT [facility] (WNR) SUKUMAR CHERY(WN R) May 28, 2017 (WNR) [id number] Charlene MASON DDFRED PATIENT Selected Encounter This section includes the information on record at [place] for the Encounter. Date/Time Encounter Type Encounter Description Reason Provider Source Aug 13, 2023 11:28 AM Outpatient Encounter PRIMARY CARE/MEDICINE PHYLLIS WHALEY [facility] Encounter Template Text not used by MA Plan of Treatment: Future Appointments (+ 6 months) and Future Tests (+/- 45 days) The Plan of Treatment section includes future care activities for the patient from all [place] treatmentfacilities. This section includes future appointments and [...] 16, 2023 10:45 AM AMBULATORY - MEDICINE [facility] Aug 20, 2023 10:00 AM AMBULATORY MEDICINE [facility] Jan 04, 2024 09:00 AM AMBULATORY - MEDICINE [facility] Jan 15, 2024 09:00 AM AMBULATORY - MEDICINE [facility] Lab Results: +/- 30 days of the encounter This section includes the Chemistry and Hematology Lab Results on record with [place] for the patient. Radiology Reports and Pathology Reports are provided separately, in subsequent sections. Lab Results This section contains the Chemistry/Hematology Results that were resulted 30 days before or 30 daysafter the date of the Encounter. Date/Time Source Result Type Result - Unit Interpretation Reference Range Comment Aug 20, 2023 10:40 AM [facility] VITAMIN D (25-OH) Specimen Type: SERUM No comment entered. Ordering Provider: PHYLLIS WHALEY Report Released Date/Time: Aug 13, 2023 09:06 AM Reporting Lab: [address] [id number] Performing Lab: [facility] [address] [facility] [id number] VITAMIN D (25-OH) 29 ng/mL 20-50 Vital Signs: All taken on the encounter date This section contains inpatient and outpatient Vital Signs collected on the date of the Encounter. Date/Time Temperature Pulse Blood Pressure Respiratory Rate SP02 Pain Height Weight Body Mass Index Source Aug 13, 2023 11:27 AM 98 88 112/73 20 98 62 135 25 [facility] Social History: Smoking Status (Most current) [...] took place. Date/Time Current Smoking Status Comment [facility] it Jan 08, 2023 09:03 AM VA-TOBACCO NEVER USED [facility] Tobacco Use History This section includes a history of the smoking, or tobacco-related health factors, that were collected on or before the date of the Encounter. The data comes from the [place] facility where the Encounter took place. Date/Time Smoking Status/Tobac co Use Comment Facility Aug 01, 2021 09:08 AM VA-TOBACCO FORMER USER [facility] Aug 01, 2021 09:08 AM VA-TOBACCO QUIT 1 TO < 5 YRS [facility] Dec 08, 2011 01:04 PM CURRENT SMOKER chew pack and half a week [facility] Dec 08, 2011 01:04 PM V1-PT DECLINES REF TO TOBACCO CESS PRGM [facility] Dec 08, 2011 01:04 PM V1-PT DECLINES TOBACCO CESSATION MEDS [facility] Dec 08, 2011 01:04 PM V1-PT THINKING ABOUT QUIT TOBACCO USE [facility] Advance Directives: All historical and current [...] Mar 19, 2012 ADVANCE DIRECTIVE ERIKA MORALES [place] [facility] Encounter Notes: All associated encounter notes This section contains the clinical notes associated to the Encounter. Date/Time Encounter Note(s) Provider Source Aug 13, 2023 11:28 AM PREVENTIVE MEDICIN E NURSING NOTE: LOCAL TITLE: CLINICAL REMINDERS/NURSING STANDARD TITLE: PREVENTIVE MEDICINE NURSING NOTE DATE OF NOTE: AUG 13, 2023@11:28 ENTRY DATE: AUG 13, 2023@11:28:30 AUTHOR: HEATHER OLIVAS EXP COSIGNER: URGENCY: STATUS: COMPLETED here for change in muscles across chest [...] full rights to use it throughout the [place] system. PRIMARY SCREEN RESULT: The Primary Screen [...] PRACTICAL NURSE Signed: 08/13/2023 11:32 HEATHER OLIVAS [place]
--- OUTSIDE RECORDS SUMMARY | 2024-06-02 11:22 | XMS_ITS | Encounter Summary ---
Author Name [facility] [place] Address [address] [place] [address] Care Team Providers Care Sql Application Developer Name Role Phone ROBBY NIELSON Primary Care [...] PRESCRIPT ION RX730 1 May 28, 2017 [id number] Charlene MASON DDIE PATIENT [facility] PRESCRIPT ION RX730 1 May 28, 2017 [id number] Charlene MASON DDIE PATIENT [facility] RX PRESCRIPT ION RX May 28, 2022 THPRX [id number] Charlene MASON DDIE PATIENT OPTUM RX PRESCRIPT ION RX May 28, 2022 THPRX [id number] Charlene MASON DDIE PATIENT [facility] PLAN USP May 28, 2017 [facility] [id number] Charlene MASON DDIE PATIENT [facility] HE[facility] PLAN [facility] IVY Chang May 28, 2017 [facility] [id number] [phone] Charlene MASON DDFRED PATIENT [facility] POINT OF SERVICE MALLORY CHERY Oct 27, 2011 [id number] Charlene MASON DDFERD PATIENT [facility] (WNR) SUKUMAR CHERY(WN R) May 28, 2017 (WNR) [id number] Charlene MASON PATIENT Selected Encounter This [...] 04, 2024 09:00 AM AMBULATORY - MEDICINE [facility] Jan 15, 2024 09:00 AM AMBULATORY - MEDICINE [facility] Feb 14, 2024 01:15 PM AMBULATORY - MEDICINE [facility] [place] [place] [facility] Lab Results: +/- 30 days of [...] Range Comment Aug 20, 2023 10:40 AM [place] [facility] [place] [facility] VITAMIN D (25-OH) Specimen Type: SERUM No comment entered. Ordering Provider: PHYLLIS WHALEY Report Released Date/Time: Aug 13, 2023 09:06 AM Reporting Lab: [place] [facility] [place] [facility] [address] [facility] [address] Performing Lab: [place] [facility] [address] [facility] [address] VITAMIN D (25-OH) 29 ng/mL 20-50 Social [...] Facil it Jan 08, 2023 09:03 AM [place]-TOBACCO NEVER USED [facility] Tobacco Use History This section includes a history of the smoking, or tobacco-related health factors, that were collected on or before the date of the Encounter. The data comes from the [place] facility where the Encounter took place. Date/Time Smoking Status/Tobac co Use Comment Facility Aug 01, 2021 09:08 AM [place]-TOBACCO FORMER USER [facility] Aug 01, 2021 09:08 AM [place]-TOBACCO QUIT 1 TO < 5 YRS [facility] Dec 08, 2011 01:04 PM CURRENT SMOKER chew pack and half a week [facility] Dec 08, 2011 01:04 PM V1-PT DECLINES REF TO TOBACCO CESS PRGM [facility] Dec 08, 2011 01:04 PM V1-PT DECLINES TOBACCO CESSATION MEDS [facility] Dec 08, 2011 01:04 PM V1-PT THINKING ABOUT QUIT TOBACCO USE [facility] Advance Directives: All historical and current Section Date Range: From patient's date of to the date document was created. This section includes ALL of a patient's completed or amended [place] Advance and Rescinded Directives. The entries below indicate that a directive exists for the patient, but an actual copy is not included with this document. The data comes from all [facility]. Date Advance Directives Provider Source Jan 03, 2022 ADVANCE DIRECTIVE LUIS EDUARDO COLON Jan 03, 2021 ADVANCE DIRECTIVE KHUSHBU KUMAR Mar 19, 2012 ADVANCE DIRECTIVE ERIKA MORALES [facility] Encounter Notes: All associated encounter [...] Filed: 12/31/2023 by: JONATHAN NAPOLES CNTRL [facility]
--- OUTSIDE RECORDS SUMMARY | 2024-06-02 11:22 | XMS_ITS | Encounter Summary ---
Author Name [place] Address [address] [place] [address] Care Team Providers Care Termite Control Technician Name Role Phone ROBBY NIELSON Primary [...] PRESCRIPT ION RX730 1 May 28, 2017 [id number] [phone] Charlene MASON DDIE PATIENT [facility] PRESCRIPT ION RX730 1 May 28, 2017 [id number] Charlene MASON DDIE PATIENT OPTUM RX PRESCRIPT ION RX May 28, 2022 THPRX [id number] Charlene MASON DDIE PATIENT OPTUM RX PRESCRIPT ION RX May 28, 2022 THPRX [id number] [phone] Charlene MASON DDIE PATIENT [facility] PLAN USP May 28, 2017 [facility] [id number] [phone] Charlene MASON DDIE PATIENT [facility] HEALTH PLAN [facility] IVY Chang May 28, 2017 [facility] [id number] Charlene MASON DDFRED PATIENT [facility] POINT OF SERVICE MALLORY CHERY Oct 27, 2011 [id number] Charlene MASON DDFRED PATIENT [facility] (WNR) SUKUMAR CHERY(WN R) May 28, 2017 (WNR) [id number] Charelne MASON PATIENT Selected Encounter This section includes the information on record at CT for the Encounter. Date/Time Encounter Type Encounter Description Reason Pro vider Source September 28, 2023 01:54 PM Outpatient Encounter PRIMARY CARE/MEDICINE [facility] Encounter Template Text not used by CT Plan of Treatment: Future Appointments (+ 6 months) and Future Tests (+/- 45 days) The Plan of Treatment section includes future care activities for the patient from all CT treatmentfacilities. This section includes future appointments and future orders which are active, pending or scheduled. Future Appointments This section includes appointments that were scheduled to occur 6 months from the date of the Encounter, up to a maximum of 20 appointments. The data comes from all CT treatment facilities. Appointment Date/Time Appointment Type Appointme nt Facility Name Jan 04, 2024 09:00 AM [facility]ULATORY - MEDICINE [facility] Jan 15, 2024 09:00 AM [facility] Feb 14, 2024 01:15 PM [facility] Mar 06, 2024 11:30 AM AMBULATORY - MEDICINE [facility] Social History: Smoking Status (Most current) and Tobacco Use (All prior to encounter date) This section includes the most current, and the historical, smoking and tobacco- related health factors from the CT facility where the Encounter took place. Current Smoking Status This section includes the most current smoking, or tobacco-related health factor, from the [place] facility where the Encounter took place. Date/Time Current Smoking Status Comment [facility] it Jan 08, 2023 09:03 AM VA-TOBACCO NEVER USED [facility] Tobacco Use History This section includes a history of the smoking, or tobacco-related health factors, that were collected on or before the date of the Encounter. The data comes from the CT facility where the Encounter took place. Date/Time Smoking Status/Tobac co Use Comment Facility Aug 01, 2021 09:08 AM VA-TOBACCO FORMER USER [facility] Aug 01, 2021 09:08 AM VA-TOBACCO QUIT 1 TO < 5 YRS [facility] Dec 08, 2011 01:04 PM CURRENT SMOKER chew pack and half a week [facility] Dec 08, 2011 01:04 PM V1-PT DECLINES REF TO TOBACCO CESS PRGM [facility] Dec 08, 2011 01:04 PM V1-PT DECLINES TOBACCO CESSATION MEDS [facility] Dec 08, 2011 01:04 PM V1-PT THINKING ABOUT QUIT TOBACCO USE [facility] Advance Directives: All historical and current Section Date Range: From patient's date of to the date document was created. This section includes ALL of a patient's completed or amended CT Advance and Rescinded Directives. The entries below indicate that a directive exists for the patient, but an actual copy is not included with this document. The data comes from all [facility]. Date Advance Directives Provider Source Jan 03, 2022 ADVANCE DIRECTIVE LUIS EDUARDO COLON Jan 03, 2021 ADVANCE DIRECTIVE KHUSHBU KUMAR Mar 19, 2012 ADVANCE DIRECTIVE ERIKA MORALES [facility] Encounter Notes: All associated encounter notes This section contains the clinical notes associated to the Encounter. Date/Time Encounter Note(s) Provider Source September 28, 2023 01:54 PM ADMINISTRATIVE NOT E: LOCAL TITLE: ADMINISTRATIVE NOTE STANDARD TITLE: ADMINISTRATIVE NOTE DATE OF NOTE: SEPTEMBER 28, 2023@13:54 ENTRY DATE: SEPTEMBER 28, 2023@13:54:14 AUTHOR: GILLIAN JI COSIGNER: URGENCY: STATUS: COMPLETED THIS PIZZAMAKER CALLED TO CANCEL CWM/SO/PACT 4 APPT AND RESCHEDULE F2F APPT. WITH CWM/SO/PACT EIGHT PROVIDER. NO ANSWER, LEFT MESSAGE FOR TO CALL AND RESCHEDULE APPT ALSO MAILED LETTER. /caitlyn/ MOOK JI ADVANCED IMPROVEMENT COORDINATOR Signed: 09/28/2023 13:56 MOOK JI
--- OUTSIDE RECORDS SUMMARY | 2024-06-02 11:22 | XMS_ITS | Encounter Summary ---
Author Name [place] Address [address] [place] [address] Care Team Providers Care Operations Coordinator Name Role Phone ROBBY NIELSON Primary [...] PRESCRIPT ION RX730 1 May 28, 2017 [id number] [phone] Charlene MASON DDIE PATIENT [facility] PRESCRIPT ION RX730 1 May 28, 2017 [id number] Charlene MASON DDIE PATIENT OPT[facility] RX PRESCRIPT ION RX May 28, 2022 THPRX [id number] [phone] Charlene MASON DDIE PATIENT OPTUM RX PRESCRIPT ION RX May 28, 2022 THPRX [phone] Charlene MASON DDIE PATIENT [facility] PLAN USP May 28, 2017 [facility] [id number] Charlene MASON DDIE PATIENT [facility] PLAN IVY Chang May 28, 2017 [id number] Charlene MASON PATIENT [facility] POINT OF SERVICE MALLORY CHERY Oct 27, 2011 [id number] Charlene MASON PATIENT [facility] (WNR) SUKUMAR CHERY(WN R) May 28, 2017 (WNR) [id number] Charlene MASON PATIENT Selected Encounter This section includes the information on record at [place] for the Encounter. Date/Time Encounter Type Encounter Description Reason Provider Source Aug 20, 2023 10:00 AM OFFICE O/P EST LOW 20 MIN PRIMARY CARE/MEDICINE ICD-10-CM K70.9 Alcoholic liver disease, unspecified PHYLLIS WHALEY Charlene Encounter Template Text not used by [place] Assessments - Encounter Diagnoses This section includes [...] care activities for the patient from all [place] treatmentfacilities. This section includes future appointments and future orders which are active, pending or scheduled. Future Appointments This section includes appointments that were scheduled to occur 6 months from the date of the Encounter, up to a maximum of 20 appointments. The data comes from all [place] treatment facilities. Appointment Date/Time Appointment Type Appointme nt Facility Name Jan 04, 2024 09:00 AM [facility] Jan 15, 2024 09:00 AM AMBULATORY - MEDICINE [facility] Feb 14, 2024 01:15 PM AMBULATORY - MEDICINE [facility] C NTRL [facility] Lab Results: +/- 30 days of the encounter This section includes the Chemistry and Hematology Lab Results on record with [place] for the patient. Radiology Reports and Pathology Reports are provided separately, in subsequent sections. Lab Results This section contains the Chemistry/Hematology Results that were resulted 30 days before or 30 daysafter the date of the Encounter. Date/Time Source Result Type Result - Unit Interpretation Reference Range Comment Aug 20, 2023 10:40 AM [facility] VITAMIN D (25-OH) Specimen Type: SERUM No comment entered. Ordering Provider: PHYLLIS WHALEY Report Released Date/Time: Aug 13, 2023 09:06 AM Reporting Lab: [facility] [address] [facility] [address] Performing Lab: [facility] [address] [facility] [address] VITAMIN D (25-OH) 29 ng/mL 20-50 Social History: Smoking Status (Most current) and Tobacco Use (All prior to encounter date) This section includes the most current, and the historical, smoking and tobacco- related health factors from the [place] facility where the Encounter took place. Current Smoking Status This section includes the most current smoking, or tobacco-related health factor, from the [place] facility where the Encounter took place. Date/Time Current Smoking Status Comment [facility] Mar 26, 2020 11:30 AM [place]-TOBACCO NEVER USED [place] Tobacco Use History This section includes a history of the smoking, or tobacco-related health factors, that were collected on or before the date of the Encounter. The data comes from the [place] facility where the Encounter took place. Date/Time Smoking Status/Tobacco Use Comment F acility Feb 03, 2019 10:43 AM AL-TOBACCO NEVER USED [place] Mar 12, 2018 09:26 AM [place]-TOBACCO NEVER USED [place] Jun 15, 2016 03:51 PM LIFETIME NON-TOBACCO USER [place] Jun 23, 2015 10:34 AM LIFETIME NON-TOBACCO USER [place] Apr 22, 2013 10:41 AM LIFETIME NON-TOBACCO USER [place] Mar 07, 2011 11:49 AM LIFETIME NON-TOBACCO USER [place] Jan 07, 2009 11:55 AM LIFETIME NON-TOBACCO USER [place] Advance Directives: All historical and current Section Date Range: From patient's date of to the date document was created. This section includes ALL of a patient's completed or amended [place] Advance and Rescinded Directives. The entries below indicate that a directive exists for the patient, but an actual copy is not included with this document. The data comes from all [place] facilities. Date Advance Directives Provider Source Jan 03, 2022 ADVANCE DIRECTIVE LUIS EDUARDO COLON Jan 03, 2021 ADVANCE DIRECTIVE KHUSHBU KUMAR [facility] Mar 19, 2012 ADVANCE DIRECTIVE ERIKA MORALES [place] [facility] Encounter Notes: All associated encounter notes [...] is a 63 yo BLACK OR MALE [place] who presents at the [place] [facility]. TYPE OF VISIT: Face to face 63-y/o [place] with depression, PTSD, GERD, chronic alcohol abuse who continues to drink, fatty liver disease, chronic granulomatous disease, peripheral neuropathy, renal agenesis, and a history of urolithiasis presented to the outpatient clinic in regular follow-up. Notably, he is comanaged with a private PCP in the community, Dr. Jefferson Han. Recent labs were reviewed and discussed with the [place]. All medications were reconciled during this visit. HEALTHCARE PROVIDERS: Private PCP: Dr. Jefferson Han [place] [facility]: [facility] Ortho: [facility] Urology: [facility] Social Hx: He is and lives with his . He endorses drinking 2 beers a day. No nicotine or MJ. Retired. No regular exercise but is active with home projects. 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 EXAMINATION General: Well-appearing [place] in no obvious distress. Mental Status: Alert [...] PRN UPCOMING APPOINTMENTS: 08/20/2023 10:00 CWM/SO/PACT EIGHT AGILE TEST LEAD 01/04/2024 09:00 CWM/SO/PODIATRY/ROSS 01/17/2024 13:30 CWM/SO/PACT 4 [...]
--- OUTSIDE RECORDS SUMMARY | 2024-06-02 11:22 | XMS_ITS ---
Author Name [facility] [place] Address [address] [place] [address] Care Team Providers Care Tractor Expert Name Role Phone ROBBY NIELSON Primary Care [...] PRESCRIPT ION RX730 1 May 28, 2017 [id number] [id number] [phone] Charlene MASON DDIE PATIENT [facility] PRESCRIPT ION RX730 1 May 28, 2017 [id number] [phone] Charlene MASON DDIE PATIENT OPTUM RX PRESCRIPT ION RX May 28, 2022 THPRX [id number] [phone] Charlene MASON DDIE PATIENT OPTUM RX PRESCRIPT ION RX May 28, 2022 THPRX [id number] [id number] Charlene MASON DDIE PATIENT [facility] PL[facility] USP May 28, 2017 [facility] [id number] [phone] Charlene MASON DDIE PATIENT [facility] IVY Chang May 28, 2017 [facility] [id number] [phone] Charlene MASON DDFRED PATIENT [facility] POINT OF SERVICE MALLORY CHERY Oct 27, 2011 [id number] [phone] [id number] [id number] Charlene MASON DDFRED PATIENT [facility] (WNR) SUKUMAR CHERY(WN R) May 28, 2017 (WNR) [id number] [id number] Charlene MASON DDFRED PATIENT Selected Encounter This section includes the information on record at [place] for the Encounter. Date/Time Encounter Type Encounter Description Reason Pro vider Source Aug 13, 2023 11:51 AM Outpatient Encounter PRIMARY CARE/MEDICINE IHE Encounter Template Text not used by [place] Plan of Treatment: Future Appointments (+ 6 [...] 16, 2023 10:45 AM AMBULATORY - [facility] Aug 20, 2023 10:00 AM [facility]ORY MEDICINE [facility] Jan 04, 2024 09:00 AM AMBULATORY - MEDICINE [facility] Jan 15, 2024 09:00 AM AMBULATORY - MEDICINE [facility] Lab Results: +/- 30 days [...] Aug 13, 2023 09:06 AM Reporting Lab: [address] [address] Performing Lab: [facility] [address] [facility] [address] VITAMIN D (25-OH) 29 ng/mL 20-50 Vital Signs: All taken on the encounter date This section contains inpatient and outpatient Vital Signs collected on the date of the Encounter. Date/Time Temperature Pulse Blood Pressure Respiratory Rate SP02 Pain Height Weight Body Mass Index Source Aug 13, 2023 11:27 AM 98 88 112/73 20 98 62 135 25 [facility] Social History: Smoking Status (Most current) and [...] KUMAR Mar 19, 2012 ADVANCE DIRECTIVE [place] [facility] Encounter Notes: All associated encounter notes [...] Days Supply: 90 Quantity: 90 Refills: 0 Financial Sales Manager: MAIL Priority: ROUTINE Comments: Dispense Drugs (units/dose): AMLODIPINE BESYLATE 5MG TAB () Last Filled: 12/04/22 Refills Remainin Filled: 12/04/22 (Mail) released 12/04/22 RENEWED FROM RX # [id number] Partial Fills: 12/05/22 (Window) Qty: 7 awaiting mail Prescription#: [id number] Pharmacist: ANGIE COLORADO Adding PCP to review [...] Team RN [ ]Symptoms [ ]Other The states they are: [ ]Waiting [ X ]Not Waiting No Walk in visit scheduled with PACT Nurse [ X ] At this encounter the Avella's demographics were verified. [ X ] At [...] 03/06/2024 11:30 CWM/NO/OPTOMETRY/RE /es/ MOOK JI ADVANCED ECOLOGICAL TECHNICAL OFFICER Signed: 08/13/2023 11:54 Receipt Acknowledged By: 08/13/2023 13:46 /es/ PHYLLIS WHALEY NP NURSE PRACTITIONER 08/13/2023 13:16 /es/ HEATHER OLIVASAGRICULTURE SALES ACCOUNT MANAGER LICENSED PRACTICAL NURSE 08/13/2023 14:04 /es/ AJ [...] Team RN [ ]Symptoms [ ]Other The Avella states they are: [ ]Waiting [ X ]Not Waiting No Walk in visit scheduled with PACT Nurse [ X ] At this encounter the 's demographics were verified. [ X ] At this encounter the Avella's Insurance information was verified. [ X ] At this encounter the below scheduled visits for the were discussed and appointment reminder card was offered. IS REQUESTING A PRESCRIPTION RENEWAL/REFILL FOR BLOOD PRESSURE. PLEASE MAILED OUT TO . Future appointments: 01/04/2024 09:00 CWM/SO/PODIATRY/ROSS 01/17/2024 13:30 CWM/SO/PACT 4 03/06/2024 11:30 CWM/NO/OPTOMETRY/MERHAR /caitlyn/ MOOK JI ADVANCED ECOLOGICAL TECHNICAL OFFICER Signed: 08/13/2023 11:54 Receipt Acknowledged By: 08/13/2023 [...] Days Supply: 90 Quantity: 90 Refills: 0 Financial Sales Manager: MAIL Priority: ROUTINE Comments: Dispense Drugs (units/dose): AMLODIPINE BESYLATE 5MG TAB () Last Filled: 12/04/22 Refills Remainin Filled: 12/04/22 (Mail) released 12/04/22 RENEWED FROM RX # [id number] Partial Fills: 12/05/22 (Window) Qty: 7 awaiting mail Prescription#: [id number] Pharmacist: ANGIE COLORADO Adding PCP to review and advise. /caitlyn/ AJ CARNES RN REGISTERED NURSE Signed: 08/13/2023 14:04 Receipt Acknowledged By: * AWAITING SIGNATURE * PHYLLIS WHALEY,MOOK SAWYER
--- OUTSIDE RECORDS SUMMARY | 2024-06-02 11:23 | XMS_ITS | Encounter Summary ---
Author Name [facility] [place] Address [address] [place] [address] Care Team Providers Care Equipment Associate Name Role Phone ROBBY NIELSON Primary Care [...] PRESCRIPT ION RX730 1 May 28, 2017 [id number] [phone] Charlene MASON DDIE PATIENT [facility] PRESCRIPT ION RX730 1 May 28, 2017 [id number] [phone] Charlene MASON DDIE PATIENT [facility] RX PRESCRIPT ION RX May 28, 2022 THPRX [id number] [phone] Charlene MASON DDIE PATIENT OPTUM RX PRESCRIPT ION RX May 28, 2022 THPRX [id number] [phone] Charlene MASON DDIE PATIENT [facility] PLAN USP May 28, 2017 [facility] [id number] Charlene MASON DDIE PATIENT [facility] EMERGENCY DEPARTMENT IVY Chang May 28, 2017 [facility] EMERGENC[facility] DEPART[facility] [id number] Charlene MASON DDFRED PATIENT [facility] OF SERVICE MALLORY CHERY Oct 27, 2011 [id number] [id number] [id number] Charlene MASON DDFRED PATIENT [facility] (WNR) SUKUMAR CHERY(WN R) May 28, 2017 (WNR) [id number] Charlene MASON DDFRED PATIENT Selected Encounter This section includes the information on record at [place] for the Encounter. Date/Time Encounter Type Encounter Description Reason Pro vider Source Jan 17, 2024 04:02 PM Outpatient Encounter PRIMARY CARE/MEDICINE IHE Encounter Template Text not used by [place] Plan of Treatment: Future Appointments (+ 6 months) and Future Tests (+/- 45 days) The Plan of Treatment section includes future care activities for the patient from all [place] [facility]. This section includes future appointments and future orders which are active, pending or scheduled. Future Appointments This section includes appointments that were scheduled to occur 6 months from the date of the Encounter, up to a maximum of 20 appointments. The data comes from all [facility]. Appointment Date/Time Appointment Type Appointme nt Facility Name Feb 14, 2024 01:15 PM AMBULATORY - MEDICINE [facility] [place] [facility] Mar 06, 2024 11:30 AM AMBULATORY MEDICINE [facility] [place] [facility] Apr 16, 2024 10:00 AM AMBULATORY [place]ICINE [place] [facility] [place] [facility] May 01, 2024 10:00 AM AMBULATORY MEDICINE [facility] [place] [facility] May 16, 2024 09:00 AM [facility] Jun 27, 2024 11:00 AM AMBULATORY MEDICINE [facility] [place] [facility] Jul 18, 2024 10:00 AM AMBULATORY [...] of theEncounter. The data comes from all [facility]. Test Date/Time Test Type Test Details Facility Name Dec 04, 2023 04:40 PM Consult Order [facility] Desktop Publ[employer] [place] Lab Results: +/- 30 days of the [...] Range Comment Jan 15, 2024 09:47 AM [facility] PSA Specimen Type: SERUM No comment entered. Ordering Provider: PHYLLIS WHALEY Report Released Date/Time: Aug 13, 2023 09:06 AM Reporting Lab: [address] [address] Performing Lab: [address] [address] PSA 2.58 ng/mL 0.00-4.00 Jan 15, 2024 09:47 AM [facility] LIPID PANEL FASTING Specimen Type: SERUM No comment entered. Ordering Provider: PHYLLIS WHALEY Report Released Date/Time: Aug 13, 2023 09:06 AM Reporting Lab: [facility] [address] [address] Performing Lab: [address] [address] CHOLESTEROL 186 mg/dL TRIGLYCERIDE 36 mg/dL 0-150 LDL calculated 61 mg/dL 0-129 CHOL/HDL 1.6 HDL CHOLESTEROL 118 mg/dL H 40-60 Jan 15, 2024 09:47 AM [facility] LIVER FUNCTION Specimen Type: SERUM No comment entered. Ordering Provider: PHYLLIS WHALEY Report Released Date/Time: Aug 13, 2023 09:06 AM Reporting [facility] [address] Performing Lab: [facility] [address] PROTEIN,TOTAL 7.5 g/dL 6.0-8.3 ALBUMIN 4.3 g/dL 3.5-5.0 ALKALINE PHOSPHATASE 72 U/L 40-150 AST 131 U/L H 5-34 ALT 99 U/L H BILIRUBIN, TOTAL 0.8 mg/dL 0.2-1.2 Jan 15, 2024 09:47 AM [facility] BASIC METABOLIC PANEL (fasting) Specimen Type: SERUM No comment entered. Ordering Provider: PHYLLIS WHALEY Report Released Date/Time: Aug 13, 2023 09:06 AM Reporting Lab: [facility] [address] [address] Performing Lab: [facility] [address] [address] UREA NITROGEN 9 mg/dL 7-25 GLUCOSE 85 mg/dL 65-100 SODIUM 139 mmol/L 135-145 POTASSIUM 5.1 mmol/L H 3.5-5.0 CHLORIDE 101 mmol/L 100-110 CO2 25 meq/L 20-30 CREATININE, Serum 1.30 mg/dL 0.50-1.40 eGFR(CKD-EPI 2020) 61 mL/min >60 Jan 15, 2024 09:47 AM [facility] HEMOGLOBIN A1C PANEL Specimen Type: BLOOD [...] Aug 13, 2023 09:06 AM Reporting Lab: [facility] [address] [address] Performing Lab: [address] [address] HEMOGLOBIN A1C 4.9 4.0-5.6 Jan 15, 2024 09:47 AM [facility] URINALYSIS Specimen Type: URINE Comment: If Glucose = >500 and Ketones are positive, please alert the Physician. Ordering Provider: PHYLLIS WHALEY Report Released Date/Time: Aug 13, 2023 09:06 AM Reporting Lab: [facility] [address] [address] Performing Lab: [address] [address] UA COLOR Colorless Yellow UA APPEARANCE Clear Clear UA GLUCOSE Normal mg/dL Negative UA KETONES NEGATIVE mg/dL Negative UA BLOOD NEGATIVE mg/dL Negative UA PROTEIN NEGATIVE mg/dL Negative UA NITRITE NEGATIVE mg/dL Negative UA BILIRUBIN NEGATIVE mg/dL Negative UA SPECIFIC GRAVITY 1.005 L 1.016-1.022 UA pH 6.0 5.0-9.0 UA UROBILINOGEN Normal mg/dL <2.0 UA LEUKOCYTE NEGATIVE Negative Jan 15, 2024 09:47 AM [facility] TSH Specimen Type: SERUM No comment entered. Ordering Provider: PHYLLIS WHALEY Report Released Date/Time: Aug 13, 2023 09:06 AM Reporting Lab: [address] [address] Performing Lab: [address] [address] TSH 0.57 u[IU]/mL 0.35-5.00 Jan 15, 2024 09:47 AM [facility] CBC AND DIFF (AUTO) Specimen Type: BLOOD No comment entered. Ordering Provider: PHYLLIS WHALEY Report Released Date/Time: Aug 13, 2023 09:06 AM Reporting Lab: [address] [address] Performing Lab: [address] [address] WBC 4.91 10*3/uL 4.50-11.00 RBC 4.24 10*6/uL [...] 10*3/uL 0.00-0.00 Jan 15, 2024 09:47 AM [place] SYPHILIS ABS W/RFLX Specimen Type: SERUM Comment: No laboratory evidence of syphilis infection. If recent exposure is suspected, re-draw sample in 2-4 weeks and repeat algorithm. Testing performed by T. pallidum specific immunoassay. Ordering Provider: RASHARD SCHULTZ Report Released Date/Time: Jan 15, 2024 09:24 AM Reporting Lab: [address] [address] Performing Lab: [facility] [address] [facility] [address] SYPHILIS ABS W/RFLX Non Reactive Non Reactive Jan 15, 2024 09:47 AM [place] IRON & TIBC PANEL Specimen Type: SERUM No comment entered. Ordering Provider: RASHARD SCHULTZ Report Released Date/Time: Jan 15, 2024 09:24 AM Reporting Lab: [facility] [address] [address] Performing Lab: [address] [address] TIBC 275 ug/dL 204-475 IRON 71 ug/dL 40-160 Transferrin Saturation 25.9 20.0-50.0 Jan 15, 2024 09:47 AM [place] FERRITIN Specimen Type: SERUM No comment entered. Ordering Provider: RASHARD SCHULTZ Report Released Date/Time: Jan 15, 2024 09:24 AM Reporting Lab: [place] [facility] [place] [facility] [address] [address] Performing Lab: [place] [facility] [address] [address] FERRITIN 523 ng/mL H 20-300 Jan 15, 2024 09:47 AM [place] VITAMIN B12 Specimen Type: SERUM No comment entered. Ordering Provider: RASHARD SCHULTZ Report Released Date/Time: Jan 15, 2024 09:24 AM Reporting Lab: [place] [facility] [place] [facility] [address] [address] Performing Lab: [facility] [address] [address] VITAMIN B12 873 pg/mL 200-900 Jan 15, 2024 09:47 AM [place] HIV 1&2 Ag/Ab SCREEN Specimen Type: SERUM No comment entered. Ordering Provider: RASHARD SCHULTZ Report Released Date/Time: Jan 15, 2024 09:24 AM Reporting Lab: [place] [facility] [place] [place] [facility] [address] [address] Performing Lab: [place] [facility] [address] [address] HIV 1&2 Ag/Ab SCREEN NON-REACTIVE Nonreactive Jan 04, 2024 09:27 AM [place] PSA Specimen Type: SERUM No comment entered. Ordering Provider: CLIFF MCKEON Report Released Date/Time: Jan 08, 2023 11:58 AM Reporting Lab: [place] [facility] [place] [facility] [address] [address] Performing Lab: [place] [facility] [address] [address] PSA 3.04 ng/mL 0.00-4.00 Jan 04, 2024 09:27 AM [place] BASIC METABOLIC PANEL (fasting) Specime n Type: SERUM No comment entered. Ordering Provider: CLIFF MCKEON Report Released Date/Time: Jan 08, 2023 11:58 AM Reporting Lab: [address] [address] Performing Lab: [address] [address] UREA NITROGEN 9 mg/dL 7-25 GLUCOSE 76 mg/dL 65-100 SODIUM 137 mmol/L 135-145 POTASSIUM 4.7 mmol/L 3.5-5.0 CHLORIDE 105 mmol/L 100-110 CO2 18 meq/L L 20-30 CREATININE, Serum 1.30 mg/dL 0.50-1.40 eGFR(CKD-EPI 2020) 61 mL/min >60 Jan 04, 2024 09:27 AM [place] LIVER FUNCTION Specimen Type: SERUM No comment entered. Ordering Provider: CLIFF MCKEON Report Released Date/Time: Jan 08, 2023 11:58 AM Reporting Lab: [address] [address] Performing Lab: [address] [address] PROTEIN,TOTAL 7.1 g/dL 6.0-8.3 ALBUMIN 4.0 g/dL 3.5-5.0 ALKALINE PHOSPHATASE 65 U/L 40-150 AST 76 U/L H 5-34 ALT 44 U/L BILIRUBIN, TOTAL 0.7 mg/dL 0.2-1.2 Jan 04, 2024 09:27 AM [place] URINALYSIS Specimen Type: URINE Comment: If Glucose = >500 and Ketones are positive, please alert the Physician. Ordering Provider: CLIFF MCKEON Report Released Date/Time: Jan 08, 2023 11:58 AM Reporting Lab: [address] [address] Performing Lab: [address] [address] UA COLOR Light-Yellow Yellow UA APPEARANCE Clear Clear UA GLUCOSE Normal mg/dL Negative UA KETONES TRACE mg/dL Negative UA BLOOD NEGATIVE mg/dL Negative UA PROTEIN NEGATIVE mg/dL Negative UA NITRITE NEGATIVE mg/dL Negative UA BILIRUBIN NEGATIVE mg/dL Negative UA SPECIFIC GRAVITY 1.015 L 1.016-1.022 UA pH 5.5 5.0-9.0 UA UROBILINOGEN Normal mg/dL <2.0 UA LEUKOCYTE NEGATIVE Negative Jan 04, 2024 09:27 AM [place] LIPID PANEL FASTING Specimen Type: SERUM No comment entered. Ordering Provider: CLIFF MCKEON Report Released Date/Time: Jan 08, 2023 11:58 AM Reporting [facility]: [facility] [address] [address] Performing Lab: [address] [address] CHOLESTEROL 184 mg/dL TRIGLYCERIDE 35 mg/dL 0-150 LDL calculated 67 mg/dL 0-129 CHOL/HDL 1.7 HDL CHOLESTEROL 110 mg/dL H 40-60 Jan 04, 2024 09:27 AM [place] HEMOGLOBIN A1C PANEL Specimen Type: BLOOD Comment: [...] Jan 08, 2023 11:58 AM Reporting Lab: [facility] [address] [address] Performing Lab: [address] [address] HEMOGLOBIN A1C 4.9 4.0-5.6 Jan 04, 2024 09:27 AM [place] TSH Specimen Type: SERUM No comment entered. Ordering Provider: CLIFF MCKEON Report Released Date/Time: Jan 08, 2023 11:58 AM Reporting Lab: [facility] [address] [address] Performing Lab: [facility] [address] [address] TSH 0.45 u[IU]/mL 0.35-5.00 Jan 04, 2024 09:27 AM [place] CBC AND DIFF (AUTO) Specimen Type: BLOOD No comment entered. Ordering Provider: CLIFF MCKEON Report Released Date/Time: Jan 08, 2023 11:58 AM Reporting Lab: [facility] [address] [address] Performing Lab: [facility] [address] [address] WBC 3.71 10*3/uL L 4.50-11.00 RBC 4.17 [...] 15, 2024 08:57 AM [place]-TOBACCO NEVER USED [facility] Tobacco Use History This section includes a history of the smoking, or tobacco-related health factors, that were collected on or before the date of the Encounter. The data comes from the [place] facility where the Encounter took place. Date/Time Smoking Status/Tobac co Use Comment Facility Jan 08, 2023 09:03 AM VA-TOBACCO NEVER USED [facility] Aug 01, 2021 09:08 AM [place]-TOBACCO FORMER USER [facility] Aug 01, 2021 09:08 AM [place]-TOBACCO QUIT 1 TO < 5 YRS [facility] Dec 08, 2011 01:04 PM CURRENT SMOKER chew pack and half a week [facility] Dec 08, 2011 01:04 PM V1-PT DECLINES REF TO TOBACCO CESS PRGM [facility] Dec 08, 2011 01:04 PM V1-PT DECLINES TOBACCO CESSATION MEDS [facility] Dec 08, 2011 01:04 PM V1-PT THINKING ABOUT QUIT TOBACCO USE [facility] Advance Directives: All historical and current [...] Mar 19, 2012 ADVANCE DIRECTIVE ERIKA MORALES [facility] Encounter Notes: All associated encounter notes This section contains the clinical notes associated to the Encounter. Date/Time Encounter Note(s) Provider Source Feb 21, 2024 04:04 PM ADDENDUM: LOCAL TITLE: Addendum STANDARD TITLE: ADDENDUM DATE OF NOTE: FEB 21, 2024@16:04:44 ENTRY DATE: FEB 21, 2024@16:04:46 AUTHOR: STELEA,RASHARD F EXP COSIGNER: URGENCY: STATUS: COMPLETED Lj Berry, I do not have any form for this in the right fax Can you please let me know where I can find the paper Thank mookie /sharona SCHULTZ MD PRIMARY CARE PHYSICIAN Signed: 02/21/2024 16:05 Receipt Acknowledged By: 02/22/2024 09:27 /SEVERIANO Rivera REGISTERED NURSE ======== --- Original Document --- 01/17/24 NOTE: Please inform the [place] his HIV and syphilis test nonreactive, which is good Thank mookie /sharona SCHULTZ MD PRIMARY CARE PHYSICIAN Signed: 01/17/2024 16:03 Receipt Acknowledged By: 01/24/2024 11:26 /caitlyn/ LATOYA RUVALCABA LPN Licensed Practical Nurse 01/24/2024 ADDENDUM STATUS: COMPLETED Called unable to LVM, number not in service. /sharona RUVALCABA LPN Licensed Practical Nurse Signed: 01/24/2024 11:27 02/05/2024 ADDENDUM STATUS: COMPLETED Called [place] and advised of above results. [place] requested copy of last lab results printed and with signature of pcp on copy. Author advised that pcp is not in office this week but that will leave copy for signature in pcp mailbox for pcp and then [place] would like to be notified when lab results available for pickup at [facility] senior front end engineer. /SEVERIANO Rivera REGISTERED NURSE Signed: 02/05/2024 09:35 Receipt Acknowledged By: 02/21/2024 16:04 /sharona SCHULTZ MD PRIMARY CARE PHYSICIAN RASHARD SCHULTZ [place] Feb 05, 2024 09:34 AM ADDENDUM: LOCAL TITLE: Addendum STANDARD TITLE: ADDENDUM DATE OF NOTE: FEB 05, 2024@09:34:08 ENTRY DATE: FEB 05, 2024@09:34:08 AUTHOR: ROSS SERRANO EXP COSIGNER: URGENCY: STATUS: COMPLETED Called and advised of above results. [place] requested copy of last lab results printed and with signature of pcp on copy. Author advised that pcp is not in office this week but that will leave copy for signature in pcp mailbox for pcp and then [place] would like to be notified when lab results available for pickup at [facility] senior front end engineer. /caitlyn/ SEVERIANO RODRIGUEZ RN-BC REGISTERED NURSE Signed: 02/05/2024 09:35 Receipt Acknowledged By: 02/21/2024 16:04 /caitlyn/ RASHARD SCHULTZ MD PRIMARY CARE PHYSICIAN ======== --- Original Document --- 01/17/24 NOTE: Please inform the [place] his HIV and syphilis test nonreactive, which is good Thank you /sharona SCHULTZ MD PRIMARY CARE PHYSICIAN Signed: 01/17/2024 16:03 Receipt Acknowledged By: 01/24/2024 11:26 /caitlyn/ LATOYA RUVALCABA LPN Licensed Practical Nurse 01/24/2024 [...] COMPLETED NOTE Has ADDENDA Please inform the [place] his HIV and syphilis test nonreactive, which is good Thank you /sharona SCHULTZ MD PRIMARY CARE PHYSICIAN Signed: 01/17/2024 16:03 Receipt Acknowledged By: 01/24/2024 11:26 /caitlyn/ LATOYA RUVALCABA LPN Licensed Practical Nurse 01/24/2024 ADDENDUM STATUS: COMPLETED Called unable to LVM, number not in service. /caitlyn/ LATOYA RUVALCABA LPN Licensed Practical Nurse Signed: 01/24/2024 11:27 02/05/2024 ADDENDUM STATUS: COMPLETED Called and advised of above results. requested copy of last lab results printed and with signature of pcp on copy. Author advised that pcp is not in office this week but that will leave copy for signature in pcp mailbox for pcp and then [place] would like to be notified when lab results available for pickup at [facility] senior front end engineer. /SEVERIANO Rivera RN-BC REGISTERED NURSE Signed: 02/05/2024 09:35 Receipt Acknowledged By: 02/21/2024 16:04 /caitlyn/ RASHARD SCHULTZ MD PRIMARY CARE PHYSICIAN 02/21/2024 ADDENDUM STATUS: COMPLETED Lj Berry, I do not have any form for this in the right fax Can you please let me know where I can find the paper Thank you /sharona SCHULTZ MD PRIMARY CARE PHYSICIAN Signed: 02/21/2024 16:05 Receipt Acknowledged By: 02/22/2024 09:27 /caitlyn/ SEVERIANO RODRIGUEZ RN-BC REGISTERED NURSE 02/22/2024 ADDENDUM STATUS: COMPLETED Called [place] and left voicemail that advised that copy of requested labwork with provider signatureand has been placed at [facility] senior front end engineer for pickup.left call back number of [phone] if needed /SEVERIANO Rivera RN-BC REGISTERED NURSE Signed: 02/22/2024 09:31 RASHARD SCHULTZ
--- OUTSIDE RECORDS SUMMARY | 2024-06-02 11:23 | XMS_ITS | Encounter Summary ---
Author Name [facility] [place] Address [address] [place] [address] Care Team Providers Care Tacking Stitch Remover Name Role Phone ROBBY NIELSON Primary Care [...] PRESCRIPT ION RX730 1 May 28, 2017 [id number] [phone] Charlene MASON DDIE PATIENT [facility] PRESCRIPT ION RX730 1 May 28, 2017 [id number] Charlene MASON DDIE PATIENT OPTUM RX PRESCRIPT ION RX May 28, 2022 THPRX [id number] Charlene MASON DDIE PATIENT OPT[facility] RX PRESCRIPT ION RX May 28, 2022 THPRX [id number] [phone] Charlene MASON DDIE PATIENT [facility] PLAN USP May 28, 2017 [facility] [id number] Charlene MASON DDIE PATIENT [facility] IVY Chang May 28, 2017 [facility] [id number] [phone] Charlene MASON DDFRED PATIENT [facility] POINT OF SERVICE MALLORY CHERY Oct 27, 2011 [id number] Charlene MASON DDFRED PATIENT [facility] (WNR) SUKUMAR CHERY(WN R) May 28, 2017 (WNR) [id number] Charlene MASON PATIENT Selected Encounter This [...] 06, 2024 11:30 AM AMBULATORY [facility] Apr 16, 2024 10:00 AM AMBULATORY MEDICINE [facility] May 01, 2024 10:00 AM AMBULATORY - MEDICINE [facility] May 16, 2024 09:00 AM AMBULATORY - MEDICINE [facility] Jun 27, 2024 11:00 AM AMBULATORY MEDICINE [facility] Jul 18, 2024 10:00 AM AMBULATORY - MEDICINE [facility] Social History: Smoking Status (Most current) [...] Gina garza Jan 15, 2024 08:57 AM [place]-TOBACCO NEVER USED [facility] Tobacco Use History This section includes a history of the smoking, or tobacco-related health factors, that were collected on or before the date of the Encounter. The data comes from the [place] facility where the Encounter took place. Date/Time Smoking Status/Tobac co Use Comment Facility Jan 08, 2023 09:03 AM [place]-TOBACCO NEVER USED [facility] Aug 01, 2021 09:08 AM [place]-TOBACCO FORMER USER [facility] Aug 01, 2021 09:08 AM [place]-TOBACCO QUIT 1 TO < 5 YRS [facility] Dec 08, 2011 01:04 PM CURRENT SMOKER chew pack and half a week [facility] Dec 08, 2011 01:04 PM V1-PT DECLINES REF TO TOBACCO CESS PRGM [facility] Dec 08, 2011 01:04 PM V1-PT DECLINES TOBACCO CESSATION MEDS [facility] Dec 08, 2011 01:04 PM V1-PT THINKING ABOUT QUIT TOBACCO USE [facility] Advance Directives: All historical and current [...] Mar 19, 2012 ADVANCE DIRECTIVE ERIKA MORALES [facility] Encounter Notes: All associated encounter notes This section contains the clinical notes associated to the Encounter. Date/Time Encounter Note(s) Provider Source Feb 18, 2024 10:33 AM ADMINISTRATIVE NOT E: LOCAL TITLE: ADMINISTRATIVE NOTE STANDARD TITLE: ADMINISTRATIVE NOTE DATE OF NOTE: FEB 18, 2024@10:33 ENTRY DATE: FEB 18, 2024@10:34:02 AUTHOR: GILLIAN JI COSIGNER: URGENCY: STATUS: COMPLETED THIS ELECTRICIAN OFFICE CALLED TO SCHEDULE A F2F OR VVC APPT WITH CWM/SO/PACT EIGHT PROVIDER discuss letter requested from PCP. NO ANSWER, LEFT MESSAGE FOR TO CALL BACK AND SCHEDULE APPT. 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 POWER PLANT MANAGER Signed: 02/18/2024 10:35 [facility] Feb 18, 2024 10:32 AM LETTERS: LOCAL TITLE: PATIENT LETTER (T) STANDARD TITLE: LETTERS DATE OF NOTE: FEB 18, 2024@10:32 ENTRY DATE: FEB 18, 2024@10:32:34 AUTHOR: GILLIAN JI COSIGNER: URGENCY: STATUS: COMPLETED PATIENT LETTER (T) Has [facility] DEPARTMENT [facility] Toll Free Number Primary Care Telephone Assistance can be reached at extension [phone] [facility] scheduling can be reached at extension [phone] [facility] scheduling can be reached at ext [phone] [facility] [address] [place], [place], [address] Date: FEB 18, 2024 Dear Merrill: Our goal at the [facility] is to provide you with quality medical care. We have been trying to reach you unsuccessfully to schedule your follow up appt with your primary care provider RASHARD SCHULTZ at the [facility], [address] [place] [phone]. Please call us at Sunday through Sunday, 8am-4pm to schedule this appointment. 02/18/2024 ADDENDUM STATUS: COMPLETED THIS ELECTRICIAN OFFICE MAILED LETTER TO . 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 POWER PLANT MANAGER Signed: 02/18/2024 10:33 Sincerely, Your Primary Care Team [facility] [address] [facility] [address] [place] [address] [place] [address] [phone] [facility] [address] [place] [address] [place] [address] [phone] [facility] [address] [place] [phone] [place] [address] [facility]
--- OUTSIDE RECORDS SUMMARY | 2024-06-02 11:23 | XMS_ITS | Encounter Summary ---
Author Name [facility] [place] Address [address] [place] [address] Care Team Providers Care Salicylic Acid Blender Name Role Phone ROBBY NIELSON Primary Care [...] PRESCRIPT ION RX730 1 May 28, 2017 [id number] [phone] Charlene MASON DDIE PATIENT [facility] PRESCRIPT ION RX730 1 May 28, 2017 [id number] [phone] Charlene MASON DDIE PATIENT OPTUM RX PRESCRIPT ION RX May 28, 2022 THPRX [id number] Charlene MASON DDIE PATIENT OPTUM RX PRESCRIPT ION RX May 28, 2022 THPRX [id number] [phone] Charlene MASON DDIE PATIENT [facility] PLAN USP May 28, 2017 [facility] [id number] [phone] Charlene MASON DDIE PATIENT [facility] PLAN IVY Chang May 28, 2017 [id number] Charlene MASON PATIENT COUNT INCLUDES [facility] POINT OF SERVICE MALLORY RE Oct 27, 2011 [id number] [id number] Charlene MASON PATIENT [facility] (WNR) SUKUMAR TEJADA RE(WN R) May 28, 2017 (WNR) [id number] Charlene MASON PATIENT Selected Encounter This section includes the information on record at [place] for the Encounter. Date/Time Encounter Type Encounter Description Reason Provider Source Jan 04, 2024 09:00 AM OFFICE O/P EST LOW 20 MIN PODIATRY ICD-10-CM L60.3 Nail dystrophy JOHN LEE Charlene Encounter Template Text not used by [place] Assessments - Encounter Diagnoses This section includes the primary and secondary diagnoses documented for the Encounter. Date/Time Primary/Secondary Diagnosis Diagnosis Name Provider Source Jan 04, 2024 09:17 AM PRIMARY Nail dystrophy JOHN LEE [facility] Jan 04, 2024 09:17 AM SECONDARY Corns and callosities JOHN LEE DIGNA Jan 04, 2024 09:17 AM SECONDARY Idiopathic progressive neuropathy JOHN LEE [facility] Jan 04, 2024 09:17 AM SECONDARY Pain in left toe(s) JOHN LEE DIGNA Jan 04, 2024 09:17 AM SECONDARY Pain in right toe(s) JOHN LEE Plan of Treatment: Future Appointments (+ 6 months) and Future Tests (+/- 45 days) The Plan of Treatment section includes future care activities for the patient from all [place] treatmentfacilities. This section includes future appointments and future orders which are active, pending or scheduled. Future Appointments This section includes appointments that were scheduled to occur 6 months from the date of the Encounter, up to a maximum of 20 appointments. The data comes from all [place] treatment facilities. Appointment Date/Time Appointment Type Appointme nt Facility Name Jan 15, 2024 09:00 AM AMBULATORY - MEDICINE [facility] Feb 14, 2024 01:15 PM AMBULATORY - MEDICINE IN [place] [facility] Mar 06, 2024 11:30 AM AMBULATORY - MEDICINE IN C [place] [facility] Apr 16, 2024 10:00 AM AMBULATORY - MEDICINE IN C [place] [facility] May 01, 2024 10:00 AM AMBULATORY - MEDICINE IN C [place] [facility] May 16, 2024 09:00 AM AMBULATORY - MEDICINE [facility] Jun 27, 2024 11:00 AM [facility]UL[facility] Active, Pending, and Scheduled Orders This section includes a listing of several types of active, pending, and scheduled orders, including clinic medications orders, diagnostic test orders, procedure orders and consult orders; where the start date of the order is 45 days before the date of the Encounter or 45 days after the date of theEncounter. The data comes from all [place] treatment facilities. Test Date/Time Test Type Test Details Facility Name Dec 04, 2023 04:40 PM Consult Order [facility] Design/Animation Instructor's Choice [facility] Lab Results: +/- 30 days of the encounter This section includes the Chemistry and Hematology Lab Results on record with [place] for the patient. Radiology Reports and Pathology Reports are provided separately, in subsequent sections. Lab Results This section contains the Chemistry/Hematology Results that were resulted 30 days before or 30 daysafter the date of the Encounter. Date/Time Source Result Type Result - Unit Interpretation Reference Range Comment Jan 15, 2024 09:47 AM [facility] PSA Specimen Type: SERUM No comment entered. Ordering Provider: PHYLLIS WHALEY Report Released Date/Time: Aug 13, 2023 09:06 AM Reporting Lab: [facility] [address] [facility] [address] Performing Lab: [address] [address] PSA 2.58 ng/mL 0.00-4.00 Jan 15, 2024 09:47 AM [facility] LIPID PANEL FASTING Specimen Type: SERUM No comment entered. Ordering Provider: PHYLLIS WHALEY Report Released Date/Time: Aug 13, 2023 09:06 AM Reporting Lab: [facility] [address] [facility] [address] Performing Lab: [address] [address] CHOLESTEROL 186 mg/dL TRIGLYCERIDE 36 mg/dL 0-150 LDL calculated 61 mg/dL 0-129 CHOL/HDL 1.6 HDL CHOLESTEROL 118 mg/dL H 40-60 Jan 15, 2024 09:47 AM [facility] LIVER FUNCTION Specimen Type: SERUM No comment entered. Ordering Provider: PHYLLIS WHALEY Report Released Date/Time: Aug 13, 2023 09:06 AM Reporting Lab: [facility] [address] [facility] [address] Performing Lab: [address] [address] PROTEIN,TOTAL 7.5 g/dL 6.0-8.3 ALBUMIN 4.3 g/dL 3.5-5.0 ALKALINE PHOSPHATASE 72 U/L 40-150 AST 131 U/L H 5-34 ALT 99 U/L H BILIRUBIN, TOTAL 0.8 mg/dL 0.2-1.2 Jan 15, 2024 09:47 AM [facility] BASIC METABOLIC PANEL (fasting) Specimen Type: SERUM No comment entered. Ordering Provider: PHYLLIS WHALEY Report Released Date/Time: Aug 13, 2023 09:06 AM Reporting Lab: [address] [address] Performing Lab: [address] [address] UREA NITROGEN 9 mg/dL 7-25 GLUCOSE 85 mg/dL 65-100 SODIUM 139 mmol/L 135-145 POTASSIUM 5.1 mmol/L H 3.5-5.0 CHLORIDE 101 mmol/L 100-110 CO2 25 meq/L 20-30 CREATININE, Serum 1.30 mg/dL 0.50-1.40 eGFR(CKD-EPI 2020) 61 mL/min >60 Jan 15, 2024 09:47 AM [facility] HEMOGLOBIN A1C PANEL Specimen Type: BLOOD [...] Aug 13, 2023 09:06 AM Reporting Lab: [facility] [address] [facility] [address] Performing Lab: [address] [address] HEMOGLOBIN A1C 4.9 4.0-5.6 Jan 15, 2024 09:47 AM [facility] URINALYSIS Specimen Type: URINE Comment: If Glucose = >500 and Ketones are positive, please alert the Physician. Ordering Provider: PHYLLIS WHALEY Report Released Date/Time: Aug 13, 2023 09:06 AM Reporting Lab: [address] [address] Performing Lab: [address] [address] UA COLOR Colorless Yellow UA APPEARANCE Clear Clear UA GLUCOSE Normal mg/dL Negative UA KETONES NEGATIVE mg/dL Negative UA BLOOD NEGATIVE mg/dL Negative UA PROTEIN NEGATIVE mg/dL Negative UA NITRITE NEGATIVE mg/dL Negative UA BILIRUBIN NEGATIVE mg/dL Negative UA SPECIFIC GRAVITY 1.005 L 1.016-1.022 UA pH 6.0 5.0-9.0 UA UROBILINOGEN Normal mg/dL <2.0 UA LEUKOCYTE NEGATIVE Negative Jan 15, 2024 09:47 AM [facility] TSH Specimen Type: SERUM No comment entered. Ordering Provider: PHYLLIS WHALEY Report Released Date/Time: Aug 13, 2023 09:06 AM Reporting Lab: [address] [address] Performing Lab: [address] [address] TSH 0.57 u[IU]/mL 0.35-5.00 Jan 15, 2024 09:47 AM [facility] CBC AND DIFF (AUTO) Specimen Type: BLOOD No comment entered. Ordering Provider: PHYLLIS WHALEY Report Released Date/Time: Aug 13, 2023 09:06 AM Reporting Lab: [address] [address] Performing Lab: [facility] [address] [facility] [address] WBC 4.91 10*3/uL 4.50-11.00 RBC 4.24 10*6/uL [...] 10*3/uL 0.00-0.00 Jan 15, 2024 09:47 AM [facility] SYPHILIS ABS W/RFLX Specimen Type: SERUM Comment: No laboratory evidence of syphilis infection. If recent exposure is suspected, re-draw sample in 2-4 weeks and repeat algorithm. Testing performed by T. pallidum specific immunoassay. Ordering Provider: RASHARD SCHULTZ Report Released Date/Time: Jan 15, 2024 09:24 AM Reporting Lab: [facility] [address] [facility] [address] Performing Lab: [facility] [address] [facility] [address] SYPHILIS ABS W/RFLX Non Reactive Non Reactive Jan 15, 2024 09:47 AM [facility] FERRITIN Specimen Type: SERUM No comment entered. Ordering Provider: RASHARD SCHULTZ Report Released Date/Time: Jan 15, 2024 09:24 AM Reporting Lab: [facility] [address] [facility] [address] Performing Lab: [facility] [address] [facility] [address] FERRITIN 523 ng/mL H 20-300 Jan 15, 2024 09:47 AM [facility] IRON & TIBC PANEL Specimen Type: SERUM No comment entered. Ordering Provider: RASHARD SCHULTZ Report Released Date/Time: Jan 15, 2024 09:24 AM Reporting Lab: [facility] [address] [facility] [address] Performing [facility]: [facility] [address] [address] TIBC 275 ug/dL 204-475 IRON 71 ug/dL 40-160 Transferrin Saturation 25.9 20.0-50.0 Jan 15, 2024 09:47 AM [facility] VITAMIN B12 Specimen Type: SERUM No comment entered. Ordering Provider: RASHARD SCHULTZ Report Released Date/Time: Jan 15, 2024 09:24 AM Reporting Lab: [facility] [address] [facility] [address] Performing Lab: [facility] [address] VITAMIN B12 873 pg/mL 200-900 Jan 15, 2024 09:47 AM [facility] HIV 1&2 Ag/Ab SCREEN Specimen Type: SERUM No comment entered. Ordering Provider: RASHARD SCHULTZ Report Released Date/Time: Jan 15, 2024 09:24 AM Reporting Lab: [facility] [address] [facility] [address] Performing Lab: [facility] [address] [address] HIV 1&2 Ag/Ab SCREEN NON-REACTIVE Nonreactive Jan 04, 2024 09:27 AM [facility] PSA Specimen Type: SERUM No comment entered. Ordering Provider: CLIFF MCKEON Report Released Date/Time: Jan 08, 2023 11:58 AM Reporting Lab: [facility] [address] [facility] [address] Performing Lab: [facility] [address] [address] PSA 3.04 ng/mL 0.00-4.00 Jan 04, 2024 09:27 AM [facility] LIPID PANEL FASTING Specimen Type: SERUM No comment entered. Ordering Provider: CLIFF MCKEON Report Released Date/Time: Jan 08, 2023 11:58 AM Reporting Lab: [facility] [address] [address] Performing Lab: [facility] [address] [address] CHOLESTEROL 184 mg/dL TRIGLYCERIDE 35 mg/dL 0-150 LDL calculated 67 mg/dL 0-129 CHOL/HDL 1.7 HDL CHOLESTEROL 110 mg/dL H 40-60 Jan 04, 2024 09:27 AM [facility] BASIC METABOLIC PANEL (fasting) Specime n Type: SERUM No comment entered. Ordering Provider: CLIFF MCKEON Report Released Date/Time: Jan 08, 2023 11:58 AM Reporting Lab: [facility] [address] [address] Performing Lab: [facility] [address] [address] UREA NITROGEN 9 mg/dL 7-25 GLUCOSE 76 mg/dL 65-100 SODIUM 137 mmol/L 135-145 POTASSIUM 4.7 mmol/L 3.5-5.0 CHLORIDE 105 mmol/L 100-110 CO2 18 meq/L L 20-30 CREATININE, Serum 1.30 mg/dL 0.50-1.40 eGFR(CKD-EPI 2020) 61 mL/min >60 Jan 04, 2024 09:27 AM [facility] LIVER FUNCTION Specimen Type: SERUM No comment entered. Ordering Provider: CLIFF MCKEON Report Released Date/Time: Jan 08, 2023 11:58 AM Reporting Lab: [facility] [address] [address] Performing Lab: [address] [address] PROTEIN,TOTAL 7.1 g/dL 6.0-8.3 ALBUMIN 4.0 g/dL 3.5-5.0 ALKALINE PHOSPHATASE 65 U/L 40-150 AST 76 U/L H 5-34 ALT 44 U/L BILIRUBIN, TOTAL 0.7 mg/dL 0.2-1.2 Jan 04, 2024 09:27 AM [facility] URINALYSIS Specimen Type: URINE Comment: If Glucose = >500 and Ketones are positive, please alert the Physician. Ordering Provider: CLIFF MCKEON Report Released Date/Time: Jan 08, 2023 11:58 AM Reporting Lab: [address] [address] Performing Lab: [address] [address] UA COLOR Light-Yellow Yellow UA APPEARANCE Clear Clear UA GLUCOSE Normal mg/dL Negative UA KETONES TRACE mg/dL Negative UA BLOOD NEGATIVE mg/dL Negative UA PROTEIN NEGATIVE mg/dL Negative UA NITRITE NEGATIVE mg/dL Negative UA BILIRUBIN NEGATIVE mg/dL Negative UA SPECIFIC GRAVITY 1.015 L 1.016-1.022 UA pH 5.5 5.0-9.0 UA UROBILINOGEN Normal mg/dL <2.0 UA LEUKOCYTE NEGATIVE Negative Jan 04, 2024 09:27 AM [facility] HEMOGLOBIN A1C PANEL Specimen Type: BLOOD Comment: [...] Jan 08, 2023 11:58 AM Reporting Lab: [address] [address] Performing Lab: [address] [address] HEMOGLOBIN A1C 4.9 4.0-5.6 Jan 04, 2024 09:27 AM [facility] TSH Specimen Type: SERUM No comment entered. Ordering Provider: CLIFF MCKEON Report Released Date/Time: Jan 08, 2023 11:58 AM Reporting Lab: [address] [address] Performing Lab: [address] [address] TSH 0.45 u[IU]/mL 0.35-5.00 Jan 04, 2024 09:27 AM [facility] CBC AND DIFF (AUTO) Specimen Type: BLOOD No comment entered. Ordering Provider: CLIFF MCKEON Report Released Date/Time: Jan 08, 2023 11:58 AM Reporting Lab: [address] [address] Performing Lab: [address] [address] WBC 3.71 10*3/uL L 4.50-11.00 RBC 4.17 [...] and tobacco- related health factors from the [place] facility where the Encounter took place. Current Smoking Status This section includes the most current smoking, or tobacco-related health factor, from the [place] facility where the Encounter took place. Date/Time Current Smoking Status Comment Facil ity Mar 26, 2020 11:30 AM IN-TOBACCO NEVER USED [facility] Tobacco Use History This section includes a history of the smoking, or tobacco-related health factors, that were collected on or before the date of the Encounter. The data comes from the [place] facility where the Encounter took place. Date/Time Smoking Status/Tobacco Use Comment F acility Feb 03, 2019 10:43 AM IN-TOBACCO NEVER USED [facility] Mar 12, 2018 09:26 AM IN-TOBACCO NEVER USED [facility] Jun 15, 2016 03:51 PM LIFETIME NON-TOBACCO USER [facility] Jun 23, 2015 10:34 AM LIFETIME NON-TOBACCO USER [facility] Apr 22, 2013 10:41 AM LIFETIME NON-TOBACCO USER [facility] Mar 07, 2011 11:49 AM LIFETIME NON-TOBACCO USER [facility] Jan 07, 2009 11:55 AM LIFETIME NON-TOBACCO USER [facility] Advance Directives: All historical and current Section Date Range: From patient's date of to the date document was created. This section includes ALL of a patient's completed or amended [place] Advance and Rescinded Directives. The entries below indicate that a directive exists for the patient, but an actual copy is not included with this document. The data comes from all [facility]. Date Advance Directives Provider Source Jan 03, 2022 ADVANCE DIRECTIVE LUIS EDUARDO COLON Jan 03, 2021 ADVANCE DIRECTIVE KHUSHBU KUMAR [facility] Mar 19, 2012 ADVANCE DIRECTIVE ERIKA MORALES [facility] SIMEON JERONIMO [facility] Encounter Notes: All associated encounter notes This section contains the clinical notes associated to the Encounter. Date/Time Encounter Note(s) Provider Source Jan 04, 2024 07:17 AM PODIATRY NOTE: LOCAL TITLE: PODIATRY NOTE STANDARD TITLE: PODIATRY NOTE DATE OF NOTE: JAN 04, 2024@07:17 ENTRY DATE: JAN 04, 2024@07:17:44 AUTHOR: JOHN LEE COSIGNER: URGENCY: STATUS: COMPLETED NOTE: HAS RECEIVED BOTH COVID VACCINE DOSES + 3 BOOSTERS AT [facility] LAST SEEN FOR TREATMENT: 07/27/2023 S: Pt. [...] present physical-medical status. Protective sensation utilizing a [place]-Karley lOg monofilament is 0/10 bilateral. A: Clinical [...] of active outpatient prescriptions dispensed from this [place] (local) and dispensed from another [place] or [facility] facility (remote) as well as inpatient orders [...] JLV. Allergies/ADRs (Tool #5) FACILITY ALLERGY/ADR -------- [facility] NO KNOWN ALLERGIES IN [place] [facility] No Known Allergies [facility] Recon NoGlossary (Tool #1) INCLUDED IN THIS LIST: Alphabetical list of active outpatient prescriptions dispensed from this [place] (local) and dispensed from another [place] or DoD facility (remote) as well as [...] the patient into personal health records (i.e. [employer]) are NOT included in this list. Non-VA medications documented outside this [place], remote inpatient orders (regardless of status) and remote clinic medications are NOT included in this list. The patient and provider must always discuss medications the patient is taking, regardless of where the medication was dispensed or obtained. OUTPT AMLODIPINE BESYLATE 5MG TAB (Status = Active) TAKE ONE TABLET BY MOUTH ONCE DAILY FOR BLOOD PRESSURE/HEART, DO NOT TAKE WITH [employer] JUICE Rx# [id number] Last Released: 08/16/23 Qty/Days Supply: 90/90 Rx Expiration Date: 08/15/24 Refills Remainin Indication: FOR HIGH BLOOD PRESSURE OUTPT AMMONIUM LACTATE 12% LOTION (Status = Active) APPLY SMALL AMOUNT TOPICALLY TWICE DAILY FOR DRY IRRITATED SKIN Rx# [id number] Last Released: 07/28/23 Qty/Days Supply: 240/30 Rx Expiration Date: 07/27/24 Refills Remainin Indication: FOR DRY SKIN OUTPT BISACODYL 5MG EC TAB (Status = Active) TAKE 1-2 TABLETS BY MOUTH ONCE DAILY NEEDED FOR CONSTIPATION Rx# [id number] Last Released: 01/12/23 Qty/Days Supply: 180/90 Rx Expiration Date: 01/10/24 Refills Remainin Indication: FOR CONSTIPATION OUTPT CARBOXYMETHYLCELLULOSE NA 0.5% OPH SOLN (Status = Active) INSTILL 1 DROP INTO EACH EYE FOUR TIMES DAILY NEEDED Rx# [id number] Last Released: 07/26/23 Qty/Days Supply: 45/90 Rx [...] USE DOSING CARD PROVIDED IN BOX Rx# [id number] Last Released: 06/23/23 Qty/Days Supply: 100/8 Rx [...] 1 HOUR PRIOR TO SEXUAL ACTIVITY Rx# [id number] Last Released: 11/05/23 Qty/Days Supply: Rx Expiration Date: 08/13/24 Refills Remainin Indication: FOR ERECTILE DYSFUNCTION OUTPT SODIUM FLUORIDE 1.1% TOOTHPASTE (Status = ) BRUSH SMALL AMOUNT TO TEETH TWICE DAILY FOR TOOTH DECAY PREVENTION Rx# [id number] Last Released: 12/29/22 Qty/Days Supply: Rx Expiration Date: 12/28/23 Refills Remainin Indication: FOR TOOTH DECAY PREVENTION SUPPLIES /caitlyn/ JOHN LEE 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
--- OUTSIDE RECORDS SUMMARY | 2024-06-02 11:23 | XMS_ITS ---
Author Name [facility] [place] Organization [facility] [place] Address [address] [place] [address] Care Team Providers Care Link Trainer Teacher Name Role Phone ROBBY NIELSON Primary [...] PRESCRIPT ION RX730 1 May 28, 2017 [id number] Charlene MASON DDIE PATIENT [facility] PRESCRIPT ION RX730 1 May 28, 2017 [id number] [phone] Charlene MASON DDIE PATIENT OPTUM RX PRESCRIPT ION RX May 28, 2022 THPRX [id number] Charlene MASON DDIE PATIENT OPTUM RX PRESCRIPT ION RX May 28, 2022 THPRX [id number] Charlene MASON DDIE PATIENT [facility] PL[facility] USP May 28, 2017 [facility] [id number] Charlene MASON DDIE PATIENT [facility] IVY Chang May 28, 2017 [id number] Charlene MASON PATIENT [facility] POINT OF SERVICE MALLORY CHERY Oct 27, 2011 [id number] Charlene MASON DDFRED PATIENT [facility] (WNR) SUKUMAR CHERY(WN R) May 28, 2017 (WNR) [id number] [id number] Charlene MASON PATIENT Selected Encounter This section includes the information on record at [place] for the Encounter. Date/Time Encounter Type Encounter Description Reason Pro vider Source Feb 26, 2024 09:54 AM Outpatient Encounter ADMIN PAT ACTIVTIES (MASNONCT) IHE Encounter Template Text not used by [place] [...] 06, 2024 11:30 AM AMBULATORY - MEDICINE [facility] Apr 16, 2024 10:00 AM AMBULATORY - MEDICINE [facility] May 01, 2024 10:00 AM AMBULATORY - MEDICINE [facility] N[facility]N [facility] May 16, 2024 09:00 AM AMBULATORY - MEDICINE [facility] Jun 27, 2024 11:00 AM AMBULATORY - MEDICINE [facility] Jul 18, 2024 10:00 AM AMBULATORY - MEDICINE [facility] Social History: Smoking Status (Most [...] Date/Time Current Smoking Status Valente garza Jan 15, 2024 08:57 AM [place]-TOBACCO NEVER USED [facility] Tobacco Use History This section includes a history of the smoking, or tobacco-related health factors, that were collected on or before the date of the Encounter. The data comes from the [place] facility where the Encounter took place. Date/Time Smoking Status/Tobac co Use Comment Facility Jan 08, 2023 09:03 AM VA-TOBACCO NEVER USED [facility] Aug 01, 2021 09:08 AM VA-TOBACCO FORMER USER [facility] Aug 01, 2021 09:08 AM [place]-TOBACCO QUIT 1 TO < 5 YRS [facility] Dec 08, 2011 01:04 PM CURRENT SMOKER chew pack and half a week [facility] Dec 08, 2011 01:04 PM V1-PT DECLINES REF TO TOBACCO CESS PRGM [facility] Dec 08, 2011 01:04 PM V1-PT DECLINES TOBACCO CESSATION MEDS [facility] Dec 08, 2011 01:04 PM V1-PT THINKING ABOUT QUIT TOBACCO USE [facility] Advance Directives: All historical and current Section [...] Mar 19, 2012 ADVANCE DIRECTIVE ERIKA MORALES [facility] Encounter Notes: All associated encounter [...] Patient Name: KYLE MASON Patient Primary Phone: [phone] Patient Primary Address: [address] [place] [id number] Patient : 1960 Patient Age: 63 Call Back Number: [phone] Caller/Recipient Relation to Patient: Other If Other Describe Relation to Patient: [facility] pulmonology Caller Name: Heena Administrative Administrative Note Reason: Other Administrative Note Comments: Heena from [facility] Pulmonology is requesting a insurance referal. Please fax to [phone]. Heena can be reached at [phone] IMPORTANT: This note was created by [facility] Clinical Contact Center staff. Please do not alert the staff member by adding them as a signer for future communications. Alerts are not monitored by this user. /sharona [facility] Signed: 02/26/2024 09:54 Receipt Acknowledged By: 02/28/2024 10:07 /caitlyn/ SEVERIANO RODRIGUEZ RN-BC REGISTERED NURSE 02/26/2024 11:49 /es/ LATOYA RUVALCABA LPN Licensed Practical Nurse 02/28/2024 ADDENDUM STATUS: COMPLETED Called Heena and she reports that was referred to [facility] pulmonology clinic by a [facility] provider and that the [place] is listed as 's primary care provider. Author advised that if they can provide reason for referral and diagnosis code that PACT could enter cc consult if appropriate. Heena is going to reach out to referring office and discuss and will provide referring office with [facility] fax number if they would like to send request to PACT for consideration. /SEVERIANO Rivera RN-BC REGISTERED NURSE Signed: 02/28/2024 10:14 [facility] B[facility] [place] [facility] [facility]
--- OUTSIDE RECORDS SUMMARY | 2024-06-02 11:23 | XMS_ITS | Encounter Summary ---
Author Name [facility] Organization [facility] [place] Address [address] [place] [address] Care Team Providers Care Game Attendant Name Role Phone ROBBY NIELSON Primary Care [...] PRESCRIPT ION RX730 1 May 28, 2017 [id number] Charlene MASON DDIE PATIENT [facility] PRESCRIPT ION RX730 1 May 28, 2017 [id number] [phone] Charlene MASON DDIE PATIENT OPTUM RX PRESCRIPT ION RX May 28, 2022 THPRX [id number] [phone] Charlene MASON DDIE PATIENT OPTUM RX PRESCRIPT ION RX May 28, 2022 THPRX [id number] [phone] Charlene MASON DDIE PATIENT [facility] USP May 28, 2017 [facility] [id number] [phone] Charlene MASON DDIE PATIENT [facility] IVY Chang May 28, 2017 [facility] [id number] [phone] Charlene MASON DDFRED PATIENT [facility] POINT OF SERVICE MALLORY CHERY Oct 27, 2011 [id number] Charlene MASON DDFRED PATIENT [facility] (R) SUKUMAR CHERY(WN R) May 28, 2017 (WNR) [id number] Charlene MASON PATIENT Selected Encounter This section includes the information on record at [place] for the Encounter. Date/Time Encounter Type Encounter Description Reason Provider Source Jan 15, 2024 08:57 AM IMMUNIZATION ADMIN EACH ADD PRIMARY CARE/MEDICINE ICD-10-CM Z23. Encounter for immunization RASHARD SCHULTZ Charlene Encounter Template Text not used by [place] Assessments - Encounter Diagnoses This section includes the primary and secondary diagnoses documented for the Encounter. Date/Time Primary/Secondary Diagnosis Diagnosis Name Provider Source Jan 15, 2024 08:57 AM SECONDARY Encounter for immunization [facility] Plan of Treatment: Future Appointments (+ 6 [...] 14, 2024 01:15 PM AMBULATORY - MEDICINE [facility] [place] [facility] Mar 06, 2024 11:30 AM AMBULATORY - MEDICINE [facility] [place] [facility] Apr 16, 2024 10:00 AM AMBULATORY - MEDICINE [facility] [place] [facility] May 01, 2024 10:00 AM AMBULATORY - MEDICINE [facility] [place] [facility] May 16, 2024 09:00 AM AMBULATORY - MEDICINE [facility] Jun 27, 2024 11:00 AM AMBULATORY - MEDICINE [facility] [place] [facility] Active, Pending, and Scheduled Orders This section [...] [facility] Cons Conference Producer's Choice [facility] Lab Results: +/- 30 days of the encounter This section includes the Chemistry and Hematology Lab Results on record with [place] for the patient. Radiology Reports and Pathology Reports are provided separately, in subsequent sections. Lab Results This section contains the Chemistry/Hematology Results that were resulted 30 days before or 30 daysafter the date of the Encounter. Date/Time Source Result Type Result - Unit Interpretation Reference Range Comment Jan 15, 2024 09:47 AM [facility] PSA Specimen Type: SERUM No comment entered. Ordering Provider: PHYLLIS WHALEY Report Released Date/Time: Aug 13, 2023 09:06 AM Reporting Lab: [address] [address] Performing Lab: [facility] [address] PSA 2.58 ng/mL 0.00-4.00 Jan 15, 2024 09:47 AM [facility] LIPID PANEL FASTING Specimen Type: SERUM No comment entered. Ordering Provider: PHYLLIS WHALEY Report Released Date/Time: Aug 13, 2023 09:06 AM Reporting Lab: [address] [address] Performing Lab: [facility] [address] CHOLESTEROL 186 mg/dL TRIGLYCERIDE 36 mg/dL 0-150 LDL calculated 61 mg/dL 0-129 CHOL/HDL 1.6 HDL CHOLESTEROL 118 mg/dL H 40-60 Jan 15, 2024 09:47 AM [facility] LIVER FUNCTION Specimen Type: SERUM No comment entered. Ordering Provider: PHYLLIS WHALEY Report Released Date/Time: Aug 13, 2023 09:06 AM Reporting Lab: [facility] [address] Performing Lab: [facility] [address] [facility] [address] PROTEIN,TOTAL 7.5 g/dL 6.0-8.3 ALBUMIN 4.3 g/dL 3.5-5.0 ALKALINE PHOSPHATASE 72 U/L 40-150 AST 131 U/L H 5-34 ALT 99 U/L H BILIRUBIN, TOTAL 0.8 mg/dL 0.2-1.2 Jan 15, 2024 09:47 AM [facility] BASIC METABOLIC PANEL (fasting) Specimen Type: SERUM No comment entered. Ordering Provider: PHYLLIS WHALEY Report Released Date/Time: Aug 13, 2023 09:06 AM Reporting Lab: [address] [address] Performing Lab: [address] [address] UREA NITROGEN 9 mg/dL 7-25 GLUCOSE 85 mg/dL 65-100 SODIUM 139 mmol/L 135-145 POTASSIUM 5.1 mmol/L H 3.5-5.0 CHLORIDE 101 mmol/L 100-110 CO2 25 meq/L 20-30 CREATININE, Serum 1.30 mg/dL 0.50-1.40 eGFR(CKD-EPI 2020) 61 mL/min >60 Jan 15, 2024 09:47 AM [facility] HEMOGLOBIN A1C PANEL Specimen Type: BLOOD [...] Aug 13, 2023 09:06 AM Reporting Lab: [address] [address] Performing Lab: [address] [address] HEMOGLOBIN A1C 4.9 4.0-5.6 Jan 15, 2024 09:47 AM [facility] URINALYSIS Specimen Type: URINE Comment: If Glucose = >500 and Ketones are positive, please alert the Physician. Ordering Provider: PHYLLIS WHALEY Report Released Date/Time: Aug 13, 2023 09:06 AM Reporting Lab: [facility] [address] [facility] [facility] [address] Performing Lab: [facility] [address] [address] UA COLOR Colorless Yellow UA APPEARANCE Clear Clear UA GLUCOSE Normal mg/dL Negative UA KETONES NEGATIVE mg/dL Negative UA BLOOD NEGATIVE mg/dL Negative UA PROTEIN NEGATIVE mg/dL Negative UA NITRITE NEGATIVE mg/dL Negative UA BILIRUBIN NEGATIVE mg/dL Negative UA SPECIFIC GRAVITY 1.005 L 1.016-1.022 UA pH 6.0 5.0-9.0 UA UROBILINOGEN Normal mg/dL <2.0 UA LEUKOCYTE NEGATIVE Negative Jan 15, 2024 09:47 AM [facility] TSH Specimen Type: SERUM No comment entered. Ordering Provider: PHYLLIS WHALEY Report Released Date/Time: Aug 13, 2023 09:06 AM Reporting Lab: [facility] [address] [facility] [facility] [address] Performing Lab: [address] [address] TSH 0.57 u[IU]/mL 0.35-5.00 Jan 15, 2024 09:47 AM [facility] CBC AND DIFF (AUTO) Specimen Type: BLOOD No comment entered. Ordering Provider: PHYLLIS WHALEY Report Released Date/Time: Aug 13, 2023 09:06 AM Reporting Lab: [facility] [address] [address] Performing Lab: [address] [address] WBC 4.91 10*3/uL 4.50-11.00 RBC 4.24 10*6/uL [...] 10*3/uL 0.00-0.00 Jan 15, 2024 09:47 AM [facility] SYPHILIS ABS W/RFLX Specimen Type: SERUM Comment: No laboratory evidence of syphilis infection. If recent exposure is suspected, re-draw sample in 2-4 weeks and repeat algorithm. Testing performed by T. pallidum specific immunoassay. Ordering Provider: RASHARD SCHULTZ Report Released Date/Time: Jan 15, 2024 09:24 AM Reporting Lab: [facility] [address] [address] Performing Lab: [facility] [address] [facility] [address] SYPHILIS ABS W/RFLX Non Reactive Non Reactive Jan 15, 2024 09:47 AM [facility] FERRITIN Specimen Type: SERUM No comment entered. Ordering Provider: RASHARD SCHULTZ Report Released Date/Time: Jan 15, 2024 09:24 AM Reporting Lab: [facility] [address] [facility] [address] Performing Lab: [place] [facility] [address] [address] FERRITIN 523 ng/mL H 20-300 Jan 15, 2024 09:47 AM [facility] IRON & TIBC PANEL Specimen Type: SERUM No comment entered. Ordering Provider: RASHARD SCHULTZ Report Released Date/Time: Jan 15, 2024 09:24 AM Reporting Lab: [facility] [place] [place] [facility] [address] [address] Performing Lab: [facility] [place] [facility] [address] [address] TIBC 275 ug/dL 204-475 IRON 71 ug/dL 40-160 Transferrin Saturation 25.9 20.0-50.0 Jan 15, 2024 09:47 AM [facility] VITAMIN B12 Specimen Type: SERUM No comment entered. Ordering Provider: RASHARD SCHULTZ Report Released Date/Time: Jan 15, 2024 09:24 AM Reporting Lab: [place] [facility] [place] [facility] [address] [facility] [facility] [address] Performing Lab: [facility] [place] [address] [address] VITAMIN B12 873 pg/mL 200-900 Jan 15, 2024 09:47 AM [facility] HIV 1&2 Ag/Ab SCREEN Specimen Type: SERUM No comment entered. Ordering Provider: RASHARD SCHULTZ Report Released Date/Time: Jan 15, 2024 09:24 AM Reporting Lab: [facility] [place] [facility] [address] [facility] [address] Performing Lab: [facility] [place] [address] [address] HIV 1&2 Ag/Ab SCREEN NON-REACTIVE Nonreactive Jan 04, 2024 09:27 AM [facility] PSA Specimen Type: SERUM No comment entered. Ordering Provider: CLIFF MCKEON Report Released Date/Time: Jan 08, 2023 11:58 AM Reporting Lab: [facility] [address] [address] Performing Lab: [place] [facility] [place] [address] [address] PSA 3.04 ng/mL 0.00-4.00 Jan 04, 2024 09:27 AM [facility] LIPID PANEL FASTING Specimen Type: SERUM No comment entered. Ordering Provider: CLIFF MCKEON Report Released Date/Time: Jan 08, 2023 11:58 AM Reporting Lab: [address] [address] Performing Lab: [address] [address] CHOLESTEROL 184 mg/dL TRIGLYCERIDE 35 mg/dL 0-150 LDL calculated 67 mg/dL 0-129 CHOL/HDL 1.7 HDL CHOLESTEROL 110 mg/dL H 40-60 Jan 04, 2024 09:27 AM [facility] BASIC METABOLIC PANEL (fasting) Specime n Type: SERUM No comment entered. Ordering Provider: CLIFF MCKEON Report Released Date/Time: Jan 08, 2023 11:58 AM Reporting Lab: [address] [address] Performing Lab: [address] [address] UREA NITROGEN 9 mg/dL 7-25 GLUCOSE 76 mg/dL 65-100 SODIUM 137 mmol/L 135-145 POTASSIUM 4.7 mmol/L 3.5-5.0 CHLORIDE 105 mmol/L 100-110 CO2 18 meq/L L 20-30 CREATININE, Serum 1.30 mg/dL 0.50-1.40 eGFR(CKD-EPI 2020) 61 mL/min >60 Jan 04, 2024 09:27 AM [facility] LIVER FUNCTION Specimen Type: SERUM No comment entered. Ordering Provider: CLIFF MCKEON Report Released Date/Time: Jan 08, 2023 11:58 AM Reporting Lab: [address] [address] Performing Lab: [address] [address] PROTEIN,TOTAL 7.1 g/dL 6.0-8.3 ALBUMIN 4.0 g/dL 3.5-5.0 ALKALINE PHOSPHATASE 65 U/L 40-150 AST 76 U/L H 5-34 ALT 44 U/L BILIRUBIN, TOTAL 0.7 mg/dL 0.2-1.2 Jan 04, 2024 09:27 AM [facility] URINALYSIS Specimen Type: URINE Comment: If Glucose = >500 and Ketones are positive, please alert the Physician. Ordering Provider: CLIFF MCKEON Report Released Date/Time: Jan 08, 2023 11:58 AM Reporting Lab: [facility] [address] [facility] [address] Performing Lab: [address] [address] UA COLOR Light-Yellow Yellow UA APPEARANCE Clear Clear UA GLUCOSE Normal mg/dL Negative UA KETONES TRACE mg/dL Negative UA BLOOD NEGATIVE mg/dL Negative UA PROTEIN NEGATIVE mg/dL Negative UA NITRITE NEGATIVE mg/dL Negative UA BILIRUBIN NEGATIVE mg/dL Negative UA SPECIFIC GRAVITY 1.015 L 1.016-1.022 UA pH 5.5 5.0-9.0 UA UROBILINOGEN Normal mg/dL <2.0 UA LEUKOCYTE NEGATIVE Negative Jan 04, 2024 09:27 AM [facility] HEMOGLOBIN A1C PANEL Specimen Type: BLOOD Comment: [...] Jan 08, 2023 11:58 AM Reporting Lab: [address] [address] Performing Lab: [address] [address] HEMOGLOBIN A1C 4.9 4.0-5.6 Jan 04, 2024 09:27 AM [facility] TSH Specimen Type: SERUM No comment entered. Ordering Provider: CLIFF MKCEON Report Released Date/Time: Jan 08, 2023 11:58 AM Reporting Lab: [address] [address] Performing Lab: [address] [place] [address] TSH 0.45 u[IU]/mL 0.35-5.00 Jan 04, 2024 09:27 AM [facility] CBC AND DIFF (AUTO) Specimen Type: BLOOD No comment entered. Ordering Provider: CLIFF MCKEON Report Released Date/Time: Jan 08, 2023 11:58 AM Reporting Lab: [address] [address] Performing Lab: [address] [address] WBC 3.71 10*3/uL L 4.50-11.00 RBC 4.17 [...] Date/Time Current Smoking Status Comment [facility] it Jan 15, 2024 08:57 AM VA-TOBACCO NEVER USED [facility] Tobacco Use History This section includes a history of the smoking, or tobacco-related health factors, that were collected on or before the date of the Encounter. The data comes from the [place] facility where the Encounter took place. Date/Time Smoking Status/Tobac co Use Comment Facility Jan 08, 2023 09:03 AM VA-TOBACCO NEVER USED [facility] Aug 01, 2021 09:08 AM [place]-TOBACCO FORMER USER [facility] Aug 01, 2021 09:08 AM VA-TOBACCO QUIT 1 TO < 5 YRS [facility] Dec 08, 2011 01:04 PM CURRENT SMOKER chew pack and half a week [facility] Dec 08, 2011 01:04 PM V1-PT DECLINES REF TO TOBACCO CESS PRGM [facility] Dec 08, 2011 01:04 PM V1-PT DECLINES TOBACCO CESSATION MEDS [facility] Dec 08, 2011 01:04 PM V1-PT THINKING ABOUT QUIT TOBACCO USE [facility] Advance Directives: All historical and current Section Date Range: From patient's date of to the date document was created. This section includes ALL of a patient's completed or amended [place] Advance and Rescinded Directives. The entries below indicate that a directive exists for the patient, but an actual copy is not included with this document. The data comes from all [facility]. Date Advance Directives Provider Source Jan 03, 2022 ADVANCE DIRECTIVE LUIS EDUARDO COLON Jan 03, 2021 ADVANCE DIRECTIVE KHUSHBU KUMAR Mar 19, 2012 ADVANCE DIRECTIVE ERIKA MORALES [facility] Encounter Notes: All associated encounter notes This [...] an Advance Directive [facility] No updates are needed at this time. [...] Not worried about housing near future [facility] [place] reports the following: Within the past 12 [...] independent of and without assistance from this [place]. Comment: Per he has an appointment scheduled for colonoscopy in March 2024, exact date un know at this time. Pneumococcal Conjugate Vaccine (PCV15/PCV20): Virtual/Telehealth Visit - Patient educated on the need for receiving Pneumococcal conjugate vaccine either at [place] or outside facility. Tobacco Use Screening: The patient has never used tobacco. Td / Tdap Immunization: Administered: TDAP Date Administered: Jan 15, 2024 08:59 Series: (None selected) [employer]: [id number] Lot: [id number] Exp Date: Jan 02, 2026 [facility]: [id number] Admin Route/Site: INTRAMUSCULAR/LEFT DELTOID Dosage: 0.5mL Vaccine Information Statement(s): TDAP (TETANUS, DIPHTHERIA, PERTUSSIS) VACCINE VIS Dec 31, 2020 (CROATIAN) Order By: Policy Administered By: Kalpesh Zabala [...] Considerations for Use of COVID-19 Vaccines in [facility] COVID-19 Vaccine [employer] Hepatitis A Vaccine for High Risk: Administered: HEP A, ADULT Date Administered: Jan 15, 2024 09:01 Series: Series 1 [employer]: [id number] Lot: [id number] Exp Date: May 14, 2025 [facility]: [id number] Admin Route/Site: INTRAMUSCULAR/LEFT DELTOID Dosage: 1mL Vaccine Information Statement(s): HEPATITIS A VACCINE VIS Mar 11, 2021 (CROATIAN) Order By: Policy Administered By: Kalpesh Zabala Combination Hepatitis A / Hepatitis B vaccine (3 dose series) /caitlyn/ KALPESH ZABALA LPN LPN Signed: 01/15/2024 09:02 KALPESH ZABALA [facility]
--- OUTSIDE RECORDS SUMMARY | 2024-06-02 11:23 | XMS_ITS ---
Author Name [facility] [place] Address [address] [place] [address] Care Team Providers Care Refrigerating Technician Name Role Phone ROBBY NIELSON Primary [...] PRESCRIPT ION RX730 1 May 28, 2017 [id number] [phone] Charlene MASON DDIE PATIENT [facility] PRESCRIPT ION RX730 1 May 28, 2017 [id number] [phone] Charlene MASON DDIE PATIENT OPTUM RX PRESCRIPT ION RX May 28, 2022 THPRX [id number] Charlene MASON DDIE PATIENT OPTUM RX PRESCRIPT ION RX May 28, 2022 THPRX [id number] [phone] Charlene MASON DDIE PATIENT [facility] PLAN USP May 28, 2017 [facility] [id number] Charlene MASON DDIE PATIENT [facility] PLAN IVY Chang May 28, 2017 [facility] EM[facility] [id number] [phone] Charlene MASON DDFRED PATIENT [facility] POINT OF SERVICE MALLORY RE Oct 27, 2011 [id number] Charlene MASON DDFRED PATIENT [facility] (WNR) SUKUMAR TEJADA RE(WN R) May 28, 2017 (WNR) [id number] Charlene MASON PATIENT Selected Encounter This [...] Appointment Type Appointme nt Facility Name May 01, 2024 10:00 AM AMBULATORY - MEDICINE [place] C NTR [facility]N [facility] May 16, 2024 09:00 AM [facility] Jun 27, 2024 11:00 AM AM[facility]ULATORY - [facility] Jul 18, 2024 10:00 AM [facility] Aug 28, 2024 09:00 AM [facility] Active, Pending, and Scheduled Orders This section includes a listing of several types of active, pending, and scheduled orders, including clinic medications orders, diagnostic test orders, procedure orders and consult orders; where the start date of the order is 45 days before the date of the Encounter or 45 days after the date of theEncounter. The data comes from all [facility]. Test Date/Time Test Type Test Details Facility Name Apr 21, 2024 11:01 AM Consult Order [facility] Cons Power Reactor [facility] May 06, 2024 02:41 PM Consult Order COMMUNITY CARE-DENTAL GENERAL Cons Power Reactor Supervisor's Choice [facility] Social History: Smoking Status (Most current) [...] took place. Date/Time Current Smoking Status Comment [facility] Jan 15, 2024 08:57 AM [place]-TOBACCO NEVER USED [facility] Tobacco Use History This section includes a history of the smoking, or tobacco-related health factors, that were collected on or before the date of the Encounter. The data comes from the [place] facility where the Encounter took place. Date/Time Smoking Status/Tobac co Use Comment Facility Jan 08, 2023 09:03 AM [place]-TOBACCO NEVER USED [facility] Aug 01, 2021 09:08 AM [place]-TOBACCO FORMER USER [facility] Aug 01, 2021 09:08 AM [place]-TOBACCO QUIT 1 TO < 5 YRS [facility] Dec 08, 2011 01:04 PM CURRENT SMOKER chew pack and half a week [facility] Dec 08, 2011 01:04 PM V1-PT DECLINES REF TO TOBACCO CESS PRGM [facility] Dec 08, 2011 01:04 PM V1-PT DECLINES TOBACCO CESSATION MEDS [facility] Dec 08, 2011 01:04 PM V1-PT THINKING ABOUT QUIT TOBACCO USE [facility] Advance Directives: All historical and [...] DIRECTIVE KHUSHBU KUMAR Mar 19, 2012 ADVANCE ERIKA BLAKE [place] [facility] Encounter Notes: All associated encounter [...] Patient Name: KYLE MASON Patient Primary Phone: [phone] Patient Primary Address: [address] [place] [address] Patient : 1960 Patient Age: 63 Caller/Recipient [...] Order) IMPORTANT: This note was created by [facility] staff. Please do not alert the staff member by adding them as a signer for future communications. Alerts are not monitored by this user. /sharona [facility] A[facility]A Signed: 04/16/2024 14:02 Receipt Acknowledged By: 04/28/2024 11:45 /sharona JI ADVANCED PRISON KEEPER 04/17/2024 08:16 /caitlyn/ LATOYA RUVALCABA LPN Licensed Practical Nurse 04/28/2024 ADDENDUM STATUS: COMPLETED THIS METAL MACHINIST CALLED TO RESCHEDULE F2F APPT WITH CWM/SO/PACT 7 PROVIDER. NO ANSWER, LEFT MESSAGE FOR TO CALL AND RESCHEDULE APPT. /sharona JI ADVANCED PRISON KEEPER Signed: 04/28/2024 11:46 [facility]
--- OUTSIDE RECORDS SUMMARY | 2024-06-02 11:23 | XMS_ITS | Encounter Summary ---
Author Name [facility] [place] [facility] [place] Address [address] [place] [address] Care Team Providers Care Ladderman Name Role Phone ROBBY NIELSON Primary Care [...] PRESCRIPT ION RX730 1 May 28, 2017 [id number] [phone] Charlene MASON DDIE PATIENT [facility] PRESCRIPT ION RX730 1 May 28, 2017 [id number] [phone] Charlene MASON DDIE PATIENT OPTUM RX PRESCRIPT ION RX May 28, 2022 THPRX [id number] [phone] Charlene MASON DDIE PATIENT OPTUM RX PRESCRIPT ION RX May 28, 2022 THPRX [id number] Charlene MASON DDIE PATIENT [facility] PLAN USFHP May 28, 2017 [id number] [id number] Charlene MASON DDIE PATIENT [facility] PLAN IVY Chang May 28, 2017 [id number] [phone] Charlene MASON DDIE PATIENT [facility] POINT OF SERVICE TRICA RE Oct 27, 2011 [id number] Charlene MASON DDFRED PATIENT [facility] (WNR) SUKUMAR CHERY(WN R) May 28, 2017 (WNR) [id number] Charlene MASON DDFRED PATIENT Selected Encounter [...] 2021 ADVANCE DIRECTIVE KHUSHBU KUMAR [facility] Mar 19, 2012 ADVANCE DIRECTIVE ERIKA MORALES [place] CNT [facility]
--- OUTSIDE RECORDS SUMMARY | 2024-06-02 11:23 | XMS_ITS ---
Author Name [facility] [place] Address [address] [place] [address] Care Team Providers Care Ict Support And Test Engineers Name Role Phone ROBBY NIELSON Primary Care [...] PRESCRIPT ION RX730 1 May 28, 2017 [id number] Charlene MASON DDIE PATIENT [place] PRESCRIPT ION RX730 1 May 28, 2017 [id number] [phone] Charlene MASON DDIE PATIENT OPTUM RX PRESCRIPT ION RX May 28, 2022 THPRX [id number] Charlene MASON DDIE PATIENT OPTUM RX PRESCRIPT ION RX May 28, 2022 THPRX [id number] [phone] Charlene MASON DDIE PATIENT [facility] PLAN USP May 28, 2017 [facility] [id number] Charlene MASON DDIE PATIENT [facility] PLAN IVY Chang May 28, 2017 [facility] [id number] [phone] Charlene MASON DDFRED PATIENT [facility] POINT OF SERVICE MALLORY RE Oct 27, 2011 [id number] Charlene MASON DDFRED PATIENT [facility] (WNR) SUKUMAR TEJADA RE(WN R) May 28, 2017 (WNR) [id number] Charlene MASON PATIENT Selected Encounter This [...] 10:00 AM AMBULATORY - MEDICINE [place] C NTRL W[facility]N [facility] May 16, 2024 09:00 AM [facility] Jun 27, 2024 11:00 AM AMBULATORY - [facility]IC[facility] NTRL [facility] Jul 18, 2024 10:00 AM AMBULAT[facility] Aug 28, 2024 09:00 AM AMBULATORY - [facility] Active, Pending, and Scheduled Orders This section includes a listing of several types of active, pending, and scheduled orders, including clinic medications orders, diagnostic test orders, procedure orders and consult orders; where the start date of the order is 45 days before the date of the Encounter or 45 days after the date of theEncounter. The data comes from all [facility]. Test Date/Time Test Type Test Details Facility Name Apr 21, 2024 11:01 AM Consult Order COMMUNITY CARE-DENTAL GENERAL Cons Trader Fixed Income's Choice [facility] May 06, 2024 02:41 PM Consult Order COMMUNITY CARE-DENTAL GENERAL Cons Trader Fixed Income's Choice [facility] Social History: Smoking Status (Most current) and [...] took place. Date/Time Current Smoking Status Comment [facility] Jan 15, 2024 08:57 AM [place]-TOBACCO NEVER USED [facility] Tobacco Use History This section includes a history of the smoking, or tobacco-related health factors, that were collected on or before the date of the Encounter. The data comes from the [place] facility where the Encounter took place. Date/Time Smoking Status/Tobac co Use Comment Facility Jan 08, 2023 09:03 AM [place]-TOBACCO NEVER USED [facility] Aug 01, 2021 09:08 AM [place]-TOBACCO FORMER USER [facility] Aug 01, 2021 09:08 AM [place]-TOBACCO QUIT 1 TO < 5 YRS [facility] Dec 08, 2011 01:04 PM CURRENT SMOKER chew pack and half a week [facility] Dec 08, 2011 01:04 PM V1-PT DECLINES REF TO TOBACCO CESS PRGM [facility] Dec 08, 2011 01:04 PM V1-PT DECLINES TOBACCO CESSATION MEDS [facility] Dec 08, 2011 01:04 PM V1-PT THINKING ABOUT QUIT TOBACCO USE [facility] Advance Directives: All historical and current Section [...] DIRECTIVE KHUSHBU KUMAR Mar 19, 2012 ADVANCE ENMA BLAKEER [place] CNT RL WSTRN [facility] Encounter Notes: All associated encounter notes [...] Patient Name: KYLE MASON Patient Primary Phone: [phone] Patient Primary [address]: [address] [place] [address] Patient : 1960 Patient Age: 63 Call Back Number: [phone] Caller/Recipient Relation to Patient: Self Caller Name: KYLE MASON Administrative Administrative Note Reason: Medication Renewal [place] Medications Refill/Renewal Request: Rx # - Medication Name - Dosage - SIG - Number of Refills - Facility - Status [id number] - SILDENAFIL CITRATE 100MG TAB - 1 TABLET - TAKE ONE TABLET BY MOUTH ONCE DAILY NEEDED FOR ERECTILE DYSFUNCTION TAKE 1 HOUR PRIOR TO SEXUAL ACTIVITY - 0 - BRADLEY - 631BY - ACTIVE Administrative Note Comments: PLEASE RENEW AND MAIL IMPORTANT: This note was created by [facility] Clinical Contact Center staff. Please do not alert the staff member by adding them as a signer for future communications. Alerts are not monitored by this user. /caitlyn/ WILLI MENJIVAR VISN 1 [facility] AMSA Signed: 04/28/2024 15:21 Receipt Acknowledged By: 05/01/2024 09:00 /es/ MORENO RODRIGUEZN RN-BC REGISTERED NURSE 04/28/2024 15:27 /es/ LATOYA RUVALCABA LPN Licensed Practical Nurse 04/28/2024 15:29 /es/ ANAT MADRID CERTIFIED NURSE PRACTITIONER WILLI MENJIVAR [place] CNTRL WSTRN [facility]
--- OUTSIDE RECORDS SUMMARY | 2024-06-02 11:23 | XMS_ITS | Encounter Summary ---
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 Operator Name Role Phone ROBBY NIELSON [...] PRESCRIPT ION RX730 1 May 28, 2017 [id number] [phone] Charlene MASON DDIE PATIENT [facility] PRESCRIPT ION RX730 1 May 28, 2017 [id number] [phone] Charlene MASON DDIE PATIENT OPTUM RX PRESCRIPT ION RX May 28, 2022 THPRX [id number] Charlene MASON DDIE PATIENT OPTUM RX PRESCRIPT ION RX May 28, 2022 THPRX [id number] Charlene MASON DDIE PATIENT [facility] PLAN USP May 28, 2017 [facility] [id number] Charlene MASON DDIE PATIENT [facility] HEALTH PLAN [facility] IVY Chang May 28, 2017 [facility] [id number] Charlene MASON DDFRED PATIENT [facility] POINT OF SERVICE MALLORY CHERY Oct 27, 2011 [id number] Charlene MASON DDFRED PATIENT [facility] (WNR) SUKUMAR CHERY(WN R) May 28, 2017 (WNR) [id number] Charlene MASON DDFRED PATIENT Selected Encounter [...] activities for the patient from all [place] [facility]. This section includes future appointments and future [...] 16, 2024 10:00 AM AMBULATORY - MEDICINE [facility] May 01, 2024 10:00 AM AMBULATORY MEDICINE [facility] May 16, 2024 09:00 AM [facility] Jun 27, 2024 11:00 AM AMBULATORY - MEDICINE [facility] N[facility]L [facility] Jul 18, 2024 10:00 AM AMBULATORY - MEDICINE [facility] Aug 28, 2024 09:00 AM AMBULATORY - MEDICINE [facility] Active, Pending, and Scheduled Orders This section includes a listing of several types of active, pending, and scheduled orders, including clinic medications orders, diagnostic test orders, procedure orders and consult orders; where the start date of the order is 45 days before the date of the Encounter or 45 days after the date of theEncounter. The data comes from all [facility]. 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 Date/Time Current Smoking Status Comment Gina rojas Jan 15, 2024 08:57 AM [place]-TOBACCO NEVER USED [facility] Tobacco Use History This section includes a history of the smoking, or tobacco-related health factors, that were collected on or before the date of the Encounter. The data comes from the [place] facility where the Encounter took place. Date/Time Smoking Status/Tobac co Use Comment Facility Jan 08, 2023 09:03 AM [place]-TOBACCO NEVER USED [facility] Aug 01, 2021 09:08 AM VA-TOBACCO FORMER USER [facility] Aug 01, 2021 09:08 AM VA-TOBACCO QUIT 1 TO < 5 YRS [facility] Dec 08, 2011 01:04 PM CURRENT SMOKER chew pack and half a week [facility] Dec 08, 2011 01:04 PM V1-PT DECLINES REF TO TOBACCO CESS PRGM [facility] Dec 08, 2011 01:04 PM V1-PT DECLINES TOBACCO CESSATION MEDS [facility] Dec 08, 2011 01:04 PM V1-PT THINKING ABOUT QUIT TOBACCO USE [facility] Advance Directives: All historical and current Section Date Range: From patient's date of to the date document was created. This section includes ALL of a patient's completed or amended [place] Advance and Rescinded Directives. The entries below indicate that a directive exists for the patient, but an actual copy is not included with this document. The data comes from all [place] facilities. Date Advance Directives Provider Source Jan 03, 2022 ADVANCE DIRECTIVE LUIS EDUARDO COLON Jan 03, 2021 ADVANCE DIRECTIVE KHUSHBU KUMAR Mar 19, 2012 ADVANCE DIRECTIVE ERIKA MORALES [facility] Encounter Notes: All associated encounter notes This section contains the clinical notes associated to the Encounter. Date/Time Encounter Note(s) Provider Source Mar 20, 2024 02:51 PM ADMINISTRATIVE NOT E: LOCAL TITLE: ADMINISTRATIVE NOTE STANDARD TITLE: ADMINISTRATIVE NOTE DATE OF NOTE: MAR 20, 2024@14:51 ENTRY DATE: MAR 20, 2024@14:51:08 AUTHOR: JAYLYN CHENG EXP COSIGNER: URGENCY: STATUS: COMPLETED has a return to clinic order in for Jan for a follow appt with RASHARD SCHULTZ [place] has received 1 phone call on Jan [place] has had 1 letter sent on Feb [...] CANCELLED BY PATIENT 08/20/2023 10:00 ZZCWM/SO/PACT EIGHT HELMET HAT SWEATBAND PUNCHER 08/16/2023 10:45 COM CARE-ORTHO GEN /es/ JAYLYN BARAJAS Signed: 03/20/2024 14:51 JAYLYN CHENG CARMI
--- OUTSIDE RECORDS SUMMARY | 2024-06-02 11:23 | XMS_ITS | Encounter Summary ---
Author Name [facility] [place] Address [address] [place] [address] Care Team Providers Care Planer Mill Grader Name Role Phone ROBBY NIELSON Primary Care [...] PRESCRIPT ION [id number] 1 May 28, 2017 [id number] Charlene MASON DDIE PATIENT [facility] PRESCRIPT ION [id number] 1 May 28, 2017 [id number] Charlene MASON DDIE PATIENT [facility] RX PRESCRIPT ION RX May 28, 2022 THPRX [id number] Charelne MASON DDIE PATIENT [facility] RX PRESCRIPT ION RX May 28, 2022 THPRX [id number] Charlene MASON DDIE PATIENT [facility] PLAN USP May 28, 2017 [facility] [id number] Charlene MASON DDIE PATIENT [facility] PLAN IVY Chang May 28, 2017 [id number] 99 Charlene MASON PATIENT [facility] POINT OF SERVICE TRICAnup RE Oct 27, 2011 [id number] Charlene MASON PATIENT [facility] (WNR) SUKUMAR TEJADA RE(WN R) May 28, 2017 (WNR) [id number] [phone] Charlene MASON PATIENT Selected Encounter This section includes the information on record at NH for the Encounter. Date/Time Encounter Type Encounter Description Reason Provider Source May 16, 2024 09:00 AM OFFICE O/P EST MOD 30 MIN PODIATRY ICD-10-CM L60.3 Nail dystrophy JOHN LEE Charlene Encounter Template Text not used by NH Assessments - Encounter Diagnoses This section includes the primary and secondary diagnoses documented for the Encounter. Date/Time Primary/Secondary Diagnosis Diagnosis Name Provider Source May 16, 2024 09:19 AM PRIMARY Nail dystrophy JOHN LEE May 16, 2024 09:19 AM SECONDARY Idiopathic progressive neuropathy JOHN LEE May 16, 2024 09:19 AM SECONDARY Peripheral vascular disease, unspecified JOHN LEE Plan of Treatment: Future Appointments (+ 6 months) and Future Tests (+/- 45 days) The Plan of Treatment section includes future care activities for the patient from all NH treatmentfacilities. This section includes future appointments and future orders which are active, pending or scheduled. Future Appointments This section includes appointments that were scheduled to occur 6 months from the date of the Encounter, up to a maximum of 20 appointments. The data comes from all [place] treatment facilities. Appointment Date/Time Appointment Type Appointme nt Facility Name Jun 27, 2024 11:00 AM AMBULATORY - MEDICINE [place] [facility] Jul 18, 2024 10:00 AM [facility] Aug 28, 2024 09:00 AM [facility] Active, Pending, and Scheduled Orders This section includes a listing of several types of active, pending, and scheduled orders, including clinic medications orders, diagnostic test orders, procedure orders and consult orders; where the start date of the order is 45 days before the date of the Encounter or 45 days after the date of theEncounter. The data comes from all [place] treatment facilities. Test Date/Time Test Type Test Details Facility Name Apr 21, 2024 11:01 AM Consult Order [facility] Cons Studio Control Operator's Choice [facility] May 06, 2024 02:41 PM Consult Order [facility] Cons Studio [facility] Social History: Smoking Status (Most current) and Tobacco Use (All prior to encounter date) This section includes the most current, and the historical, smoking and tobacco- related health factors from the NH facility where the Encounter took place. Current Smoking Status This section includes the most current smoking, or tobacco-related health factor, from the NH facility where the Encounter took place. Date/Time Current Smoking Status Comment Facil ity Mar 26, 2020 11:30 [facility] [place] Tobacco Use History This section includes a history of the smoking, or tobacco-related health factors, that were collected on or before the date of the Encounter. The data comes from the [place] facility where the Encounter took place. Date/Time Smoking Status/Tobacco Use Comment F acility Feb 03, 2019 10:43 AM NH-TOBACCO NEVER USED [place] Mar 12, 2018 09:26 AM NH-TOBACCO NEVER USED [place] Jun 15, 2016 03:51 PM LIFETIME NON-TOBACCO USER [place] Jun 23, 2015 10:34 AM LIFETIME NON-TOBACCO USER [place] Apr 22, 2013 10:41 AM LIFETIME NON-TOBACCO USER [place] Mar 07, 2011 11:49 AM LIFETIME NON-TOBACCO USER [place] Jan 07, 2009 11:55 AM LIFETIME NON-TOBACCO USER [place] Advance Directives: All historical and current Section Date Range: From patient's date of to the date document was created. This section includes ALL of a patient's completed or amended [place] Advance and Rescinded Directives. The entries below indicate that a directive exists for the patient, but an actual copy is not included with this document. The data comes from all [facility]. Date Advance Directives Provider Source Jan 03, 2022 ADVANCE DIRECTIVE LUIS EDUARDO COLON Jan 03, 2021 ADVANCE DIRECTIVE KHUSHBU KUMAR Mar 19, 2012 ADVANCE DIRECTIVE ERIKA MORALES [facility] Encounter Notes: All associated encounter notes This section contains the clinical notes associated to the Encounter. Date/Time Encounter Note(s) Provider Source May 16, 2024 09:21 AM PODIATRY NOTE: LOCAL TITLE: PODIATRY PAVE FOOT EXAM STANDARD TITLE: PODIATRY NOTE DATE OF NOTE: MAY 16, 2024@09:21 ENTRY DATE: MAY 16, 2024@09:21:18 AUTHOR: JOHN LEE COSIGNER: URGENCY: STATUS: COMPLETED PAVE FOOT EXAM A foot risk level was completed. The following risk level was identified for this patient: +POD RISK SCORE+ *--LEVEL 2 - (MODERATE RISK)* DECREASED sensation No severe obstructive peripheral arterial disease (Foot deformity and/or minor foot infection may be present or absent) No ulceration, nor history of ulceration, osteomyelitis, or amputation No Charcot joint disease with foot deformity No chronic kidney disease, or less than CKD 4 LEVEL 2 FOOT EDUCATION: 1. Advised patient that therapeutic footwear and orthosis are required to accommodate foot deformities, to compensate for soft tissue atrophy, and to evenly distribute plantar foot pressures. 2. Advised patient not to walk barefoot. Instructed the patient to pay close attention to the style and fit of shoes. 3. Explained the importance of daily foot checks. Explained that loss of sensation leads to callouses. Callouses break down, which result in ulcers that may lead to gangrene and amputation. 4. Stressed the importance of daily foot hygiene. Warm (not hot) bathing of the feet, complete drying and thorough inspection for changes in the condition of the skin constitute daily foot care. Demonstrated how to do a thorough foot check. 5. Emphasized the use of clean, non-restrictive socks/stockings and well fitting shoes. 6. Stressed the importance of immediate follow-up of any foot injuries or ulcers. Explained that he/she should be non-weight bearing whenever there are lesions on the foot, to prevent cellular damage. Level of Understanding: Good Patient/Family Response to Foot Care Teaching Patient walks barefoot: A few times per month Patient/caregiver able to clean feet at least once daily: Yes Patient/caregiver has difficulty examining feet: No /es/ JOHN LEE DPM WOOD CASKET MAKER Signed: 05/16/2024 09:21 JOHN LEE [place] May 16, 2024 07:34 AM PODIATRY NOTE: LOCAL TITLE: PODIATRY NOTE STANDARD TITLE: PODIATRY NOTE DATE OF NOTE: MAY 16, 2024@07:34 ENTRY DATE: MAY 16, 2024@07:34:20 AUTHOR: JOHN LEE EXP COSIGNER: URGENCY: STATUS: COMPLETED NOTE: HAS RECEIVED BOTH COVID VACCINE DOSES + 3 BOOSTERS AT [facility] LAST SEEN FOR TREATMENT: 01/04/2024 S: Pt. is a 63 yo alert WDWN MALE who presents for continued podiatric evaluation & care for treatment of a presenting complaint of a painful CORN , ingrown toenail and numbness lateral plantar LEFT foot. Patient has PVD & is [...] present physical-medical status. Protective sensation utilizing a Bevier-Karley lOg monofilament is 0/10 bilateral. *NOTE: *YEARLY COMPLETE PAVE EXAM PERFORMED TODAY - SEE BELOW. A: Clinical Impression is painful onychocryptic nails [...] THE 4TH TOE ELEVATED WITH MINIMAL IRRITATION. (NOTE: TOES ARE GREATLY IMPROVED AND PAIN IS MINIMAL WITH THE CONTINUED USE OF CREST PADS & I PROVIDED A FEW EXTRA) All care rendered without complications & the patient is progressing well after podiatric care this date and will be scheduled for periodic podiatric care in an attempt to prevent future complications due to the underlying medical conditions. Treatment by a non-professional could be extremely hazardous to the patient's wellbeing due to the underlying medical conditions. RTC 24 WEEKS (08/28 @ 9am) DISCUSSED HAVING KAMRAN WITH THE GRANDCHILDREN AND LOKING FORWARD TO THE [place] *DISCUSSED NEW PROTOCOLS AND CALLED KAY TODAY FOR RESCHEDULING I DISCUSSED THE FINDINGS & PLAN WITH PATIENT (UNCHANGED SINCE PREVIOUS VISIT) & PATIENT AGREES AND UNDERSTANDS PLAN Medication Reconciliation: PERFORMED TODAY - SEE BELOW. Outpatient: Has the patient been taking medications as documented in the EMLR? YES: The patient has been taking medications as documented in the EMLR. Essential Medication List for Review used to complete this medication reconciliation. INCLUDED IN THIS LIST: Alphabetical list of active outpatient prescriptions dispensed from this NH (local) and dispensed from another NH or DoD facility (remote) as well as [...] list may not be complete. Please check [employer]. Allergies/ADRs (Tool #5) FACILITY ALLERGY/ADR -------- [facility] NO KNOWN ALLERGIES [place] [facility] [place] [facility] No Known Allergies [facility] (Tool #1) INCLUDED IN THIS LIST: Alphabetical list of active outpatient prescriptions dispensed from this NH (local) and dispensed from another NH or DoD facility (remote) as well as inpatient orders (local pending and active), local clinic medications, locally documented non-VA medications, and local prescriptions that have or been discontinued in the past 90 days. Non-VA Meds Last Documented On: Jan 03, 2022 NOTE The display of VA prescriptions dispensed from another NH or [facility] facility (remote) is limited to active outpatient prescription entries matched to National Drug File at the originating site and may not include some items such as investigational drugs, compounds, etc. NOT INCLUDED IN THIS LIST: Medications self-entered by the patient into personal health records (i.e. [employer]) are NOT included in this list. Non-VA medications documented outside this NH, remote inpatient orders (regardless of status) and remote clinic medications are NOT included in this list. The patient and provider must always discuss medications the patient is taking, regardless of where the medication was dispensed or obtained. OUTPT AMLODIPINE BESYLATE 5MG TAB (Status = Active) TAKE ONE TABLET BY MOUTH ONCE DAILY FOR BLOOD PRESSURE/HEART, DO NOT TAKE WITH GRAPEFRUIT JUICE Rx# [id number] Last Released: 08/16/23 Qty/Days Supply: 90 Rx Expiration Date: 08/15/24 Refills Remainin Indication: FOR HIGH BLOOD PRESSURE OUTPT AMMONIUM LACTATE 12% LOTION (Status = Active) APPLY SMALL AMOUNT TOPICALLY TWICE DAILY FOR DRY IRRITATED SKIN Rx# [id number] Last Released: 07/28/23 Qty/Days Supply: 240/30 Rx Expiration Date: 07/27/24 Refills Remainin Indication: FOR DRY SKIN OUTPT CARBOXYMETHYLCELLULOSE NA 0.5% OPH SOLN (Status = Active) INSTILL 1 DROP INTO EACH EYE FOUR TIMES DAILY NEEDED Rx# [id number] Last Released: 07/26/23 Qty/Days Supply: 45 Rx [...] USE DOSING CARD PROVIDED IN BOX Rx# [id number] Last Released: 06/23/23 Qty/Days Supply: 100/8 Rx Expiration Date: 06/19/24 Refills Remainin OUTPT IPRATROPIUM BR 0.06% NASAL SPRAY (Status = Active) INSTILL 2 SPRAYS INTO EACH NOSTRIL FOUR TIMES DAILY NEEDED FOR ALLERGIES Rx# [id number] Last Released: 04/19/24 Qty/Days Supply: Rx Expiration Date: 04/15/25 Refills Remainin Indication: FOR ALLERGIES Non-VA OMEPRAZOLE 20MG EC CAP TAKE 1 CAPSULE BY MOUTH EVERY MORNING 30 MINUTES BEFORE BREAKFAST Non-VA OTHER CAP/TAB TAKE LIVER ANTIOXIDANT EXTRACT AND AFTER MEALS LIVER BRAIN BENEFITS BY MOUTH OUTPT SILDENAFIL CITRATE 100MG TAB (Status = Discontinued) TAKE ONE TABLET BY MOUTH ONCE DAILY NEEDED FOR ERECTILE DYSFUNCTION TAKE 1 HOUR PRIOR TO SEXUAL ACTIVITY Rx# [id number] Last Released: 03/27/24 Qty/Days Supply: Rx Expiration Date: 01/15/25 Refills Remainin Indication: FOR ERECTILE DYSFUNCTION OUTPT SILDENAFIL CITRATE 100MG TAB (Status = Active/Suspended) TAKE ONE TABLET BY MOUTH ONCE DAILY NEEDED FOR ERECTILE DYSFUNCTION TAKE 1 HOUR PRIOR TO SEXUAL ACTIVITY Rx# [id number] Last Released: Qty/Days Supply: Rx Expiration Date: 04/29/25 Refills Remainin Indication: FOR ERECTILE DYSFUNCTION OUTPT SULINDAC 150MG TAB (Status = Active) TAKE ONE TABLET BY MOUTH TWICE DAILY Rx# [id number] Last Released: 02/18/24 Qty/Days Supply: 60 Rx Expiration Date: 02/14/25 Refills Remainin SUPPLIES PAVE Foot Check: A complete foot check was completed at this encounter. VISUAL INSPECTION: Includes inspection for skin breaks, deformity, erythema, trauma, pallor on elevation, dependent rubor, nail deformities, extensive callus and pitting edema. Visual exam results: Abnormal Observations: Thickened toenails PEDAL PULSES: Includes palpation of dorsalis and posterior tibial pulses and signs/symptoms of vascular compromise like pain, pallor, parasthesia or paralysis. Absent: Comment: PT PULSES ARE ABSENT NON-PALPABLE BILAT SENSORY CHECK: Includes 10 gram Monofilament (Bevier-Karley) test of sensation. Intact (Greater than or equal to 80% of sites checked) Abnormal (Less than 80% of sites checked): Intact Comment: VIBRATORY & MONOFILAMENT ARE WNL BILT HIGH-RISK: HIGH RISK INFORMATION PROVIDED: 1. Advised patient that extra depth footwear with soft molded inserts and braces may be required. 2. Advised patient not to walk barefoot. 3. Explained the importance of daily foot checks. 4. Stressed the importance of daily foot hygiene, including bathing, complete drying and thorough inspection for changes. The patient verbalized understanding and was offered a detailed handout on diabetic foot care. Patient is established patient of Podiatry and/or Vascular: Last scheduled appointment: JAN 04, 2024@09:00 VONDA/CANDICE/PODIATRY/ROSA Comment: 01/04/2024 /caitlyn/ JOHN LEE DPM WOOD CASKET MAKER Signed: 05/16/2024 09:21 JOHN LEE
--- OUTSIDE RECORDS SUMMARY | 2024-06-02 11:23 | XMS_ITS ---
Author Name [facility] [place] Organization [facility] [place] Address [address] [place] [address] Care Team Providers Care Can Reforming Machine Operator Name Role Phone ROBBY NIELSON [...] PRESCRIPT ION [id number] 1 May 28, 2017 [id number] [phone] Charlene MASON DDIE PATIENT [facility] PRESCRIPT ION [id number] 1 May 28, 2017 [id number] [phone] Charlene MASON DDIE PATIENT OPTUM RX PRESCRIPT ION RX May 28, 2022 [id number] Charlene MASON DDIE PATIENT OPTUM RX PRESCRIPT ION RX May 28, 2022 THPRX [id number] [id number] Charlene MASON DDIE PATIENT [facility] PL[facility] USP May 28, [address] [facility] [id number] Charlene MASON DDIE PATIENT [facility] IVY Chang May 28, 2017 [facility] [id number] Charlene MASON DDFRED PATIENT [facility] POINT OF SERVICE MALLORY CHERY Oct 27, 2011 [id number] Charlene MASON DDFRED PATIENT [facility] (WNR) SUKUMAR CHERY(WN R) May 28, 2017 (WNR) [id number] Charlene MASON DDFRED PATIENT Selected Encounter [...] activities for the patient from [facility] [place] [facility] This section includes future appointments and future orders which are active, pending or scheduled. Future Appointments This section includes appointments that were scheduled to occur 6 months from the date of the Encounter, up to a maximum of 20 appointments. The data comes from all [facility]. Appointment Date/Time Appointment Type Appointme nt Facility Name Feb 14, 2024 01:15 PM AMBULATORY - MEDICINE [facility] [place] [facility] Mar 06, 2024 11:30 AM AMBULATORY MEDICINE [place] [facility] [place] [facility] Apr 16, 2024 10:00 AM AMBULATORY MEDICINE [place] [facility] [facility] [place] [facility] May 01, 2024 10:00 AM AMBULATORY MEDICINE [facility] [place] [facility] May 16, 2024 09:00 [facility] Jun 27, 2024 11:00 AM AMBULATORY MEDICINE [place] [facility] Jul 18, 2024 10:00 AM AMBULATORY - MEDICINE [facility] Active, Pending, and Scheduled Orders This section includes a listing of several types of active, pending, and scheduled orders, including clinic medications orders, diagnostic test orders, procedure orders and consult orders; where the start date of the order is 45 days before the date of the Encounter or 45 days after the date of theEncounter. The data comes from all [facility]. Test Date/Time Test Type Test Details Facility Name Dec 04, 2023 04:40 PM Consult Order [facility] Lab Results: +/- 30 days of the [...] Range Comment Jan 15, 2024 09:47 AM [facility] PSA Specimen Type: SERUM No comment entered. Ordering Provider: PHYLLIS WHALEY Report Released Date/Time: Aug 13, 2023 09:06 AM Reporting Lab: [address] [address] Performing Lab: [address] [address] PSA 2.58 ng/mL 0.00-4.00 Jan 15, 2024 09:47 AM [facility] LIPID PANEL FASTING Specimen Type: SERUM No comment entered. Ordering Provider: PHYLLIS WHALEY Report Released Date/Time: Aug 13, 2023 09:06 AM Reporting Lab: [facility] [address] [facility] [address] Performing Lab: [address] [address] CHOLESTEROL 186 mg/dL TRIGLYCERIDE 36 mg/dL 0-150 LDL calculated 61 mg/dL 0-129 CHOL/HDL 1.6 HDL CHOLESTEROL 118 mg/dL H 40-60 Jan 15, 2024 09:47 AM [facility] BASIC METABOLIC PANEL (fasting) Specimen Type: SERUM No comment entered. Ordering Provider: PHYLLIS WHALEY Report Released Date/Time: Aug 13, 2023 09:06 AM Reporting Lab: [address] [address] Performing Lab: [address] [address] UREA NITROGEN 9 mg/dL 7-25 GLUCOSE 85 mg/dL 65-100 SODIUM 139 mmol/L 135-145 POTASSIUM 5.1 mmol/L H 3.5-5.0 CHLORIDE 101 mmol/L 100-110 CO2 25 meq/L 20-30 CREATININE, Serum 1.30 mg/dL 0.50-1.40 eGFR(CKD-EPI 2020) 61 mL/min >60 Jan 15, 2024 09:47 AM [facility] HEMOGLOBIN A1C PANEL Specimen Type: BLOOD [...] Aug 13, 2023 09:06 AM Reporting Lab: [address] [address] Performing Lab: [address] [address] HEMOGLOBIN A1C 4.9 4.0-5.6 Jan 15, 2024 09:47 AM [facility] URINALYSIS Specimen Type: URINE Comment: If Glucose = >500 and Ketones are positive, please alert the Physician. Ordering Provider: PHYLLIS WHALEY Report Released Date/Time: Aug 13, 2023 09:06 AM Reporting Lab: [address] [address] Performing Lab: [address] [address] UA COLOR Colorless Yellow UA APPEARANCE Clear Clear UA GLUCOSE Normal mg/dL Negative UA KETONES NEGATIVE mg/dL Negative UA BLOOD NEGATIVE mg/dL Negative UA PROTEIN NEGATIVE mg/dL Negative UA NITRITE NEGATIVE mg/dL Negative UA BILIRUBIN NEGATIVE mg/dL Negative UA SPECIFIC GRAVITY 1.005 L 1.016-1.022 UA pH 6.0 5.0-9.0 UA UROBILINOGEN Normal mg/dL <2.0 UA LEUKOCYTE NEGATIVE Negative Jan 15, 2024 09:47 AM [facility] TSH Specimen Type: SERUM No comment entered. Ordering Provider: PHYLLIS WHALEY Report Released Date/Time: Aug 13, 2023 09:06 AM Reporting Lab: [address] [address] Performing Lab: [address] [address] TSH 0.57 u[IU]/mL 0.35-5.00 Jan 15, 2024 09:47 AM [facility] LIVER FUNCTION Specimen Type: SERUM No comment entered. Ordering Provider: PHYLLIS WHALEY Report Released Date/Time: Aug 13, 2023 09:06 AM Reporting Lab: [address] [address] Performing Lab: [address] [address] PROTEIN,TOTAL 7.5 g/dL 6.0-8.3 ALBUMIN 4.3 g/dL 3.5-5.0 ALKALINE PHOSPHATASE 72 U/L 40-150 AST 131 U/L H 5-34 ALT 99 U/L H BILIRUBIN, TOTAL 0.8 mg/dL 0.2-1.2 Jan 15, 2024 09:47 AM [facility] CBC AND DIFF (AUTO) Specimen Type: BLOOD No comment entered. Ordering Provider: PHYLLIS WHALEY Report Released Date/Time: Aug 13, 2023 09:06 AM Reporting Lab: [address] [address] Performing Lab: [address] [address] WBC 4.91 10*3/uL 4.50-11.00 RBC 4.24 10*6/uL [...] 10*3/uL 0.00-0.00 Jan 15, 2024 09:47 AM [facility] SYPHILIS ABS W/RFLX Specimen Type: SERUM Comment: No laboratory evidence of syphilis infection. If recent exposure is suspected, re-draw sample in 2-4 weeks and repeat algorithm. Testing performed by T. pallidum specific immunoassay. Ordering Provider: REBECCA SCHULTZ Report Released Date/Time: Jan 15, 2024 09:24 AM Reporting Lab: [address] [address] Performing Lab: [facility] [address] [facility] [address] SYPHILIS ABS W/RFLX Non Reactive Non Reactive Jan 15, 2024 09:47 AM [facility] FERRITIN Specimen Type: SERUM No comment entered. Ordering Provider: REBECCA SCHULTZ Report Released Date/Time: Jan 15, 2024 09:24 AM Reporting Lab: [facility] [address] [facility] [address] Performing Lab: [address] [address] FERRITIN 523 ng/mL H 20-300 Jan 15, 2024 09:47 AM [facility] IRON & TIBC PANEL Specimen Type: SERUM No comment entered. Ordering Provider: REBECCA SCHULTZ Report Released Date/Time: Jan 15, 2024 09:24 AM Reporting Lab: [place] [facility] [address] [address] Performing Lab: [place] [facility] [address] [address] TIBC 275 ug/dL 204-475 IRON 71 ug/dL 40-160 Transferrin Saturation 25.9 20.0-50.0 Jan 15, 2024 09:47 AM [facility] HIV 1&2 Ag/Ab SCREEN Specimen Type: SERUM No comment entered. Ordering Provider: REBECCA SCHULTZ Report Released Date/Time: Jan 15, 2024 09:24 AM Reporting Lab: [facility] [address] [address] Performing Lab: [facility]USE[address] [address] HIV 1&2 Ag/Ab SCREEN NON-REACTIVE Nonreactive Jan 15, 2024 09:47 AM [facility] VITAMIN B12 Specimen Type: SERUM No comment entered. Ordering Provider: REBECCA SCHULTZ Report Released Date/Time: Jan 15, 2024 09:24 AM Reporting Lab: [facility] [address] [address] Performing Lab: [facility]N [facility] [address] [address] VITAMIN B12 873 pg/mL 200-900 Jan 04, 2024 09:27 AM [facility] PSA Specimen Type: SERUM No comment entered. Ordering Provider: CLIFF MCKEON Report Released Date/Time: Jan 08, 2023 11:58 AM Reporting Lab: [facility] [address] [address] Performing Lab: [facility] TRN [facility] [address] [address] PSA 3.04 ng/mL 0.00-4.00 Jan 04, 2024 09:27 AM [facility] LIPID PANEL FASTING Specimen Type: SERUM No comment entered. Ordering Provider: CLIFF MCKEON Report Released Date/Time: Jan 08, 2023 11:58 AM Reporting Lab: [address] [address] Performing Lab: [address] [address] CHOLESTEROL 184 mg/dL TRIGLYCERIDE 35 mg/dL 0-150 LDL calculated 67 mg/dL 0-129 CHOL/HDL 1.7 HDL CHOLESTEROL 110 mg/dL H 40-60 Jan 04, 2024 09:27 AM [facility] BASIC METABOLIC PANEL (fasting) Specime n Type: SERUM No comment entered. Ordering Provider: CLIFF MCKEON Report Released Date/Time: Jan 08, 2023 11:58 AM Reporting Lab: [address] [address] Performing Lab: [address] [address] UREA NITROGEN 9 mg/dL 7-25 GLUCOSE 76 mg/dL 65-100 SODIUM 137 mmol/L 135-145 POTASSIUM 4.7 mmol/L 3.5-5.0 CHLORIDE 105 mmol/L 100-110 CO2 18 meq/L L 20-30 CREATININE, Serum 1.30 mg/dL 0.50-1.40 eGFR(CKD-EPI 2020) 61 mL/min >60 Jan 04, 2024 09:27 AM [facility] LIVER FUNCTION Specimen Type: SERUM No comment entered. Ordering Provider: CLIFF MCKEON Report Released Date/Time: Jan 08, 2023 11:58 AM Reporting Lab: [address] [address] Performing Lab: [address] [address] PROTEIN,TOTAL 7.1 g/dL 6.0-8.3 ALBUMIN 4.0 g/dL 3.5-5.0 ALKALINE PHOSPHATASE 65 U/L 40-150 AST 76 U/L H 5-34 ALT 44 U/L BILIRUBIN, TOTAL 0.7 mg/dL 0.2-1.2 Jan 04, 2024 09:27 AM [facility] HEMOGLOBIN A1C PANEL Specimen Type: BLOOD Comment: [...] Jan 08, 2023 11:58 AM Reporting Lab: [address] [address] Performing Lab: [address] [address] HEMOGLOBIN A1C 4.9 4.0-5.6 Jan 04, 2024 09:27 AM [facility] TSH Specimen Type: SERUM No comment entered. Ordering Provider: CLIFF MCKEON Report Released Date/Time: Jan 08, 2023 11:58 AM Reporting Lab: [address] [address] Performing Lab: [address] [address] TSH 0.45 u[IU]/mL 0.35-5.00 Jan 04, 2024 09:27 AM [facility] URINALYSIS Specimen Type: URINE Comment: If Glucose = >500 and Ketones are positive, please alert the Physician. Ordering Provider: CLIFF MCKEON Report Released Date/Time: Jan 08, 2023 11:58 AM Reporting Lab: [address] [address] Performing Lab: [address] [address] UA COLOR Light-Yellow Yellow UA APPEARANCE Clear Clear UA GLUCOSE Normal mg/dL Negative UA KETONES TRACE mg/dL Negative UA BLOOD NEGATIVE mg/dL Negative UA PROTEIN NEGATIVE mg/dL Negative UA NITRITE NEGATIVE mg/dL Negative UA BILIRUBIN NEGATIVE mg/dL Negative UA SPECIFIC GRAVITY 1.015 L 1.016-1.022 UA pH 5.5 5.0-9.0 UA UROBILINOGEN Normal mg/dL <2.0 UA LEUKOCYTE NEGATIVE Negative Jan 04, 2024 09:27 AM [facility] CBC AND DIFF (AUTO) Specimen Type: BLOOD No comment entered. Ordering Provider: CLIFF MCKEON Report Released Date/Time: Jan 08, 2023 11:58 AM Reporting Lab: [facility] [address] [facility] [address] Performing Lab: [facility] [address] [facility] [address] WBC 3.71 10*3/uL L 4.50-11.00 RBC 4.17 [...] 15, 2024 08:57 AM VA-TOBACCO NEVER USED [facility] Tobacco Use History This section includes a history of the smoking, or tobacco-related health factors, that were collected on or before the date of the Encounter. The data comes from the [place] facility where the Encounter took place. Date/Time Smoking Status/Tobac co Use Comment Facility Jan 08, 2023 09:03 AM VA-TOBACCO NEVER USED [facility] Aug 01, 2021 09:08 AM VA-TOBACCO FORMER USER [facility] Aug 01, 2021 09:08 AM [place]-TOBACCO QUIT 1 TO < 5 YRS [facility] Dec 08, 2011 01:04 PM CURRENT SMOKER chew pack and half a week [facility] Dec 08, 2011 01:04 PM V1-PT DECLINES REF TO TOBACCO CESS PRGM [facility] Dec 08, 2011 01:04 PM V1-PT DECLINES TOBACCO CESSATION MEDS [facility] Dec 08, 2011 01:04 PM V1-PT THINKING ABOUT QUIT TOBACCO USE [facility] Advance Directives: All historical and current [...] Jan 03, 2021 ADVANCE DIRECTIVE KHUSHBU KUMAR REPLACED BY [facility] Mar 19, 2012 ADVANCE DIRECTIVE ERIKA MORALES [facility] Encounter Notes: All associated encounter notes This section contains the clinical notes associated to the Encounter. Date/Time Encounter Note(s) Provider Source Jan 16, 2024 04:10 PM LETTERS: LOCAL TITLE: PATIENT LETTER (T) STANDARD TITLE: LETTERS DATE OF NOTE: JAN 16, 2024@16:10 ENTRY DATE: JAN 16, 2024@16:10:45 AUTHOR: STELEA,REBECCA F EXP COSIGNER: URGENCY: STATUS: COMPLETED PATIENT LETTER (T) Has ADDENDA DEPARTMENT OF [facility] Toll Free Number Primary Care Telephone Assistance can be reached at extension [phone] [facility] scheduling can be reached at extension [phone] [facility] scheduling can be reached at ext [phone] [facility] [address], [place], [address] [place], I reviewed your lab test results for anemia and everything is within normal limits. If you have any questions please call our office back Sunday to Sunday from 8 AM to 4 PM; the phone number is [phone]. Sincerely, Dr. Rebecca Schultz 01/16/2024 ADDENDUM STATUS: COMPLETED THIS ACADEMIC COMPUTING DIRECTOR MAILED LETTER TO JOSÉ MIGUEL. /caitlyn/ MOOK JI ADVANCED MANAGER FRONT Signed: 01/16/2024 16:17 Sincerely, Your Primary Care Team [facility] [address] [place] [address] [place] [address] [phone] [facility] [address] [place] [address] [place] [address] [phone] [facility] [address] [facility] [place] [address] [place] [address] REBECCA SCHULTZ [facility]
--- OUTSIDE RECORDS SUMMARY | 2024-06-02 11:23 | XMS_ITS | Encounter Summary ---
Author Name [facility] [facility] Address [address] [place] [address] Care Team Providers Care Assembler Corncob Pipes Name Role Phone ROBBY NIELSON Primary Care [...] PRESCRIPT ION [id number] 1 May 28, 2017 [id number] [phone] Charlene MASON DDIE PATIENT [facility] PRESCRIPT ION [id number] 1 May 28, 2017 [id number] [phone] Charlene MASON DDIE PATIENT [facility] RX PRESCRIPT ION RX May 28, 2022 [id number] Charlene MASON DDIE PATIENT [facility] RX PRESCRIPT ION RX May 28, 2022 THPRX [id number] [phone] Charlene MASON DDIE PATIENT [facility]P May 28, 2017 [facility] [id number] [phone] Charlene MASON DDIE PATIENT [facility] HE[facility] IVY Chang May 28, 2017 [facility] [id number] [phone] Charlene MASON DDFRED PATIENT [facility] POINT OF SERVICE MALLORY CHERY Oct 27, 2011 [id number] [phone] Charlene MASON DDFRED PATIENT [facility] (WNR) SUKUMAR CHERY(WN R) May 28, 2017 (WNR) [id number] [id number] Charlene MASON PATIENT Selected Encounter This [...] 20 appointments. The data comes from all [facility] facilities. Appointment Date/Time Appointment Type Appointme nt Facility Name Feb 14, 2024 01:15 PM AMBULATORY - MEDICINE [facility] [place] [facility] Mar 06, 2024 11:30 AM AMBULATORY - MEDICINE [facility] [place] [facility] Apr 16, 2024 10:00 AM AM[place]ULATORY - MEDICINE [place] [facility] [place] [facility] May 01, 2024 10:00 AM AMBULATORY MEDICINE [facility] [place] [facility] May 16, 2024 09:00 AM AMBULATORY - MEDICINE [facility] Jun 27, 2024 11:00 AM AMBULATORY - MEDICINE [facility] Active[facility] Pending, and Scheduled Orders [...] 2023 04:40 PM Consult Order [facility] GENER[facility] Cons Relations Specialist's Choice DIGNA Lab Results: +/- 30 days of the encounter This section includes the Chemistry and Hematology Lab Results on record with [place] for the patient. Radiology Reports and Pathology Reports are provided separately, in subsequent sections. Lab Results This section contains the Chemistry/Hematology Results that were resulted 30 days before or 30 daysafter the date of the Encounter. Date/Time Source Result Type Result - Unit Interpretation Reference Range Comment Jan 15, 2024 09:47 AM [facility] PSA Specimen Type: SERUM No comment entered. Ordering Provider: PHYLLIS WHALEY Report Released Date/Time: Aug 13, 2023 09:06 AM Reporting Lab: [address] [address] Performing Lab: [address] [address] PSA 2.58 ng/mL 0.00-4.00 Jan 15, 2024 09:47 AM [facility] LIPID PANEL FASTING Specimen Type: SERUM No comment entered. Ordering Provider: PHYLLIS WHALEY Report Released Date/Time: Aug 13, 2023 09:06 AM Reporting Lab: [address] [address] Performing Lab: [address] [address] CHOLESTEROL 186 mg/dL TRIGLYCERIDE 36 mg/dL 0-150 LDL calculated 61 mg/dL 0-129 CHOL/HDL 1.6 HDL CHOLESTEROL 118 mg/dL H 40-60 Jan 15, 2024 09:47 AM [facility] LIVER FUNCTION Specimen Type: SERUM No comment entered. Ordering Provider: PHYLLIS WHALEY Report Released Date/Time: Aug 13, 2023 09:06 AM Reporting Lab: [address] [address] Performing Lab: [address] [address] PROTEIN,TOTAL 7.5 g/dL 6.0-8.3 ALBUMIN 4.3 g/dL 3.5-5.0 ALKALINE PHOSPHATASE 72 U/L 40-150 AST 131 U/L H 5-34 ALT 99 U/L H BILIRUBIN, TOTAL 0.8 mg/dL 0.2-1.2 Jan 15, 2024 09:47 AM [facility] BASIC METABOLIC PANEL (fasting) Specimen Type: SERUM No comment entered. Ordering Provider: PHYLLIS WHALEY Report Released Date/Time: Aug 13, 2023 09:06 AM Reporting Lab: [facility] [address] [facility] [address] Performing Lab: [facility] [address] [facility] [address] UREA NITROGEN 9 mg/dL 7-25 GLUCOSE 85 mg/dL 65-100 SODIUM 139 mmol/L 135-145 POTASSIUM 5.1 mmol/L H 3.5-5.0 CHLORIDE 101 mmol/L 100-110 CO2 25 meq/L 20-30 CREATININE, Serum 1.30 mg/dL 0.50-1.40 eGFR(CKD-EPI 2020) 61 mL/min >60 Jan 15, 2024 09:47 AM [facility] HEMOGLOBIN A1C PANEL Specimen Type: BLOOD [...] [facility] [address] [facility] [address] Performing Lab: [address] [address] HEMOGLOBIN A1C 4.9 4.0-5.6 Jan 15, 2024 09:47 AM [facility] URINALYSIS Specimen Type: URINE Comment: If Glucose = >500 and Ketones are positive, please alert the Physician. Ordering Provider: PHYLLIS WHALEY Report Released Date/Time: Aug 13, 2023 09:06 AM Reporting Lab: [facility] [address] [facility] [address] Performing Lab: [facility] [address] [facility] [address] UA COLOR Colorless Yellow UA APPEARANCE Clear Clear UA GLUCOSE Normal mg/dL Negative UA KETONES NEGATIVE mg/dL Negative UA BLOOD NEGATIVE mg/dL Negative UA PROTEIN NEGATIVE mg/dL Negative UA NITRITE NEGATIVE mg/dL Negative UA BILIRUBIN NEGATIVE mg/dL Negative UA SPECIFIC GRAVITY 1.005 L 1.016-1.022 UA pH 6.0 5.0-9.0 UA UROBILINOGEN Normal mg/dL <2.0 UA LEUKOCYTE NEGATIVE Negative Jan 15, 2024 09:47 AM [facility] TSH Specimen Type: SERUM No comment entered. Ordering Provider: PHYLLIS WHALEY Report Released Date/Time: Aug 13, 2023 09:06 AM Reporting Lab: [address] [address] Performing Lab: [address] [address] TSH 0.57 u[IU]/mL 0.35-5.00 Jan 15, 2024 09:47 AM [facility] CBC AND DIFF (AUTO) Specimen Type: BLOOD No comment entered. Ordering Provider: PHYLLIS WHALEY Report Released Date/Time: Aug 13, 2023 09:06 AM Reporting Lab: [address] [address] Performing Lab: [address] [address] WBC 4.91 10*3/uL 4.50-11.00 RBC 4.24 10*6/uL [...] 10*3/uL 0.00-0.00 Jan 15, 2024 09:47 AM [facility] SYPHILIS ABS W/RFLX Specimen Type: SERUM Comment: No laboratory evidence of syphilis infection. If recent exposure is suspected, re-draw sample in 2-4 weeks and repeat algorithm. Testing performed by T. pallidum specific immunoassay. Ordering Provider: RASHARD SCHULTZ Report Released Date/Time: Jan 15, 2024 09:24 AM Reporting Lab: [facility] [address] [facility] [address] Performing Lab: [facility] [address] [facility] [address] SYPHILIS ABS W/RFLX Non Reactive Non Reactive Jan 15, 2024 09:47 AM [facility] FERRITIN Specimen Type: SERUM No comment entered. Ordering Provider: RASHARD SCHULTZ Report Released Date/Time: Jan 15, 2024 09:24 AM Reporting Lab: [facility] [address] [facility] [address] Performing Lab: [facility] [address] [facility] [address] FERRITIN 523 ng/mL H 20-300 Jan 15, 2024 09:47 AM [facility] IRON & TIBC PANEL Specimen Type: SERUM No comment entered. Ordering Provider: RASHARD SCHULTZ Report Released Date/Time: Jan 15, 2024 09:24 AM Reporting [facility] [address] [address] Performing Lab: [place] [facility] [address] [address] TIBC 275 ug/dL 204-475 IRON 71 ug/dL 40-160 Transferrin Saturation 25.9 20.0-50.0 Jan 15, 2024 09:47 AM [facility] VITAMIN B12 Specimen Type: SERUM No comment entered. Ordering Provider: RASHARD SCHULTZ Report Released Date/Time: Jan 15, 2024 09:24 AM Reporting Lab[facility] [address] [address] Performing Lab: [facility] [address] VITAMIN B12 873 pg/mL 200-900 Jan 15, 2024 09:47 AM [facility] HIV 1&2 Ag/Ab SCREEN Specimen Type: SERUM No comment entered. Ordering Provider: RASHARD SCHULTZ Report Released Date/Time: Jan 15, 2024 09:24 AM Reporting Lab: [facility] [address] Performing Lab: [facility] [address] [address] HIV 1&2 Ag/Ab SCREEN NON-REACTIVE Nonreactive Jan 04, 2024 09:27 AM [facility] PSA Specimen Type: SERUM No comment entered. Ordering Provider: CLIFF MCKEON Report Released Date/Time: Jan 08, 2023 11:58 AM Reporting Lab: [facility] [address] [address] Performing Lab: [facility] [address] [address] PSA 3.04 ng/mL 0.00-4.00 Jan 04, 2024 09:27 AM [facility] LIPID PANEL FASTING Specimen Type: SERUM No comment entered. Ordering Provider: CLIFF MCKEON Report Released Date/Time: Jan 08, 2023 11:58 AM Reporting Lab: [facility] [address] Performing Lab: [address] [address] CHOLESTEROL 184 mg/dL TRIGLYCERIDE 35 mg/dL 0-150 LDL calculated 67 mg/dL 0-129 CHOL/HDL 1.7 HDL CHOLESTEROL 110 mg/dL H 40-60 Jan 04, 2024 09:27 AM [facility] BASIC METABOLIC PANEL (fasting) Specime n Type: SERUM No comment entered. Ordering Provider: CLIFF MCKEON Report Released Date/Time: Jan 08, 2023 11:58 AM Reporting Lab: [address] [address] Performing Lab: [address] [address] UREA NITROGEN 9 mg/dL 7-25 GLUCOSE 76 mg/dL 65-100 SODIUM 137 mmol/L 135-145 POTASSIUM 4.7 mmol/L 3.5-5.0 CHLORIDE 105 mmol/L 100-110 CO2 18 meq/L L 20-30 CREATININE, Serum 1.30 mg/dL 0.50-1.40 eGFR(CKD-EPI 2020) 61 mL/min >60 Jan 04, 2024 09:27 AM [facility] LIVER FUNCTION Specimen Type: SERUM No comment entered. Ordering Provider: CLIFF MCKEON Report Released Date/Time: Jan 08, 2023 11:58 AM Reporting Lab: [address] [address] Performing Lab: [address] [address] PROTEIN,TOTAL 7.1 g/dL 6.0-8.3 ALBUMIN 4.0 g/dL 3.5-5.0 ALKALINE PHOSPHATASE 65 U/L 40-150 AST 76 U/L H 5-34 ALT 44 U/L BILIRUBIN, TOTAL 0.7 mg/dL 0.2-1.2 Jan 04, 2024 09:27 AM [facility] URINALYSIS Specimen Type: URINE Comment: If Glucose = >500 and Ketones are positive, please alert the Physician. Ordering Provider: CLIFF MCKEON Report Released Date/Time: Jan 08, 2023 11:58 AM Reporting Lab: [facility] [address] [address] Performing Lab: [address] [address] UA COLOR Light-Yellow Yellow UA APPEARANCE Clear Clear UA GLUCOSE Normal mg/dL Negative UA KETONES TRACE mg/dL Negative UA BLOOD NEGATIVE mg/dL Negative UA PROTEIN NEGATIVE mg/dL Negative UA NITRITE NEGATIVE mg/dL Negative UA BILIRUBIN NEGATIVE mg/dL Negative UA SPECIFIC GRAVITY 1.015 L 1.016-1.022 UA pH 5.5 5.0-9.0 UA UROBILINOGEN Normal mg/dL <2.0 UA LEUKOCYTE NEGATIVE Negative Jan 04, 2024 09:27 AM [facility] HEMOGLOBIN A1C PANEL Specimen Type: BLOOD Comment: [...] Jan 08, 2023 11:58 AM Reporting Lab: [address] [address] Performing Lab: [address] [address] HEMOGLOBIN A1C 4.9 4.0-5.6 Jan 04, 2024 09:27 AM [facility] TSH Specimen Type: SERUM No comment entered. Ordering Provider: CLIFF MCKEON Report Released Date/Time: Jan 08, 2023 11:58 AM Reporting Lab: [address] [address] Performing Lab: [address] [address] TSH 0.45 u[IU]/mL 0.35-5.00 Jan 04, 2024 09:27 AM [facility] CBC AND DIFF (AUTO) Specimen Type: BLOOD No comment entered. Ordering Provider: CLIFF MCKEON Report Released Date/Time: Jan 08, 2023 11:58 AM Reporting Lab: [facility] [address] [facility] [address] Performing Lab: [facility] [address] [facility] [address] WBC 3.71 10*3/uL L 4.50-11.00 RBC 4.17 [...] 15, 2024 08:57 AM [place] NEVER USED [facility] Tobacco Use History This section includes a history of the smoking, or tobacco-related health factors, that were collected on or before the date of the Encounter. The data comes from the [place] facility where the Encounter took place. Date/Time Smoking Status/Tobac co Use Comment Facility Jan 08, 2023 09:03 AM [place]-TO[place] NEVER USED [facility] Aug 01, 2021 09:08 AM [place] FORMER USER [facility] Aug 01, 2021 09:08 AM [place]-TO[place]AC[place] QUIT 1 TO < 5 YRS NEW [...] Mar 19, 2012 ADVANCE DIRECTIVE ERIKA MORALES [facility]
--- OUTSIDE RECORDS SUMMARY | 2024-06-02 11:24 | XMS_ITS | Continuity of Care Document ---
Author Organization [place] - [facility], [facility] Address [address] [place] [address] Care Team Providers Care Pressure Dispatcher Name Role Phone SAM SANCHEZ Primary Care Provider Assessment No assessment recorded. Plan of Treatment Reminders Order Date Submit Date Provider Last Modified By Organization Details Last Modified Time Details Appointments None recorded. Lab None recorded. Referral None recorded. Procedures None recorded. Surgeries None recorded. Imaging None recorded. Medication Orders epinephrine 0.3 mg/0.3 mL injection, auto-inject or 2023 024 [facility], [address] [place] [address], [id number], 17:02:04 Patient TargetsNo targets recorded. Patient Instructions Encounter Date Encounter Id Patient Instructions Last Modified By Organization Details Last Modified Time 03/25/2024 [id number] sublingual immunotherapy regimen* [email or web address] Not available 03/26/2024 08:28:36 Reason for Referral None Reported. Problems Name Problem SNOMED Code Status Onset Date Resolution Date Notes Provider Name and Address Organization Details Recorded Time Allergic rhinitis 32355628 Active 2022 Other allergic rhinitis ; Note: Date Diagnose d: 3 10:10 AM (J30.89) Not Available [facility] 02:54:40 Sensorin eural hearing loss in right ear 95157259846 100 Active 2022 Sensorin eural hearing loss, unilater al, right ear, with restrict ed hearing on the contrala teral side; Note: Date Diagnose d: 3 10:10 AM (H90.A21 ) Not Available [facility] 4 02:54:41 Posterio r rhinorrh ea 45671631 Active 2023 Postnasa l drip; Note: Date Diagnose d: 05/29/2023 3:27 PM (R09.82) Not Available [facility] 4 02:54:37 Nasal congesti on 39797683 Active 2022 Nasal congesti on; Note: Date Diagnose d: 3 10:10 AM (R09.81) Not Available [facility] 4 02:54:39 Tobacco user 100146687 Active 2017 Tobacco use; Note: Date Diagnose d: 8 4:51 PM (Z72.0) Not Available [facility] 4 02:54:40 Dysphagi a 96053403 Completed 201712/28/2023 Other dysphagi a; Note: Date Diagnose d: 8 3:09 PM (R13.19) Not Available [facility] 4 02:54:41 Tinnitus of right ear 75503980846 08 Active 2022 Tinnitus , right ear; Note: Date Diagnose d: 3 10:10 AM (H93.11) Not Available [facility] 4 02:54:39 Sensorin eural hearing loss of bilatera l ears 315275633 Active 2022 Sensorin eural hearing loss, bilatera l; Note: Date Diagnose d: 3 9:58 AM (H90.3) Not Available [facility] 4 02:54:37 Seasonal allergic rhinitis 290617612 Active 2023 JUAN LUIS SKINNER MD [address] [place] [address],[place] [address], [place], [address] , [place] - [facility] 4 13:23:57 Non-israel rgic rhinitis 71714164953 1 Active 2023 JUAN LUIS SKINNER MD [address] [place] [address],[place] [address], [place], [address] , [place] [facility] 4 13:24:27 Problem Notes None recorded. Procedures Surgical History Date Name Laterality Status Provider Name and Address Organization Details Recorded Time Allergy Testing-Full completed REDD CAMARA, [facility] [address], [address], [place] - [facility] 02/06/2024 14:27:10 Imaging Results None recorded. Procedure Notes None recorded. Medical Equipment None Reported. Allergies No known drug allergies Medications Name Sig Start Date Stop Date Status Note LastModified by Organization Details LastModified Time Refresh Tears 0.5 % eye drops active Not Available Not Available Not Available Augmentin 875 mg-125 mg tablet 2017 active Medicati on ID: [id number] D uration Value: 10 Prescri bed By Name: Juan Luis joshi MD Brand Name: Augmenti n Send Method: E-Prescr ibed Sub s Allowed: subs OK Speci al Instruct ion: 1 po bid for 10 days Med icationG enericNa me: Augmenti n Not Available Not Available Not Available primidone 50 mg tablet 01/28 completed Medicati on ID: [id number] D uration Value: 30 Brand Name: primidon e Send Method: E-Prescr ibed Sub s Allowed: subs OK Speci al Instruct ion: TAKE 1/2 TAB AT BEDTIME [id number], 1 TAB AT BED [id number], 1.5 TABS AT BED [id number], THEN 2 TABS AT BED Medi cationGe nericNam e: primidon e Not Available Not Available Not Available prednison e 10 mg tablet 01/28 completed Medicati on ID: [id number] P rescribe d By Name: Juan Luis [...] Updated DateTime 03/25/2024 157.48 cm 22.9 kg/m2 28423.05 g Francisco [place] - [facility] 03/25/2024 15:49:36 Social History None recorded. Functional Status None recorded. Mental Status None recorded. Family History Nothing Reported. Medical History No medical history recorded. Past Encounters Encounter ID Performer Location Encounter Start Date Encounter Closed Date Diagnosis/Indication Diagnosis SNOMED-CT Code Diagnosis ICD10 Code Diagnosis Note [id number] JUAN LUIS SKINNER MD [facility] [address] [place] [address] 03/25/2024 15:31:57 03/25/2024 16:19:44 Seasonal allergic rhinitis 562764887 J30.2 We discussed the role of immunother apy. I explained that this involves the introducti on of increasing ly graduated dosages of the appropriat e allergens by sublingual immunother apy to facilitate tolerance. I explained about the likelihood of improvemen t usually within a three to six month time period provided that the patient is compliant with therapy. We spoke about the duration of therapy, which typically lasts from three to five years though at times can be indefinite . We also discussed the risk of anaphylaxi s, throat tightness, stomach upset and eosinophil ic esophagiti s with sublingual immunother apy. Epipen use discussed. He will consider and let us know if interested . Nasal congestion [id number] 0 R09.81 see above Health Concerns Section Related Observation LastModified by Organization Detai ls LastModified Time None Recorded Concern Status LastModified by Organization Details LastModified Time None Recorded Payers Encounter Date Sequence Insurance Name Policy Number Policy Poon Covered Member ID Poon Member ID Guarantor Name 03/25/2024 1 [facility] HEALTH PLAN (POS) [id number] Papo Hernandez [id number] Papo Hernandez Notes Date Note Type Note Provider Name and Address Organization Details Recorded Time 03/25/2024 text/html He presents for allergy testing review. Allergy testing showed mild to moderate allergies to most categories of allergens tested. Has tried antihistamines and nasal sprays with minimal improvement. JUAN LUIS SKINNER MD [address] [place] [address], [place], [address], [facility] - [facility] 03/25/2024 17:01:45
== END 2024-06-02 10:42 | disposition home or self-care (01) ==
PROVIDERS: PCP Internal Medicine; Visit Provider Internal Medicine Pulmonary Disease
DX: G47.33 Obstructive sleep apnea (adult) (pediatric) (principal); Z91.09 Other allergy status, other than to drugs and biological substances
CPT/HCPCS: 99214

== ENCOUNTER → 2024-06-02 10:21 | Outpatient (BNVA) | payer OTHER, SELFPAY | PROVIDERS: PCP Internal Medicine; Visit Provider Internal Medicine Pulmonary Disease | DX: G47.33 Obstructive sleep apnea (adult) (pediatric) (principal); Z91.09 Other allergy status, other than to drugs and biological substances | CPT/HCPCS: 99212 ==

== ENCOUNTER 2024-06-17 12:56 | Outpatient (AMB) | payer OTHER, SELFPAY ==
[2024-06-17 13:02] VITALS: BP 122/82; PULSE 75; O2SAT 98; BMI 24.1
--- NOTE | 2024-06-17 13:02 | MHC.OFFVIS ---
Vital Signs 06/17/24 13:02 Height 5 ft 2 in Weight 132 lb BMI 24.1 BP 122/82 Blood Pressure Location Rt brachial Position Sitting Pulse 75 Pulse Source Doppler Pulse Oximetry (%) 98 Oxygen Delivery Method Room Air Intake Visit Reasons: Obstructive sleep apnea Allergies No Known Allergies [No Known Allergies*] Allergy (Verified 06/17/24 13:09) HPI HPI Obstructive sleep apnea: Details: 64-year-old gentleman nonsmoker followed for severe obstructive sleep apnea environmental allergies. After the last office visit patient received his CPAP machine started using it. He also has been using loratadine and nasal ipratropium with overall reasonable control of his environmental allergies. [facility] Medical History (Updated 03/31/24 @ 10:53 by Catracho Jo MD) Asthma Tinnitus of right ear Seasonal allergies Erectile dysfunction BALDEMAR (obstructive sleep apnea) Avascular necrosis of bone of hip Leukopenia Elevated LFTs Chewing tobacco use Hypertension Contracture of hand Benign essential tremor Idiopathic peripheral neuropathy Fatty liver Kidney disease GERD (gastroesophageal reflux disease) Cervical spondylosis Cervical radiculopathy Surgical History (Updated 01/07/24 @ 12:34 by Wm Pichardo MD) Hx of colonoscopy Hx of foot surgery History of total right hip replacement History of surgery on right wrist Hx of foot surgery History of surgery on arm Hx of appendectomy Social History Are you a primary healthcare representative to a significant other at home: No Do you presently have visiting nurse or other home services: No Patient Tobacco Use Status: Never used Tobacco Review of Systems Const Denies daytime sleepiness, Denies excessive sweating, Denies fatigue, Denies fever(s), Denies lethargy, Denies malaise, Denies night sweats, Denies snoring and Denies weight loss Eyes Denies blurry vision and Denies itchy eyes ENT Denies nasal congestion, Denies post nasal drip, Denies sinus pain, Denies sinus pressure and Denies other ( Thrush) Card Denies chest pain, Denies pedal edema, Denies dyspnea, Denies orthopnea and Denies paroxysmal nocturnal dyspnea Resp Denies cough, Denies hemoptysis, Denies excessive phlegm production, Denies dyspnea, Denies snoring and Denies wheezing GI Denies abdominal pain and Denies heartburn Musc Denies myalgias, Denies arthralgias and Denies joint swelling Skin/Breast Denies rash Neuro Denies memory loss and Denies seizure-like activity Psych Denies abnormal sleep pattern, Denies anxiety and Denies memory loss Endo Denies excessive sweating, Denies fatigue and Denies heat intolerance Akira/Lymph Denies easy bruising Aller/Immun Denies itchy eyes, Denies seasonal rhinorrhea and Denies wheezing Physical Exam Vital Signs: Last Vital Signs Pulse 75 06/17/24 13:02 BP 122/82 06/17/24 13:02 Pulse Ox 98 06/17/24 13:02 Oxygen Delivery Method Room Air 06/17/24 13:02 BMI result Body Mass Index 24.1 Const General: no acute distress and alert Nutritional Appearance: not obese Orientation/consciousness: Other orientation findings ( oriented) HEENT Head: Yes atraumatic Eyes General: appearance normal, both eyes and all related structures Sclerae: sclerae normal EOM: EOMs intact bilaterally Neck Neck: Yes supple Lymphatic: no lymphadenopathy noted Resp Effort & Inspection: normal respiratory effort and no use of accessory muscles Auscultation: clear to auscultation bilaterally Cardio Rate: regular rate Rhythm: regular rhythm Heart sounds: no gallops, no murmurs and no rubs Skin General skin exam: other ( warm) Extrem General: No clubbing, No cyanosis and No edema Assessment & Plan Assessment & Plan (1) BALDEMAR (obstructive sleep apnea): Code(s): G47.33 - Obstructive sleep apnea (adult) (pediatric) Category: Medical Plan: Well controlled on current CPAP therapy. Continue CPAP therapy. (2) Environmental allergies: Code(s): Z91.09 - Other allergy status, other than to drugs and biological substances Category: Medical Plan: Reasonable control loratadine and nasal ipratropium. Continue current regimen. Coding Level of Care Code Est Pt Level 4 (74067) Diagnoses BALDEMAR (obstructive sleep apnea) G47.33 Environmental allergies Z91.09
--- OUTSIDE RECORDS SUMMARY | 2024-06-17 14:35 | XMS_ITS | Continuity of Care Document ---
Author Name [facility] Organization [facility] Care Team Providers Care Axle Polisher Name Role Phone [facility] Unavailable Unavailable Problems Combined list of problems from Department of Defense and Veterans Affairs facilities. It does not include entries that were removed or entered in error. Problem Status Onset Date Problem Type Date of Resolution Comments Source Absent kidney Active Condition Apr Entered By: CLIFF MCKEON Comment: absent R kidney seen on ultrasound 2017 [place] Alcohol abuse Active Condition Jun Entered By: JEANNETTE VALENCIA Comment: diagnosis updated July 25, 2018. [place] Alcohol abuse, unspecified drinking behavior (ICD-9-CM 305.00) Active Condition [facility] Alcohol Dependence * (ICD-9-CM 303.90/303.91) Active Condition [facility] Alcoholic liver damage Active Condition Jan 03, 2021 Entered By: CLIFF MCKEON Comment: abdominal ultrasound 06/16/2020 scanned into [facility] Allergic rhinitis * (ICD-9-CM 477.9) Active Condition [facility] Anemia (SCT 832010109) Active Condition [place] Avascular necrosis of bone Active Condition [place] Benign essential hypertension Active Condition [place] CAT scan normal Active Condition Dec 01, 2016 Entered By: CLIFF MCKEON Comment: ct abdomen 03/12 scanned into [facility] Chronic granulomatous disease Active Condition Jun 21, 2016 Entered By: CLIFF MCKEON Comment: cat scan chest 01/10 scanned into [facility] Colonoscopy Active Condition Feb 26, 2012 Entered By: JIMMY ANDERSON Comment: Screening colonoscopy 02/20/12 -- NORMAL. Repeat in 2021 [place] Computed tomography result abnormal Active Condition Jan 03, 2021 Entered By: CLIFF MCKEON Comment: abdomen 03/07/2016 scanned into [facility] Demyelinating disease of central nervous system Active Condition Mar 23, 2020 Entered By: CLIFF MCKEON Comment: emg/ncs and neurology noted from 02/18/2020 scanned into [facility] Depressive disorder Active Condition Jul 25, 2018 Entered By: JEANNETTE VALENCIA Comment: diagnosis updated July 25, 2018 [facility] Elevated blood pressure reading without diagnosis of hypertension Active Condition [place] [facility] Elevated liver enzymes level Active Condition [place] Erectile dysfunction Active Condition [place] Gastroesophageal Reflux Disorder * (ICD-9-CM 530.81) Active Condition [place] History of right hip replacement Active Condition Jun 20, 2016 Entered By: CLIFF MCKEON Comment: 08/10 [place] JOINT PAIN-L/LEG Active Condition [facility] MRI scan abnormal Active Condition [facility] 2019 Entered By: CLIFF MCKEON Comment: mri 02/10 and 03/16 scanned into [facility] Osteoarthritis * (ICD-9-CM 715.90) Active Condition [facility] Peripheral neuropathy Active Condition Aug 13, 2023 Entered By: PHYLLIS WHALEY Comment: Follows [facility] 2023 Entered By: PHYLLIS WHALEY Comment: There is diffuse axonalEMG 2022: Bilateral lower extremity normal and demyelinating sensorimotor peripheral neuropathy [facility] Personal History of return from Deployment (ICD-9-CM V62.22) Active Condition [facility] Plantar Fasciitis Active Condition 2011 Entered By: JEAN DURAN Comment: R Foot [place] Posttraumatic stress disorder Active Condition Jul 25, 2018 Entered By: JEANNETTE VALENCIA Comment: diagnosis updated July 25, 2018. [facility] Private PCP: Dr Jefferson Han Active Condition [facility] Simple upper Gastrointestinal Endoscopy Active Condition Apr 07, 2012 Entered By: CLIFF MCKEON Comment: 02/06 dr martinez mild erosions lower eosphagus. neg. bhandaris [place] Standard chest X-ray abnormal Active Condition Jan 03, 2021 Entered By: CLIFF MCKEON Comment: 12/14/20 scanned into [facility] Tendon Injuries Active Condition Jan 11, 2012 Entered By: JEAN DURAN Comment: Tear Tendon, R Wrist; Surg Repair early [place] Urolithiasis Active Condition Jan 03, 2021 Entered By: CLIFF MCKEON Comment: see renal ultrasound 07/09/2020 scanned into [facility] [place] tingling (paresthesia) Active Condition [facility] joint pain, localized in the knee Active Condition [facility] male erectile disorder Active Condition [facility] allergic rhinitis due to pollen Active Condition [facility] cough Active Condition [facility] esophagitis chronic reflux Active Condition [facility] chronic granulomatous disease Active Condition [facility] calcification of lung Active Condition [facility] thoracogenic scoliosis Active Condition [facility] nicotine dependence continuous Active Condition [facility] visit for: services physical intermediate Active Condition [facility] Spectacles Services Fitting Bifocal Except For Aphakia Inactive Condition [facility] conjunctivitis chronic allergic Inactive Condition [facility] astigmatism Inactive Condition [facility] flat foot acquired (pes planus) Active Condition [facility] visit for: single organ system exam eyes Inactive Condition ONE CAPPED MEIBOMIAN GLAND OD. PX EDUCATED. RECOMMEND WARM COMPRESSES. MONITOR PRN. DoD Physical Examination Inactive Condition [facility] visit for: screening exam sickle-cell disease / trait Inactive Condition 40% HgB S, n o anemia DoD refractive error - hypermetropia Active Condition DoD presbyopia Inactive Condition DISP NVO' S. THESE WERE TRIAL FRAMED AND PX APPRECIATED MUCH IMPROVEMENT. MONITOR IN 2-3 YEARS. [facility] astigmatism regular Active Condition DISP DVO'S. THESE WERE TRIAL FRAMED AND PX COULD APPRECIATE MINIMAL IMPROVEMENT. HE WILL WEAR THESE PRN. MONITOR IN 2-3 YEARS. [facility] routine examination Inactive Condition [facility] visit for: ears, nose, and throat exam Inactive Condition [facility] Diagnosis: ICD-10-CM L60.3 Nail dystrophy Active Diagnosis [place] Diagnosis: ICD-10-CM I10 Essential (primary) hypertension Active Diagnosis [place] Diagnosis: ICD-10-CM K70.9 Alcoholic liver disease, unspecified Active Diagnosis [place] Diagnosis: ICD-10-CM G64 Other disorders of peripheral nervous system Active Diagnosis [place] Diagnosis: ICD-10-CM L60.0 Ingrowing nail Active Diagnosis [place] Diagnosis: ICD-10-CM Z46.0 Encounter for fit/adjst of spectacles and contact lenses Active Diagnosis [facility] Diagnosis: ICD-10-CM H25.13 Age-related nuclear cataract, bilateral Active Diagnosis [facility] Diagnosis: ICD-10-CM K08.9 Disorder of teeth and supporting structures, unspecified Active Diagnosis [facility] Medications Combined list of outpatient medications from [...] TAKE WITH GRAPEFRU IT JUICE Active 08/15/2024 [id number] PHYLLIS WHALEY A 2023 90 [facility] AMLODIPINE BESYLATE 5MG TAB TAKE ONE TABLET BY MOUTH ONCE DAILY FOR BLOOD PRESSURE /HEART, DO NOT TAKE WITH GRAPEFRU IT JUICE ORAL ACTIVE 08/15/2024 [id number] Shania WHALEY A 2023 90 [place] Ammonium Lactate (Lac-Hydrin ) Lotion 12% Topical APPLY SMALL AMOUNT TOPICALL Y TWICE DAILY FOR DRY IRRITATE D SKIN Active 07/27/2024 [id number] JOHN LEE F 2023 240 [facility] AMMONIUM LACTATE 12% LOTION APPLY SMALL AMOUNT TOPICALL Y TWICE DAILY FOR DRY IRRITATE D SKIN TOPICA L ACTIVE 07/27/2024 [id number] 5 MIKE LEE F 2023 240 [place] carboxymeth ylcel 0.5% EYE DROP [2 X15ML] INSTILL 1 DROP INTO EACH EYE FOUR TIMES DAILY NEEDED Active 07/24/2024 [id number] 4 BRIAN GRIMALDO B 2023 45 [facility] carboxymeth ylcel 0.5% EYE DROP [2 X15ML] INSTILL 1 DROP INTO EACH EYE FOUR TIMES DAILY NEEDED 04/23/2024 [id number] 4 BRIAN GRIMALDO B 2023 45 [facility] CARBOXYMETH YLCELLULOSE NA 0.5% SOLN,OPH INSTILL 1 DROP INTO EACH EYE FOUR TIMES DAILY NEEDED OPHTHA LMIC ACTIVE 07/24/2024 [id number] KRISTI GRIMALDO B 2023 45 [facility] CARBOXYMETH YLCELLULOSE NA 0.5% SOLN,OPH INSTILL 1 DROP INTO EACH EYE FOUR TIMES DAILY NEEDED OPHTHA LMIC DISCONT INUED 04/23/2024 [id number] KRISTI GRIMALDO B 2022 45 [facility] CHOLECALCIF DIDIER 25MCG (1,000UNIT) TAB TAKE ONE TABLET BY MOUTH ONCE DAILY ORAL ACTIVE AYLA MCKEON [place] CYCLOBENZAP RINE HCL TAB TAKE 5MG BY MOUTH PRN ORAL ACTIVE AYLA MCKE[place] DICLOFENAC NA 1% GEL,TOP APPLY 3-4 GRAMS TOPICALL Y THREE TIMES A DAY FOR OSTEOART HRITIS - USE DOSING CARD PROVIDED IN BOX TOPICA L ACTIVE 06/19/2024 [id number] 4 ALI,MAHAMED 2023 100 [place] Diclofenac Sodium 0.01mg/mg, Gel/Jelly, Topical APPLY 3-4 GRAMS TOPICALL Y THREE TIMES A DAYFOR OSTEOART HRITIS - USE DOSING CARD PROVIDED IN BOX Active 06/19/2024 [id number] 4 ALI, MAHAMED 2023 100 [facility] IPRATROPIUM BR 0.06% SOLN,SPRAY, NASAL INSTILL 2 SPRAYS INTO EACH NOSTRIL FOUR TIMES DAILY NEEDED FOR ALLERGIE S NASAL ACTIVE 04/15/2025 [id number] Tom NIELSON 2023 45 [place] OMEPRAZOLE 20MG CAP,EC TAKE 1 CAPSULE BY MOUTH EVERY MORNING 30 MINUTES BEFORE BREAKFAS T ORAL ACTIVE [place] OTHER CAP/TAB TAKE LIVER ANTIOXID ANT EXTRACT AND PC LIVER BRAIN BENEFITS BY MOUTH ORAL ACTIVE AYLA MCKEON 2021 [place] sildenafiL 50 MG ORAL TAB TAKE ONE TABLET BY MOUTH NEEDED FOR ERECTILE DYSFUNCT ION TAKE 1 HOUR PRIOR TO SEXUAL ACTIVITY Active 08/13/2024 [id number] PHYLLIS WHALEY 2023 18 [facility] SILDENAFIL CITRATE 100MG TAB TAKE ONE TABLET BY MOUTH ONCE DAILY NEEDED FOR ERECTILE DYSFUNCT ION TAKE 1 HOUR PRIOR TO SEXUAL ACTIVITY ORAL SUSPEND ED 04/29/2025 [id number] Tom NIELSON 2024 18 [place] SILDENAFIL CITRATE 100MG TAB TAKE ONE TABLET BY MOUTH ONCE DAILY NEEDED FOR ERECTILE DYSFUNCT ION TAKE 1 HOUR PRIOR TO SEXUAL ACTIVITY ORAL DISCONT INUED 01/15/2025 [id number] 4 JAZMINE SCHULTZ RMBETTYE F 2023 18 [place] SILDENAFIL CITRATE 50MG TAB TAKE ONE TABLET BY MOUTH NEEDED FOR ERECTILE DYSFUNCT ION TAKE 1 HOUR PRIOR TO SEXUAL ACTIVITY ORAL DISCONT INUED (EDIT) 08/13/2024 [id number] 4 Shania WHALEY 2023 18 [place] SULINDAC 150MG TAB TAKE ONE TABLET BY MOUTH TWICE DAILY ORAL ACTIVE 02/14/2025 [id number] THELMA SWAIN ERT 2023 60 [place] Allergies, Adverse Reactions, Alerts Combined list of allergies from Department of Defense and Veterans Affairs facilities. It does not include entries that were removed or entered in error. Substance Category Reaction Severity Reaction type Status Date Reported Comments Source NO OUTPUT FOR NCID [id number] Drug allergy (disorder) active 03/12/2006 [facility] Immunizations Combined list of available immunizations from the Department of Defense and Veterans Affairs facilities. Immunization Series Date Given Administered By Site Reaction Lot Number CVX Code Drug School Lunch Manager Status Comments Source HEP A, ADULT 1 2023 ASHLEE ZABALA LEFT DELTO ID [id number] 52 complet ed [facility] TDAP 2023 ASHLEE ZABALA LEFT DELTO ID [id number] 115 complet ed [facility] INFLUENZA, UNSPECIFIED FORMULATION 2022 88 complet ed [facility] COVID-19 (MODERNA), MRNA, LNP-S, BIVALENT BOOSTER, PF, 50 MCG/0.5 ML OR 25MCG/0.25 ML DOSE 1 2021 229 complet ed MOD; [id number]; 3 [place] INFLUENZA, INJECTABLE, QUADRIVALENT, PRESERVATIVE [...] DOSE 2 2020 207 complet ed MOD; [id number]; 1 [place] COVID-19 (MODERNA), MRNA, LNP-S, PF, 100 MCG/0.5 ML DOSE 1 2020 207 complet ed MOD; [id number]; 1 [place] INFLUENZA, UNSPECIFIED FORMULATION 2019 [...] [place] TDAP 2013 115 complet ed [place] [facility] FLU,3 YRS (HISTORICAL) 2012 88 complet ed Site: Left Deltoid [place] FLU,3 YRS (HISTORICAL) 2011 88 complet ed [facility] DTAP, UNSPECIFIED FORMULATION 2011 107 complet ed [facility] influenza virus vaccine, unspecified formulation 1 2010 [id number] [facility] [employer] (CS[place]) complet ed influenza virus vaccine, unspecifi ed formulati on DoD hepatitis B vaccine, adult dosage 4 2009 [id number] [employer] (SKB) complet ed hepatitis B vaccine, adult dosage DoD influenza virus vaccine, split virus (incl. purified surface antigen)-reti red CODE 1 2009 [id number] Sanofi Pasteur ([facility]) complet ed influenza virus vaccine, split virus (incl. purified surface antigen)- retired CODE DoD anthrax vaccine 3 2009 [id number] [employer] [place] ([facility]) complet ed anthrax vaccine DoD tetanus toxoid, reduced diphtheria toxoid, and acellular pertu is vaccine, adsorbed 1 2009 [id number] Sanofi Pasteur ([facility]) complet ed tetanus toxoid, reduced diphtheri a toxoid, and acellular pertussis vaccine, adsorbed DoD vaccinia (smallpox) vaccine 1 2009 [id number] 75 Unknown (UNK) complet ed vaccinia (smallpox ) vaccine DoD anthrax vaccine 2 2008 [id number] [employer] [place] ([facility]) complet ed anthrax vaccine DoD Novel influenza-H1N 1-09, injectable 1 2008 [id number] 1 127 [employer]. (NOV) complet ed Novel influenza -Y5Y3-87, injectabl e DoD influenza virus vaccine, split virus (incl. purified surface antigen)-reti red CODE 1 2008 [id number] 15 Unknown (UNK) complet ed influenza virus vaccine, split virus (incl. purified surface antigen)- retired CODE DoD anthrax vaccine 1 2008 [id number] [employer] [place] ([facility]) complet ed anthrax vaccine DoD typhoid Vi capsular polysaccharid e vaccine 1 2008 [id number] 1 101 Sanofi Pasteur ([facility]) complet ed typhoid Vi capsular [...] meningococcal polysaccharid e vaccine (MPSV4) 1 2003 [id number] Sanofi Pasteur ([facility]) complet ed meningoco [...] Reference Range Date Interpretation Specimen Comments Source PSA PROSTATE SPECIFIC AG [MASS/VOLU ME] IN SERUM OR PLASMA 2.58 ng/mL 0.00 - 4.00 01/14 Specimen Type: SERUM No comment entered. Ordering Provider: ANNA WHALEY A Report Released Date/Time: Aug 13, 2023 09:06 AM Reporting Lab: [facility] [address] [address] Performing Lab: [facility] [address] [address] [facility] LIPID PANEL FASTING CHOLESTERO L [MASS/VOLU ME] IN SERUM OR PLASMA 186 mg/dL 01/14 Specimen Type: SERUM No comment entered. Ordering Provider: ANNA WHALEY A Report Released Date/Time: Aug 13, 2023 09:06 AM Reporting Lab: [facility] [address] [address] Performing Lab: [facility] [address] [address] [facility] LIPID PANEL FASTING TRIGLYCERI DE [MASS/VOLU ME] IN SERUM OR PLASMA 36 mg/dL 0 - 150 01/14 Specimen Type: SERUM No comment entered. Ordering Provider: ANNA WHALEY A Report Released Date/Time: Aug 13, 2023 09:06 AM Reporting Lab: [facility] [facility] [address] [address] Performing Lab: [facility] [facility] [address] [address] [facility] LIPID PANEL FASTING CHOLESTERO L IN LDL [MASS/VOLU ME] IN SERUM OR PLASMA BY CALCULANINOO N 61 mg/dL 0 - 129 01/14 Specimen Type: SERUM No comment entered. Ordering Provider: ANNA WHALEY A Report Released Date/Time: Aug 13, 2023 09:06 AM Reporting Lab: [facility] [facility] [address] [address] Performing Lab: [facility] [address] [address] [facility] LIPID PANEL FASTING CHOLESTERO L.TOTAL/CH OLESTEROL IN HDL [MASS RATIO] IN SERUM OR PLASMA 1.6 01/14 Specimen Type: SERUM No comment entered. Ordering Provider: ANNA WHALEY A Report Released Date/Time: Aug 13, 2023 09:06 AM Reporting Lab: [facility] [address] [address] Performing Lab: [facility] [address] [address] [facility] LIPID PANEL FASTING CHOLESTERO L IN HDL [MASS/VOLU ME] IN SERUM OR PLASMA 118 mg/dL 40 - 60 01/14 H Specimen Type: SERUM No comment entered. Ordering Provider: ANNA WHALEY A Report Released Date/Time: Aug 13, 2023 09:06 AM Reporting Lab: [facility] [place] [facility] [address] [address] Performing Lab: [facility] [place] [facility] [address] [address] [facility] LIVER FUNCTION PROTEIN [MASS/VOLU ME] IN SERUM OR PLASMA 7.5 g/dL 6.0 - 8.3 01/14 Specimen Type: SERUM No comment entered. Ordering Provider: ANNA WHALEY A Report Released Date/Time: Aug 13, 2023 09:06 AM Reporting Lab: [facility] [address] [address] Performing Lab: [facility] [address] [address] [facility] LIVER FUNCTION ALBUMIN [MASS/VOLU ME] IN SERUM OR PLASMA 4.3 g/dL 3.5 - 5.0 01/14 Specimen Type: SERUM No comment entered. Ordering Provider: ANNA WHALEY A Report Released Date/Time: Aug 13, 2023 09:06 AM Reporting Lab: [facility] [place] [facility] [address] [address] Performing Lab: [facility] [address] [address] [facility] LIVER FUNCTION ALKALINE PHOSPHATAS E [ENZYMATIC ACTIVITY/V OLUME] IN SERUM OR PLASMA 72 U/L 40 - 150 01/14 Specimen Type: SERUM No comment entered. Ordering Provider: ANNA WHALEY A Report Released Date/Time: Aug 13, 2023 09:06 AM Reporting Lab: [facility] [facility] [address] [address] Performing Lab: [facility] [facility] [address] [address] [facility] LIVER FUNCTION ASPARTATE AMINOTRANS FERASE [ENZYMATIC ACTIVITY/V OLUME] IN SERUM OR PLASMA 131 U/L 5 - 34 01/14 H Specimen Type: SERUM No comment entered. Ordering Provider: ANNA WHALEY A Report Released Date/Time: Aug 13, 2023 09:06 AM Reporting Lab: [facility] [facility] [address] [address] Performing Lab: [facility] [facility] [address] [address] [facility] LIVER FUNCTION ALANINE AMINOTRANS FERASE [ENZYMATIC ACTIVITY/V OLUME] IN SERUM OR PLASMA 99 U/L 01/14 H Specimen Type: SERUM No comment entered. Ordering Provider: ANNA WHALEY A Report Released Date/Time: Aug 13, 2023 09:06 AM Reporting Lab: [facility] [facility] [address] [address] Performing Lab: [facility] [facility] [address] [address] [facility] LIVER FUNCTION BILIRUBIN. TOTAL [MASS/VOLU ME] IN SERUM OR PLASMA 0.8 mg/dL 0.2 - 1.2 01/14 Specimen Type: SERUM No comment entered. Ordering Provider: ANNA WHALEY A Report Released Date/Time: Aug 13, 2023 09:06 AM Reporting Lab: [facility] [facility] [address] [address] Performing Lab: [facility] [facility] [address] [address] [facility] BASIC METABOLI C PANEL (fasting ) UREA NITROGEN [MASS/VOLU ME] IN SERUM OR PLASMA 9 mg/dL 7 - 25 01/14 Specimen Type: SERUM No comment entered. Ordering Provider: ANNA WHALEY A Report Released Date/Time: Aug 13, 2023 09:06 AM Reporting Lab: [facility] [place] [facility] [address] [address] Performing Lab: [facility] [place] [facility] [address] [address] [facility] BASIC METABOLI C PANEL (fasting ) GLUCOSE [MASS/VOLU ME] IN SERUM OR PLASMA 85 mg/dL 65 - 100 01/14 Specimen Type: SERUM No comment entered. Ordering Provider: ANNA WHALEY A Report Released Date/Time: Aug 13, 2023 09:06 AM Reporting Lab: [facility] [place] [facility] [address] [address] Performing Lab: [facility] [place] [facility] [address] [address] [facility] BASIC METABOLI C PANEL (fasting ) SODIUM [MOLES/VOL UME] IN SERUM OR PLASMA 139 mmol/L 135 - 145 01/14 Specimen Type: SERUM No comment entered. Ordering Provider: ANNA WHALEY A Report Released Date/Time: Aug 13, 2023 09:06 AM Reporting Lab: [facility] [place] [facility] [address] [address] Performing Lab: [facility] [place] [facility] [address] [address] [facility] BASIC METABOLI C PANEL (fasting ) POTASSIUM [MOLES/VOL UME] IN SERUM OR PLASMA 5.1 mmol/L 3.5 - 5.0 01/14 H Specimen Type: SERUM No comment entered. Ordering Provider: ANNA WHALEY A Report Released Date/Time: Aug 13, 2023 09:06 AM Reporting Lab: [facility] [place] [facility] [address] [address] Performing Lab: [facility] [place] [facility] [address] [address] [facility] BASIC METABOLI C PANEL (fasting ) CHLORIDE [MOLES/VOL UME] IN SERUM OR PLASMA 101 mmol/L 100 - 110 01/14 Specimen Type: SERUM No comment entered. Ordering Provider: ANNA WHALEY A Report Released Date/Time: Aug 13, 2023 09:06 AM Reporting Lab: [facility] [place] [facility] [address] [address] Performing Lab: [facility] [place] [address] [address] [facility] BASIC METABOLI C PANEL (fasting ) CARBON DIOXIDE, TOTAL [MOLES/VOL UME] IN SERUM OR PLASMA 25 meq/L 20 - 30 01/14 Specimen Type: SERUM No comment entered. Ordering Provider: ANNA WHALEY A Report Released Date/Time: Aug 13, 2023 09:06 AM Reporting Lab: [facility] [place] [facility] [address] [address] Performing Lab: [facility] [place] [address] [address] [facility] BASIC METABOLI C PANEL (fasting ) CREATININE [MASS/VOLU ME] IN SERUM OR PLASMA 1.30 mg/dL 0.50 - 1.40 01/14 Specimen Type: SERUM No comment entered. Ordering Provider: ANNA WHALEY A Report Released Date/Time: Aug 13, 2023 09:06 AM Reporting Lab: [facility] [place] [facility] [address] [address] Performing Lab: [facility] [place] [address] [address] [facility] BASIC METABOLI C PANEL (fasting ) GLOMERULAR FILTRATION RATE/1.73 SQ M.PREDICTE D [VOLUME RATE/AREA] IN SERUM, PLASMA OR BLOOD BY CREATININE -BASED FORMULA (CKD-EPI 2020) 61 mL/min 60 01/14 Specimen Type: SERUM No comment entered. Ordering Provider: ANNA WHALEY A Report Released Date/Time: Aug 13, 2023 09:06 AM Reporting Lab: [facility] [place] [facility] [address] [address] Performing Lab: [facility] [place] [facility] [address] [address] [facility] [place] [facility] URINALYS IS COLOR OF URINE Colorles s 01/14 Specimen Type: URINE Comment: If Glucose = >500 and Ketones are positive, please alert the Physician. Ordering Provider: ANNA WHALEY A Report Released Date/Time: Aug 13, 2023 09:06 AM Reporting Lab: [facility] [place] [facility] [address] [address] Performing Lab: [facility] [place] [facility] [address] [facility] [address] [facility] [place] [facility] URINALYS IS APPEARANCE OF URINE Clear 01/14 Specimen Type: URINE Comment: If Glucose = >500 and Ketones are positive, please alert the Physician. Ordering Provider: ANNA WHALEY A Report Released Date/Time: Aug 13, 2023 09:06 AM Reporting Lab: [facility] [place] [facility] [address] [address] Performing Lab: [facility] [place] [facility] [address] [address] [facility] [place] [facility] URINALYS IS GLUCOSE [MASS/VOLU ME] IN URINE Normalmg /dL 01/14 Specimen Type: URINE Comment: If Glucose = >500 and Ketones are positive, please alert the Physician. Ordering Provider: ANNA WHALEY A Report Released Date/Time: Aug 13, 2023 09:06 AM Reporting Lab: [facility] [place] [facility] [address] [address] Performing Lab: [facility] [place] [place] [facility] [address] [address] [facility] [place] [facility] URINALYS IS KETONES [MASS/VOLU ME] IN URINE BY TEST STRIP NEGATIVE mg/dL 01/14 Specimen Type: URINE Comment: If Glucose = >500 and Ketones are positive, please alert the Physician. Ordering Provider: ANNA WHALEY A Report Released Date/Time: Aug 13, 2023 09:06 AM Reporting Lab: [facility] [place] [facility] [address] [address] Performing Lab: [facility] [place] [facility] [address] [address] [facility] [place] [facility] URINALYS IS ERYTHROCYT ES [PRESENCE] IN URINE SEDIMENT BY LIGHT MICROSCOPY NEGATIVE mg/dL 01/14 Specimen Type: URINE Comment: If Glucose = >500 and Ketones are positive, please alert the Physician. Ordering Provider: ANNA WHALEY A Report Released Date/Time: Aug 13, 2023 09:06 AM Reporting Lab: [facility] [place] [address] [address] Performing Lab: [facility] [place] [facility] [address] [address] [facility] [place] [facility] URINALYS IS PROTEIN [MASS/VOLU ME] IN URINE BY TEST STRIP NEGATIVE mg/dL 01/14 Specimen Type: URINE Comment: If Glucose = >500 and Ketones are positive, please alert the Physician. Ordering Provider: ANNA WHALEY A Report Released Date/Time: Aug 13, 2023 09:06 AM Reporting Lab: [facility] [place] [facility] [address] [address] Performing Lab: [facility] [place] [facility] [address] [address] [facility] [place] [facility] URINALYS IS NITRITE [PRESENCE] IN URINE NEGATIVE mg/dL 01/14 Specimen Type: URINE Comment: If Glucose = >500 and Ketones are positive, please alert the Physician. Ordering Provider: ANNA WHALEY A Report Released Date/Time: Aug 13, 2023 09:06 AM Reporting Lab: [facility] [place] [facility] [address] [address] Performing Lab: [facility] [place] [facility] [address] [address] [facility] [place] [facility] URINALYS IS BILIRUBIN. TOTAL [PRESENCE] IN URINE NEGATIVE mg/dL 01/14 Specimen Type: URINE Comment: If Glucose = >500 and Ketones are positive, please alert the Physician. Ordering Provider: ANNA WHALEY A Report Released Date/Time: Aug 13, 2023 09:06 AM Reporting Lab: [facility] [place] [facility] [address] [address] Performing Lab: [facility] [place] [facility] [address] [address] [facility] [place] [facility] URINALYS IS SPECIFIC GRAVITY OF URINE BY REFRACTOME TRY 1.005 1.016 - 1.022 01/14 L Specimen Type: URINE Comment: If Glucose = >500 and Ketones are positive, please alert the Physician. Ordering Provider: ANNA WHALEY A Report Released Date/Time: Aug 13, 2023 09:06 AM Reporting Lab: [facility] [place] [facility] [address] [address] Performing Lab: [facility] [place] [facility] [address] [address] [place] [facility] [place] [facility] URINALYS IS PH OF URINE BY TEST STRIP 6.0 5.0 - 9.0 01/14 Specimen Type: URINE Comment: If Glucose = >500 and Ketones are positive, please alert the Physician. Ordering Provider: ANNA WHALEY A Report Released Date/Time: Aug 13, 2023 09:06 AM Reporting Lab: [facility] [place] [facility] [address] [address] Performing Lab: [facility] [place] [facility] [address] [address] [facility] URINALYS IS UROBILINOG EN [MASS/VOLU ME] IN URINE BY TEST STRIP Normalmg /dL <2.0 - 2.0 01/14 Specimen Type: URINE Comment: If Glucose = >500 and Ketones are positive, please alert the Physician. Ordering Provider: ANNA WHALEY A Report Released Date/Time: Aug 13, 2023 09:06 AM Reporting Lab: [facility] [address] Performing Lab: [facility] [address] [address] [facility] URINALYS IS LEUKOCYTE ESTERASE [PRESENCE] IN URINE BY TEST STRIP NEGATIVE 01/14 Specimen Type: URINE Comment: If Glucose = >500 and Ketones are positive, please alert the Physician. Ordering Provider: ANNA WHALEY A Report Released Date/Time: Aug 13, 2023 09:06 AM Reporting Lab: [facility]N [facility] [address] Performing Lab: [facility] [address] [facility] TSH THYROTROPI N [UNITS/VOL UME] IN SERUM OR PLASMA 0.57 u[IU]/mL 0.35 - 5.00 01/14 Specimen Type: SERUM No comment entered. Ordering Provider: ANNA WHALEY A Report Released Date/Time: Aug 13, 2023 09:06 AM Reporting Lab: [facility] [address] Performing Lab: [facility] [address] [facility] HEMOGLOB IN A1C PANEL HEMOGLOBIN A1C/HEMOGL OBIN.TOTAL [...] be between 8.73 and 9.27. Ref: [email or web address] Pdata.asp Ordering Provider: ANNA WHALEY A Report Released Date/Time: Aug 13, 2023 09:06 AM Reporting Lab: [facility] [place] [facility] [address] [address] Performing Lab: [facility] [place] [facility] [address] [address] [facility] [place] [facility] CBC AND DIFF (AUTO) LEUKOCYTES [#/VOLUME] IN BLOOD BY AUTOMATED COUNT 4.91 10*3/uL 4.50 - 11.00 01/14 Specimen Type: BLOOD No comment entered. Ordering Provider: ANNA WHALEY A Report Released Date/Time: Aug 13, 2023 09:06 AM Reporting Lab: [facility] [place] [facility] [address] [address] Performing Lab: [facility] [place] [facility] [address] [address] [facility] [place] [facility] CBC AND DIFF (AUTO) ERYTHROCYT ES [#/VOLUME] IN BLOOD BY AUTOMATED COUNT 4.24 10*6/uL 4.23 - 5.66 01/14 Specimen Type: BLOOD No comment entered. Ordering Provider: ANNA WHALEY A Report Released Date/Time: Aug 13, 2023 09:06 AM Reporting Lab: [facility] [place] [facility] [address] [address] Performing Lab: [facility] [place] [facility] [address] [address] [facility] [place] [facility] CBC AND DIFF (AUTO) HEMOGLOBIN [MASS/VOLU ME] IN BLOOD 12.8 g/dL 12.8 - 17 01/14 Specimen Type: BLOOD No comment entered. Ordering Provider: ANNA WHALEY A Report Released Date/Time: Aug 13, 2023 09:06 AM Reporting Lab: [facility] [place] [facility] [address] [address] Performing Lab: [facility] [place] [facility] [address] [address] [facility] [place] [facility] CBC AND DIFF (AUTO) HEMATOCRIT [VOLUME FRACTION] OF BLOOD BY AUTOMATED COUNT 36.8 39.2 - 50.4 01/14 L Specimen Type: BLOOD No comment entered. Ordering Provider: ANNA WHALEY A Report Released Date/Time: Aug 13, 2023 09:06 AM Reporting Lab: [facility] [place] [facility] [address] [address] Performing Lab: [facility] [place] [facility] [address] [address] [facility] [place] [facility] CBC AND DIFF (AUTO) MCV [ENTITIC VOLUME] BY AUTOMATED COUNT 86.8 fL 82 - 99 01/14 Specimen Type: BLOOD No comment entered. Ordering Provider: ANNA WHALEY A Report Released Date/Time: Aug 13, 2023 09:06 AM Reporting Lab: [facility] [place] [facility] [address] [address] Performing Lab: [facility] [place] [facility] [address] [address] [facility] [place] [facility] CBC AND DIFF (AUTO) MCHC [MASS/VOLU ME] BY AUTOMATED COUNT 34.8 g/dL 30.8 - 35.1 01/14 Specimen Type: BLOOD No comment entered. Ordering Provider: ANNA WHALEY A Report Released Date/Time: Aug 13, 2023 09:06 AM Reporting Lab: [facility] [place] [facility] [address] [address] Performing Lab: [facility] [place] [facility] [address] [address] [facility] [place] [facility] CBC AND DIFF (AUTO) PLATELETS [#/VOLUME] IN BLOOD BY AUTOMATED COUNT 287 10*3/uL 140 - 360 01/14 Specimen Type: BLOOD No comment entered. Ordering Provider: ANNA WHALEY A Report Released Date/Time: Aug 13, 2023 09:06 AM Reporting Lab: [facility] [place] [facility] [address] [address] Performing Lab: [facility] [place] [facility] [address] [address] [facility] [place] [facility] CBC AND DIFF (AUTO) ERYTHROCYT E DISTRIBUTI ON WIDTH [RATIO] BY AUTOMATED COUNT 12.5 12.0 - 16.0 01/14 Specimen Type: BLOOD No comment entered. Ordering Provider: ANNA WHALEY A Report Released Date/Time: Aug 13, 2023 09:06 AM Reporting Lab: [facility] [place] [facility] [address] [address] Performing Lab: [facility] [place] [facility] [address] [address] [facility] [place] [facility] CBC AND DIFF (AUTO) MONOCYTES [#/VOLUME] IN BLOOD BY AUTOMATED COUNT 0.53 10*3/uL 0.30 - 1.10 01/14 Specimen Type: BLOOD No comment entered. Ordering Provider: ANNA WHALEY A Report Released Date/Time: Aug 13, 2023 09:06 AM Reporting Lab: [facility] [place] [facility] [address] [address] Performing Lab: [facility] [place] [facility] [address] [address] [facility] [place] [facility] CBC AND DIFF (AUTO) MCH [ENTITIC MASS] BY AUTOMATED COUNT 30.2 pg 26.2 - 32.6 01/14 Specimen Type: BLOOD No comment entered. Ordering Provider: ANNA WHALEY A Report Released Date/Time: Aug 13, 2023 09:06 AM Reporting Lab: [facility] [place] [facility] [address] [address] Performing Lab: [facility] [place] [facility] [address] [address] [facility] [place] [facility] CBC AND DIFF (AUTO) NEUTROPHIL S/100 LEUKOCYTES IN BLOOD BY AUTOMATED COUNT 67.7 43.7 - 75.8 01/14 Specimen Type: BLOOD No comment entered. Ordering Provider: ANNA WHALEY A Report Released Date/Time: Aug 13, 2023 09:06 AM Reporting Lab: [facility] [place] [facility] [address] [address] Performing Lab: [facility] [place] [facility] [address] [address] [facility] [place] [facility] CBC AND DIFF (AUTO) LYMPHOCYTE S/100 LEUKOCYTES IN BLOOD BY AUTOMATED COUNT 18.7 14.0 - 42.3 01/14 Specimen Type: BLOOD No comment entered. Ordering Provider: ANNA WHALEY A Report Released Date/Time: Aug 13, 2023 09:06 AM Reporting Lab: [facility] [place] [facility] [address] [address] Performing Lab: [facility] [place] [facility] [address] [address] [facility] [place] [facility] CBC AND DIFF (AUTO) MONOCYTES/ 100 LEUKOCYTES IN BLOOD BY AUTOMATED COUNT 10.8 5.1 - 13.7 01/14 Specimen Type: BLOOD No comment entered. Ordering Provider: ANNA WHALEY A Report Released Date/Time: Aug 13, 2023 09:06 AM Reporting Lab: [facility] [place] [facility] [address] [address] Performing Lab: [facility] [place] [facility] [address] [address] [facility] [place] [facility] CBC AND DIFF (AUTO) EOSINOPHIL S/100 LEUKOCYTES IN BLOOD BY AUTOMATED COUNT 1.2 0.4 - 6.8 01/14 Specimen Type: BLOOD No comment entered. Ordering Provider: ANNA WHALEY A Report Released Date/Time: Aug 13, 2023 09:06 AM Reporting Lab: [facility] [place] [facility] [address] [facility] [address] Performing Lab: [facility] [place] [facility] [address] [address] [facility] [place] [facility] CBC AND DIFF (AUTO) BASOPHILS/ 100 LEUKOCYTES IN BLOOD BY AUTOMATED COUNT 0.6 0.1 - 2.0 01/14 Specimen Type: BLOOD No comment entered. Ordering Provider: ANNA WHALEY A Report Released Date/Time: Aug 13, 2023 09:06 AM Reporting Lab: [facility] [place] [address] [address] Performing Lab: [facility] [place] [facility] [address] [address] [facility] [place] [facility] CBC AND DIFF (AUTO) NEUTROPHIL S [#/VOLUME] IN BLOOD BY AUTOMATED COUNT 3.32 10*3/uL 2.20 - 7.60 01/14 Specimen Type: BLOOD No comment entered. Ordering Provider: ANNA WHALEY A Report Released Date/Time: Aug 13, 2023 09:06 AM Reporting Lab: [facility] [place] [address] [address] Performing Lab: [facility] [place] [place] [address] [address] [facility] [place] [facility] CBC AND DIFF (AUTO) LYMPHOCYTE S [#/VOLUME] IN BLOOD BY AUTOMATED COUNT 0.92 10*3/uL 1.00 - 3.20 01/14 L Specimen Type: BLOOD No comment entered. Ordering Provider: ANNA WHALEY A Report Released Date/Time: Aug 13, 2023 09:06 AM Reporting Lab: [facility] [place] [facility] [address] [facility] [address] [address] Performing Lab: [facility] [place] [facility] [address] [place] [address] [facility] [place] [facility] CBC AND DIFF (AUTO) EOSINOPHIL S [#/VOLUME] IN BLOOD BY AUTOMATED COUNT 0.06 10*3/uL 0.03 - 0.44 01/14 Specimen Type: BLOOD No comment entered. Ordering Provider: ANNA WHALEY A Report Released Date/Time: Aug 13, 2023 09:06 AM Reporting Lab: [facility] [place] [place] [address] [place] [address] Performing Lab: [facility] [place] [facility] [address] [facility] [facility] [address] [facility] [place] [facility] CBC AND DIFF (AUTO) BASOPHILS [#/VOLUME] IN BLOOD BY AUTOMATED COUNT 0.03 10*3/uL 0.01 - 0.13 01/14 Specimen Type: BLOOD No comment entered. Ordering Provider: ANNA WHALEY A Report Released Date/Time: Aug 13, 2023 09:06 AM Reporting Lab: [facility] [place] [facility] [address] [facility] [facility] [address] Performing Lab: [facility] [place] [facility] [address] [address] [facility] [place] [facility] CBC AND DIFF (AUTO) IMMATURE GRANULOCYT ES/100 LEUKOCYTES IN BLOOD BY AUTOMATED COUNT 1.0 0.0 - 0.7 01/14 H Specimen Type: BLOOD No comment entered. Ordering Provider: ANNA WHALEY A Report Released Date/Time: Aug 13, 2023 09:06 AM Reporting Lab: [facility] [place] [facility] [address] [address] Performing Lab: [facility] [place] [facility] [address] [address] [facility] [place] [facility] CBC AND DIFF (AUTO) IMMATURE GRANULOCYT ES [#/VOLUME] IN BLOOD 0.05 10*3/uL 0.00 - 0.06 01/14 Specimen Type: BLOOD No comment entered. Ordering Provider: ANNA WHALEY A Report Released Date/Time: Aug 13, 2023 09:06 AM Reporting Lab: [facility] [place] [facility] [address] [address] Performing Lab: [facility] [place] [place] [address] [address] [facility] [place] [facility] CBC AND DIFF (AUTO) NRBC % 0.0 0.0 - 0.0 01/14 Specimen Type: BLOOD No comment entered. Ordering Provider: ANNA WHALEY A Report Released Date/Time: Aug 13, 2023 09:06 AM Reporting Lab: [facility] [place] [place] [facility] [address] [address] Performing Lab: [facility] [place] [facility] [address] [address] [facility] [place] [facility] CBC AND DIFF (AUTO) NRBC, ABS 0.00 10*3/uL 0.00 - 0.00 01/14 Specimen Type: BLOOD No comment entered. Ordering Provider: ANNA WHALEY A Report Released Date/Time: Aug 13, 2023 09:06 AM Reporting Lab: [facility] [place] [place] [facility] [address] [address] Performing Lab: [facility] [address] [address] [facility] [place] [facility] SYPHILIS ABS W/RFLX REAGIN AB [PRESENCE] IN SERUM BY RPR Non Reactive 01/14 Specimen Type: SERUM Comment: No laboratory evidence of syphilis infection. If recent exposure is suspected, re-draw sample in 2-4 weeks and repeat algorithm. Testing performed by T. pallidum specific immunoassay . Ordering Provider: JAKUB SCHULTZ Report Released Date/Time: Jan 15, 2024 09:24 AM Reporting Lab: [facility] [address] [address] Performing Lab: [facility] [place] [place] [facility] [address] [facility] [address] [place] FERRITIN FERRITIN [MASS/VOLU ME] IN SERUM OR PLASMA 523 ng/mL 20 - 300 01/14 H Specimen Type: SERUM No comment entered. Ordering Provider: JAKUB SCHULTZ Report Released Date/Time: Jan 15, 2024 09:24 AM Reporting Lab: [facility] [address] [facility] [facility] [address] [address] Performing Lab: [facility]OSPITALN [facility]USE[address] [address] [place] Vital Signs Combined list of inpatient and outpatient Vital Signs from Department of Defense and Veterans Affairs, ranging from 12 months to all on record, depending upon the facility. Vital Sign Value Date Comments Source SYSTOLIC BLOOD PRESSURE 138 01/15/20 24 08:47:13 [place] DIASTOLIC BLOOD PRESSURE 90 024 08:47:13 [place] PULSE OXIMETRY 100 01/15/2024 08:47:13 [place] WEIGHT 129 01/15/2024 08:47:13 [place] BMI 24kg/m2 01/15/2024 08:47:13 [place] TEMPERATURE 97.3 01/15/2024 08:47:13 [place] PULSE 80 01/15/2024 08:47:13 [place] SYSTOLIC BLOOD PRESSURE 118 08/20/19 24 09:59:49 [...] ADM Date DC Date Status Disposition Source [facility] OUTPATIENT [id number] YR PE WENCESLAO GABRIEL S 01/05 Released w/o Limitations [facility]( [facility] OUTPATIENT [id number] ERIC SUTTON Aniceto 01/05 Released w/o Limitations [facility]( [facility] OUTPATIENT [id number] ANA KRUPAJACK E 01/12 Released w/o Limitations [facility]( [facility] OUTPATIENT [id number] ABNORMA L LAB RESULTS JAXON LEMOS 01/27 Released w/o Limitations [facility]( [facility] OUTPATIENT [id number] PHYSICPHYLLIS KINCAID 02/02 Released w/o Limitations [facility]( [facility] OUTPATIENT [id number] ana JUANALFONSOJACK E 03/12 Released w/o Limitations [facility]( [facility] OUT[facility] [id number] 01/24 [facility]ased w/[facility] Limitations [facility] OUT[facility] [id number] 03/23 Released w/o Limitations [facility] OUT[facility]IENT [id number] 04/19 Released w/o Limitations [facility] [place] OUT[facility] [id number] part 2-retir ement MANOLO Durbin H 07/19 Released w/o Limitations [place] [place]) OUTPATIENT [id number] retirem ent CELIA MOLINA 07/19 Released w/o Limitations [place] OUTPATIENT [id number] retirem ent ELLIE Alexander V 07/19 Released w/o Limitations [place] En[facility] [id number] 12/18 [facility] En[facility] [id number] 12/26 [facility] INTRA[place]ICAL [place] ADD [id number] Diagnos is: ICD-10- CM K08.9 Disorde r of teeth and support ing structu res, unspeci fied
ROLANDO DENNIS 12/27 [facility] En[facility] [id number] 01/08 [facility] En[facility] [id number] FRANNY MCKEON 01/08 [facility] [place] OFF[place] O/P EST LOW 20-29 MIN [id number] Diagnos is: ICD-10- CM I10 Essenti al (primar y) hyperte nsion<b r/> FRANNY MCKEON 01/08 [place] [facility] Encounter [id number] 01/09 [facility] En[facility] [id number] 01/16 [facility] Encounter [id number] 01/30 [facility] En[facility] [id number] 01/31 [facility] Outpatient Encounter [id number] 02/12 [facility] [place] OFFICE O/P EST LOW 20-29 MIN [id number] Diagnos is: ICD-10- CM L60.0 Ingrowi ng nail
DEXTER LEE ES F 02/16 [place] [facility] En[facility] [id number] 02/20 [facility] En[facility] [id number] 02/20 [facility] EYE EXAM&TX ESTAB PT 1/>VST [id number] Diagnos is: ICD-10- CM H25.13 Age-rel ated nuclear catarac t, bilater al
HIMA GRIMALDO B 02/26 [facility] FIT SPECTACLES MONOFOCAL [id number] Diagnos is: ICD-10- CM Z46.0 Encount er for fit/adj st of spectac les and contact lenses< br/> KYM MCCALL 02/27 [facility] [id number] 04/11 [facility] [id number] 04/16 [facility] [id number] 04/16 [facility] [id number] 04/17 [facility] [id number] 05/01 [facility] [id number] 07/20 [facility] [id number] 07/23 [facility] [place] [facility] O/P EST LOW 20 MIN [id number] Diagnos is: ICD-10- CM L60.0 Ingrowi ng nail
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
KATHERINE WHALEY VID A 08/19 [place] [facility] Outpatient Encounter [id number] 08/19 [facility] Out[facility] Encounter [id number] 08/25 [facility] Out[facility] Encounter [id number] 08/26 [facility] Outpatient Encounter [id number] 09/27 [facility] Out[facility] Encounter [id number] 11/06 [facility] [place] O/P EST LOW 20 MIN [id number] Diagnos is: ICD-10- CM L60.3 Nail dystrop hy
DEXTER LEE ES F 01/03 [place] [facility] Outpatient Encounter [id number] 01/14 [facility] IMMUNIZATI ON ADMIN EACH ADD [id number] MARCUS SCHULTZ MEN F 01/14 [facility] [place] O/P EST MOD 30 MIN [id number] Diagnos is: ICD-10- CM I10 Essenti al (primar y) hyperte nsion<b r/> MARCUS SCHULTZ F 01/14 [facility] Outpatient Encounter [id number] 01/15 [facility] Out[facility] Encounter [id number] 1.01/16 [facility] Out[facility] Encounter [id number] 1.02/17 [facility] Out[facility] Encounter [id number] 02/25 [facility] Outpatient Encounter [id number] [facility] Outpatient Encounter [id number] 04/16 [facility] Outpatient Encounter [id number] [facility] OFFICE O/P EST MOD 30 MIN [id number] Diagnos is: ICD-10- CM L60.3 Nail dystrop hy
DEXTER LEE ES F 05/16 [facility] Procedures Combined list of: 1) Procedures from Department of Veterans Affairs facilities going back up to thelast 18 months, not all VA non-surgical procedures are included; 2) All procedures from the Department of Defense facilities. Procedure Procedure Type Code Date Perfomer Comments Sourc e HEPATITIS B VACCINE (HEPB), ADULT DOSAGE, 3 DOSE SCHEDULE, FOR INTRAMUSCULAR USE 0 DoD UNLISTED VACCINE/TOXOID 0 DoD UNLISTED VACCINE/TOXOID 9 DoD ELECTROCARDIOGRAM, ROUTINE ECG WITH AT LEAST 12 LEADS; TRACING ONLY, WITHOUT INTERPRETATION AND REPORT 2 DoD VIS FUNCT SCREEN,AUTOMAT/SEMI-A UTOMAT BILAT QUANT DETERM VISUAL ACUITY,OCULAR ALIGN,COLOR VISION,PSEUDOISOCHROM AT PLATES,& FIELD VIS (MAY INC ALL/SOME SCRN DETERM FOR CONTRAST SENSITIV,VIS UND GLARE) 2 DoD PURE TONE AUDIOMETRY (THRESHOLD); AIR ONLY 2 DoD FITTING OF SPECTACLES, EXCEPT FOR APHAKIA; MONOFOCAL 6 DoD FITTING OF SPECTACLES, EXCEPT FOR APHAKIA; MONOFOCAL 5 DoD OPHTHALMOLOGICAL SERVICES: MEDICAL EXAMINATION AND EVALUATION WITH INITIATION OF DIAGNOSTIC AND TREATMENT PROGRAM; INTERMEDIATE, NEW PATIENT 5 DoD PURE TONE AUDIOMETRY (THRESHOLD); AIR ONLY 5 DoD SCREENING TEST, PURE TONE, AIR ONLY 5 DoD Visual Function Screening Visual Function Screening 30293 2 ELLIE HAMMOND V [facility] ECG 12-Lead With Interpretation And Report ECG 12-Lead With Interpretation And Report 35222 2 MANOLO KANG [facility] Threshold Audiogram (Pure Tone) Threshold Audiogram (Pure Tone) 29477 2 CELIA MOLINA [facility] Patient Counseling Medical Management Individual Patient Patient Counseling Medical Management Individual Patient 70759 2 CELIA MOLINA [facility] Fitting Monofocal Except For Aphakia Spectacles Services Fitting Monofocal Except For Aphakia 40314 6 JACK GENTILE Determination Of Refractive State Determination Of Refractive State 78004 6 JACK GENTILE Ophthalmological Prior Patient Start Comprehensive Care Ophthalmological Prior Patient Start Comprehensive Care 6 JACK GENTILE Determination Of Refractive State Determination Of Refractive State 50646 5 JACK GENTILE [facility] Fitting Monofocal Except For Aphakia [facility] Fitting Monofocal Except For Aphakia 13122 5 JACK GENTILE [facility] Ophthalmological Prior Patient Start Comprehensive Care Ophthalmological Prior Patient Start Comprehensive Care 79889 5 JACK GENTILE [facility] Threshold Audiogram (Pure Tone) Threshold Audiogram (Pure Tone) 76563 5 ERIC SUTTON [facility] Audiogram (Screening) Audiogram (Screening) 10610 5 WENCESLAO GABRIEL [facility] Social History Combined list of available smoking, tobacco, and other social history from Department of Defense and Veterans Affairs facilities. Social History Type Response Date Comment Source Tobacco smoking status NHIS [place]-TOBACCO NEVER USED 01/15/2024 [facility] [place] [facility] History of tobacco use [place]-TOBACCO NEVER USED 01/08/2023 [facility] [place] [facility] History of tobacco use [place]-TOBACCO FORMER USER 08/01/2021 [facility] [place] [facility] of [facility] History of tobacco use [place]-TOBACCO NEVER USED 02/03/2019 [facility] History of tobacco use [place]-TOBACCO NEVER USED 03/12/2018 [facility] History of tobacco use LIFETIME NON-TOBACCO USER 06/15/2016 [facility] History of tobacco use LIFETIME NON-TOBACCO USER 06/23/2015 [facility] History of tobacco use LIFETIME NON-TOBACCO USER 04/22/2013 [facility] History of tobacco use CURRENT SMOKER 12/08/2011 [facility] History of tobacco use LIFETIME NON-TOBACCO USER 03/07/2011 [facility] History of tobacco use LIFETIME NON-TOBACCO USER 01/07/2009 [facility] This section is an empty social history section. [facility] Plan of Care List of future care activities from Department of Veterans Affairs facilities. Additional future care activities may be listed in the Assessment and Plan section. Date/Time Care Activity Care Activity Detail Facili ty 06/27/2024 AMBULATORY - MEDICINE AMBULATORY - MEDICI NE [facility] [place] [facility] 07/18/2024 AMBULATORY - MEDICINE AMBULATORY - MEDICI [facility] 08/28/2024 AMBULATORY - MEDICINE AMBULATORY - MEDICI [facility] 05/06/2024 Consult Order COMMUNITY [facility]-D [facility] GENERAL Cons Manager Books[employer] Choice [facility] [place] [facility] Advance Directives List of completed, amended, or rescinded Advance Directives on record at [facility] facilities. An actual copy of the Directive is not included. Date Advance Directive Provider Source 01/03/2022 ADVANCE DIRECTIVE LUIS EDUARDO [facility] 01/03/2021 ADVANCE DIRECTIVE KHUSHBU KUMAR [facility] 03/19/2012 ADVANCE DIRECTIVE ERIKA MORALES [place] [facility]
--- OUTSIDE RECORDS SUMMARY | 2024-06-17 14:36 | XMS_ITS | Data Portability ---
Author Organization [place] - [facility], Allergy Address [address] [place] [address] Care Team Providers Care Senior Oracle Database Developer Name Role Phone SAM SANCHEZ Primary Care Provider Assessment No assessment recorded. Plan of Treatment Reminders Order Date Submit Date Provider Last Modified By Organization Details Last Modified Time Details Appointments None recorded. Lab None recorded. Referral None recorded. Procedures allergy testing, skin prick (PROC) 2023 024 Not available 13:42:41 intradermal allergy skin testing (PROC) 2023 024 [email or web address] Not available 13:42:51 pulmonary function test procedure (PROC) 2023 024 [email or web address] Not available 13:43:29 pulse oximetry (PROC) 2023 024 [email or web address] Not available 13:43:37 Surgeries None recorded. Imaging None recorded. Medication Orders epinephrine 0.3 mg/0.3 mL injection, auto-inject or 2023 [facility], [address] [place] [address], [address], 17:02:04 Patient TargetsNo targets recorded. Patient Instructions Encounter Date Encounter Id Patient Instructions Last Modified By Organization Details Last Modified Time 02/06/2024 [id number] Nursing Documentation for Allergy Testing: Ordering Provider {{Dr. Karissa Marsh* Dr. Ignacio Sanz}} Weight:lbs:??kg: ?? PFT {{Yes [...] Written by: {{JOSE MANUEL Thomas, KARUNA Seay*}} [email or web address] Not available 02/06/2024 14:27:22 03/25/2024 [id number] sublingual immunotherapy regimen* [email or web address] Not available 03/26/2024 [...] Address Organization Details Recorded Time Allergic rhinitis 42585125 Active 2022 Other allergic rhinitis ; Note: Date Diagnose d: 3 10:10 AM (J30.89) Not Available [facility] 4 02:54:40 Sensorin eural hearing loss in right ear 86437964701 100 Active 2022 Sensorin eural hearing loss, unilater al, right ear, with restrict ed hearing on the contrala teral side; Note: Date Diagnose d: 3 10:10 AM (H90.A21 ) Not Available [facility] 4 02:54:41 Posterio r rhinorrh ea 21453453 Active 2023 Postnasa l drip; Note: Date Diagnose d: 05/29/2023 3:27 PM (R09.82) Not Available [facility] 4 02:54:37 Nasal congesti on 66093309 Active 2022 Nasal congesti on; Note: Date Diagnose d: 3 10:10 AM (R09.81) Not Available [facility] 4 02:54:39 Tobacco user 800905685 Active 2017 Tobacco use; Note: Date Diagnose d: 8 4:51 PM (Z72.0) Not Available [facility] 4 02:54:40 Dysphagi a 72453328 Completed 201712/28/2023 Other dysphagi a; Note: Date Diagnose d: 8 3:09 PM (R13.19) Not Available [facility] 4 02:54:41 Tinnitus of right ear 94164164923 08 Active 2022 Tinnitus , right ear; Note: Date Diagnose d: 3 10:10 AM (H93.11) Not Available [facility] 4 02:54:39 Sensorin eural hearing loss of bilatera l ears 504808853 Active 2022 Sensorin eural hearing loss, bilatera l; Note: Date Diagnose d: 3 9:58 AM (H90.3) Not Available [facility] 4 02:54:37 Seasonal allergic rhinitis 414270264 Active 2023 JUAN LUIS MARSH MD [address] [place] [address], [place], [address] , [facility] - [facility] 4 13:23:57 Non-israel rgic rhinitis 66014448866 1 Active 2023 JUAN LUIS MARSH MD [address] [place] [address], [place], [address] , [facility] - [facility] 4 13:24:27 Problem Notes None recorded. Procedures Surgical History Date Name Laterality Status Provider Name and Address Organization Details Recorded Time 4 Allergy Testing-Full completed KARUNA BOWEN [address] [facility], [place], [address], [facility] - [facility] 02/06/2024 14:27:10 Imaging Results Imaging Date [...] mg tablet 2017 active Medicati on ID: [id number] D uration Value: 10 Prescri bed By Name: Juan Luis joshi MD Brand Name: Augmenti n Send Method: E-Prescr ibed Sub s Allowed: subs OK Speci al Instruct ion: 1 po bid for 10 days Med icationG enericNa me: Augmenti n Not Available Not Available Not Available primidone 50 mg tablet 01/28 completed Medicati on ID: [id number] D uration Value: 30 Brand Name: primidon e Send Method: E-Prescr ibed Sub s Allowed: subs OK Speci al Instruct ion: TAKE 1/2 TAB AT BEDTIME [id number], 1 TAB AT BED [id number], 1.5 TABS AT BED [id number], THEN 2 TABS AT BED Medi cationGe nericNam e: primidon e Not Available Not Available Not Available prednison e 10 mg tablet 01/28 completed Medicati on ID: [id number] P rescribe d By Name: Juan Luis [...] Updated DateTime 01/14/2024 157.48 cm 22.7 kg/m2 58758.45 g Hawa Whittington [place] - [facility] 01/14/2024 13:13:20 Date Recorded Body height Oxygen saturation Oxygen saturation in Arterial blood by Pulse oximetry Heart rate Body mass index (BMI) Body weight Systolic blood pressure Diastolic blood pressure Provider Name and Address Organization Details Last Updated DateTime 4 157.48 cm 98 % 98 % 80 /min 22.9 kg/m2 63348.0 5 g 107 mm[Hg] 71 mm[Hg] DAYA ESTEVEZ [address], [address], [facility] 13:09:41 Date Recorded Body height Body mass index (BMI) Body weight Heart rate Oxygen saturation Oxygen saturation in Arterial blood by Pulse oximetry Systolic blood pressure Diastolic blood pressure Provider Name and Address Organization Details Last Updated DateTime 4 157.48 cm 22.9 kg/m2 86641.0 5 g 69 /min 99 % 99 % 125 mm[Hg] 84 mm[Hg] REDD HOA[address], [address], [facility] 13:06:28 Date Recorded Body height Body mass index (BMI) Body weight Provider Name and Address Organization Details Last Updated DateTime 03/25/2024 157.48 cm 22.9 kg/m2 51291.05 g Francisco Ma [facility] 03/25/2024 15:49:36 Social History None recorded. Functional Status None recorded. Mental Status None recorded. Family History Nothing Reported. Medical History No medical history recorded. Past Encounters Encounter ID Performer Location Encounter Start Date Encounter Closed Date Diagnosis/Indication Diagnosis SNOMED-CT Code Diagnosis ICD10 Code Diagnosis Note [id number] JUAN LUIS MARSH MD [facility] [address] [address] 01/14/2024 12:43:58 01/14/2024 13:26:07 Nasal congestion 24365271 R09.81 see below Seasonal a llergic rhinitis 773811314 J30.2 Exam and history are consistent with allergic rhinitis. We will obtain allergy testing to clarify the extent of allergy with f/u to review. [id number] DAYA ONOFRE, [facility] Allergy 100 [facility] ite [address] [place] [address] 01/29/2024 12:52:56 01/29/2024 13:57:37 Allergic rhinitis 39078000 J30.9 [id number] KARUNA BOWEN Allergy [address] [facility],[address] [place] [address] 02/06/2024 12:52:29 02/06/2024 15:01:16 Allergic rhinitis 58374655 J30.9 [id number] JUAN LUIS MARSH MD [facility] - [place] [address] [facility] [place] [address] 03/25/2024 15:31:57 03/25/2024 16:19:44 Seasonal allergic rhinitis 150287638 J30.2 We discussed the role of immunother [...] us know if interested . Nasal congestion 3775402 0 R09.81 see above Health Concerns Section Related Observation LastModified by Organization Detai ls LastModified Time None Recorded Concern Status LastModified by Organization Details LastModified Time None Recorded Advance Directives Directive None Recorded Payers Encounter Date Sequence Insurance Name Policy Number Policy Poon Covered Member ID Poon Member ID Guarantor Name 01/14/2024 1 [facility] (POS) [id number] Papo E Mary [id number] Papo E Mary 01/29/2024 1 [facility] (POS) [id number] Papo E Mary [id number] Papo E Mary 02/06/2024 1 [facility] (POS) [id number] Papo E Mary [id number] Papo E Mary 03/25/[address] [facility] (POS) [id number] Papo Hernandez [id number] Papo Hernandez Notes Date Note Type Note Provider Name and Address Organization Details Recorded Time 01/14/2024 text/html History of rhinorrhea. Did not benefit from antihistamines and flonase. At the last visit I sent ipratropium. He reports rhinorrhea worse at night. He does have a dog in the bedroom. Has not had recent allergy testing. JUAN LUIS MARSH MD [address] [facility],[address], [address], [place] - [facility] 01/14/2024 13:25:23 01/29/2024 text/html Pt Presents for allergy testing and pt did not stop allergy meds. He understands that he needs to be off the loratadine for 7 days prior and is rescheduled for next week DAAY ONOFRE [facility] [address] [facility],[address], [address], [place] - [facility] 01/29/2024 13:36:19 03/25/2024 text/html He presents for allergy testing review. Allergy testing showed mild to moderate allergies to most categories of allergens tested. Has tried antihistamines and nasal sprays with minimal improvement. JUAN LUIS MARSH MD [address] [facility],[place] [address], [place], [address], [place] - [facility] 03/25/2024 17:01:45
--- OUTSIDE RECORDS SUMMARY | 2024-06-17 14:36 | XMS_ITS | Encounter Summary ---
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 Photocomposing Machine Operator Name Role Phone ROBBY NIELSON [...] PRESCRIPT ION [id number] 1 May 28, 2017 [id number] Charlene MASON DDIE PATIENT [facility] PRESCRIPT ION [id number] 1 May 28, 2017 [id number] Charlene MASON DDIE PATIENT [employer] RX PRESCRIPT ION RX May 28, 2022 THPRX [id number] [phone] Charlene MASON DDIE PATIENT [employer] RX PRESCRIPT ION RX May 28, 2022 THPRX [id number] [phone] Charlene MASON DDIE PATIENT [facility] PL[facility] USFHP May 28, 2017 USP [id number] Charlene MASON DDIE PATIENT [facility] IVY Chang May 28, 2017 [id number] Charlene MASON DDIE PATIENT [facility] POINT OF SERVICE TRICA RE Oct 27, 2011 [id number] [phone] Charlene MASON DDFRED PATIENT [facility] (WNR) SUKUMAR CHERY(WN R) May 28, 2017 (WNR) [id number] Charlene MASON DDFRED PATIENT Selected Encounter This section includes the information on record at [place] for the Encounter. Date/Time Encounter Type Encounter [...] this document. The data comes from all [place] facilities. Date Advance Directives Provider Source Jan 03, 2022 ADVANCE DIRECTIVE LUIS EDUARDO [facility] [place] Jan 03, 2021 ADVANCE DIRECTIVE KHUSHBU KUMAR [facility] Mar 19, 2012 ADVANCE DIRECTIVE ERIKA MORALES [place] [facility]
== END 2024-06-17 13:17 | disposition home or self-care (01) ==
PROVIDERS: PCP Internal Medicine; Visit Provider Internal Medicine Pulmonary Disease
DX: G47.33 Obstructive sleep apnea (adult) (pediatric) (principal); Z91.09 Other allergy status, other than to drugs and biological substances
CPT/HCPCS: 99214

== ENCOUNTER → 2024-06-17 12:56 | Outpatient (BNVA) | payer OTHER, SELFPAY | PROVIDERS: PCP Internal Medicine; Visit Provider Internal Medicine Pulmonary Disease | DX: G47.33 Obstructive sleep apnea (adult) (pediatric) (principal); Z91.09 Other allergy status, other than to drugs and biological substances; Z99.89 Dependence on other enabling machines and devices | CPT/HCPCS: 99212 ==